=== PATIENT | female | born 1985 | race Two or more races ===

== ENCOUNTER 2021-08-03 10:33 | Outpatient (REF) | payer MEDICAID, SELFPAY ==
--- NOTE | ~2021-08-03 | XR_ITS ---
EXAMINATION: XR HIP, RIGHT CLINICAL INFORMATION: Right hip pain. COMPARISON: None TECHNIQUE: Two views of the right hip. FINDINGS: Bones and soft tissues are normal. No fracture. Alignment is anatomic. Hip joint space is maintained. XR/XR hip RT min 2V IMPRESSION: Unremarkable right hip.
== END 2021-08-03 10:34 | disposition home or self-care (01) ==
LOC: HO.XRAY 10:33
PROVIDERS: Absent Provider Nurse Practitioner Primary Care; PCP Nurse Practitioner Primary Care; Visit Provider Student in an Organized Health Care Education/Training Program
DX: M25.551 Pain in right hip (principal)
CPT/HCPCS: 73502

== ENCOUNTER 2021-12-04 09:23 | Outpatient (REF) | payer MEDICAID, SELFPAY ==
--- NOTE | ~2021-12-04 | XR_ITS ---
EXAMINATION: XR KNEE, RIGHT CLINICAL INFORMATION: Right knee pain. COMPARISON: None TECHNIQUE: Four views of the right knee. FINDINGS: There is no evidence of acute fracture or dislocation of the right knee. Right knee joint spaces are maintained. Bony density about the medial aspect of distal femur is seen consistent with previous medial collateral ligament injury. XR/XR knee RT 4V IMPRESSION: Evidence for old right medial collateral ligament injury without acute abnormality of the right knee identified.
== END 2021-12-04 09:24 | disposition home or self-care (01) ==
LOC: HO.XRAY 09:23
PROVIDERS: PCP Nurse Practitioner Primary Care; Visit Provider Nurse Practitioner Primary Care
DX: M25.561 Pain in right knee (principal)
CPT/HCPCS: 73564

== ENCOUNTER 2022-09-15 14:39 | Outpatient (REF) | payer MEDICAID, SELFPAY ==
--- NOTE | ~2022-09-15 | MM_ITS ---
EXAMINATION: MM DIAGNOSTIC DIGITAL BREAST TOMOSYNTHESIS, BILATERAL US DIAGNOSTIC ULTRASOUND BREAST, RIGHT CLINICAL INFORMATION: 36-year-old with chronic intermittent sometimes cyclical lateral right breast pain. No palpable mass or discharge. The lifetime risk of breast cancer based on the Tyrer-Cuzick Model is 8%. COMPARISON: None. TECHNIQUE: Digital breast tomosynthesis is performed in both the craniocaudal and mediolateral oblique views along with computer-aided detection (CAD). Synthesized 2D images are generated from the tomosynthesis. Ultrasound right breast is targeted to the area of clinical concern outer breast. Grayscale imaging and color Doppler are performed without and with harmonics. FINDINGS: There are scattered areas of fibroglandular density (ACR BI-RADS breast composition Category b). There is no significant mass or architectural abnormality. No abnormal calcifications. The axilla are unremarkable. The skin contours are smooth. No skin thickening or coarsening of the Chintan's ligaments. Ultrasound right breast demonstrates no cystic or solid mass or architectural abnormality. No skin thickening or edema tracking in soft tissue planes. Results are discussed with the patient at time of visit. MM/MM tomosynthesis diagnostic BI IMPRESSION: -No mammographic evidence of malignancy or inflammatory changes. -Unremarkable targeted right breast ultrasound. ASSESSMENT: BI-RADS 1: Negative RECOMMENDATION: 1. Patient should be managed based on the clinical impression. 2. Otherwise, routine annual screening mammography, beginning age 40, or earlier as clinical risk factors warrant. This patient's information was entered into a reminder system with a target due date for their next mammogram.
== END 2022-09-15 14:40 | disposition home or self-care (01) ==
LOC: HO.MAMMO 14:39
PROVIDERS: PCP Advanced Practice Midwife; Visit Provider Advanced Practice Midwife
DX: N63.13 Unspecified lump in the right breast, lower outer quadrant (principal)
CPT/HCPCS: 76642; 77062; 77066

== ENCOUNTER 2022-09-16 12:10 | Outpatient (REF) | payer MEDICAID, SELFPAY | END 2022-09-16 12:11 | disposition home or self-care (01) | LOC: HO.HOSX 12:10 | PROVIDERS: Visit Provider Physician Assistant | DX: Z13.89 Encounter for screening for other disorder (principal) ==

== ENCOUNTER 2022-09-23 06:49 | Outpatient (REF) | payer MEDICAID, SELFPAY ==
--- NOTE | ~2022-09-23 | XR_ITS ---
EXAMINATION: XR KNEE BILATERAL CLINICAL INFORMATION: Bilateral knee pain. COMPARISON: Right knee 12/04/2021. TECHNIQUE: AP bilateral knee and right knee 2 views and left knee 2 views. FINDINGS: AP BILATERAL KNEE: The medial and lateral compartment joint spaces are preserved. There is a small bone fragment adjacent to the medial femoral condyle similar to previous study likely from previous collateral ligament avulsion/injury. The joint space is maintained normal bilaterally. No loose bodies or bony erosive changes seen. The soft tissues are normal. LEFT KNEE: The patellofemoral compartment joint is preserved. No bony erosive changes, loose bodies or joint effusion seen. No fracture or dislocation. RIGHT KNEE: The patellofemoral compartment joint space is maintained normal. No bony erosive changes or loose body seen. The soft tissues are normal. XR/XR knee standing BI IMPRESSION: Small avulsion fragment along the medial femoral condyle right knee similar to previous study. It most likely represents medial collateral ligament avulsion injury or fracture. The rest of the right and left knee appears unremarkable.
--- NOTE | ~2022-09-23 | XR_ITS ---
EXAMINATION: XR KNEE BILATERAL CLINICAL INFORMATION: Bilateral knee pain. COMPARISON: Right knee 12/04/2021. TECHNIQUE: AP bilateral knee and right knee 2 views and left knee 2 views. FINDINGS: AP BILATERAL KNEE: The medial and lateral compartment joint spaces are preserved. There is a small bone fragment adjacent to the medial femoral condyle similar to previous study likely from previous collateral ligament avulsion/injury. The joint space is maintained normal bilaterally. No loose bodies or bony erosive changes seen. The soft tissues are normal. LEFT KNEE: The patellofemoral compartment joint is preserved. No bony erosive changes, loose bodies or joint effusion seen. No fracture or dislocation. RIGHT KNEE: The patellofemoral compartment joint space is maintained normal. No bony erosive changes or loose body seen. The soft tissues are normal. XR/XR knee LT 2V IMPRESSION: Small avulsion fragment along the medial femoral condyle right knee similar to previous study. It most likely represents medial collateral ligament avulsion injury or fracture. The rest of the right and left knee appears unremarkable.
--- NOTE | ~2022-09-23 | XR_ITS ---
EXAMINATION: XR KNEE BILATERAL CLINICAL INFORMATION: Bilateral knee pain. COMPARISON: Right knee 12/04/2021. TECHNIQUE: AP bilateral knee and right knee 2 views and left knee 2 views. FINDINGS: AP BILATERAL KNEE: The medial and lateral compartment joint spaces are preserved. There is a small bone fragment adjacent to the medial femoral condyle similar to previous study likely from previous collateral ligament avulsion/injury. The joint space is maintained normal bilaterally. No loose bodies or bony erosive changes seen. The soft tissues are normal. LEFT KNEE: The patellofemoral compartment joint is preserved. No bony erosive changes, loose bodies or joint effusion seen. No fracture or dislocation. RIGHT KNEE: The patellofemoral compartment joint space is maintained normal. No bony erosive changes or loose body seen. The soft tissues are normal. XR/XR knee RT 1V IMPRESSION: Small avulsion fragment along the medial femoral condyle right knee similar to previous study. It most likely represents medial collateral ligament avulsion injury or fracture. The rest of the right and left knee appears unremarkable.
== END 2022-09-23 06:50 | disposition home or self-care (01) ==
LOC: HO.HOSX 06:49
PROVIDERS: Visit Provider Physician Assistant
DX: S83.8X1A Sprain of other specified parts of right knee, initial encounter (principal); M25.562 Pain in left knee
CPT/HCPCS: 73560; 73565; 99202

== ENCOUNTER 2022-09-30 14:53 | Outpatient (REF) | payer MEDICAID, SELFPAY ==
--- NOTE | ~2022-09-30 | MR_ITS ---
EXAMINATION: MR KNEE WITHOUT CONTRAST, RIGHT CLINICAL INFORMATION: Right knee pain following a fall 4 weeks ago. COMPARISON: Right knee radiographs dated 09/23/2022. TECHNIQUE: MRI of the knee without contrast was performed using routine sequences on a high-field scanner. FINDINGS: MENISCI: Medial Meniscus: Intact Lateral Meniscus: Intact LIGAMENTS: Cruciate: Intact Collateral: Thickening of the medial collateral ligament consistent with a remote injury. The previous CT seen calcification on the radiographs is not appreciated on MR examination. No edema to suggest acute ligament injury. Intact fibular collateral ligament. EXTENSOR MECHANISM: Intact quadriceps and patellar tendons. Normal patellofemoral alignment. ARTICULAR CARTILAGE/BONE: Patellofemoral Compartment: Intact articular cartilage. Medial Compartment: Intact articular cartilage. Lateral Compartment: Intact articular cartilage. JOINT FLUID AND BURSAE: Trace joint effusion. MR/MR knee RT wo con IMPRESSION: 1. No acute meniscal or ligamentous injury. 2. Trace joint effusion.
== END 2022-09-30 14:54 | disposition home or self-care (01) ==
LOC: HO.MRI 14:53
PROVIDERS: Visit Provider Physician Assistant
DX: M17.11 Unilateral primary osteoarthritis, right knee (principal); S83.8X1A Sprain of other specified parts of right knee, initial encounter; M22.41 Chondromalacia patellae, right knee
CPT/HCPCS: 73721

== ENCOUNTER → 2022-10-06 10:52 | Outpatient (BNVA) | payer MEDICAID, SELFPAY | PROVIDERS: PCP Advanced Practice Midwife; Visit Provider Physician Assistant | DX: M17.11 Unilateral primary osteoarthritis, right knee (principal) | CPT/HCPCS: 99202 ==

== ENCOUNTER → 2022-11-12 14:07 | Outpatient (BNVA) | payer MEDICAID, SELFPAY | PROVIDERS: PCP Nurse Practitioner Primary Care; Referring Provider Nurse Practitioner Primary Care; Visit Provider Physician Assistant | DX: Z13.89 Encounter for screening for other disorder (principal) ==

== ENCOUNTER 2022-11-24 11:00 | Outpatient (RCR) | payer MEDICAID, SELFPAY ==
--- NOTE | 2022-10-29 16:33 | MHC.PT.EP ---
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 Pt REPORTS SHE HAS HAD 3 FALLS, THE LAST ONE 2 MONTHS AGO. Pt NOT SURE WHY SHE FELL REPORTS SHE FEELS LIKE HER R KNEE IS NOT STRONG IT WAS BEFORE THE LAST FALL. TO MD/ORTHO AND REFERRED TO PT. WHEN SAW ORTHO ON 10/06/22 A CORTISONE INJECTION WAS OFFERED, BUT Pt DEFERRED. Pt PRESENTS TO PT WITH GOOD R KNEE ROM AND STRENGTH PER MMT. Pt WITH POOR LE POSTURE (GENU VALGUS, RECURVATUM AND PES PLANUS). SHOULD BENEFIT FROM PT TO ADDRESS THESE ISSUES. MAY BENEFIT FROM [facility] SUPPORTS Frequency and Duration: The patient will be seen 2X/WK X 4 WKS Short Term Goals: 1. INCREASED AWARENESS R KNEE CARE 2. 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 I HEP WITH DC EX PLAN 2. DECREASED R KNEE PAIN AT LEAST 50% WITH ADLS Treatment Plan: Modalities to reduce pain, spasms and effusion. Manual therapy to restore motion and function. Therapeutic exercise to improve strength and flexibility. Neuromuscular re-education for posture and balance. Therapeutic activities to return to functional activities of daily living. Electronically signed by: LAUREL MAHAJAN PT Please sign and return to therapist. Thank you for your referral.
--- NOTE | 2023-02-04 12:41 | MHC.PT.DC ---
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 She did well with the addition of unlevel surfaces. With lateral step overs on BOSU she reports midl pain in lateral knee around patella. Due to this pain modalities were utilized end of session.'. NO FURTHER APPTS SCHEDULED Electronically signed by: LAUREL MAHAJAN PT Please sign and return to therapist. Thank you for your referral.
== END 2023-02-04 12:42 | disposition home or self-care (01) ==
LOC: HO.PT 11:00
PROVIDERS: PCP Nurse Practitioner Primary Care; Visit Provider Physician Assistant
DX: S83.8X1A Sprain of other specified parts of right knee, initial encounter (principal); M22.40 Chondromalacia patellae, unspecified knee
CPT/HCPCS: 97110; 97112; 97140; 97161; 97530

== ENCOUNTER → 2022-11-26 09:45 | Outpatient (BNVA) | payer MEDICAID, SELFPAY | PROVIDERS: PCP Nurse Practitioner Primary Care; Visit Provider Physician Assistant Surgical | DX: E66.9 Obesity, unspecified (principal); Z68.39 Body mass index [BMI] 39.0-39.9, adult | CPT/HCPCS: 99202 ==

== ENCOUNTER 2022-12-03 10:54 | Outpatient (REF) | payer MEDICAID, SELFPAY ==
--- NOTE | ~2022-12-03 | XR_ITS ---
EXAMINATION: XR CHEST 2 VIEWS CLINICAL INFORMATION: Obesity. COMPARISON: None. TECHNIQUE: Frontal and lateral views of the chest were obtained. FINDINGS: The heart, great vessels, pulmonary vasculature and mediastinum are normal. The lungs show no focal infiltrate, effusion or pneumothorax. There is no acute osseous abnormality. XR/XR chest 2V IMPRESSION: No active cardiopulmonary disease.
[2022-12-03 11:17] LABS: MANUAL DIFF FLAG NO
--- NOTE | 2022-12-03 12:04 | ECG_ITS ---
Test Reason : obesity Blood Pressure : / mmHG Vent. Rate : 078 BPM Atrial Rate : 078 BPM P-R Int : 164 ms QRS Dur : 082 ms QT Int : 378 ms P-R-T Axes : 016 061 032 degrees QTc Int : 430 ms Normal sinus rhythm Normal ECG No previous ECGs available Referred By: Sp Bradley Electronically Signed By:Braden Antunez
[2022-12-03 12:30] LABS: Basophils Percent Auto 0.1 % (0-2); Eosinophils Absolute Auto 0.1 X10*3/uL (0.0-0.4); Eosinophils Percent Auto 0.7 % (0-4); Hematocrit 42.8 % (37.0-47.0); Hemoglobin 13.6 g/dl (12.0-16.0); Imm Gran Abs Auto 0.02 X10*3/uL (0.00-0.03); Imm Gran Pct Auto 0.3 % (0.0-0.4); Lymphocytes Absolute Auto 2.4 X10*3/uL (1.2-4.9); Lymphocytes Percent Auto 32.6 % (20-40); Mean Corpuscular HGB Conc 31.8 g/dl (31.0-35.0); Mean Corpuscular Hemoglobin 27.5 pg (27.0-33.0); Mean Corpuscular Volume 86.6 fL (80.0-98.0); Mean Platelet Volume 11.4 fL (9.4-12.3); Monocytes Absolute Auto 0.5 X10*3/uL (0.1-1.2); Neutrophils Absolute Auto 4.5 x10*3/uL (2.0-8.3); Neutrophils Percent Auto 60.3 % (45-73); Platelet Count 303 X10*3/uL (160-400); Red Blood Count 4.94 X10*6/uL (4.20-5.50); Red Cell Distribution Width 14.5 % (11.0-16.0); White Blood Count 7.5 X10*3/uL (4.8-10.8)
[2022-12-03 12:40] LABS: Estimated Average Glucose 108 mg/dL; Hemoglobin A1c % 5.4 %
[2022-12-03 13:04] LABS: Alanine Aminotransferase 17 U/L (0-31); Albumin Level 4.3 g/dL (3.5-5.0); Alkaline Phosphatase 73 U/L (39-117); Anion Gap 16 (12-20); Aspartate Amino Transferase 14 U/L (5-31); Bilirubin Total 0.4 mg/dL (0.0-1.0); Blood Urea Nitrogen 9 mg/dL (9-16); C Reactive Protein 0.34 mg/dL (< or = 0.50); Calcium 9.3 mg/dL (8.4-10.2); Carbon Dioxide 24 mmol/L (22-29); Chloride 107 mmol/L (96-108); Cholesterol 218 mg/dL; Estimated Glomerular Filt Rate > 60; Glucose Random 81 mg/dL (60-115); HDL Cholesterol 46 mg/dL; Iron 80 mcg/dL (30-160); LDL Cholesterol Calculated 153 mg/dl; Percent Iron Saturation 25 % (15-50); Potassium 4.5 mmol/L (3.3-5.1); Sodium 142 mmol/L (135-145); Total Iron Binding Capacity 319 mcg/dL (228-428); Total Protein 7.1 g/dL (6.5-8.0); Triglycerides 99 mg/dL; Unsaturated Iron Binding 239 ug/dL
[2022-12-03 13:37] LABS: Ferritin 44 ng/mL (10-122); Folate 12.5 ng/mL (> or = 4.0); Insulin 14 uU/mL (2-29); TSH reflex Free T4 1.08 uIU/mL (0.32-4.0); Vitamin B12 844 pg/mL (200-900); Vitamin D 25-OH Total 23.6 ng/mL (>30)
[2022-12-06 14:14] LABS: Calcium (PTHI) 9.4 mg/dL (8.6-10.2); PTHI 19 pg/mL (16-77)
[2022-12-07 23:59] LABS: Zinc 81 mcg/dL (60-130)
[2022-12-08 15:48] LABS: Vitamin A 55 mcg/dL (38-98)
[2022-12-11 17:49] LABS: Vitamin B1 <6 nmol/L (8-30)
== END 2022-12-03 10:55 | disposition home or self-care (01) ==
LOC: HO.LAB 10:54
PROVIDERS: PCP Nurse Practitioner Primary Care; Visit Provider Physician Assistant Surgical
DX: E66.9 Obesity, unspecified (principal)
CPT/HCPCS: 36415; 71046; 80053; 80061; 82306; 82607; 82728; 82746; 83036; 83525; 83540; 83970; 84425; 84443; 84590; 84630; 85025; 86140; 93005

== ENCOUNTER → 2022-12-10 09:54 | Outpatient (BNVA) | payer MEDICAID, SELFPAY | PROVIDERS: PCP Nurse Practitioner Primary Care; Visit Provider Dietitian, Registered | DX: E66.9 Obesity, unspecified (principal); Z71.3 Dietary counseling and surveillance | CPT/HCPCS: 97802 ==

== ENCOUNTER → 2022-12-23 13:47 | Outpatient (BNVA) | payer MEDICAID, SELFPAY | PROVIDERS: PCP Nurse Practitioner Primary Care; Visit Provider Physician Assistant Surgical | DX: Z11.0 Encounter for screening for intestinal infectious diseases (principal); E66.9 Obesity, unspecified; Z68.37 Body mass index [BMI] 37.0-37.9, adult | CPT/HCPCS: 99211; 99212 ==

== ENCOUNTER 2022-12-23 16:57 | Outpatient (REF) | payer MEDICAID, SELFPAY ==
[2022-12-24 13:46] LABS: H Pylori Breath Test Negative (Negative)
== END 2022-12-23 16:58 | disposition home or self-care (01) ==
LOC: HO.LNP 16:57
PROVIDERS: Visit Provider Physician Assistant Surgical
DX: E66.9 Obesity, unspecified (principal); Z11.0 Encounter for screening for intestinal infectious diseases
CPT/HCPCS: 83013

== ENCOUNTER → 2023-01-05 09:37 | Outpatient (BNVA) | payer MEDICAID, SELFPAY | PROVIDERS: PCP Nurse Practitioner Primary Care; Visit Provider Dietitian, Registered | DX: E66.9 Obesity, unspecified (principal); Z71.3 Dietary counseling and surveillance | CPT/HCPCS: 97803 ==

== ENCOUNTER → 2023-01-12 15:57 | Outpatient (BNVA) | payer MEDICAID, SELFPAY | PROVIDERS: PCP Nurse Practitioner Primary Care; Visit Provider Physician Assistant Surgical | DX: E66.9 Obesity, unspecified (principal); Z68.36 Body mass index [BMI] 36.0-36.9, adult | CPT/HCPCS: 99212 ==

== ENCOUNTER 2023-01-24 07:41 | Outpatient (REF) | payer MEDICAID, SELFPAY ==
--- NOTE | ~2023-01-24 | US_ITS ---
EXAMINATION: US COMPLETE ABDOMEN WITH LIVER ELASTOGRAPHY CLINICAL INFORMATION: Obesity. COMPARISON: None available. TECHNIQUE: Real-time imaging of the abdominal viscera. Noninvasive ultrasound liver fibrosis assessment is performed using Adriana ElastPQ point quantification shear wave elastography (2D-SWE) with a C5-2 MHz transducer. Multiple elastography samples are obtained. FINDINGS: PANCREAS: Normal. The visualized pancreatic head and body are normal in appearance. The remainder of the pancreas is obscured from visualization by the overlying bowel gas. ABDOMINAL AORTA: The proximal, middle, and distal aortic segments are normal in caliber. INFERIOR VENA CAVA: Visualized portions are normal. LIVER: The liver demonstrates normal size, contour and slight increase in echogenicity. No focal lesion or intrahepatic biliary duct dilatation. The right lobe measures 16.7 cm in length. The left lobe measures 12.1 cm in length. Portal flow is towards the liver (hepatopetal). Shear wave liver elastography median stiffness is 1.3 m/s (reference: normal median stiffness is 1.3 m/s or less). IQR/median stiffness to assess sampling precision is 0.03 (reference: good quality data set is IQR/median stiffness of 0.15 or less). GALLBLADDER: There are small cholesterol polyps, the largest measuring 5 mm. The gallbladder is physiologically distended without evidence of stones, sludge, wall thickening or pericholecystic fluid. COMMON BILE DUCT: Normal in caliber measuring 0.3 cm in diameter. RIGHT KIDNEY: Normal. No hydronephrosis. No renal calculi or focal parenchymal lesions. The kidney measures 11.4 cm in maximum dimension. LEFT KIDNEY: Normal. No hydronephrosis. No renal calculi or focal parenchymal lesions. The kidney measures 10.5 cm in maximum dimension. SPLEEN: Normal. The spleen measures 10.5 cm in maximum dimension. FREE FLUID: None. US/US abdomen comp w elastography IMPRESSION: 1. There is slight generalized increase in hepatic echotexture, consistent with fatty infiltration or hepatocellular disease. Please correlate clinically. No focal hepatic mass or intrahepatic biliary dilatation is seen. 2. Liver elastography: Measurements are consistent with a high probability of normal liver stiffness. 3. Small cholesterol polyps are seen, the largest measuring 5 mm. Recommend repeat abdominal ultrasound in 6 months to ensure stability of this finding. REFERENCE: Society of Radiologists in Ultrasound Liver Stiffness Thresholds (2020): LIVER STIFFNESS THRESHOLDS: *Liver Stiffness equal or less than 1.3 m/s: High probability of being normal. *Liver Stiffness less than 1.7 m/s: In the absence of other known clinical signs, rules out compensated advanced chronic liver disease. *Liver Stiffness 1.7-2.1 m/s: Suggestive of compensated advanced chronic liver disease but need further test for confirmation. *Liver Stiffness over 2.1 m/s: Rules in compensated advanced chronic liver disease. *Liver Stiffness over 2.4 m/s: Suggestive of clinically significant portal hypertension. QUALITY OF DATA SET: *IQR/Median value equal or less than 0.15 implies a quality data set. *IQR/Median value over 0.15 implies a poor quality data set. SIGNIFICANT CHANGE FROM PRIOR EXAM: Significant change if liver stiffness measurement is 10% or greater from prior exam. OTHER CONSIDERATIONS: The stage of liver fibrosis may be overestimated in the setting of acute hepatitis, liver inflammation, elevated liver function tests, hepatic vascular congestion, obstructive cholestasis, non-fasting state, and infiltrative diseases such as amyloidosis and lymphoma. In some patients with NAFLD, the liver stiffness thresholds for compensated advanced chronic liver disease may be lower. In causes other than viral hepatitis and NAFLD, liver stiffness thresholds are not well established.
--- NOTE | ~2023-01-24 | FL_ITS ---
EXAMINATION: XR FLUOROSCOPY UPPER GI WITH AIR CLINICAL INFORMATION: Obesity. COMPARISON: None available. TECHNIQUE: Routine upper GI air-contrast study was performed in upright and lying position. FINDINGS: Following oral administration of thick barium and effervescent granules there is normal propagation of bolus from the oral cavity through the pharynx, esophagus into stomach without any evidence of obstruction, narrowing or stricture. On placing patient supine and prone lying there is moderate gastroesophageal reflux without hiatal hernia. Otherwise rest of the course, caliber and peristalsis of the stomach and the duodenal bulb and the sweep is normal. The mucosal pattern of the stomach and duodenum is normal. FLUOROSCOPY TIME: 1.2 minutes. DOSE AREA PRODUCT: 29.942 uGy-m2 (microgray-meter squared). FL/FL upper GI w air IMPRESSION: Moderate gastroesophageal reflux with small hiatal hernia.
== END 2023-01-24 07:42 | disposition home or self-care (01) ==
LOC: HO.US 07:41
PROVIDERS: PCP Nurse Practitioner Primary Care; Visit Provider Physician Assistant Surgical
DX: Z01.818 Encounter for other preprocedural examination (principal); E66.9 Obesity, unspecified; K21.9 Gastro-esophageal reflux disease without esophagitis
CPT/HCPCS: 74246; 76705; 76981

== ENCOUNTER → 2023-01-25 10:08 | Outpatient (BNVA) | payer MEDICAID, SELFPAY | PROVIDERS: PCP Nurse Practitioner Primary Care; Visit Provider Dietitian, Registered | DX: E66.9 Obesity, unspecified (principal); Z68.36 Body mass index [BMI] 36.0-36.9, adult | CPT/HCPCS: 97803 ==

== ENCOUNTER → 2023-02-03 10:49 | Outpatient (BNVA) | payer MEDICAID, SELFPAY | PROVIDERS: PCP Nurse Practitioner Primary Care; Visit Provider Surgery | DX: E66.9 Obesity, unspecified (principal); E78.00 Pure hypercholesterolemia, unspecified; K76.0 Fatty (change of) liver, not elsewhere classified; K44.9 Diaphragmatic hernia without obstruction or gangrene; Z68.35 Body mass index [BMI] 35.0-35.9, adult | CPT/HCPCS: 99212 ==

== ENCOUNTER → 2023-02-04 10:29 | Outpatient (BNVA) | payer OTHER, MEDICAID, SELFPAY | PROVIDERS: PCP Nurse Practitioner Primary Care; Visit Provider Counselor Mental Health ==

== ENCOUNTER → 2023-02-15 15:43 | Outpatient (BNVA) | payer MEDICAID, SELFPAY | PROVIDERS: PCP Nurse Practitioner Primary Care; Visit Provider Physician Assistant Surgical | DX: E66.9 Obesity, unspecified (principal); Z68.35 Body mass index [BMI] 35.0-35.9, adult | CPT/HCPCS: 99212 ==

== ENCOUNTER → 2023-03-07 11:19 | Outpatient (BNVA) | payer OTHER, MEDICAID, SELFPAY | PROVIDERS: PCP Nurse Practitioner Primary Care; Visit Provider Counselor Mental Health ==

== ENCOUNTER → 2023-03-21 10:55 | Outpatient (BNVA) | payer MEDICAID, SELFPAY | PROVIDERS: PCP Nurse Practitioner Primary Care; Visit Provider Physician Assistant | DX: M17.11 Unilateral primary osteoarthritis, right knee (principal) | CPT/HCPCS: 20610; 99212; J1040 ==

== ENCOUNTER → 2023-03-22 08:53 | Outpatient (BNVA) | payer MEDICAID, SELFPAY | PROVIDERS: PCP Nurse Practitioner Primary Care; Visit Provider Surgery | DX: E66.9 Obesity, unspecified (principal); Z68.34 Body mass index [BMI] 34.0-34.9, adult; K76.0 Fatty (change of) liver, not elsewhere classified; E78.00 Pure hypercholesterolemia, unspecified; K44.9 Diaphragmatic hernia without obstruction or gangrene; M17.11 Unilateral primary osteoarthritis, right knee; M22.40 Chondromalacia patellae, unspecified knee; S83.8X1A Sprain of other specified parts of right knee, initial encounter | CPT/HCPCS: 99212 ==

== ENCOUNTER → 2023-04-11 14:45 | Outpatient (BNVA) | payer MEDICAID, SELFPAY | PROVIDERS: PCP Nurse Practitioner Primary Care; Visit Provider Physician Assistant Surgical ==

== ENCOUNTER → 2023-04-14 13:43 | Outpatient (BNVA) | payer MEDICAID, SELFPAY | PROVIDERS: PCP Nurse Practitioner Primary Care; Visit Provider Surgery | DX: E66.9 Obesity, unspecified (principal); E78.00 Pure hypercholesterolemia, unspecified; K76.0 Fatty (change of) liver, not elsewhere classified; K44.9 Diaphragmatic hernia without obstruction or gangrene; M22.40 Chondromalacia patellae, unspecified knee; M17.11 Unilateral primary osteoarthritis, right knee; Z68.34 Body mass index [BMI] 34.0-34.9, adult | CPT/HCPCS: 99212 ==

== ENCOUNTER 2023-04-26 09:16 | Outpatient (REF) | payer MEDICAID, SELFPAY ==
--- NOTE | ~2023-04-26 | XR_ITS ---
Examination: XR shoulder LT min 2V, XR shoulder RT min 2V Indication: Pain Comparison: No pertinent prior studies are currently available for comparison. Technique: 3 views of the left shoulder and 3 views of the right shoulder obtained. Findings: Left shoulder: Humeral head is well-seated in the glenoid fossa. Bones are normal anatomic alignment with no acute fracture or dislocation. No significant bony degenerative or destructive changes. Visualized left ribs and chest unremarkable. Right shoulder: Humeral head again well-seated in the glenoid fossa. No acute fracture or dislocation. No significant bony degenerative or destructive changes. Visualized right ribs and chest unremarkable XR/XR shoulder RT min 2V Impression: No acute fracture or dislocation.
--- NOTE | ~2023-04-26 | XR_ITS ---
Examination: XR shoulder LT min 2V, XR shoulder RT min 2V Indication: Pain Comparison: No pertinent prior studies are currently available for comparison. Technique: 3 views of the left shoulder and 3 views of the right shoulder obtained. Findings: Left shoulder: Humeral head is well-seated in the glenoid fossa. Bones are normal anatomic alignment with no acute fracture or dislocation. No significant bony degenerative or destructive changes. Visualized left ribs and chest unremarkable. Right shoulder: Humeral head again well-seated in the glenoid fossa. No acute fracture or dislocation. No significant bony degenerative or destructive changes. Visualized right ribs and chest unremarkable XR/XR shoulder LT min 2V Impression: No acute fracture or dislocation.
== END 2023-04-26 09:17 | disposition home or self-care (01) ==
LOC: HO.HOSX 09:16
PROVIDERS: Visit Provider Physician Assistant
DX: M75.81 Other shoulder lesions, right shoulder (principal); M75.82 Other shoulder lesions, left shoulder
CPT/HCPCS: 73030; 99213

== ENCOUNTER 2023-04-26 11:13 | Outpatient (AMB) | payer MEDICAID, SELFPAY ==
--- NOTE | 2023-04-26 11:18 | MHC.OFFVIS ---
Intake Vital Signs 04/26/23 11:33 Height 5 ft 2 in Weight 187 lb BMI 34.2 Intake Visit Reasons: Newprob-B/L shoulder pain Intake Note: Lupe, 37 year old right hand dominant female, presents today for a new problem visit with complaints of bilateral shoulder pain. States both are as bad at the moment. States pain started about 1 yr ago and was seen with her PCP who RX'd patient to P.T. States she completed her sessions and was offered more sessions but she refuse due to the therapist causing her increase of pain with exercise. Currently states she has pain with over use of shoulder and when she does heavy lifting. At times her neck is affected, has shooting pain radiating down her arm. States she is taking Naproxen with very little relief. 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 She was seen by her PCP who referred her to physical therapy. She has discontinued working with physical therapy as her pain was aggravated with exercises. She states she has pain in her bilateral shoulder with overuse and heavy lifting. She also c/o intermittent neck pain which radiates down to her arm. She is taking naproxen with minimal relief. [facility] Medical History Anemia Arthritis Asthma Delivery with history of Depression Elevated cholesterol Gastritis GERD (gastroesophageal reflux disease) Hiatal hernia Migraine Surgical History Hx of section Hx of tubal ligation Family History Mother Hypertension Arthritis Son Hyperactive Daughter No problems noted. Son No problems noted. 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 Tenderness over the bicipital groove and along the deltoid region of the shoulder. Forward flexion to 175, external rotation to 90, internal rotation to S1. 5/5 RTC strength. Negative [place] and cross body abduction. NVI. Results Reviewed Results Reviewed: Xrays were obtained in the office today and personally reviewed by me of both shoulders show type 2 acromion. Assessment & Plan Assessment & Plan (1) Tendonitis of both rotator cuffs: Code(s): M75.81 - Other shoulder lesions, right shoulder; M75.82 - Other shoulder lesions, left shoulder Plan: We discussed options today which include injection and therapy. We are going to hold off on steroid injections today because she is having bariatric surgery tomorrow. I told her when Dr Bell approves her on having an injection, she can contact me to proceed. Otherwise, she will work on a HEP and see me back prn. Orders: Orders XR shoulder LT min 2V Today M25.512 - Pain in left shoulder XR shoulder RT min 2V Today M25.511 - Pain in right shoulder Patient Instructions: Scribed for Mihir Ramirez PA-C, by Jensen Dove medical officer psychiatry, on 04/26/2023 at 11:00 AM EST. IMihir PA-C, have personally reviewed and agree with the information entered by the scribe. Coding Level of Care Code New Pt Level 3 (74654) Diagnoses Tendonitis of both rotator cuffs M75.81; M75.82
[2023-04-26 11:33] VITALS: BMI 34.2
== END 2023-04-26 12:15 | disposition home or self-care (01) ==
PROVIDERS: PCP Nurse Practitioner Primary Care; Visit Provider Physician Assistant
DX: M75.81 Other shoulder lesions, right shoulder (principal); M75.82 Other shoulder lesions, left shoulder
CPT/HCPCS: 99213

== ENCOUNTER 2023-04-27 08:11 | Inpatient (IN) | payer MEDICAID, SELFPAY ==
[2023-04-20 11:26] VITALS: BMI 34.2
[2023-04-21 09:39] LABS: Alanine Aminotransferase 11 U/L (0-31); Albumin Level 4.3 g/dL (3.5-5.0); Alkaline Phosphatase 78 U/L (39-117); Anion Gap 12 (12-20); Aspartate Amino Transferase 11 U/L (5-31); Bilirubin Total 0.5 mg/dL (0.0-1.0); Blood Urea Nitrogen 12 mg/dL (9-16); C Reactive Protein 2.33 mg/dL (< or = 0.50); Calcium 9.7 mg/dL (8.4-10.2); Carbon Dioxide 25 mmol/L (22-29); Chloride 105 mmol/L (96-108); Cholesterol 207 mg/dL; Creatinine Clr Calc Pharmacy 101.3; Estimated Glomerular Filt Rate > 60; Glucose Random 89 mg/dL (60-115); HDL Cholesterol 48 mg/dL; Iron 45 mcg/dL (30-160); LDL Cholesterol Calculated 147 mg/dl; Percent Iron Saturation 14 % (15-50); Potassium 3.9 mmol/L (3.3-5.1); Sodium 138 mmol/L (135-145); Total Iron Binding Capacity 313 mcg/dL (228-428); Total Protein 7.6 g/dL (6.5-8.0); Triglycerides 63 mg/dL; Unsaturated Iron Binding 268 ug/dL
[2023-04-21 10:00] LABS: Ferritin 55 ng/mL (10-122); TSH reflex Free T4 1.16 uIU/mL (0.32-4.0); Vitamin D 25-OH Total 59.5 ng/mL (>30)
[2023-04-25 12:48] LABS: Vitamin B1 52 nmol/L (8-30)
[2023-04-26 00:33] LABS: Zinc 64 mcg/dL (60-130)
--- NOTE | 2023-04-26 11:43 | MHC.SHP ---
Pre-Procedural Eval Section A Date of Service: 04/26/23 The patient is an INPATIENT: Yes The History & Physical has been completed within 30 days and I have reviewed it.: Yes Section B Chief Complaint: Obesity, unspecified Allergies: Allergies Allergy/AdvReac Type Severity Reaction Status Date / Time No Known Allergies Allergy Verified 04/26/23 11:34 Plan I have reviewed the history and physical and performed a pertinent physical examination on my patient. No changes have occurred unless specified. Time Spent With Patient Time: Total time managing care of this patient today ____ minutes.
[2023-04-26 12:36] LABS: COVID-19 Test Negative (Negative); IDNOW Serial# 08D9AD1C
[2023-04-26 22:13] LABS: Vitamin A 41 mcg/dL (38-98)
[2023-04-27] VITALS (16 sets, daily range): BP systolic 107–169; BP diastolic 51–90; PULSE 78–98; RESP 15–21; TEMP 36.2–37.1; O2SAT 95–100; BMI 36.6
--- NOTE | 2023-04-27 06:49 | W.PM.OPN ---
Operative Note Operative Note Date of Service: 04/27/23 Narrative: Preop diagnosis: [Obesity, Class 3, hypercholesterolemia, hiatal hernia, NAFLD, right knee arthritis related to obesity] Postop diagnosis: [Same, no obvious hiatal hernia] Procedure: [] Surgeon: Deepak Bell MD Assist: [Kerri Sahu PA-C] Anesthesia: [GET, local: Marcaine, 0.5% w/ epi] Estimated blood loss: [5cc] Specimen: [Portion of stomach with fundus] Intraoperative findings: [Careful evaluation of the hiatus did not demonstrate hiatal hernia, even when withdrawing the 40 Tog[place]ese bougie, no dimple was demonstrated; NAFLD] Indications: [The patient is a 37-year-old woman with class 3 obesity refractory to medical management. She states that she became concerned about her weight several years ago and entered the surgical weight loss program with a BMI of 40/weight of 218.6 lb with a comorbidities of arthritis, right knee related to her obesity, NAFLD, hiatal hernia and hypercholesterolemia.? She reports her highest weight is 234 lb.? She is congratulated on her interval weight. After demonstrating healthy lifestyle choices that resulted in weight loss, the option of continued medical management verses operative intervention was discussed at length and the patient seemed understand her options. She wanted to proceed with surgery, specifically a laparoscopic sleeve gastrectomy, possible hiatal hernia repair, intraoperative endoscopy and possible ventral hernia repair. I reviewed the inherent risks of this procedure which include, but are not limited to: Bleeding that could require another operation or blood transfusion; the inherent risks of transfusion reaction infectious disease from blood transfusions; the risk of staple line leaks that could cause sepsis, multi-system organ failure and ; the risk of mesenteric or deep vein thrombosis of the lower extremities that could cause a fatal pulmonary embolism was reviewed; the risk of GERD that could require conversion to gastric bypass was discussed; the risk of recurrent hiatal hernia, especially in the setting of weight regain was reviewed. The risk of weight regain if maladaptive eating and sedentary behavior continue was discussed. The importance of proper diet and increased activity to augment surgical weight loss and the fact that no operation would result in weight loss of poor dietary decisions and sedentary behavior are resumed were discussed at length and apparently understood. The patient had the option of having a health plan specialist present and declined this option. ] Procedure: [The patient was identified in the preoperative in the holding area and confirmed no interval change in her health; she declined interpretive services and had no questions. She was then brought into operating room 6 and the patient was placed supine on the operating table. Safety straps were utilized and a footboard utilized. The patient was induced in general endotracheal anesthesia administered with excellent effect. An appropriate time-out was performed. The patient's abdomen was then widely prepped and draped in the usual manner for surgery using chlorprep. Antibiotics per protocol were administered by Anesthesia. After infiltrating preemptive local in the skin and subcutaneous tissues in the left upper quadrant, a stab incision was made sharply in the left subcostal abdomen and the Veress needle inserted without incident. An appropriate drop test was performed then a pneumoperitoneum of 15 mmHg was obtained using carbon dioxide. Opening pressures were 7 mmHg. Next, a 5 mm 0 degree scope over a 5 mm Optiview trocar was used to access the abdomen via the epigastric incision in the midline. Once the abdomen was entered, the the trocar obturator was removed and the laparoscope was used to confirm there was no injury from the Veress needle nor trocar insertion injury to the bowel or mesentery, then the scope was switched to a 5 mm 45 degree laparoscope. Next, using preemptive local, additional 5 mm trocars were placed under direct laparoscopic vision on the patient's left abdomen, then right and the 5 mm midline trocar upsized to a 12 mm to accommodate the stapler. The patient was then positioned in reverse Trendelenburg and the liver retractor deployed through the right lateral 5 mm trocar and secured. A 40 [place] ViSiGi bougie was inserted by Anesthesia per os and advanced to the stomach to decompress. It was then withdrawn to the GE junction all under direct laparoscopic vision. Dissection was begun along the greater curvature using the 5 mm [place] LigaSure for hemostasis and continued to the left gurpreet of the diaphragm. Dissection was then carried towards the pylorus to 3-4 cm from the pylorus and retro gastric adhesions lysed. The gastroesophageal fat pad was carefully mobilized taking care to avoid injury to the esophagus and stomach and dissection carried towards the short gastrics taking care to avoid injury to the spleen and splenic artery. The diaphragmatic hiatus was carefully examined for a hernia, and no apparent hernia was appreciated. Next, the 40 Fr ViSiGi bougie was advanced by anesthesia under direct vision and laparoscopic guidance and positioned in the antrum approximately 3 cm from the pylorus using laparoscopic graspers to serve as a guide for a stapled sleeve gastrectomy. Stapling was performed with [place] power stapler Endo-KARLEY stapler with a purple 45 and then purple 45 and 60 loads. The bougie served as a guide to maintain the same sleeve caliber to avoid stricture & sleeve distortion. The 10 mm clip x ray examiner of aircraft was used to apply additional clips to the staple line. Care was taken to be sure that the sleeve laid flat and was without stricture. Once the sleeve was complete, the portion of stomach was placed in the lower abdomen to be sent for removal and permanent section. The staple line, gastrocolic omentum, spleen and short gastric areas were all inspected for hemostasis which was found to be good. The ViSiGi bougie used for a leak test by reducing the reverse Trendelenburg and instilling sterile saline. Next, the bougie was withdrawn under laparoscopic vision used to suction the esophagus and hypopharynx and then discarded. After inspecting again for hemostasis, a gastropexy was performed using 2-0 Polysorb suture to secure the sleeve gastrectomy to the gastrocolic omentum. Next, I broke scrub perform an on-table upper endoscopy to assess the sleeve and the esophagus and stomach. The patient was returned to neutral position and the Olympus 180 gastroscope was advanced taking care to preserve the endotracheal tube. The esophagus was intubated without incident. Minimal air was insufflated and the scope advanced into the newly formed sleeve. The staple line was inspected for hemostasis and the morphology of the sleeve appeared straight with a uniform diameter. Intraoperatively, there was no evidence of staple line leak seen during laparoscopy as air was insufflated via endoscope. The scope was then used to aspirate the air from the sleeve withdrawn and removed. I then rescrubbed to return to the operative field and again inspected the field for hemostasis. After final assessment for hemostasis, the patient was returned to neutral position, a Anne Marie used to withdraw the resected gastric specimen which was sent for permanent section. The fascia of the 12 mm midline was closed using an 0 Polysorb figure of 8 on a suture passer under direct laparoscopic vision. The abdomen was then deflated and all trocars removed. The suture was then tied and the skin closed with 4-0 Monocryl subcuticular sutures. The abdomen was then washed and dried, benzoin and Steri-Strips applied followed by Tegaderms. The patient tolerated the procedure well was then extubated the recover in stable condition. All sponge needle and instrument counts were correct x2. The patient requested that I call her daughter Slime Rogel at [phone] postoperatively and apprised of the operation and typical perioperative course. Her questions seemed to be satisfactorily answered. She stated that she understood Pashto & declined medical office scheduler.]
[2023-04-27] MEDS: Lactated Ringers 1,000 ML 150 ML IVCONT (09:11)
[2023-04-27] MEDS: Aprepitant 32 MG/4.4 ML VIAL IVPUSH (09:12)
--- NOTE | 2023-04-27 09:20 | PHA.MEDREC ---
Pharmacy Consult ? Medication Reconciliation Pharmacy has reviewed the medication reconciliation completed by nursing. Contacted [facility] to confirm medication dose. Nelsy Chua, MajoD
--- NOTE | 2023-04-27 09:38 | P.CONAN_ITS ---
[facility] Active Problems Active Problems: All Active Problems (Updated 04/26/23 @ 12:16 by Mihir Ramirez PA-C) Tendonitis of both rotator cuffs (Acute) Injury of meniscus of right knee (Acute) Patella, chondromalacia (Acute) Patellofemoral arthritis of right knee (Acute) Obesity (BMI 30-39.9) (Acute) Hypercholesterolemia (Acute) NAFLD (nonalcoholic fatty liver disease) (Acute) Hiatal hernia (Acute) Past Medical History Medical History Anemia Arthritis Asthma Delivery with history of Depression Elevated cholesterol Gastritis GERD (gastroesophageal reflux disease) Hiatal hernia Migraine Family History Family History Mother Hypertension Arthritis Son Hyperactive Daughter No problems noted. Son No problems noted. Family history of problems with anesthesia: No Surgical History Surgical History Hx of section Hx of tubal ligation History of Problems with Anesthesia: No Social History Social History Are you a primary customer care assistant to a significant other at home: Yes Do you presently have visiting nurse or other home services: No Alcohol intake: current Alcohol intake frequency: does not drink Patient Tobacco Use Status: Never used Tobacco Use of substances other than those prescribed or required for medical reasons: No Have you been hit, kicked, punched, or otherwise hurt by someone within the past year? 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 Meds Allergies Allergy/AdvReac Type Severity Reaction Status Date / Time No Known Allergies Allergy Verified 04/26/23 11:34 Active Medications: Current Medications Lactated Ringer's (Lr) 1,000 mls @ 150 mls/hr IVCONT .[id number] ANSLEY Last Admin: 04/27/23 09:11 Dose: 150 mls/hr Home Medications Medication Instructions Recorded Confirmed Last Taken Type albuterol sulfate 0.63 mg/3 mL 0.63 mg inhalation Q6H PRN Wheezing 09/23/22 04/20/23 04/27/23 07:30 History solution for nebulization montelukast 10 mg tablet 10 mg PO BEDTIME 09/23/22 04/20/23 Unknown History (Singulair) fluticasone propionate 50 1 spray intranasal BID 11/12/22 04/20/23 Unknown History mcg/actuation nasal spray,suspension levonorgestrel 21 mcg/24 hours (8 intrauterine 11/12/22 04/14/23 Unknown History yrs) 52 mg intrauterine device prazosin 1 mg capsule 1 mg PO BEDTIME 11/12/22 04/20/23 Unknown History naproxen 500 mg tablet 500 mg PO BID PRN Pain 04/20/23 04/20/23 Unknown History fluticasone furoate 100 1 inh inhalation DAILY 04/27/23 04/27/23 Unknown History mcg/actuation blister powder for inhalation (Arnuity Ellipta) lamotrigine 150 mg tablet 150 mg PO DAILY 04/27/23 04/27/23 04/27/23 07:30 History Exam Exam Date and Time: April 27, 2023 0938 Height,Weight and Vital Signs: Height 5 ft 2 in Weight 84.822 kg Last Vital Signs Temp 97.6 F 04/27/23 08:59 Pulse 80 04/27/23 08:59 Resp 16 04/27/23 08:59 BP 109/75 04/27/23 08:59 Pulse Ox 97 04/27/23 08:59 O2 Del Method Room Air 04/27/23 08:59 Pertinent Lab Results Pertinent Lab Results: Laboratory Tests 04/21/23 04/21/23 04/21/23 07:57 08:10 08:15 WBC 7.9 RBC 4.70 Hgb 13.2 Hct 40.6 MCV 86.4 MCH 28.1 MCHC 32.5 RDW 14.5 Plt Count 283 MPV 11.1 Immature Gran % (Auto) 0.3 Neut % (Auto) 67.6 Lymph % (Auto) 26.6 [place] % (Auto) 5.1 Eos % (Auto) 0.3 Baso % (Auto) 0.1 Lymph # (Auto) 2.1 [place] # (Auto) 0.4 Eos # (Auto) 0.0 Baso # (Auto) 0.0 Abs Immat Gran (auto) 0.02 Absolute Neuts (auto) 5.3 Absolute Nucleated RBC 0.000 Nucleated RBC % (auto) 0.0 PT INR APTT Sodium Potassium Chloride Carbon Dioxide Anion Gap BUN Creatinine Estim Creat Clear Calc Estimated GFR Random Glucose Estimat Average Glucose Hemoglobin A1c % Calcium Iron TIBC % Saturation Unsat Iron Binding Ferritin Total Bilirubin AST ALT Alkaline Phosphatase C-Reactive Protein Total Protein Albumin Triglycerides Cholesterol LDL Cholesterol, Calc HDL Cholesterol Vitamin A Cancelled Vitamin B1 Cancelled Vitamin B12 25-OH Vitamin D Total TSH PTH Intact Calcium (PTH Intact) Cancelled Chem Test Zinc COVID-19 ([facility]) [employer] Blood Type A Positive Antibody Screen NEGATIVE 04/21/23 04/21/23 04/21/23 08:15 08:15 08:15 WBC RBC Hgb Hct MCV MCH MCHC RDW Plt Count MPV Immature Gran % (Auto) Neut % (Auto) Lymph % (Auto) [place] % (Auto) Eos % (Auto) Baso % (Auto) Lymph # (Auto) [place] # (Auto) Eos # (Auto) Baso # (Auto) Abs Immat Gran (auto) Absolute Neuts (auto) Absolute Nucleated RBC Nucleated RBC % (auto) PT 12.3 INR 1.1 APTT 30.4 Sodium 138 Potassium 3.9 Chloride 105 Carbon Dioxide 25 Anion Gap 12 BUN 12 Creatinine 0.76 Estim Creat Clear Calc 101.3 Estimated GFR > 60 Random Glucose 89 Estimat Average Glucose 97 Hemoglobin A1c % 5.0 Calcium 9.7 Iron 45 TIBC 313 % Saturation 14 L Unsat Iron Binding 268 Ferritin 55 Total Bilirubin 0.5 AST 11 ALT 11 Alkaline Phosphatase 78 C-Reactive Protein 2.33 H Total Protein 7.6 Albumin 4.3 Triglycerides 63 Cholesterol 207 LDL Cholesterol, Calc 147 HDL Cholesterol 48 Vitamin A Vitamin B1 Vitamin B12 25-OH Vitamin D Total 59.5 TSH 1.16 PTH Intact Calcium (PTH Intact) Cancelled Chem Test Cancelled Zinc COVID-19 ([facility]) [employer] Blood Type Antibody Screen 04/21/23 04/21/23 04/21/23 08:15 08:15 08:15 WBC RBC Hgb Hct MCV MCH MCHC RDW Plt Count MPV Immature Gran % (Auto) Neut % (Auto) Lymph % (Auto) [place] % (Auto) Eos % (Auto) Baso % (Auto) Lymph # (Auto) [place] # (Auto) Eos # (Auto) Baso # (Auto) Abs Immat Gran (auto) Absolute Neuts (auto) Absolute Nucleated RBC Nucleated RBC % (auto) PT INR APTT Sodium Potassium Chloride Carbon Dioxide Anion Gap BUN Creatinine Estim Creat Clear Calc Estimated GFR Random Glucose Estimat Average Glucose Hemoglobin A1c % Calcium Iron TIBC % Saturation Unsat Iron Binding Ferritin Total Bilirubin AST ALT Alkaline Phosphatase C-Reactive Protein Total Protein Albumin Triglycerides Cholesterol LDL Cholesterol, Calc HDL Cholesterol Vitamin A Vitamin B1 Vitamin B12 697 25-OH Vitamin D Total TSH PTH Intact Cancelled Calcium (PTH Intact) Cancelled Cancelled Chem Test Zinc Cancelled COVID-19 ([facility]) [facility] Blood Type Antibody Screen 04/21/23 04/21/23 04/21/23 08:15 08:15 10:30 WBC RBC Hgb Hct MCV MCH MCHC RDW Plt Count MPV Immature Gran % (Auto) Neut % (Auto) Lymph % (Auto) [place] % (Auto) Eos % (Auto) Baso % (Auto) Lymph # (Auto) [place] # (Auto) Eos # (Auto) Baso # (Auto) Abs Immat Gran (auto) Absolute Neuts (auto) Absolute Nucleated RBC Nucleated RBC % (auto) PT INR APTT Sodium Potassium Chloride Carbon Dioxide Anion Gap BUN Creatinine Estim Creat Clear Calc Estimated GFR Random Glucose Estimat Average Glucose Hemoglobin A1c % Calcium Iron TIBC % Saturation Unsat Iron Binding Ferritin Total Bilirubin AST ALT Alkaline Phosphatase C-Reactive Protein Total Protein Albumin Triglycerides Cholesterol LDL Cholesterol, Calc HDL Cholesterol Vitamin A 41 Vitamin B1 52 H Vitamin B12 25-OH Vitamin D Total TSH PTH Intact 63 Calcium (PTH Intact) 9.4 Cancelled Chem Test Zinc 64 COVID-19 ([facility]) [employer] [facility] [employer] [facility] Blood Type Antibody Screen 04/26/23 12:07 WBC RBC Hgb Hct MCV MCH MCHC RDW Plt Count MPV Immature Gran % (Auto) Neut % (Auto) Lymph % (Auto) [place] % (Auto) Eos % (Auto) Baso % (Auto) Lymph # (Auto) [place] # (Auto) Eos # (Auto) Baso # (Auto) Abs Immat Gran (auto) Absolute Neuts (auto) Absolute Nucleated RBC Nucleated RBC % (auto) PT INR APTT Sodium Potassium Chloride Carbon Dioxide Anion Gap BUN Creatinine Estim Creat Clear Calc Estimated GFR Random Glucose Estimat Average Glucose Hemoglobin A1c % Calcium Iron TIBC % Saturation Unsat Iron Binding Ferritin Total Bilirubin AST ALT Alkaline Phosphatase C-Reactive Protein Total Protein Albumin Triglycerides Cholesterol LDL Cholesterol, Calc HDL Cholesterol Vitamin A Vitamin B1 Vitamin B12 25-OH Vitamin D Total TSH PTH Intact Calcium (PTH Intact) Cancelled Chem Test Zinc COVID-19 ([facility]) Negative COVID-19 Clin Com See Note Blood Type Antibody Screen Airway Mallampati Class: III TM Dist: >3cm Neck ROM: Full Assessment and Plan Assessment Anesthesia Assessment: Anesthesia Plan Discussed and Chart Reviewed Final Anesthetic Review Family History of Problems with Anesthesia: No History of Problems with Anesthesia: No NPO: Yes ASA Class: III Final Preanesthetic Review: No Changes in Pt Med Stat, Meds/Allgs Chart Rev iewed, Consent Obtained/Reviewed and Anes Risks/Benef Reviewed Patient Risk: Intermediate Procedure Risk: Intermediate Anesthetic Plan Anesthetic Plan: GA Disposition: Standard PACU
--- NOTE | 2023-04-27 12:49 | P.DS_ITS ---
DS: Providers Provider Date of Service: 04/28/23 Date of admission: 04/27/23 08:11 Primary care physician: Carina Munoz NP DS: Summary Hospital Course Hospital Course: ADMITTING DIAGNOSIS: obesity, NAFLD, HLD ? DISCHARGE DIAGNOSIS: same, s/p laparoscopic sleeve gastrectomy and gastropexy ? PAST SURGICAL HISTORY:? ? PROCEDURE: upper endoscopy, laparoscopic sleeve gastrectomy and gastropexy ? DISCHARGE SUMMARY: ? History of Present Illness: ? The patient is a?37? year-old woman with a BMI of? ?34.2 ? kg/m2 and associated co-morbidities as described above. The patient had extensive work-up, lost? 31.6 ? lbs preoperatively and was electively scheduled for laparoscopic, possible open sleeve gastrectomy and gastropexy. Risks and complications of the surgery were discussed with the patient in advance, particularly the possibility of , pulmonary embolism, anastomotic leak, bleeding, bowel injury, GERD, cardiac, renal or pulmonary complications. The patient understood all the risks and was in agreement with the surgical plan. ? Hospital Course: ? The patient underwent an uneventful laparoscopic sleeve gastrectomy with gastropexy on the day of admission. Postoperatively, the patient was transferred to the surgical floor. The patient received IV Acetaminophen and IV dilaudid for pain control. Patient was started on bariatric phase 1 diet POD #0. On postoperative day one, the patient was feeling well without nausea, vomiting, fevers, or tachycardia. The patient had some mild incisional pain and the abdomen was soft.? ? On the morning of postoperative day one, the patient was continued on 1 ounce of water or ice every half hour. During the day, the patient did fairly well, having some incisional pain, but able to ambulate adequately and to tolerate liquids well. ? Since the patient is doing well, we decided that the patient was ready to be discharged. The patient was given instructions to follow-up with me next week and to call my office for any fever over 101, persistent abdominal pain, nausea, vomiting, GERD, symptoms of DVT such as calf tenderness, or leg swelling, or pulmonary embolism such as chest pain or shortness of breath.? The patient was also instructed to drink 40-60 ounces of liquids per day using the 1-ounce cups. The patient had been given prescriptions for Tylenol for pain, Zofran prn for nausea, and pantoprazole and carafate previously. The patient was encouraged to ambulate and use the incentive spirometer. The patient was allowed to shower, but no baths, and encouraged to stay active at home. All of these instructions were given to the patient personally. All questions were answered and the patient understood all instructions, the instructions were also given to the patient in print. Time Spent with Patient Time attestation: Total time managing care of this patient today ____ minutes. Discharge coordination time: Less than 30 minutes Quality: Safe Use of Opioids Does Pt have an Active Cancer Diagnosis on the Problem List?: No Quality: Stroke Does the patient have a stroke diagnosis?: No Physical Exam Vital Signs: Vital Signs: Last Vital Signs Temp 97.7 F 04/27/23 12:42 Pulse 78 04/27/23 12:47 Resp 17 04/27/23 12:47 BP 114/58 L 04/27/23 12:47 Pulse Ox 100 04/27/23 12:47 O2 Del Method Simple Mask 04/27/23 12:47 O2 Flow Rate 6 04/27/23 12:47 BMI result Body Mass Index 34.2 DS: Data Data Completed and Pending Pending studies at discharge: Pending at discharge 04/27/23 12:13 Surgical [PTH] Routine Labs on day of discharge: Laboratory Results - last 24 hr 04/21/23 10:30 Vitamin A 41 Discharge Plan Discharge Anticipated Discharge Date/Time: 04/27/23 10:00 Patient Disposition: Home, Self-Care Discharge Diagnosis: obesity s/p laparoscopic sleeve gastrectomy Referrals: Carina Munoz, PROGRAM DIRECTOR [employer]ABLE TELEVISION [Primary Care Provider] - 1 Week Discharge Medications: Continued acetaminophen 500 mg/15 mL liquid 500 mg PO Q6H PRN (Reason: fever or pain) Qty: 237 2RF lamotrigine 150 mg Tablet 150 mg PO DAILY Arnuity Ellipta 100 mcg/actuation Blister With Device 1 inh INHALATION DAILY montelukast [Singulair] 10 mg tablet 10 mg PO BEDTIME albuterol sulfate 0.63 mg/3 mL solution for nebulization 0.63 mg inhalation Q6H PRN (Reason: Wheezing) fluticasone propionate 50 mcg/actuation spray,suspension 1 spray intranasal BID Rx Instructions: administer into each nostril levonorgestrel 20 mcg/24 hours (8 yrs) 52 mg intrauterine device intrauterine sennosides [senna] 8.6 mg tablet 17.2 mg PO BEDTIME PRN (Reason: constipation) 90 Days Qty: 180 0RF ondansetron HCl 4 mg tablet 4 mg PO Q6H PRN (Reason: nausea and vomiting) Qty: 20 0RF pantoprazole 40 mg tablet,delayed release (DR/EC) 40 mg PO QAM 30 Days Qty: 30 2RF sucralfate 100 mg/mL suspension 10 ml PO BID 30 Days Qty: 600 2RF Discontinued thiamine HCl (vitamin B1) 100 mg tablet 100 mg PO DAILY Qty: 90 0RF cholecalciferol (vitamin D3) 125 mcg (5,000 unit) capsule 125 mcg PO DAILY Qty: 90 0RF naproxen 500 mg Tablet 500 mg PO BID PRN (Reason: Pain) prazosin 1 mg capsule 1 mg PO BEDTIME polyethylene glycol 3350 [Miralax] 17 gram powder in packet See Rx Instructions PO DAILY Qty: 14 0RF Rx Instructions: Take 7 packets 2 days before surgery and 7 packets 1 day before surgery. Mix each packet with 8 oz's of water before surgery. Discharge Orders: Discharge Order (Routine); Ordered 04/28/23 Ordered By: Anita Martines Activity on Discharge: No heavy lifting Stand Alone Forms: Patient Portal Discharge page Care Plan Goals: weight loss Health Concerns: obesity Plan of Treatment: No tub baths, sex or returning to work until discussed at first post op appointment. No alcohol, tobacco or illegal drug use. Continue to use incentive spirometer hourly while awake. Walk in home for 5- 10 minutes every 2 hours during the first week. Wear abdominal binder with activity. Follow all meal plan instructions from your bariatric surgeon. Review bariatric handbook and call with any questions. Discharge Instructions 1. Please call your doctor or come back to the emergency room should any new symptoms arise. 2. Activity: abstain from alcohol,? limited stair climbing, no bending, no driving, no exercise, no illicit substances, no lifting, no sex, no tub bath, no work. 4. Diet: follow your bariatric surgeons recommendations for advancing diet. 5. Dressing Change/Wound Care: Your incisions are covered with waterproof dressings. You can shower with these and pat dry. Do not rub over dressings or incisions. If the area is tender, you may apply an ice pack for short intervals (no more than 20 minutes on, followed by at least 20 minutes off). Do not apply heat. Do not use creams, lotions, or topical antibiotics unless instructed to do so by your surgeon. 6. Call your doctor if: - Your temperature exceeds 101.5 F - You experience excessive pain or swelling - You have an unexpected reaction to medication - You have excessive bleeding - You experience continued vomiting/nausea - Your incision begins to separate - Your incision shows signs of infection such as increased redness, swelling, excessive pain, heat, or drainage (light blood or clear fluid is normal) General instructions: No lifting greater than 10 lbs for the next 6 weeks[address] driving within 24 hours of taking narcotic pain medications. If you do not move your bowels in the next 2 days, please take milk of magnesia over the counter. Please follow the post op diet and do not advance your diet until you are seen in the office in about 2 weeks. Please walk around your home every hour or two to prevent blood clots from forming in your legs. You do not need to wake from sleeping to walk. Please sleep in a bed or couch to prevent kinking at the hips and knees. Please take your incentive spirometer (your lung commercial credit portfolio manager) home with you and use it for the next few days to prevent pneumonias. You may shower, no hot tubs, baths or swimming pools. Please call the office with any questions or concerns such as increasing abdominal pain, fever, chills, shortness of breath, chest pain, leg pain or swelling, or redness or drainage from your incisions. Please make sure you are consuming 40-60 ounces of total fluids per day. Avoid all carbonation. Do not hesitate to contact the office with any questions at . The patient's medical history has been reviewed and they are considered low risk for post op DVT and therefore DVT prophylaxis is not considered necessary. Travel after surgery was reviewed. The patient has not disclosed any travel plans during the first 30 days after surgery and they have been advised that within the first 30 days after surgery any bus, plane, train or car travel over 2 hours in duration is contraindicated due to the possibility of developing blood clots from immobility. Any travel, needs to include periods of ambulation of 10 minutes in duration every 2 hours.? The patient was instructed to discuss any plans for travel during this period with their bariatric surgeon. Assessment: s/p laparoscopic sleeve gastrectomy Discharge Date/Time: 04/28/23 11:08
[2023-04-27 13:06] LABS: Hematocrit 36.5 % (37.0-47.0); Hemoglobin 11.7 g/dl (12.0-16.0)
--- NOTE | 2023-04-27 13:15 | PM.PNGS ---
Subjective Subjective Date of Service: 04/27/23 Physical Exam Vital Signs: Vital Signs: Last Vital Signs Temp 97.7 F 04/27/23 13:12 Pulse 87 04/27/23 13:12 Resp 20 04/27/23 13:12 BP 130/74 04/27/23 13:12 Pulse Ox 100 04/27/23 13:12 O2 Del Method Room Air 04/27/23 13:12 O2 Flow Rate 6 04/27/23 12:57 BMI result Body Mass Index 34.2 Objective Data Active Medications Fentanyl (Fentanyl Citrate/Pf 100 Mcg/2 Ml Vial) 50 mcg IVPUSH Q5M PRN; Protocol PRN Reason: Pain, Severe (Pain Scale 7-10) Lactated Ringer's (Lr) 1,000 mls @ 150 mls/hr IVCONT .Q6H40M [facility] Last Admin: 04/27/23 09:11 Dose: 150 mls/hr Documented By: JANET Ondansetron HCl (Ondansetron Hcl 4 Mg/2 Ml Vial) 4 mg IVPUSH ONCE PRN PRN Reason: Nausea and Vomiting Oxycodone HCl (Oxycodone Hcl Immed Release 5 Mg Tablet) 10 mg PO ONCE PRN PRN Reason: Pain, Severe (Pain Scale 7-10) Labs 04/27/23 12:57 04/21/23 08:15 Labs: Laboratory Results - last 24 hr 04/21/23 10:30 Vitamin A 41 Procedures Date of Service Date of Service: 04/27/23 Progress Note: A&P Assessment and plan (1) S/P laparoscopic sleeve gastrectomy: Status: Acute (2) Obesity (BMI 30-39.9): Status: Acute (3) Hypercholesterolemia: Status: Acute (4) NAFLD (nonalcoholic fatty liver disease): Status: Acute Plan Stable in PACU Patient's daughter Slime ([phone]) & [id number] Lupe Briscoe ([phone]) called and updated as requested by patient. Typical postoperative plan was reviewed in their questions answered; both declined interpretive services See orders. Time Spent With Patient Time: Total time managing care of this patient today ____ minutes. Quality Stroke Does the patient have a stroke diagnosis?: No VTE Prior VTE?: No VTE Risk Level:: Surgical - moderate VTE Device Contraindication: N/A - Device Ordered VTE Drug Contraindication: Treatment Not Indicated
[2023-04-27 13:22] LABS: Anion Gap 10 (12-20); Blood Urea Nitrogen 6 mg/dL (9-16); Calcium 8.9 mg/dL (8.4-10.2); Carbon Dioxide 23 mmol/L (22-29); Chloride 108 mmol/L (96-108); Creatinine Clr Calc Pharmacy 105.5; Estimated Glomerular Filt Rate > 60; Glucose Random 169 mg/dL (60-115); Potassium 3.8 mmol/L (3.3-5.1); Sodium 137 mmol/L (135-145)
[2023-04-27] MEDS: ondansetron HCL 4 MG/2 ML VIAL IVPUSH ×2 (13:31→16:31)
[2023-04-27] MEDS: Metoclopramide HCl 10 MG/2 ML VIAL IVPUSH (15:13)
[2023-04-27] MEDS: Lactated Ringers 1,000 ML 100 ML IVCONT ×2 (16:31→23:21)
[2023-04-27] MEDS: ceFAZolin Sodium/Dextrose,Iso 2 GM/50 ML PIGGYBACK IV (16:32)
[2023-04-27] MEDS: Acetaminophen 1,000 MG/100 ML PIGGYBACK 16.7 MG IV ×2 (17:29→22:29)
[2023-04-27] MEDS: Montelukast Sodium 10 MG TABLET PO (21:33)
[2023-04-27] MEDS: Famotidine/PF 20 MG/2 ML VIAL IVPUSH (21:34)
[2023-04-27] MEDS: Fluticasone Propionate Nasal 16 GM SPRAY 1 SPRAY NOSTRIL-B (21:37)
[2023-04-28] MEDS: ondansetron HCL 4 MG/2 ML VIAL IVPUSH ×2 (00:49→07:44)
[2023-04-28 03:00] VITALS: BP 145/61; PULSE 82; RESP 18; TEMP 36.6; O2SAT 97
[2023-04-28] MEDS: Acetaminophen 1,000 MG/100 ML PIGGYBACK 16.7 MG IV (04:34)
[2023-04-28 06:48] LABS: MANUAL DIFF FLAG NO
[2023-04-28 06:55] LABS: Basophils Percent Auto 0.1 % (0-2); Hematocrit 36.3 % (37.0-47.0); Hemoglobin 11.8 g/dl (12.0-16.0); Imm Gran Abs Auto 0.05 X10*3/uL (0.00-0.03); Imm Gran Pct Auto 0.3 % (0.0-0.4); Lymphocytes Absolute Auto 2.4 X10*3/uL (1.2-4.9); Lymphocytes Percent Auto 15.2 % (20-40); Mean Corpuscular HGB Conc 32.5 g/dl (31.0-35.0); Mean Corpuscular Hemoglobin 27.9 pg (27.0-33.0); Mean Corpuscular Volume 85.8 fL (80.0-98.0); Mean Platelet Volume 10.7 fL (9.4-12.3); Monocytes Absolute Auto 0.9 X10*3/uL (0.1-1.2); Monocytes Percent Auto 5.3 % (2-11); Neutrophils Absolute Auto 12.7 x10*3/uL (2.0-8.3); Neutrophils Percent Auto 79.1 % (45-73); Platelet Count 322 X10*3/uL (160-400); Red Blood Count 4.23 X10*6/uL (4.20-5.50); Red Cell Distribution Width 14.7 % (11.0-16.0)
--- NOTE | 2023-04-28 07:16 | P.PNGS_ITS ---
Subjective Subjective Date of Service: 04/28/23 Patient reports: feels better, still having pain and tolerating liquids well Interval history: The patient is postop day 1 status post laparoscopic sleeve gastrectomy, gastropexy and intraoperative upper endoscopy. She denies any nausea or vomiting, reports some pain and is doing well with hydration. She has no chest pain, difficulty breathing or shortness of breath. She has been out of bed to the bathroom. She denies any regurgitation, GERD were odynophagia. She declined an hourly sign language interpreter for this morning's visit. Physical Exam Vital Signs: Vital Signs: Last Vital Signs Temp 98 F 04/28/23 03:00 Pulse 82 04/28/23 03:00 Resp 18 04/28/23 03:00 BP 145/61 H 04/28/23 03:00 Pulse Ox 97 04/28/23 03:00 O2 Del Method Room Air 04/28/23 03:00 O2 Flow Rate 6 04/27/23 12:57 BMI result Body Mass Index 36.6 She is nontoxic She is in no acute respiratory distress Abdominal binder is intact with appropriate incisional tenderness Objective Data Active Medications Albuterol Sulfate (Albuterol Sulfate (0.042%) 1.25 Mg/3 Ml Vial.Neb) 0.63 mg INHALE Q6H PRN PRN Reason: Wheezing Famotidine (Famotidine/Pf 20 Mg/2 Ml Vial) 20 mg IVPUSH BID [facility] Last Admin: 04/27/23 21:34 Dose: 20 mg Documented By: CANDIDA Fluticasone Propionate (Fluticasone Propionate Nasal 16 Gm [place]) 1 spray NOSTRIL-B BID [facility] Last Admin: 04/27/23 21:37 Dose: 1 spray Documented By: CANDIDA Hydromorphone HCl (Hydromorphone Hcl 0.5 Mg/0.5 Ml Syringe) 0.25 mg IVPUSH Q4H PRN; Protocol PRN Reason: Pain, Moderate(Pain Scale 4-6) Lactated Ringer's (Lr) 1,000 mls @ 100 mls/hr IVCONT .Q10H [facility] Last Admin: 04/27/23 23:21 Dose: 100 mls/hr Documented By: CANDIDA Acetaminophen (Ofirmev) 1,000 mg in 100 mls @ 16.7 mls/hr IV .Q6H [facility] Last Admin: 04/28/23 04:34 Dose: 16.7 mls/hr Documented By: CANDIDA Lamotrigine (Lamotrigine 25 Mg Tablet) 150 mg PO DAILY [facility] Metoclopramide HCl (Metoclopramide Hcl 10 Mg/2 Ml Vial) 10 mg IVPUSH Q6H PRN PRN Reason: Nausea Last Admin: 04/27/23 15:13 Dose: 10 mg Documented By: KISHA Montelukast Sodium (Montelukast Sodium 10 Mg Tablet) 10 mg PO BEDTIME [facility] Last Admin: 04/27/23 21:33 Dose: 10 mg Documented By: CANDIDA Non-Formulary Medication (Fluticasone Furoate [Arnuity Ellipta]) 1 inhalation INHALE DAILY [facility] Ondansetron HCl (Ondansetron Hcl 4 Mg/2 Ml Vial) 4 mg IVPUSH Q8H [facility] Last Admin: 04/28/23 00:49 Dose: 4 mg Documented By: CANDIDA Sodium Chloride (0.9 % Sodium Chloride Flush 3 Ml Syringe) 3 ml IVFLUSH QSHIFT [facility] Last Admin: 04/28/23 00:50 Dose: Not Given Documented By: CANDIDA Non-Admin Reason: IV Running Labs 04/28/23 05:44 04/27/23 12:57 Labs: Laboratory Results - last 24 hr 04/27/23 04/28/23 12:57 05:44 MCV 85.8 MCH 27.9 MCHC 32.5 RDW 14.7 Plt Count 322 MPV 10.7 Immature Gran % (Auto) 0.3 Neut % (Auto) 79.1 H Lymph % (Auto) 15.2 L [place] % (Auto) 5.3 Eos % (Auto) 0.0 Baso % (Auto) 0.1 Lymph # (Auto) 2.4 [place] # (Auto) 0.9 Eos # (Auto) 0.0 Baso # (Auto) 0.0 Abs Immat Gran (auto) 0.05 H Absolute Neuts (auto) 12.7 H Absolute Nucleated RBC 0.000 Nucleated RBC % (auto) 0.0 Anion Gap 10 L Estim Creat Clear Calc 105.5 Estimated GFR > 60 Random Glucose 169 H Calcium 8.9 D Procedures Date of Service Date of Service: 04/28/23 Progress Note: A&P Assessment and plan (1) S/P laparoscopic sleeve gastrectomy: Status: Acute (2) Obesity (BMI 30-39.9): Status: Acute (3) Hypercholesterolemia: Status: Acute (4) NAFLD (nonalcoholic fatty liver disease): Status: Acute Plan Patient appears to be doing well and meeting hydration goals. One of the PAs will meet with the patient later to confirm postoperative diet/shakes and, likely discharge later this morning unless something changes. Time Spent With Patient Time: Total time managing care of this patient today ____ minutes. Quality Stroke Does the patient have a stroke diagnosis?: No VTE Prior VTE?: No VTE Risk Level:: Surgical - moderate VTE Device Contraindication: N/A - Device Ordered VTE Drug Contraindication: Treatment Not Indicated
[2023-04-28 07:19] LABS: Anion Gap 12 (12-20); Blood Urea Nitrogen 4 mg/dL (9-16); Calcium 9.2 mg/dL (8.4-10.2); Carbon Dioxide 25 mmol/L (22-29); Chloride 106 mmol/L (96-108); Creatinine Clr Calc Pharmacy 124.9; Estimated Glomerular Filt Rate > 60; Glucose Random 80 mg/dL (60-115); Potassium 3.7 mmol/L (3.3-5.1); Sodium 139 mmol/L (135-145)
[2023-04-28 07:34] VITALS: BP 139/70; PULSE 92; RESP 20; TEMP 36.2; O2SAT 96
[2023-04-28] MEDS: Famotidine/PF 20 MG/2 ML VIAL IVPUSH (07:44)
[2023-04-28] MEDS: lamoTRIgine 25 MG TABLET 150 MG PO (07:44)
[2023-04-28] MEDS: Fluticasone Propionate Nasal 16 GM SPRAY 1 SPRAY NOSTRIL-B (07:48)
--- NOTE | 2023-04-28 16:52 | HO.POSTANES ---
Post Anesthesia Evaluation Post Anesthesia Evaluation Date of Service: 04/28/23 Vital Signs: Vital Signs Temp Pulse Resp BP Pulse Ox O2 Del Method 04/28/23 09:16 Room Air 04/28/23 07:34 97.2 F 92 20 139/70 96 Room Air Anesthesia: General Endotracheal-GETA Mental Status: Awake Pain Control: Satisfactory Nausea/Vomiting: None Hydration: Adequate Anesthesia-Related Issues: No Anes. Related Issues
== END 2023-04-28 11:08 | disposition home or self-care (01) | DRG 403 ==
LOC: HO.SSSA 12:48 → HO.S3 14:50
PROVIDERS: Physician Assistant Surgical; Admitting Provider Surgery; PCP Nurse Practitioner Primary Care; Visit Provider Surgery
PROC: 0DB64Z3 Excision of Stomach, Percutaneous Endoscopic Approach, Vertical (ICD-10-PCS; CPT 43845; principal; 2023-04-27 10:10)
DX: E66.8 Other obesity (principal); K76.0 Fatty (change of) liver, not elsewhere classified; E78.00 Pure hypercholesterolemia, unspecified; Z68.36 Body mass index [BMI] 36.0-36.9, adult; K21.9 Gastro-esophageal reflux disease without esophagitis; Z20.822 Contact with and (suspected) exposure to COVID-19; Z79.51 Long term (current) use of inhaled steroids; Z79.899 Other long term (current) drug therapy
CPT/HCPCS: 36415; 80048; 80053; 80061; 82306; 82607; 82728; 83036; 83540; 83970; 84425; 84443; 84590; 84630; 85014; 85018; 85025; 85610; 85730; 86140; 86850; 86900; 86901; 87635; 88307; 88342; C9145; J0131; J0690; J1100; J1170; J2250; J2405; J2550; J2765; J3010

== ENCOUNTER → 2023-04-27 08:11 | Outpatient (BNV) | payer MEDICAID, SELFPAY | PROVIDERS: Admitting Provider Surgery; PCP Nurse Practitioner Primary Care; Visit Provider Surgery | DX: E66.9 Obesity, unspecified (principal); Z68.34 Body mass index [BMI] 34.0-34.9, adult; E78.00 Pure hypercholesterolemia, unspecified; K76.0 Fatty (change of) liver, not elsewhere classified | CPT/HCPCS: 43659; 43775; 99024 ==

== ENCOUNTER 2023-05-05 12:33 | Outpatient (AMB) | payer MEDICAID, SELFPAY ==
--- NOTE | 2023-05-05 13:04 | A.OFFVIS_ITS ---
Intake VS Expanded 05/05/23 13:26 Height 5 ft 2 in Weight 177 lb 3.2 oz BMI 32.4 BP 120/59 L Blood Pressure Location Rt brachial Blood Pressure Position Sitting Pulse 79 Pulse Source Pulse Oximeter Temp 97.2 F Temperature Source Temporal Artery Scan Pulse Oximetry 99 Oxygen Delivery Method Room Air Body Fat 74.8 Body Fat Percentage 42.2 Free Fat Mass 102.2 Muscle Mass 97.0 Visceral Mass 9.0 Water Mass 73.2 BMR 1,444 Intake Visit Reasons: (OV) 8 Days PO LSG 04/27/23 *ARRIVE AT 1 PM* Allergies No Known Allergies Allergy (Verified 05/05/23 13:24) Medication List - Last Reconciled 05/05/23 by PAULA Dias acetaminophen 500 mg (15 mL) PO Q6H PRN albuterol sulfate 0.63 mg inhalation Q6H PRN fluticasone furoate 100 mcg/actuation (Arnuity Ellipta) 1 inh inhalation DAILY fluticasone propionate 50 mcg/actuation 1 spray intranasal BID lamotrigine 150 mg PO DAILY levonorgestrel intrauterine montelukast (Singulair) 10 mg PO BEDTIME ondansetron HCl 4 mg PO Q6H PRN pantoprazole 40 mg PO QAM 30 days sennosides (senna) 17.2 mg (2 x 8.6 mg) PO BEDTIME PRN 90 days sucralfate 10 mL PO BID 30 days HPI HPI Comments History of Present Illness Details Pt is 8 days s/p LSG by Dr. Bell, 04/27/2023. No N/V. Pain is controlled. Tolerating 3 Celebrate shakes with 1 scoop each and drinking 3 bottles of water per day. [facility] Medical History (Updated 05/04/23 @ 00:02 by Val Vo) Anemia Arthritis Asthma Delivery with history of Depression Elevated cholesterol Gastritis GERD (gastroesophageal reflux disease) Hiatal hernia Hiatal hernia Migraine Surgical History (Updated 05/05/23 @ 13:25 by Kristy Harrison CMA) Hx of section Hx of tubal ligation S/P laparoscopic sleeve gastrectomy Family History Mother Hypertension Arthritis Son Hyperactive Daughter No problems noted. Son No problems noted. 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 May start exercise in 2 days.? No abdominal exercises x 6 weeks. Abdominal binder for the next 2 weeks with activity or exercise. Week 2/3 meal plan sheet provided. Pt will use Pure Protein for 3rd shake. Reviewed pantoprazole and carafate dosing. Reminded of the pace of drinking 2 mL/min or 1oz per 15 min. Will be emailed link for post op video for review. RTC 2 weeks. Patient is obese and is not considered stable at this time. I spent a total of 30 minutes reviewing/updating records, examining the patient and counseling the patient on weight management as detailed above. Coding Level of Care Code Est Pt Level 4 (70304) Diagnoses S/P laparoscopic sleeve gastrectomy Z98.84 Obesity (BMI 30-39.9) E66.9
[2023-05-05 13:26] VITALS: BP 120/59; PULSE 79; TEMP 36.2; O2SAT 99; BMI 32.4
== END 2023-05-05 13:48 | disposition home or self-care (01) ==
PROVIDERS: PCP Nurse Practitioner Primary Care; Visit Provider Physician Assistant Surgical
DX: E66.9 Obesity, unspecified (principal); Z68.32 Body mass index [BMI] 32.0-32.9, adult; Z90.3 Acquired absence of stomach [part of]; Z98.84 Bariatric surgery status
CPT/HCPCS: 99024

== ENCOUNTER → 2023-05-05 12:33 | Outpatient (BNVA) | payer MEDICAID, SELFPAY | PROVIDERS: PCP Nurse Practitioner Primary Care; Visit Provider Physician Assistant Surgical | DX: E66.9 Obesity, unspecified (principal); Z98.84 Bariatric surgery status; Z68.32 Body mass index [BMI] 32.0-32.9, adult | CPT/HCPCS: 99212 ==

== ENCOUNTER 2023-05-09 10:51 | Outpatient (AMB) | payer MEDICAID, SELFPAY ==
--- NOTE | 2023-05-09 10:52 | MHC.OFFVISWM ---
Intake VS Expanded 05/09/23 10:55 Height 5 ft 2 in BP 108/56 L Blood Pressure Location Lt brachial Blood Pressure Position Sitting Intake Visit Reasons: (OV) PO LSG 04/27/23 End Maker Required: Yes End Maker Name: ALEM Estes Information Interpreted: non-clinical & clinical Funeral Service Licensee: Funeral Service Licensee Present Allergies No Known Allergies Allergy (Verified 05/09/23 10:57) Medication List - Last Reconciled 05/09/23 by Deepak Bell MD acetaminophen 500 mg (15 mL) PO Q6H PRN albuterol sulfate 0.63 mg inhalation Q6H PRN fluticasone furoate 100 mcg/actuation (Arnuity Ellipta) 1 inh inhalation DAILY fluticasone propionate 50 mcg/actuation 1 spray intranasal BID lamotrigine 150 mg PO DAILY levonorgestrel intrauterine montelukast (Singulair) 10 mg PO BEDTIME ondansetron HCl 4 mg PO Q6H PRN pantoprazole 40 mg PO QAM 30 days prednisone 5 mg PO DIRECTED sennosides (senna) 17.2 mg (2 x 8.6 mg) PO BEDTIME PRN 90 days sucralfate 10 mL PO BID 30 days HPI HPI Comments History of Present Illness Details Pt is 8 days s/p LSG by Dr. Bell, 04/27/2023. No N/V. Pain is controlled. The patient walked into the office urgently due to a rash that started this past Tuesday when she increased her protein shakes. She reports and itching, burning rash in the only thing that has changed in the past time since surgery is increasing the celebrate 4 in 1 shakes. She denies any changes to soaps, detergents or sun exposure. She denies any sun exposure and does note that she has taken Benadryl but no itching relief. This led to her taking a dose of epinephrine on Tuesday but she denies any respiratory difficulty. She denies any dysphagia, odynophagia, hematemesis, regurgitation or other problems related to surgery. [facility] Medical History (Updated 05/09/23 @ 12:15 by Deepak Bell MD) Anemia Arthritis Asthma Delivery with history of Depression Elevated cholesterol Gastritis GERD (gastroesophageal reflux disease) Hiatal hernia Hiatal hernia Migraine Surgical History Hx of section Hx of tubal ligation S/P laparoscopic sleeve gastrectomy Family History Mother Hypertension Arthritis Son Hyperactive Daughter No problems noted. Son No problems noted. 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 There are no vesicles nor hives Assessment & Plan Assessment & Plan (1) S/P laparoscopic sleeve gastrectomy: Code(s): Z98.84 - Bariatric surgery status (2) Rash: Code(s): R21 - Rash and other nonspecific skin eruption (3) Obesity (BMI 30-39.9): Code(s): E66.9 - Obesity, unspecified (4) Hypercholesterolemia: Code(s): E78.00 - Pure hypercholesterolemia, unspecified (5) NAFLD (nonalcoholic fatty liver disease): Code(s): K76.0 - Fatty (change of) liver, not elsewhere classified Plan Given the temporal relationship of the increased protein drink and skin rash, I have recommended the patient go back on to her Premier protein intake 2 Flintstones chewable multivitamins. Patient is having no respiratory distress and understands that if she were to develop respiratory distress, with her history of asthma, she needs to go to the emergency department immediately. I have sent a prescription for prednisone, 5 mg and did a 20 mg taper over 5 days. I will see the patient back later this week or she will contact me before if she has problems. Medications: New prednisone see taper instructions 5 mg PO DIRECTED 21 ea 0RF Coding Level of Care Code Global (26313) Diagnoses S/P laparoscopic sleeve gastrectomy Z98.84 Rash R21 Obesity (BMI 30-39.9) E66.9 Hypercholesterolemia E78.00 NAFLD (nonalcoholic fatty liver disease) K76.0
[2023-05-09 10:55] VITALS: BP 108/56
== END 2023-05-09 11:59 | disposition home or self-care (01) ==
LOC: HO.HBS 10:51
PROVIDERS: PCP Nurse Practitioner Primary Care; Visit Provider Surgery
DX: Z98.84 Bariatric surgery status (principal); R21 Rash and other nonspecific skin eruption; E66.9 Obesity, unspecified; E78.00 Pure hypercholesterolemia, unspecified; K76.0 Fatty (change of) liver, not elsewhere classified
CPT/HCPCS: 99024

== ENCOUNTER → 2023-05-09 10:51 | Outpatient (BNVA) | payer MEDICAID, SELFPAY | PROVIDERS: PCP Nurse Practitioner Primary Care; Visit Provider Surgery ==

== ENCOUNTER 2023-05-11 08:50 | Outpatient (AMB) | payer MEDICAID, SELFPAY ==
[2023-05-11 08:58] VITALS: BP 117/67; PULSE 96; TEMP 36.7; O2SAT 99
--- NOTE | 2023-05-11 08:58 | MHC.OFFVISWM ---
Intake VS Expanded 05/11/23 08:58 Height 5 ft 2 in BP 117/67 Blood Pressure Location Rt brachial Blood Pressure Position Sitting Pulse 96 Pulse Source Pulse Oximeter Temp 98.1 F Temperature Source Temporal Artery Scan Pulse Oximetry 99 Oxygen Delivery Method Room Air Intake Visit Reasons: (OV) PO LSG 04/27/23 Energy Risk Management Analyst Required: Yes Energy Risk Management Analyst Name: Hilary Information Interpreted: non-clinical & clinical Swine Nutritionist: Swine Nutritionist Present Allergies No Known Allergies Allergy (Verified 05/11/23 08:59) Medication List - Last Reconciled 05/11/23 by Deepak Bell MD acetaminophen 500 mg (15 mL) PO Q6H PRN albuterol sulfate 0.63 mg inhalation Q6H PRN fluticasone furoate 100 mcg/actuation (Arnuity Ellipta) 1 inh inhalation DAILY fluticasone propionate 50 mcg/actuation 1 spray intranasal BID lamotrigine 150 mg PO DAILY levonorgestrel intrauterine montelukast (Singulair) 10 mg PO BEDTIME ondansetron HCl 4 mg PO Q6H PRN pantoprazole 40 mg PO QAM 30 days prednisone 5 mg PO DIRECTED sennosides (senna) 17.2 mg (2 x 8.6 mg) PO BEDTIME PRN 90 days sucralfate 10 mL PO BID 30 days HPI HPI Comments History of Present Illness Details Pt is 8 days s/p LSG 04/27/2023. No N/V. Pain is controlled. The patient walked into the office urgently due to a rash that started this past Tuesday when she increased her protein shakes. She reports and itching, burning rash in the only thing that has changed in the past time since surgery is increasing the celebrate 4 in 1 shakes. She denies any changes to soaps, detergents or sun exposure. She denies any sun exposure and does note that she has taken Benadryl but no itching relief. This led to her taking a dose of epinephrine on Tuesday but she denies any respiratory difficulty. She denies any dysphagia, odynophagia, hematemesis, regurgitation or other problems related to surgery. Since being seen earlier this week, the patient started the 5 day Medrol dose taper and reports improvement. The itching has resolved and the rash seems to be fading. She is tolerating her current diet but does note some issues with constipation, although she is not uncomfortable. Last bowel movement was 2 days ago. She otherwise denies upper GI complaints or respiratory difficulty. [facility] Medical History (Updated 05/09/23 @ 12:15 by Deepak Bell MD) Anemia Arthritis Asthma Delivery with history of Depression Elevated cholesterol Gastritis GERD (gastroesophageal reflux disease) Hiatal hernia Hiatal hernia Migraine Surgical History Hx of section Hx of tubal ligation S/P laparoscopic sleeve gastrectomy (04/27/23) Family History Mother Hypertension Arthritis Son Hyperactive Daughter No problems noted. Son No problems noted. 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 There are no urticaria, open areas of ulceration or progression. No peripheral edema or facial edema is noted. Assessment & Plan Assessment & Plan (1) S/P laparoscopic sleeve gastrectomy: Onset Date: 04/27/23 Comment: Deepak Bell MD Code(s): Z98.84 - Bariatric surgery status (2) Rash: Code(s): R21 - Rash and other nonspecific skin eruption (3) Asthma: Code(s): J45.909 - Unspecified asthma, uncomplicated Plan The patient is clinically improved. The importance of following the Medrol Dosepak medication to completion was discussed and apparently understood. Patient will notify us if she develops any indigestion or gastritis like symptoms since this is a known side effect that was disclosed to the patient. She is continue on Carafate and Protonix as prescribed. Patient is encouraged to take her bowel regime today's in to affect a bowel movement in the next 1-2 days. She will follow up with the bariatric team and reach out to me if there are issues or questions. Coding Level of Care Code Global (57072) Diagnoses S/P laparoscopic sleeve gastrectomy Z98.84 Rash R21 Asthma J45.909
== END 2023-05-11 10:12 | disposition home or self-care (01) ==
PROVIDERS: PCP Nurse Practitioner Primary Care; Visit Provider Surgery
DX: Z98.84 Bariatric surgery status (principal); R21 Rash and other nonspecific skin eruption; J45.909 Unspecified asthma, uncomplicated
CPT/HCPCS: 99024

== ENCOUNTER → 2023-05-11 08:50 | Outpatient (BNVA) | payer MEDICAID, SELFPAY | PROVIDERS: PCP Nurse Practitioner Primary Care; Visit Provider Surgery ==

== ENCOUNTER 2023-05-18 12:04 | Outpatient (AMB) | payer MEDICAID, SELFPAY ==
--- NOTE | 2023-05-18 12:06 | MHC.OFFVISWM ---
Intake VS Expanded 05/18/23 12:10 Height 5 ft 2 in Weight 164 lb 3.2 oz BMI 30.0 BP 123/65 Blood Pressure Location Rt brachial Blood Pressure Position Sitting Pulse 94 Pulse Source Pulse Oximeter Temp 97.2 F Temperature Source Temporal Artery Scan Pulse Oximetry 98 Oxygen Delivery Method Room Air Body Fat 67.6 Body Fat Percentage 41.3 Free Fat Mass 96.4 Muscle Mass 91.4 Visceral Mass 8.0 Water Mass 69.0 BMR 1,362 Intake Visit Reasons: (OV) PO LSG 04/27/23 Allergies No Known Allergies Allergy (Verified 05/18/23 12:09) Medication List - Last Reconciled 05/18/23 by PAULA Dias acetaminophen 500 mg (15 mL) PO Q6H PRN albuterol sulfate 0.63 mg inhalation Q6H PRN fluticasone furoate 100 mcg/actuation (Arnuity Ellipta) 1 inh inhalation DAILY fluticasone propionate 50 mcg/actuation 1 spray intranasal BID lamotrigine 150 mg PO DAILY levonorgestrel intrauterine montelukast (Singulair) 10 mg PO BEDTIME ondansetron HCl 4 mg PO Q6H PRN pantoprazole 40 mg PO QAM 30 days prednisone 5 mg PO DIRECTED sennosides (senna) 17.2 mg (2 x 8.6 mg) PO BEDTIME PRN 90 days sucralfate 10 mL PO BID 30 days HPI HPI Comments History of Present Illness Details This?is a?37?yo female who is s/p LSG 04/27/[address] Bell. Presents for 3 week post op visit. Weight loss of 13 lbs since last visit 2 weeks ago. No complaints of nausea, emesis, abdominal pain or reflux, or constipation. Pt reports her rash continues to improve. She has completed her prednisone course. Wonders if she had a reaction to almond milk. Had one episode of nausea yesterday with vomiting; took a gas pill and it made her feel sick. Mild abdominal pain in epigastric area and upper back, 3-4 days ago. Continues on pantoprazole and carafate. Present meal plan includes: Premier shakes, only taking 1.5; also drinking water, Propel All meals last 20 - 30 minutes and does not drink and eat at the same time. Exercise routine includes: hasn't started PFSH Medical History (Updated 05/09/23 @ 12:15 by Deepak Bell MD) Anemia Arthritis Asthma Delivery with history of Depression Elevated cholesterol Gastritis GERD (gastroesophageal reflux disease) Hiatal hernia Hiatal hernia Migraine Surgical History Hx of section Hx of tubal ligation S/P laparoscopic sleeve gastrectomy (04/27/23) Family History Mother Hypertension Arthritis Son Hyperactive Daughter No problems noted. Son No problems noted. 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 Physical Exam Vital Signs: Last Vital Signs Temp 97.2 F 05/18/23 12:10 Pulse 94 05/18/23 12:10 BP 123/65 05/18/23 12:10 Pulse Ox 98 05/18/23 12:10 Oxygen Delivery Method Room Air 05/18/23 12:10 BMI result Body Mass Index 30.0 Const General: cooperative, comfortable and no acute distress Orientation/consciousness: patient oriented x3 GI Other: soft, nontender, nondistended, steri-strips c/d/i, no ecchymosis, no erythema, no hernia, no masses Skin Other: no ecchymosis, no erythema, no palpable tenderness Neuro General: patient oriented x3 Assessment & Plan Assessment & Plan (1) S/P laparoscopic sleeve gastrectomy: Onset Date: 04/27/23 Comment: Deepak Bell MD Code(s): Z98.84 - Bariatric surgery status (2) Obesity (BMI 30-39.9): Code(s): E66.9 - Obesity, unspecified (3) Rash: Code(s): R21 - Rash and other nonspecific skin eruption (4) Hypercholesterolemia: Code(s): E78.00 - Pure hypercholesterolemia, unspecified (5) NAFLD (nonalcoholic fatty liver disease): Code(s): K76.0 - Fatty (change of) liver, not elsewhere classified Plan New meal plan as pt has trouble finishing shakes due to thickness/consistency: 8-10am Premier shake, 2 scoops in 8oz water 11am-3pm Premier Protein water 4-8pm Premier protein water Encouraged pt to resume exercise- walking or cardio machines, avoid lifting > 10lbs. Rash is improving, pt now off prednisone. At this time no evidence of surgical complication of sleeve based on physical exam; discussed that pt's complaint of upper abdominal and back pain may be due to ongoing healing, or feeling the presence of suture/scar tissue more acutely now as she continues to lose weight. RTC 2 weeks to follow with Sp. Medications: New calcium citrate-vitamin D3 315 mg-5 mcg (200 unit) 1 tab PO BID 60 tabs 3RF Coding Level of Care Code Est Pt Level 4 (54879) Diagnoses S/P laparoscopic sleeve gastrectomy Z98.84 Obesity (BMI 30-39.9) E66.9 Rash R21 Hypercholesterolemia E78.00 NAFLD (nonalcoholic fatty liver disease) K76.0
[2023-05-18 12:10] VITALS: BP 123/65; PULSE 94; TEMP 36.2; O2SAT 98
== END 2023-05-18 12:56 | disposition home or self-care (01) ==
PROVIDERS: PCP Nurse Practitioner Primary Care; Visit Provider Physician Assistant Surgical
DX: E66.9 Obesity, unspecified (principal); Z68.30 Body mass index [BMI] 30.0-30.9, adult; Z90.3 Acquired absence of stomach [part of]; Z98.84 Bariatric surgery status
CPT/HCPCS: 99214

== ENCOUNTER → 2023-05-18 12:04 | Outpatient (BNVA) | payer MEDICAID, SELFPAY | PROVIDERS: PCP Nurse Practitioner Primary Care; Visit Provider Physician Assistant Surgical | DX: E66.9 Obesity, unspecified (principal); K76.0 Fatty (change of) liver, not elsewhere classified; R21 Rash and other nonspecific skin eruption; E78.00 Pure hypercholesterolemia, unspecified; Z98.84 Bariatric surgery status; Z68.30 Body mass index [BMI] 30.0-30.9, adult | CPT/HCPCS: 99214 ==

== ENCOUNTER 2023-05-23 12:10 | Outpatient (AMB) | payer MEDICAID, SELFPAY ==
[2023-05-23 12:14] VITALS: BP 107/61; PULSE 80; TEMP 36.6; O2SAT 99
--- NOTE | 2023-05-23 12:14 | MHC.OFFVISWM ---
Intake VS Expanded 05/23/23 12:14 BP 107/61 Blood Pressure Location Rt brachial Blood Pressure Position Sitting Pulse 80 Pulse Source Pulse Oximeter Temp 97.8 F Temperature Source Temporal Artery Scan Pulse Oximetry 99 Oxygen Delivery Method Room Air Intake Visit Reasons: (OV) PO LSG 04/27/23 Intake Note: Orthostatic vitals Sittin/61 p:80 o2: 99 Standin/61 p78 o2:95 Supine: 105/61 p:77 o2: 98 Allergies No Known Allergies Allergy (Verified 05/18/23 12:09) HPI HPI Comments History of Present Illness Details Pt is about 4 weeks s/p LSG, last seen on 05/18. She has not been tolerating her protien shakes, minimal fluid, nauseated all the time and no emesis over last few days. She tried Isopure protien water and Pure protein shakes (used before surgery) but can not tolerate the taste now. She takes bariatric MVI daily, pantoprazole and carafate bid. No sick contacts at home. Today she felt dizzy and fell to the ground. Patient uses ondansteron 1-2 times per day - not regularly. [facility] Medical History (Updated 05/23/23 @ 14:25 by Anita Martines PA-C) Anemia Arthritis Asthma Delivery with history of Depression Elevated cholesterol Gastritis GERD (gastroesophageal reflux disease) Hiatal hernia Hiatal hernia Migraine Surgical History Hx of section Hx of tubal ligation S/P laparoscopic sleeve gastrectomy (04/27/23) Family History Mother Hypertension Arthritis Son Hyperactive Daughter No problems noted. Son No problems noted. 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 Const General: cooperative, healthy appearing and no acute distress GI Inspection: Yes normal to inspection and Yes incision (all completely healed, 2 with steri strips falling off.) Palpation (GI): Soft to palpation, nontender, no guarding, no hernias and no masses Assessment & Plan Assessment & Plan (1) S/P laparoscopic sleeve gastrectomy: Onset Date: 04/27/23 Comment: Deepak Bell MD Code(s): Z98.84 - Bariatric surgery status Plan: She knows she needs to drink 40 - 60 ounces total fluid per day and get adequate protein, we will find prodcuts that she can tolerate. No bariatric MVI for now - may be causing her nausea.Ondansteron every 8 hours, NOT prn. Continue pantoprazole and carafate. She was able to tolerate Vanilla Ensure OSIRIS in office today - samples given to her. Today - 1 Ensure Osiris 1 1/2 scoop Isopure with 8 oz water 1 bottle of water and 1 bottle Propel 0. Will contact me at 6 pm tonight - depending on what she tolerates will increase meal plan over the next few days. Dr Bell aware of plan. (2) Nausea: Code(s): R11.0 - Nausea Coding Level of Care Code Global (18535) Diagnoses S/P laparoscopic sleeve gastrectomy Z98.84 Nausea R11.0
== END 2023-05-23 16:02 | disposition home or self-care (01) ==
LOC: HO.HBS 12:10
PROVIDERS: PCP Nurse Practitioner Primary Care; Visit Provider Physician Assistant
DX: R11.0 Nausea (principal); Z90.3 Acquired absence of stomach [part of]; Z98.84 Bariatric surgery status
CPT/HCPCS: 99024

== ENCOUNTER → 2023-05-23 12:10 | Outpatient (BNVA) | payer MEDICAID, SELFPAY | PROVIDERS: PCP Nurse Practitioner Primary Care; Visit Provider Physician Assistant ==

== ENCOUNTER 2023-05-25 14:51 | Outpatient (AMB) | payer MEDICAID, SELFPAY ==
--- NOTE | 2023-05-25 14:57 | A.OFFVIS_ITS ---
Intake VS Expanded 05/25/23 15:09 Height 5 ft 2 in Weight 162 lb 6.4 oz BMI 29.7 BP 108/63 Blood Pressure Location Lt brachial Blood Pressure Position Sitting Pulse 99 Pulse Source Pulse Oximeter Temp 97.7 F Temperature Source Temporal Artery Scan Pulse Oximetry 96 Oxygen Delivery Method Room Air Body Fat 63.0 Body Fat Percentage 38.9 Free Fat Mass 99.2 Muscle Mass 94.2 Visceral Mass 7.0 Water Mass 43.8 BMR 1,388 Neck Circumference 13 in Waist Circumference 3 ft 1.5 in Intake Visit Reasons: (OV) PO LSG 04/27/23 Intake Note: Patient is seen in office for office visit, post LSG. Accompanied by: Self / Same As Patient Allergies No Known Allergies Allergy (Verified 05/25/23 15:12) Medication List - Last Reconciled 05/25/23 by PAULA Dias acetaminophen 500 mg (15 mL) PO Q6H PRN albuterol sulfate 0.63 mg inhalation Q6H PRN calcium citrate-vitamin D3 315 mg-5 mcg (200 unit) 1 tab PO BID fluticasone furoate 100 mcg/actuation (Arnuity Ellipta) 1 inh inhalation DAILY fluticasone propionate 50 mcg/actuation 1 spray intranasal BID lamotrigine 150 mg PO DAILY levonorgestrel intrauterine montelukast (Singulair) 10 mg PO BEDTIME ondansetron HCl 4 mg PO Q6H PRN pantoprazole 40 mg PO QAM 30 days sennosides (senna) 17.2 mg (2 x 8.6 mg) PO BEDTIME PRN 90 days sucralfate 10 mL PO BID 30 days HPI HPI Comments History of Present Illness Details This?is a?37?yo female who is s/p LSG 04/27/2023. Presents for 4 week post op visit. Weight loss of 1.8lbs since last recorded weight 1 week ago.? No complaints of nausea, emesis, abdominal pain or reflux, or constipation. No additional episodes of dizziness. Continues to take Zofran q8h to prevent nausea, no nausea. Rash is much improved. Present meal plan includes: 2 Ensure Max shakes per day 1 Isopure protein drink reports she is only getting 1-2 bottles of water in addition to this Exercise routine includes: none- goes to track at [facility] Medical History (Updated 05/25/23 @ 15:29 by PAULA Dias) Anemia Arthritis Asthma Delivery with history of Depression Elevated cholesterol Gastritis GERD (gastroesophageal reflux disease) Hiatal hernia Hiatal hernia Migraine Surgical History Hx of section Hx of tubal ligation S/P laparoscopic sleeve gastrectomy (04/27/23) Family History Mother Hypertension Arthritis Son Hyperactive Daughter No problems noted. Son No problems noted. 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 Can try one bottle of Gatorade Zero or Powerade Zero per day if unable to find Propel. Encouraged resuming walking for exercise now that dizziness has improved; pt will continue to work on increasing hydration. RTC 2 weeks. Patient is overweight and is not considered stable at this time. I spent a total of 30 minutes reviewing/updating records, examining the patient and counseling the patient on weight management as detailed above. Coding Level of Care Code Est Pt Level 4 (16493) Diagnoses S/P laparoscopic sleeve gastrectomy Z98.84 Overweight E66.3
[2023-05-25 15:09] VITALS: BP 108/63; PULSE 99; TEMP 36.5; O2SAT 96; BMI 29.7
== END 2023-05-25 15:31 | disposition home or self-care (01) ==
PROVIDERS: PCP Nurse Practitioner Primary Care; Visit Provider Physician Assistant Surgical
DX: E66.3 Overweight (principal); Z68.29 Body mass index [BMI] 29.0-29.9, adult; Z90.3 Acquired absence of stomach [part of]; Z98.84 Bariatric surgery status
CPT/HCPCS: 99024

== ENCOUNTER → 2023-05-25 14:51 | Outpatient (BNVA) | payer MEDICAID, SELFPAY | PROVIDERS: PCP Nurse Practitioner Primary Care; Visit Provider Physician Assistant Surgical ==

== ENCOUNTER 2023-06-16 09:02 | Outpatient (AMB) | payer MEDICAID, SELFPAY ==
--- NOTE | 2023-06-16 09:12 | A.OFFVIS_ITS ---
Intake VS Expanded 06/16/23 09:16 Height 5 ft 2 in Weight 163 lb BMI 29.8 BP 130/69 Blood Pressure Location Rt brachial Blood Pressure Position Sitting Pulse 85 Pulse Source Pulse Oximeter Temp 97.5 F Temperature Source Temporal Artery Scan Pulse Oximetry 98 Oxygen Delivery Method Room Air Body Fat 60.2 Body Fat Percentage 36.9 Free Fat Mass 102.8 Muscle Mass 97.4 Visceral Mass 7.0 Water Mass 73.6 BMR 1,424 Intake Visit Reasons: (OV) PO LSG 04/27/23 Green Energy Marketing Analyst Required: Yes Green Energy Marketing Analyst Name: office cmi Allergies No Known Allergies Allergy (Verified 06/16/23 09:15) Medication List - Last Reconciled 06/16/23 by PAULA Casas albuterol sulfate 0.63 mg inhalation Q6H PRN calcium citrate-vitamin D3 315 mg-5 mcg (200 unit) 1 tab PO BID docusate sodium (Colace) 100 mg PO BID fluticasone furoate 100 mcg/actuation (Arnuity Ellipta) 1 inh inhalation DAILY fluticasone propionate 50 mcg/actuation 1 spray intranasal BID lamotrigine 150 mg PO DAILY levonorgestrel intrauterine montelukast (Singulair) 10 mg PO BEDTIME pantoprazole 40 mg PO QAM 30 days sennosides (senna) 17.2 mg (2 x 8.6 mg) PO BEDTIME PRN 90 days sucralfate (Carafate) 10 mL PO BID HPI HPI Comments History of Present Illness Details This?a?37?yo female who is s/p LSG without hiatal hernia repair on?04/27/[address] Bell. Presents for 6 week post op visit. Weight today is 163 pounds, with a BMI of 29.8. There has been a 55.6 pound weight loss,(initial weight 218.6 pounds) since starting the program on 11/12/22 reflecting a 25.4% total body weight loss and a weight loss of 23.5 pounds since surgery (operative weight 186.5 pounds) reflecting a 12.6% TBWL since surgery. States she has decrease energy and has had several episodes of lightheadedness Not taking MVI or nicholas + D Present meal plan includes: Ensure max 30 gm rtd x 2 ZP bar 48 oz water ? Exercise routine includes: walking 3 miles daily PFSH Medical History Anemia Arthritis Asthma Delivery with history of Depression Elevated cholesterol Gastritis GERD (gastroesophageal reflux disease) Hiatal hernia Hiatal hernia Migraine Surgical History Hx of section Hx of tubal ligation S/P laparoscopic sleeve gastrectomy (04/27/23) Family History Mother Hypertension Arthritis Son Hyperactive Daughter No problems noted. Son No problems noted. 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 Physical Exam Vital Signs: Last Vital Signs Temp 97.5 F 06/16/23 09:16 Pulse 85 06/16/23 09:16 BP 130/69 06/16/23 09:16 Pulse Ox 98 06/16/23 09:16 Oxygen Delivery Method Room Air 06/16/23 09:16 BMI result Body Mass Index 29.8 Const General: healthy appearing and no acute distress Resp Effort & Inspection: normal respiratory effort Auscultation: clear to auscultation bilaterally Cardio Rate: regular rate Rhythm: regular rhythm GI Auscultation: normal bowel sounds Extrem General: Yes normal to inspection Assessment & Plan Assessment & Plan (1) Overweight: Code(s): E66.3 - Overweight Plan: Change meal plan to : Ensure max ZP bar meal 4 forks protein, 4 forks cooked veg, if rolando may incr to 6 forks protein Add MVI and Nicholas+ D Given sample for bariatric fusion rtc 1 month Coding Level of Care Code Global (63047) Diagnoses Overweight E66.3
[2023-06-16 09:16] VITALS: BP 130/69; PULSE 85; TEMP 36.4; O2SAT 98; BMI 29.8
== END 2023-06-16 09:50 | disposition home or self-care (01) ==
PROVIDERS: PCP Nurse Practitioner Primary Care; Visit Provider Physician Assistant Surgical
DX: E66.3 Overweight (principal); Z68.29 Body mass index [BMI] 29.0-29.9, adult; Z90.3 Acquired absence of stomach [part of]; Z98.84 Bariatric surgery status
CPT/HCPCS: 99024

== ENCOUNTER → 2023-06-16 09:02 | Outpatient (BNVA) | payer MEDICAID, SELFPAY | PROVIDERS: PCP Nurse Practitioner Primary Care; Visit Provider Physician Assistant Surgical | DX: Z98.84 Bariatric surgery status (principal); E66.9 Obesity, unspecified ==

== ENCOUNTER 2023-07-14 13:41 | Outpatient (AMB) | payer MEDICAID, SELFPAY ==
--- NOTE | 2023-07-14 14:06 | MHC.OFFVISWM ---
Intake VS Expanded 07/14/23 14:10 Height 5 ft 2 in Weight 157 lb BMI 28.7 BP 110/55 L Blood Pressure Location Rt brachial Blood Pressure Position Sitting Pulse 92 Pulse Source Pulse Oximeter Temp 97.9 F Temperature Source Temporal Artery Scan Pulse Oximetry 95 Oxygen Delivery Method Room Air Body Fat 54.4 Body Fat Percentage 34.7 Free Fat Mass 102.6 Muscle Mass 97.2 Visceral Mass 6.0 Water Mass 73.4 BMR 1,412 Intake Visit Reasons: (OV) PO LSG 04/27/23 Allergies No Known Allergies Allergy (Verified 07/14/23 14:08) HPI HPI Comments History of Present Illness Details This?a?37?yo female who is s/p LSG without hiatal hernia repair on?04/27/[address] Bell. Presents for 2 month post op visit. Weight today is 157 pounds, with a BMI of 28.7. There has been a 61.6 pound weight loss,(initial weight 218.6 pounds) since starting the program on 11/12/22 reflecting a 28.1% total body weight loss and a weight loss of 29.5 pounds since surgery (operative weight 186.5 pounds) reflecting a 15.8% TBWL since surgery. bariatric fusion mvi Present meal plan includes: ensure max zp bar meal 4 forks/4 forks or another shake of ensure max ? Exercise routine includes: none in 2 weeks due to knee pain PFSH Medical History Arthritis Anemia Gastritis GERD (gastroesophageal reflux disease) Hiatal hernia Depression Elevated cholesterol Hiatal hernia Delivery with history of Migraine Asthma Surgical History S/P laparoscopic sleeve gastrectomy (04/27/23) Hx of tubal ligation Hx of section Family History Mother Hypertension Arthritis Son Hyperactive Daughter No problems noted. Son No problems noted. 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 Physical Exam Vital Signs: Last Vital Signs Temp 97.9 F 07/14/23 14:10 Pulse 92 07/14/23 14:10 BP 110/55 L 07/14/23 14:10 Pulse Ox 95 07/14/23 14:10 Oxygen Delivery Method Room Air 07/14/23 14:10 BMI result Body Mass Index 28.7 Const General: healthy appearing and no acute distress Resp Effort & Inspection: normal respiratory effort Auscultation: clear to auscultation bilaterally Cardio Rate: regular rate Rhythm: regular rhythm GI Auscultation: normal bowel sounds Extrem General: Yes normal to inspection Assessment & Plan Assessment & Plan (1) Overweight: Code(s): E66.3 - Overweight Plan: overall satisfied w condition decrease evening shake to 1/2 if she has it return to exercise as able rtc 1 month Coding Level of Care Code Global (08243) Diagnoses Overweight E66.3
[2023-07-14 14:10] VITALS: BP 110/55; PULSE 92; TEMP 36.6; O2SAT 95; BMI 28.7
== END 2023-07-14 14:41 | disposition home or self-care (01) ==
PROVIDERS: PCP Nurse Practitioner Primary Care; Visit Provider Physician Assistant Surgical
DX: E66.3 Overweight (principal)
CPT/HCPCS: 99024

== ENCOUNTER → 2023-07-14 13:41 | Outpatient (BNVA) | payer MEDICAID, SELFPAY | PROVIDERS: PCP Nurse Practitioner Primary Care; Visit Provider Physician Assistant Surgical | DX: Z98.84 Bariatric surgery status (principal); E66.9 Obesity, unspecified ==

== ENCOUNTER 2023-08-18 11:30 | Outpatient (AMB) | payer MEDICAID, SELFPAY ==
--- NOTE | 2023-08-18 11:33 | MHC.OFFVISWM ---
Intake VS Expanded 08/18/23 11:41 BP 118/57 L Blood Pressure Location Rt brachial Blood Pressure Position Sitting Pulse 86 Pulse Source Pulse Oximeter Temp 97.5 F Temperature Source Temporal Artery Scan Pulse Oximetry 98 Oxygen Delivery Method Room Air Height 5 ft 2 in Weight 154 lb BMI 28.2 Body Fat % 34.9 Body Fat Mass 53.8 Fat Free Mass 100.6 Visceral Fat Rating 6.0 Body Water % 46.6 Body Water Mass 71.8 Muscle Mass/Score 95.4 Basal Metabolic Rate/Score 1,388 Intake Visit Reasons: (OV) PO LSG 04/27/23 Shipping Associate Required: Yes Shipping Associate Name: office cmi Allergies No Known Allergies Allergy (Verified 08/18/23 11:37) Medication List - Last Reconciled 08/18/23 by PAULA Casas albuterol sulfate 0.63 mg inhalation Q6H PRN calcium citrate-vitamin D3 315 mg-5 mcg (200 unit) 1 tab PO BID docusate sodium (Colace) 100 mg PO BID fluticasone furoate 100 mcg/actuation (Arnuity Ellipta) 1 inh inhalation DAILY fluticasone propionate 50 mcg/actuation 1 spray intranasal BID lamotrigine 150 mg PO DAILY levonorgestrel intrauterine montelukast (Singulair) 10 mg PO BEDTIME pantoprazole 40 mg PO QAM sennosides (senna) 17.2 mg (2 x 8.6 mg) PO BEDTIME PRN 90 days HPI HPI Comments History of Present Illness Details This?a?37?yo female who is s/p LSG without hiatal hernia repair on?04/27/[address] Bell. Presents for 3.5 month post op visit. Weight today is 154.4 pounds, with a BMI of 28.3. There has been a 64.2 pound weight loss,(initial weight 218.6 pounds) since starting the program on 11/12/22 reflecting a 29.3% total body weight loss and a weight loss of 32.1 pounds since surgery (operative weight 186.5 pounds) reflecting a 17.2% TBWL since surgery. bariatric fusion mvi Present meal plan includes: ensure max, 30 gm zp bar meal 4 forks/4 forks Drinkin oz daily of water Exercise routine includes: none in 2 weeks as she has to care for her family and is going to school [facility] Medical History Arthritis Anemia Gastritis GERD (gastroesophageal reflux disease) Hiatal hernia Depression Elevated cholesterol Hiatal hernia Delivery with history of Migraine Asthma Surgical History S/P laparoscopic sleeve gastrectomy (04/27/23) Hx of tubal ligation Hx of section Family History Mother Hypertension Arthritis Son Hyperactive Daughter No problems noted. Son No problems noted. Social History Household Members: Family Housing: House Are you a primary critical care specialist to a significant other at home: Yes Do you presently have visiting nurse or other home services: No Alcohol intake: current Alcohol intake frequency: does not drink Patient Tobacco Use Status: Never used Tobacco Current occupational status: employed Current occupation: F[employer]/ rt hand Physical Exam Const General: healthy appearing and no acute distress Resp Effort & Inspection: normal respiratory effort Auscultation: clear to auscultation bilaterally Cardio Rate: regular rate Rhythm: regular rhythm GI Auscultation: normal bowel sounds Extrem General: Yes normal to inspection Assessment & Plan Assessment & Plan (1) Overweight: Code(s): E66.3 - Overweight Plan: Encouraged to resume exercise plan. Continue with current meal plan. Return to the office in 3 weeks. She was additionally encouraged to continue to text her weight weekly and to text if any questions. Increase water to 48-64 oz daily Coding Level of Care Code Est Pt Level 3 (85585) Diagnoses Overweight E66.3
[2023-08-18 11:41] VITALS: BP 118/57; PULSE 86; TEMP 36.4; O2SAT 98; BMI 28.2
== END 2023-08-18 11:57 | disposition home or self-care (01) ==
PROVIDERS: PCP Nurse Practitioner Primary Care; Visit Provider Physician Assistant Surgical
DX: E66.3 Overweight (principal)
CPT/HCPCS: 99213

== ENCOUNTER → 2023-08-18 11:30 | Outpatient (BNVA) | payer MEDICAID, SELFPAY | PROVIDERS: PCP Nurse Practitioner Primary Care; Visit Provider Physician Assistant Surgical | DX: E66.3 Overweight (principal); Z68.28 Body mass index [BMI] 28.0-28.9, adult; Z90.3 Acquired absence of stomach [part of] | CPT/HCPCS: 99212 ==

== ENCOUNTER 2023-09-01 12:18 | Outpatient (REF) | payer OTHER, MEDICAID, SELFPAY ==
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
== END 2023-09-01 12:19 | disposition home or self-care (01) ==
LOC: HO.HHCX 12:18
PROVIDERS: Visit Provider Family Medicine
DX: M54.2 Cervicalgia (principal); M54.50 Low back pain, unspecified; G89.29 Other chronic pain; M25.511 Pain in right shoulder; M25.512 Pain in left shoulder
CPT/HCPCS: 72040; 72070; 72100; 73030

== ENCOUNTER 2023-09-21 10:52 | Outpatient (AMB) | payer MEDICAID, SELFPAY ==
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
[2023-09-21 11:20] VITALS: BP 119/57; PULSE 98; TEMP 36.4; O2SAT 97; BMI 26.3
== END 2023-09-21 11:51 | disposition home or self-care (01) ==
PROVIDERS: PCP Nurse Practitioner Primary Care; Visit Provider Physician Assistant Surgical
DX: E66.3 Overweight (principal)
CPT/HCPCS: 99213

== ENCOUNTER → 2023-09-21 10:52 | Outpatient (BNVA) | payer OTHER, SELFPAY | PROVIDERS: PCP Nurse Practitioner Primary Care; Visit Provider Physician Assistant Surgical | DX: E66.3 Overweight (principal); Z68.26 Body mass index [BMI] 26.0-26.9, adult | CPT/HCPCS: 99212 ==

== ENCOUNTER 2023-11-07 12:30 | Outpatient (REF) | payer MEDICAID, SELFPAY ==
[2023-11-08 12:57] LABS: HIV AB/AG Nonreactive (Nonreactive); HIV Num 1 0.05 S/CO (0.00-0.99); ~HepC Num1 0.08 S/CO (0.00-0.79); ~Hepatitis C Antibody Nonreactive (Nonreactive)
[2023-11-08 22:44] LABS: C. trachomatis RNA TMA NOT DETECTED (NOT DETECTED); Candida glabrata RNA NOT DETECTED (NOT DETECTED); Candida species RNA NOT DETECTED (NOT DETECTED); N. gonorrhoeae RNA TMA NOT DETECTED (NOT DETECTED); Trichomonas vaginalis RNA NOT DETECTED (NOT DETECTED)
[2023-11-09 12:53] LABS: RPR Rapid Plasma Reagin NON-REACTIVE (NON-REACTIVE)
== END 2023-11-07 12:31 | disposition home or self-care (01) ==
LOC: HO.HHCL 12:30
PROVIDERS: Visit Provider Nurse Practitioner Primary Care
DX: Z11.3 Encounter for screening for infections with a predominantly sexual mode of transmission (principal)
CPT/HCPCS: 36415; 81513; 86592; 86803; 87389; 87481; 87491; 87591; 87661

== ENCOUNTER 2023-11-21 13:47 | Outpatient (AMB) | payer MEDICAID, SELFPAY ==
--- NOTE | 2023-11-21 13:48 | A.OFFVIS_ITS ---
Intake VS Expanded 11/21/23 13:55 BP 122/57 L Blood Pressure Location Rt brachial Blood Pressure Position Sitting Pulse 88 Pulse Source Pulse Oximeter Temp 96.7 F L Temperature Source Tympanic Pulse Oximetry 100 Oxygen Delivery Method Room Air Height 5 ft 2 in Weight 151 lb 9.6 oz BMI 27.7 Body Fat % 31.4 Body Fat Mass 47.6 Fat Free Mass 103.8 Visceral Fat Rating 5.0 Body Water % 49.1 Body Water Mass 74.2 Muscle Mass/Score 98.6 Basal Metabolic Rate/Score 1,416 Intake Visit Reasons: (OV) PO LSG 04/27/23 Corporate Investigator Required: Yes Corporate Investigator Name: office cmi Allergies No Known Allergies Allergy (Verified 09/21/23 11:16) Medication List - Last Reconciled 11/21/23 by PAULA Casas albuterol sulfate 0.63 mg inhalation Q6H PRN calcium citrate-vitamin D3 315 mg-5 mcg (200 unit) 1 tab PO BID docusate sodium 100 mg PO BID fluticasone furoate 100 mcg/actuation (Arnuity Ellipta) 1 inh inhalation DAILY fluticasone propionate 50 mcg/actuation 1 spray intranasal BID lamotrigine 150 mg PO DAILY levonorgestrel intrauterine montelukast (Singulair) 10 mg PO BEDTIME sennosides (senna) 17.2 mg (2 x 8.6 mg) PO BEDTIME PRN 90 days HPI HPI Comments History of Present Illness Details This?a?37?yo female who is s/p LSG without hiatal hernia repair on?04/27/[address] Bell. Presents for 7 month post op visit. Weight today is 151.6 pounds, with a BMI of 27.7. There has been a 67 pound weight loss,(initial weight 218.6 pounds) since starting the program on 11/12/22 reflecting a 30.6% total body weight loss and a weight loss of 34.9 pounds since surgery (operative weight 186.5 pounds) reflecting a 18.7% TBWL since surgery. she has had a 7.4 pound weight gain since last being seen in the office about 2 months ago bariatric fusion mvi She states that she has had increased anxiety over the last 2 months. She saw Psychiatry who prescribed a medication that she does not recall the name of, this caused increased appetite and increased anxiety. She has not yet been able to follow-up with her psychiatrist. She is having chocolate mostly late at night due to the anxiety and she sometimes skips dinner. Present meal plan includes: ensure max, 30 gm zp bar meal 6 forks/6 forks Drinkin-64 oz daily of water Exercise routine includes: nothing, due to laziness Any post op complications: none BRADLY: never DM: never HTN: never Hyperlipidemia: resolved GERD:?0-5 scale ??0 = no symptoms ??1 = symptoms noticeable but not bothersome 2 =symptoms bothersome but not daily ? 3 = symptoms bothersome and daily 4 = symptoms affect daily activities 5 = symptoms are incapacitating, unable to do daily activities ? How bad is the heartburn: 0 ? Heartburn while lying down: 0 ? Heartburn when standing up: 0 ? Heartburn after meals: 0 ? Does heartburn change your diet: 0 ? Does heartburn wake you up from sleep: 0 ? Do you have difficulty swallowin ? Do you have pain with swallowin ? If you take medicine for your reflux, does this affect your daily life: 0 Satisfaction with present condition - satisfied or not satisfied: dissatisfied [facility] Medical History Arthritis Anemia Gastritis GERD (gastroesophageal reflux disease) Hiatal hernia Depression Elevated cholesterol Hiatal hernia Delivery with history of Migraine Asthma Surgical History S/P laparoscopic sleeve gastrectomy (04/27/23) Hx of tubal ligation Hx of section Family History Mother Hypertension Arthritis Son Hyperactive Daughter No problems noted. Son No problems noted. 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 Encouraged to follow the meal plan. Encouraged to start exercising. She does not have access to a gym for exercise equipment at home so we discussed home videos including Stephanie Dvae and Leticia Alexandra as well as Jal[employer]. She can certainly walk outside, tracking her calories with [employer]. Return to clinic 4-6 weeks With regards to her anxiety, she states that she does not have an appointment with her behavioral health specialist. At her last behavioral health visit, she saw another provider who was reluctant to discontinue the previously prescribed medication. I encouraged her to call the Behavioral Health office to get an appointment to be seen as soon as possible given the adverse reaction to the medication that was started. Orders: Orders Insulin Today E66.3 - Overweight, E78.00 - Pure hypercholesterolemia, unspecified, K76.0 - Fatty (change of) liver, not elsewhere classified, Z98.84 - Bariatric surgery status Complete Blood Count Auto Diff Today E66.3 - Overweight, E78.00 - Pure hypercholesterolemia, unspecified, K76.0 - Fatty (change of) liver, not elsewhere classified, Z98.84 - Bariatric surgery status Zinc Today E66.3 - Overweight, E78.00 - Pure hypercholesterolemia, unspecified, K76.0 - Fatty (change of) liver, not elsewhere classified, Z98.84 - Bariatric surgery status C Reactive Protein Today E66.3 - Overweight, E78.00 - Pure hypercholesterolemia, unspecified, K76.0 - Fatty (change of) liver, not elsewhere classified, Z98.84 - Bariatric surgery status Vitamin B1 Today E66.3 - Overweight, E78.00 - Pure hypercholesterolemia, unspecified, K76.0 - Fatty (change of) liver, not elsewhere classified, Z98.84 - Bariatric surgery status Ferritin Today E66.3 - Overweight, E78.00 - Pure hypercholesterolemia, unspecified, K76.0 - Fatty (change of) liver, not elsewhere classified, Z98.84 - Bariatric surgery status Vitamin D 25-OH Total Today E66.3 - Overweight, E78.00 - Pure hypercholesterolemia, unspecified, K76.0 - Fatty (change of) liver, not elsewhere classified, Z98.84 - Bariatric surgery status Basic Metabolic Panel Today E66.3 - Overweight, E78.00 - Pure hypercho lesterolemia, unspecified, K76.0 - Fatty (change of) liver, not elsewhere classified, Z98.84 - Bariatric surgery status Hemoglobin A1c Today E66.3 - Overweight, E78.00 - Pure hypercholesterolemia, unspecified, K76.0 - Fatty (change of) liver, not elsewhere classified, Z98.84 - Bariatric surgery status Lipid Panel Today E66.3 - Overweight, E78.00 - Pure hypercholesterolemia, unspecified, K76.0 - Fatty (change of) liver, not elsewhere classified, Z98.84 - Bariatric surgery status IRON PROFILE Today E66.3 - Overweight, E78.00 - Pure hypercholesterolemia, unspecified, K76.0 - Fatty (change of) liver, not elsewhere classified, Z98.84 - Bariatric surgery status Vitamin B12 and Folate Today E66.3 - Overweight, E78.00 - Pure hypercholesterolemia, unspecified, K76.0 - Fatty (change of) liver, not elsewhere classified, Z98.84 - Bariatric surgery status Vitamin A Today E66.3 - Overweight, E78.00 - Pure hypercholesterolemia, unspecified, K76.0 - Fatty (change of) liver, not elsewhere classified, Z98.84 - Bariatric surgery status TSH reflex Free T4 Today E66.3 - Overweight, E78.00 - Pure hypercholesterolemia, unspecified, K76.0 - Fatty (change of) liver, not elsewhere classified, Z98.84 - Bariatric surgery status Coding Level of Care Code Est Pt Level 4 (43409) Diagnoses Overweight E66.3
[2023-11-21 13:55] VITALS: BP 122/57; PULSE 88; TEMP 35.9; O2SAT 100; BMI 27.7
== END 2023-11-21 14:31 | disposition home or self-care (01) ==
PROVIDERS: PCP Nurse Practitioner Primary Care; Visit Provider Physician Assistant Surgical
DX: E66.3 Overweight (principal); Z68.27 Body mass index [BMI] 27.0-27.9, adult; Z90.3 Acquired absence of stomach [part of]; Z98.84 Bariatric surgery status
CPT/HCPCS: 99214

== ENCOUNTER → 2023-11-21 13:47 | Outpatient (BNVA) | payer MEDICAID, SELFPAY | PROVIDERS: PCP Nurse Practitioner Primary Care; Visit Provider Physician Assistant Surgical | DX: E66.3 Overweight (principal); Z68.27 Body mass index [BMI] 27.0-27.9, adult; Z98.84 Bariatric surgery status | CPT/HCPCS: 99212 ==

== ENCOUNTER 2023-12-26 11:35 | Outpatient (REF) | payer MEDICAID, SELFPAY ==
[2023-12-26 11:55] LABS: MANUAL DIFF FLAG NO
[2023-12-26 12:37] LABS: Estimated Average Glucose 94 mg/dL; Hemoglobin A1c % 4.9 % (<6.0)
[2023-12-26 12:40] LABS: Basophils Percent Auto 0.2 % (0-2); Eosinophils Percent Auto 0.5 % (0-4); Hematocrit 39.7 % (37.0-47.0); Hemoglobin 12.9 g/dl (12.0-16.0); Imm Gran Abs Auto 0.02 X10*3/uL (0.00-0.03); Imm Gran Pct Auto 0.3 % (0.0-0.4); Lymphocytes Absolute Auto 2.1 X10*3/uL (1.2-4.9); Lymphocytes Percent Auto 34.4 % (20-40); Mean Corpuscular HGB Conc 32.5 g/dl (31.0-35.0); Mean Corpuscular Hemoglobin 29.4 pg (27.0-33.0); Mean Corpuscular Volume 90.4 fL (80.0-98.0); Mean Platelet Volume 10.5 fL (9.4-12.3); Monocytes Absolute Auto 0.4 X10*3/uL (0.1-1.2); Monocytes Percent Auto 5.6 % (2-11); Neutrophils Absolute Auto 3.7 x10*3/uL (2.0-8.3); Platelet Count 269 X10*3/uL (160-400); Red Blood Count 4.39 X10*6/uL (4.20-5.50); Red Cell Distribution Width 13.7 % (11.0-16.0); White Blood Count 6.2 X10*3/uL (4.8-10.8)
[2023-12-26 13:22] LABS: Anion Gap 10 (12-20); Blood Urea Nitrogen 12 mg/dL (9-16); C Reactive Protein < 0.10 mg/dL (< or = 0.50); Calcium 8.9 mg/dL (8.4-10.2); Carbon Dioxide 28 mmol/L (22-29); Chloride 107 mmol/L (96-108); Cholesterol 203 mg/dL (<200); Estimated Glomerular Filt Rate > 60; Ferritin 14 ng/mL (10-122); Glucose Random 79 mg/dL (60-115); HDL Cholesterol 59 mg/dL (>40); Insulin 5 uU/mL (2-29); Iron 138 mcg/dL (30-160); LDL Cholesterol Calculated 125 mg/dL (<100); Percent Iron Saturation 45 % (15-50); Potassium 3.9 mmol/L (3.3-5.1); Sodium 141 mmol/L (135-145); TSH reflex Free T4 0.68 uIU/mL (0.32-4.0); Total Iron Binding Capacity 307 mcg/dL (228-428); Triglycerides 95 mg/dL (<150); Unsaturated Iron Binding 169 ug/dL; Vitamin D 25-OH Total 39.5 ng/mL (>30)
[2023-12-26 13:28] LABS: Folate 13.1 ng/mL (> or = 4.0); Vitamin B12 998 pg/mL (200-900)
[2023-12-29 01:14] LABS: Zinc 79 mcg/dL (60-130)
[2023-12-30 01:34] LABS: Vitamin A 48 mcg/dL (38-98)
[2023-12-31 13:14] LABS: Vitamin B1 18 nmol/L (8-30)
== END 2023-12-26 11:36 | disposition home or self-care (01) ==
LOC: HO.LAB 11:35
PROVIDERS: PCP Nurse Practitioner Primary Care; Visit Provider Physician Assistant Surgical
DX: E66.3 Overweight (principal); E78.00 Pure hypercholesterolemia, unspecified; K76.0 Fatty (change of) liver, not elsewhere classified; Z71.3 Dietary counseling and surveillance; Z79.899 Other long term (current) drug therapy; Z98.84 Bariatric surgery status
CPT/HCPCS: 36415; 80048; 80061; 82306; 82607; 82728; 82746; 83036; 83525; 83540; 84425; 84443; 84590; 84630; 85025; 86140; 99212

== ENCOUNTER 2023-12-26 13:17 | Outpatient (AMB) | payer MEDICAID, SELFPAY ==
--- NOTE | 2023-12-26 13:21 | A.OFFVIS_ITS ---
Intake VS Expanded 12/26/23 13:27 BP 120/56 L Blood Pressure Location Rt brachial Blood Pressure Position Sitting Pulse 82 Pulse Source Pulse Oximeter Temp 96.0 F L Temperature Source Tympanic Pulse Oximetry 98 Oxygen Delivery Method Room Air Height 5 ft 2 in Weight 149 lb 9.6 oz BMI 27.4 Body Fat % 32.4 Body Fat Mass 48.6 Fat Free Mass 101.0 Visceral Fat Rating 5.0 Body Water % 48.4 Body Water Mass 72.4 Muscle Mass/Score 96.0 Basal Metabolic Rate/Score 1,382 Intake Visit Reasons: (OV) PO LSG 04/27/23 Clinical Rehabilitation Aide Required: Yes Clinical Rehabilitation Aide Name: office cmi Allergies No Known Allergies Allergy (Verified 09/21/23 11:16) Medication List - Last Reconciled 12/26/23 by PAULA Casas albuterol sulfate 0.63 mg inhalation Q6H PRN calcium citrate-vitamin D3 315 mg-5 mcg (200 unit) 1 tab PO BID docusate sodium 100 mg PO BID fluticasone furoate 100 mcg/actuation (Arnuity Ellipta) 1 inh inhalation DAILY fluticasone propionate 50 mcg/actuation 1 spray intranasal BID lamotrigine 150 mg PO DAILY levonorgestrel intrauterine montelukast (Singulair) 10 mg PO BEDTIME sennosides (senna) 17.2 mg (2 x 8.6 mg) PO BEDTIME PRN 90 days HPI HPI Comments History of Present Illness Details This?a?37?yo female who is s/p LSG without hiatal hernia repair on?04/27/[address] Bell. Presents for 8 month post op visit. Weight today is 149.6 pounds, with a BMI of 27.4. There has been a 69 pound weight loss,(initial weight 218.6 pounds) since starting the program on 11/12/22 reflecting a 31.5% total body weight loss and a weight loss of 36.9 pounds since surgery (operative weight 186.5 pounds) reflecting a 19.7% TBWL since surgery. she has had a 7.4 pound weight gain since last being seen in the office about 2 months ago bariatric fusion mvi She states that she has had a little decrease in anxiety. She still is having chocolate during her menses. Present meal plan includes: ensure max, 30 gm zp bar meal 6 forks/6 forks Drinkin oz daily of water Exercise routine includes: video at home 2 days per week. [facility] Medical History Arthritis Anemia Gastritis GERD (gastroesophageal reflux disease) Hiatal hernia Depression Elevated cholesterol Hiatal hernia Delivery with history of Migraine Asthma Surgical History S/P laparoscopic sleeve gastrectomy (04/27/23) Hx of tubal ligation Hx of section Family History Mother Hypertension Arthritis Son Hyperactive Daughter No problems noted. Son No problems noted. 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 Physical Exam Vital Signs: Last Vital Signs Temp 96.0 F L 12/26/23 13:27 Pulse 82 12/26/23 13:27 BP 120/56 L 12/26/23 13:27 Pulse Ox 98 12/26/23 13:27 Oxygen Delivery Method Room Air 12/26/23 13:27 BMI result Body Mass Index 27.4 Const General: healthy appearing and no acute distress Resp Effort & Inspection: normal respiratory effort Auscultation: clear to auscultation bilaterally Cardio Rate: regular rate Rhythm: regular rhythm GI Auscultation: normal bowel sounds Extrem General: Yes normal to inspection Assessment & Plan Assessment & Plan (1) Overweight: Code(s): E66.3 - Overweight Plan: Reviewed 6 months labs with the patient. Encouraged to increase activity to daily. She is satisfied with her meal plan and will continue. Return to clinic 1 month. Encouraged to text weight weekly Coding Level of Care Code Est Pt Level 3 (62929) Diagnoses Overweight E66.3
[2023-12-26 13:27] VITALS: BP 120/56; PULSE 82; TEMP 35.6; O2SAT 98; BMI 27.4
== END 2023-12-26 13:45 | disposition home or self-care (01) ==
PROVIDERS: PCP Nurse Practitioner Primary Care; Visit Provider Physician Assistant Surgical
DX: E66.3 Overweight (principal)
CPT/HCPCS: 99213

== ENCOUNTER 2024-03-08 13:25 | Outpatient (AMB) | payer MEDICAID, SELFPAY ==
--- NOTE | 2024-03-08 13:30 | MHC.OFFVIS ---
Vital Signs 03/08/24 13:37 Height 5 ft 2 in Weight 149 lb BMI 27.2 Intake Visit Reasons: B/L shoulder pain Intake Note: Lupe a 37 year old right hand dominant female, presents today for a follow up visit of bilateral shoulder pain. Patient reports that she had to hold off on cortisone injection due to a surgery. She continues to have shoulder pain and is requesting to proceed with cortisone injections. Her pain is intermittent, states when pain is present it hurts a lot. Allergies No Known Allergies Allergy (Verified 03/08/24 13:44) HPI HPI B/L shoulder pain: Details: 38-year-old female who returns to the office today with an director general for a follow-up of bilateral shoulder pain. She continues to have intermittent chronic pain in her shoulders that is occasional aggravated at night. She denies any weakness or dropping items. She reports she had to hold off on injection due to bariatric surgery which went well. She would like to proceed with an injection. [facility] Medical History Arthritis Anemia Gastritis GERD (gastroesophageal reflux disease) Hiatal hernia Depression Elevated cholesterol Hiatal hernia Delivery with history of Migraine Asthma Surgical History S/P laparoscopic sleeve gastrectomy (04/27/23) Hx of tubal ligation Hx of section Family History Mother Hypertension Arthritis Son Hyperactive Daughter No problems noted. Son No problems noted. 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 Tenderness over the bicipital groove and along the deltoid region of the shoulder. Forward flexion to 175, external rotation to 90, internal rotation to S1. 5/5 RTC strength. Negative [place] and cross body abduction. NVI. Office Procedures Joint Injection/Drain Joint Injection/Drain Primary Site: right shoulder Secondary Site: left shoulder Prep: site was prepped using aseptic technique, ethochloride spray was applied and injection warnings given Injected: 40 mg of, 80 mg of, with 8 mL of, 1% plain lidocaine and in the subcromial space Approach Used: posterolateral Procedure: The patient tolerated the procedure well and there was some relief with the local anesthesia Coding 03744 - Glenohumeral/Tronchanteric Bursa/Intraarticular Procedure code (CPT) selection complete Assessment & Plan Assessment & Plan (1) Tendonitis of both rotator cuffs: Code(s): M75.81 - Other shoulder lesions, right shoulder; M75.82 - Other shoulder lesions, left shoulder Category: Medical Plan We discussed options today which include steroid injection. They did consent to move forward with the bilateral shoulder injection, which was tolerated well. I recommended rest, ice and elevation and OTC anti-inflammatories PRN for discomfort. If symptoms persist or worsens over the next 6-8 weeks, patient will contact the office, otherwise follow-up as needed. ? Orders: Orders PT Evaluation and Treatment Today M75.81 - Other shoulder lesions, right shoulder, M75.82 - Other shoulder lesions, left shoulder Patient Instructions: Scribed for Mihir Ramirez PA-C, by Jensen Dove medical office representative, on 03/08/2024 at 1:30 PM EST.? I, Mihir Ramirez PA-C, have personally reviewed and agree with the information entered by the scribe. Coding Level of Care Code Est Pt Level 3 (79610) Diagnoses Tendonitis of both rotator cuffs M75.81; M75.82 CPT Codes Coding - Joint 7: 68114 - Glenohumeral/Tronchanteric Bursa/Intraarticular ([id number])
[2024-03-08 13:37] VITALS: BMI 27.2
== END 2024-03-08 14:48 | disposition home or self-care (01) ==
PROVIDERS: PCP Nurse Practitioner Primary Care; Visit Provider Physician Assistant
DX: M75.81 Other shoulder lesions, right shoulder (principal); M75.82 Other shoulder lesions, left shoulder
CPT/HCPCS: 20610; 99213

== ENCOUNTER → 2024-03-08 13:25 | Outpatient (BNVA) | payer MEDICAID, SELFPAY | PROVIDERS: PCP Nurse Practitioner Primary Care; Visit Provider Physician Assistant | DX: M75.81 Other shoulder lesions, right shoulder (principal); M75.82 Other shoulder lesions, left shoulder | CPT/HCPCS: 20610; 99212; J1010 ==

== ENCOUNTER 2024-04-03 10:17 | Outpatient (REF) | payer MEDICAID, SELFPAY ==
--- NOTE | ~2024-04-03 | XR_ITS ---
EXAMINATION: XR BILATERAL HIPS WITH AP PELVIS CLINICAL INFORMATION: Left lower quadrant pain, evaluate hip DJD. COMPARISON: Lumbar spine of 09/01/2023. TECHNIQUE: AP view of the pelvis and 2 views of each hip. FINDINGS: IUD in the pelvis. Mild degenerative changes in the imaged lower lumbar spine. Pubic symphysis is maintained. Bilateral hip alignment preserved. Mild degenerative changes in bilateral hips with mild joint space narrowing and lateral acetabular hypertrophic change. Mild degenerative changes in the bilateral sacroiliac joints. XR/XR hips DONNA min 3V IMPRESSION: 1. Mild degenerative changes in bilateral hips. 2. Mild degenerative changes in the bilateral sacroiliac joints.
== END 2024-04-03 10:18 | disposition home or self-care (01) ==
LOC: HO.HOSX 10:17
PROVIDERS: PCP Nurse Practitioner Primary Care; Visit Provider Physical Medicine & Rehabilitation
DX: R10.32 Left lower quadrant pain (principal); M53.3 Sacrococcygeal disorders, not elsewhere classified; M54.50 Low back pain, unspecified
CPT/HCPCS: 73522; 99202

== ENCOUNTER 2024-04-03 10:17 | Outpatient (AMB) | payer MEDICAID, SELFPAY ==
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
[2024-04-03 10:33] VITALS: BMI 27.2
== END 2024-04-03 12:52 | disposition home or self-care (01) ==
PROVIDERS: PCP Nurse Practitioner Primary Care; Visit Provider Physical Medicine & Rehabilitation
DX: M53.3 Sacrococcygeal disorders, not elsewhere classified (principal); R10.32 Left lower quadrant pain
CPT/HCPCS: 99203

== ENCOUNTER 2024-04-09 12:45 | Outpatient (AMB) | payer MEDICAID, SELFPAY ==
--- NOTE | 2024-04-09 12:56 | A.OFFVIS_ITS ---
VS Expanded 04/09/24 13:08 BP 119/65 Blood Pressure Location Rt brachial Blood Pressure Position Sitting Pulse 66 Pulse Source Pulse Oximeter Temp 97 F Temperature Source Temporal Artery Scan Pulse Oximetry 100 Oxygen Delivery Method Room Air Height 5 ft 2 in Weight 155 lb 6.4 oz BMI 28.4 Body Fat % 32.5 Body Fat Mass 50.4 Fat Free Mass 104.8 Visceral Fat Rating 6.0 Body Water % 48.3 Body Water Mass 42.4 Muscle Mass/Score 99.4 Basal Metabolic Rate/Score 1,430 Intake Visit Reasons: (OV) PO LSG 04/27/23 Utility Worker Forge Required: Yes Utility Worker Forge Name: office cmi Allergies No Known Allergies Allergy (Verified 04/09/24 13:06) Medication List - Last Reconciled 04/09/24 by PAULA Casas albuterol sulfate 0.63 mg inhalation Q6H PRN calcium citrate-vitamin D3 315 mg-5 mcg (200 unit) 1 tab PO BID docusate sodium 100 mg PO BID 90 days fluticasone furoate 100 mcg/actuation (Arnuity Ellipta) 1 inh inhalation DAILY fluticasone propionate 50 mcg/actuation 1 spray intranasal BID lamotrigine 150 mg PO DAILY levonorgestrel intrauterine mirtazapine 15 mg PO BEDTIME montelukast (Singulair) 10 mg PO BEDTIME sennosides (senna) 17.2 mg (2 x 8.6 mg) PO BEDTIME PRN 90 days HPI Comments Details: This?a?38?yo female who is s/p LSG without hiatal hernia repair on?04/27/[address] Bell. Presents for 11 month post op visit. Weight today is 155.4 pounds, with a BMI of 28.4. There has been a 63.2 pound weight loss,(initial weight 218.6 pounds) since starting the program on 11/12/22 reflecting a 28.9% total body weight loss and a weight loss of 31.1 pounds since surgery (operative weight 186.5 pounds) reflecting a 16.6% TBWL since surgery. she has had a 7.4 pound weight gain since last being seen in the office about 2 months ago bariatric fusion mvi She states that she has been having increased anxiety, she has a new BH therapist. She has been having an extra meal in the morning. Present meal plan includes: ensure max, 30 gm zp bar meal 6 forks/6 forks Drinkin oz daily of water Exercise routine includes: walking outside at track at [employer], 4 x per week recently started a fter a month break from exercise. Any post op complications: none BRADLY: never DM: never HTN: never Hyperlipidemia: resolved GERD:?0-5 scale ??0 = no symptoms ??1 = symptoms noticeable but not bothersome 2 =symptoms bothersome but not daily ? 3 = symptoms bothersome and daily 4 = symptoms affect daily activities 5 = symptoms are incapacitating, unable to do daily activities ? How bad is the heartburn: 0 ? Heartburn while lying down: 0 ? Heartburn when standing up: 0 ? Heartburn after meals: 0 ? Does heartburn change your diet: 0 ? Does heartburn wake you up from sleep: 0 ? Do you have difficulty swallowin ? Do you have pain with swallowin ? If you take medicine for your reflux, does this affect your daily life: 0 Satisfaction with present condition - satisfied or not satisfied: dissatisfied [facility] Medical History Arthritis Anemia Gastritis GERD (gastroesophageal reflux disease) Hiatal hernia Depression Elevated cholesterol Hiatal hernia Delivery with history of Migraine Asthma Surgical History S/P laparoscopic sleeve gastrectomy (04/27/23) Hx of tubal ligation Hx of section Family History Mother Hypertension Arthritis Son Hyperactive Daughter No problems noted. Son No problems noted. 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 Physical Exam Const General: cooperative and no acute distress Orientation/consciousness: patient oriented x3 Resp Effort & Inspection: normal respiratory effort Auscultation: clear to auscultation bilaterally Cardio Rate: regular rate Rhythm: regular rhythm GI Inspection: Yes normal to inspection and Yes incision (well healed) Palpation (GI): Soft to palpation and no masses Neuro General: patient oriented x3 Assessment & Plan Assessment & Plan (1) S/P laparoscopic sleeve gastrectomy: Onset Date: 04/27/23 Comment: Deepak Bell MD Code(s): Z98.84 - Bariatric surgery status Category: Surgical Plan: Encouraged to walk outside daily. Encouraged to follow the meal plan exactly. Encouraged to text weekly with her weight and if any questions. We will check 1 year postop labs. Return to clinic 6-8 weeks. Orders: Orders Complete Blood Count Auto Diff Today E78.00 - Pure hypercholesterolemia, unspecified, Z98.84 - Bariatric surgery status IRON PROFILE Today E78.00 - Pure hypercholesterolemia, unspecified, Z98.84 - Bariatric surgery status Vitamin B12 and Folate Today E78.00 - Pure hypercholesterolemia, unspecified, Z98.84 - Bariatric surgery status Zinc Today E78.00 - Pure hypercholesterolemia, unspecified, Z98.84 - Bariatric surgery status C Reactive Protein Today E78.00 - Pure hypercholesterolemia, unspecified, Z98.84 - Bariatric surgery status Ferritin Today E78.00 - Pure hypercholesterolemia, unspecified, Z98.84 - Bariatric surgery status Basic Metabolic Panel Today E78.00 - Pure hypercholesterolemia, unspecified, Z98.84 - Bariatric surgery status Insulin Today E78.00 - Pure hypercholesterolemia, unspecified, Z98.84 - Bariatric surgery status Hemoglobin A1c Today E78.00 - Pure hypercholesterolemia, unspecified, Z98.84 - Bariatric surgery status Lipid Panel Today E78.00 - Pure hypercholesterolemia, unspecified, Z98.84 - Bariatric surgery status Vitamin B1 Today E78.00 - Pure hypercholesterolemia, unspecified, Z98.84 - Ba riatric surgery status Vitamin A Today E78.00 - Pure hypercholesterolemia, unspecified, Z98.84 - Bariatric surgery status TSH reflex Free T4 Today E78.00 - Pure hypercholesterolemia, unspecified, Z98.84 - Bariatric surgery status Vitamin D 25-OH Total Today E78.00 - Pure hypercholesterolemia, unspecified, Z98.84 - Bariatric surgery status
[2024-04-09 13:08] VITALS: BP 119/65; PULSE 66; TEMP 36.1; O2SAT 100; BMI 28.4
== END 2024-04-09 13:23 | disposition home or self-care (01) ==
PROVIDERS: PCP Nurse Practitioner Primary Care; Visit Provider Physician Assistant Surgical
DX: E66.3 Overweight (principal); Z68.28 Body mass index [BMI] 28.0-28.9, adult; Z90.3 Acquired absence of stomach [part of]; Z98.84 Bariatric surgery status
CPT/HCPCS: 99214

== ENCOUNTER → 2024-04-09 12:45 | Outpatient (BNVA) | payer MEDICAID, SELFPAY | PROVIDERS: PCP Nurse Practitioner Primary Care; Visit Provider Physician Assistant Surgical | DX: Z98.84 Bariatric surgery status (principal) | CPT/HCPCS: 99212 ==

== ENCOUNTER 2024-07-19 12:34 | Outpatient (AMB) | payer MEDICAID, SELFPAY ==
[2024-07-19 12:40] VITALS: BP 112/58; PULSE 77; O2SAT 98; BMI 29.8
--- NOTE | 2024-07-19 12:40 | A.OFFVIS_ITS ---
VS Expanded 07/19/24 12:40 BP 112/58 L Blood Pressure Location Lt brachial Blood Pressure Position Sitting Pulse 77 Pulse Source Pulse Oximeter Pulse Oximetry 98 Height 5 ft 2 in Weight 163 lb 3.2 oz BMI 29.8 Body Fat % 38.1 Body Fat Mass 62.2 Fat Free Mass 101.0 Visceral Fat Rating 7.0 Body Water % 44.3 Body Water Mass 72.4 Muscle Mass/Score 96.0 Basal Metabolic Rate/Score 1,405 Intake Visit Reasons: (OV) PO LSG 04/27/23 Intake Note: Lupe presents in the office as a post op LSG on 04/27/23. Software Asset Management Analyst Required: Yes Software Asset Management Analyst Services: Software Asset Management Analyst Present Software Asset Management Analyst Name: office cmi Allergies No Known Allergies Allergy (Verified 07/19/24 12:49) Medication List - Last Reconciled 07/19/24 by PAULA Casas albuterol sulfate 0.63 mg inhalation Q6H PRN calcium citrate-vitamin D3 315 mg-5 mcg (200 unit) 1 tab PO BID docusate sodium 100 mg PO BID 90 days fluticasone furoate 100 mcg/actuation (Arnuity Ellipta) 1 inh inhalation DAILY fluticasone propionate 50 mcg/actuation 1 spray intranasal BID hydroxyzine HCl 25 mg PO BID PRN lamotrigine 150 mg PO DAILY levonorgestrel intrauterine mirtazapine 15 mg PO BEDTIME montelukast (Singulair) 10 mg PO BEDTIME sennosides (senna) 17.2 mg (2 x 8.6 mg) PO BEDTIME PRN 90 days HPI Comments Details: This?a?38?yo female who is s/p LSG without hiatal hernia repair on?04/27/[address] Bell. Presents for 1 year 2.5 month post op visit. Weight today is 163.2 pounds, with a BMI of 29.8. There has been a 55.4 pound weight loss,(initial weight 218.6 pounds) since starting the program on 11/12/22 reflecting a 25.3% total body weight loss and a weight loss of 23.3 pounds since surgery (operative weight 186.5 pounds) reflecting a 12.4% TBWL since surgery. She states that she has been having increased anxiety, she has a new therapist. She is not following a meal plan or exercise plan. Present meal plan includes: ensure max, 30 gm zp bar meal 6 forks/6 forks Drinkin oz daily of water Exercise routine includes: PF, treadmill, 4 days per week 45 min, PFSH Medical History Arthritis Anemia Gastritis GERD (gastroesophageal reflux disease) Hiatal hernia Depression Elevated cholesterol Hiatal hernia Delivery with history of Migraine Asthma Surgical History S/P laparoscopic sleeve gastrectomy (04/27/23) Hx of tubal ligation Hx of section Family History Mother Hypertension Arthritis Son Hyperactive Daughter No problems noted. Son No problems noted. 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 She will begin to use the plan. She was instructed to return to the gym and track her calories. We will have her return to the office in 4 weeks.
== END 2024-07-19 13:42 | disposition home or self-care (01) ==
PROVIDERS: PCP Nurse Practitioner Primary Care; Visit Provider Physician Assistant Surgical
DX: E66.3 Overweight (principal)
CPT/HCPCS: 99213

== ENCOUNTER → 2024-07-19 12:34 | Outpatient (BNVA) | payer MEDICAID, SELFPAY | PROVIDERS: PCP Nurse Practitioner Primary Care; Visit Provider Physician Assistant Surgical | DX: E66.3 Overweight (principal); Z98.84 Bariatric surgery status | CPT/HCPCS: 99212 ==

== ENCOUNTER 2024-07-24 06:10 | Outpatient (REF) | payer MEDICAID, SELFPAY | END 2024-07-24 06:11 | disposition home or self-care (01) | LOC: CF 06:10 | PROVIDERS: Visit Provider Anesthesiology | DX: M53.3 Sacrococcygeal disorders, not elsewhere classified (principal) | CPT/HCPCS: 27096; J2003; J2795; Q9967 ==

== ENCOUNTER 2024-07-24 14:08 | Outpatient (AMB) | payer MEDICAID, SELFPAY ==
--- NOTE | 2024-07-24 14:11 | MHC.OFFVIS ---
Vital Signs 07/24/24 14:36 07/24/24 14:36 Height 5 ft 2 in 5 ft 2 in Weight 163 lb 3.2 oz 163 lb 3.2 oz BMI 29.8 29.8 BP 99/52 L 96/55 L Blood Pressure Location Lt brachial Lt brachial Position Sitting Sitting Respiration 16 16 Pulse 72 67 Pulse Source Pulse Oximeter Pulse Oximeter Pulse Oximetry (%) 100 100 Oxygen Delivery Method Room Air Room Air Comment pre-op post-op Intake Visit Reasons: LEFT DIAGNOSTIC SIJ INJECTION Supervisor Color Making Required: Yes Supervisor Color Making Services: Supervisor Color Making Present Supervisor Color Making Name: Bonny Loo Allergies No Known Allergies Allergy (Verified 07/24/24 14:38) PFSH Medical History Arthritis Anemia Gastritis GERD (gastroesophageal reflux disease) Hiatal hernia Depression Elevated cholesterol Hiatal hernia Delivery with history of Migraine Asthma Surgical History S/P laparoscopic sleeve gastrectomy (04/27/23) Hx of tubal ligation Hx of section Family History Mother Hypertension Arthritis Son Hyperactive Daughter No problems noted. Son No problems noted. 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 All questions about benefits and risks for the procedure were answered. training and development project leader [place] rock drill operator certified helped us to maintain the conversation in Haitian. Patient came to the operating room and was positioned prone on the operating table with the pillow under the abdomen. The lower back and buttocks of the patient were prepped with ChloraPrep prepped and draped with sterile utility towels.? Sterilely draped C-arm was brought over the operating field and sq picture of patient's pelvis was demonstrated on the screen.? For the left joint tilting C-arm contralateral to the site of the joint the most posterior portion of the joints was superimposed with anterior silhouette of the joint.? Skin was injected in the projection of the joint slightly medial to the location of the joint with 25 gauge 1/2 inch needle using local lidocaine 2% . After that 22 gauge 3 and 1/2 inch needle was driven to the left in tunnel vision fashion.? When needle entered the joint capsule injection of the contrast was performed demonstrating intra-articular and minimally periarticular spread of the contrast.? After that 4 cc. of ropivacaine 0.5% was injected in the joint. . Upon completion of the injections the needle was removed and Band-Aid was applied.? Upon completion of the injection patient was taken outside of the operating room to the recovery room where recovered uneventfully Orders: Orders FL guidance in treatment room 07/24/24 M53.3 - Sacrococcygeal disorders, not elsewhere classified Coding Level of Care Code Procedure Only Diagnoses Sacroiliac joint dysfunction of left side M53.3
[2024-07-24 14:36] VITALS: BP 96/55; BP 99/52; PULSE 67; PULSE 72; RESP 16; O2SAT 100; BMI 29.8
== END 2024-07-24 14:36 | disposition home or self-care (01) ==
LOC: HO.PMCPRC 14:08
PROVIDERS: PCP Nurse Practitioner Primary Care; Visit Provider Anesthesiology
DX: M53.3 Sacrococcygeal disorders, not elsewhere classified (principal)
CPT/HCPCS: 27096

== ENCOUNTER 2024-08-01 12:48 | Outpatient (AMB) | payer MEDICAID, SELFPAY ==
--- NOTE | 2024-08-01 13:02 | MHC.OFFVIS ---
Vital Signs 08/01/24 13:08 Height 5 ft 2 in Weight 169 lb BMI 30.9 BP 113/54 L Blood Pressure Location Lt brachial Position Sitting Respiration 16 Pulse 90 Pulse Source Pulse Oximeter Pulse Oximetry (%) 100 Oxygen Delivery Method Room Air Intake Visit Reasons: LEFT DIAGNOSTIC SIJ INJECTION/06/26/24 Intake Note: Patient comes in for post-op. Reports pain 12/24. Registered Nurse Behavioral Health Required: Yes Registered Nurse Behavioral Health Services: Registered Nurse Behavioral Health Present Registered Nurse Behavioral Health Name: Abdi (Voyce ) [phone] Allergies No Known Allergies Allergy (Verified 08/01/24 13:09) HPI Comments Details: Nicky is very pleasant 38 years old Turkmen-speaking female who presents in my office as a new patient after diagnostic sacroiliac joint injection on the left which was performed on 06/26/2024. She reported that she started to experience this pain 15 years ago. 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 She also reports falling twice she received those trauma and relates to this pain. She reports that cold application and cold weather aggravate her pain and heat makes her pain better. She reports her pain worse in the noon time. She reports her pain in terms of tissue damage as burning tingling aching and spreading sensation. She reports that she can sleep normally however from time to time she is being wake from her pain. She can not do all the activities of daily living. She can not take care of herself but she can not function normally. 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 [place] [facility] [place] sacroiliac joint pathology. She had physical therapy 3 times last time about 10 months ago with little help however she continues exercise program. She never had chiropractic manipulations Nevro had acupuncture occupational therapy. She never had any injections. Her past medical history significant for prediabetic condition right knee arthritis and asthma. For past surgical history significant for gastric sleeve and bilateral tubal ligation. She reports that she never smoked cigarettes rarely drinks alcohol takes to 2-3 cups of coffee a day and she denies recreational drugs. [facility] Medical History Arthritis Anemia Gastritis GERD (gastroesophageal reflux disease) Hiatal hernia Depression Elevated cholesterol Hiatal hernia Delivery with history of Migraine Asthma Surgical History S/P laparoscopic sleeve gastrectomy (04/27/23) Hx of tubal ligation Hx of section Family History Mother Hypertension Arthritis Son Hyperactive Daughter No problems noted. Son No problems noted. 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 Review of Systems Const All systems reviewed & are unremarkable except as noted in HPI and below ENT Reports Normal hearing present Neuro Reports Normal hearing present, Denies Abnormal speech present, Denies confusion and Denies Sensory deficit (Neuro) Psych Denies confusion Physical Exam Vital Signs: Last Vital Signs Pulse 90 08/01/24 13:08 Resp 16 08/01/24 13:08 BP 113/54 L 08/01/24 13:08 Pulse Ox 100 08/01/24 13:08 Oxygen Delivery Method Room Air 08/01/24 13:08 BMI result Body Mass Index 30.9 Const General: no acute distress; No confusion Orientation/consciousness: patient oriented x3 and No confusion Eyes General: appearance normal, both eyes and all related structures Pupils: Equal, round and reactive pupils present EOM: EOMs intact bilaterally Neck Neck: Yes full ROM Chest Chest palpation & inspection: normal inspection of the chest Resp Effort & Inspection: normal respiratory effort, able to speak in complete sentences, normal respiratory pattern, no audible wheezes and no cough Cardio Jugular venous distension: no JVD GI Inspection: Yes normal to inspection Back/Spine/Pelvis Other: Marcos test pelvic compression test, pelvic distraction test are positive on the left. SLR is negative bilaterally. Tenderness on palpation in projection of the sacral bone and sacroiliac joint on the left. Neuro General: patient oriented x3, gait normal and No confusion Cranial nerves: Yes CN's II-XII intact bilaterally, Yes Equal, round and reactive pupils present, Yes Normal hearing present and Yes Ability to bilaterally elevate shoulders present Speech: No Abnormal speech present Gait exam (Neuro): Normal gait present Motor exam (neuro): 5/5 motor strength present throughout Sensory Exam: No Sensory deficit (Neuro) Extrem General: No pedal edema Psych Speech and movement: Normal speech and movement present Affect: normal affect Attitude: cooperative Thought process: Normal thought process present Thought content: Normal thought content present Insight: Good insight present (Psych) Judgement: Good judgement present (Psych) Results Reviewed Results Reviewed: XR BILATERAL HIPS WITH AP PELVIS CLINICAL INFORMATION: Left lower quadrant pain, evaluate hip DJD. COMPARISON: Lumbar spine of 09/01/2023. TECHNIQUE: AP view of the pelvis and 2 views of each hip. FINDINGS: IUD in the pelvis. Mild degenerative changes in the imaged lower lumbar spine. Pubic symphysis is maintained. Bilateral hip alignment preserved. Mild degenerative changes in bilateral hips with mild joint space narrowing and lateral acetabular hypertrophic change. Mild degenerative changes in the bilateral sacroiliac joints. Assessment & Plan Assessment & Plan (1) Sacroiliac joint dysfunction of left side: Code(s): M53.3 - Sacrococcygeal disorders, not elsewhere classified Category: Medical (2) Left groin pain: Code(s): R10.32 - Left lower quadrant pain Category: Medical (3) Overweight: Code(s): E66.3 - Overweight Category: Medical (4) Sacroiliitis: Code(s): M46.1 - Sacroiliitis, not elsewhere classified Category: Medical (5) Chronic pain syndrome: Code(s): G89.4 - Chronic pain syndrome Category: Medical Plan This patient reported excellent results of the sacroiliac joint injection. She reported absence of pain for 1st 6 hours after the procedure. Still lifting heavy objects aggravated her pain however she reported that when she stopped lifting her pain came back to 0. She reported that 2 days after the injection her pain started to slowly come back. She reports today that her pain is 5/10. She is prediabetic. I will schedule her for therapeutic sacroiliac joint injection on the left was which I gave her reduced dose of the steroids only 20 mg of Kenalog. After that we will evaluate longevity of the pain improvement. I also will fit her into sacroiliac joint belt today. She will be wearing this belt day in and day out. If those conservative and interventional measures will not help this patient's condition I would be interested in offering her sacroiliac joint fusion on the left versus sacroiliac joint cure on X stimulation on the left. Patient Instructions: I here by testify that I spent 45 minutes in conversation with this patient as well as evaluating this patient diagnostic studies planning her care and organizing this note. medical administrative technician [id number] was helpful today to maintain this conversation in Turkmen. Coding Level of Care Code New Pt Level 4 (30412) Diagnoses Sacroiliac joint dysfunction of left side M53.3 Left groin pain R10.32 Overweight E66.3 Sacroiliitis M46.1 Chronic pain syndrome G89.4
[2024-08-01 13:08] VITALS: BP 113/54; PULSE 90; RESP 16; O2SAT 100; BMI 30.9
== END 2024-08-01 13:38 | disposition home or self-care (01) ==
PROVIDERS: PCP Nurse Practitioner Primary Care; Visit Provider Anesthesiology
DX: M53.3 Sacrococcygeal disorders, not elsewhere classified (principal); R10.32 Left lower quadrant pain; E66.3 Overweight; M46.1 Sacroiliitis, not elsewhere classified; G89.4 Chronic pain syndrome
CPT/HCPCS: 99214

== ENCOUNTER → 2024-08-01 12:48 | Outpatient (BNVA) | payer MEDICAID, SELFPAY | PROVIDERS: PCP Nurse Practitioner Primary Care; Visit Provider Anesthesiology | DX: M53.3 Sacrococcygeal disorders, not elsewhere classified (principal); M46.1 Sacroiliitis, not elsewhere classified; G89.4 Chronic pain syndrome; R10.32 Left lower quadrant pain; E66.3 Overweight; Z68.30 Body mass index [BMI] 30.0-30.9, adult | CPT/HCPCS: 99212 ==

== ENCOUNTER 2024-09-11 06:46 | Outpatient (REF) | payer MEDICAID, SELFPAY | END 2024-09-11 06:47 | disposition home or self-care (01) | LOC: CF 06:46 | PROVIDERS: Visit Provider Anesthesiology | DX: M46.1 Sacroiliitis, not elsewhere classified (principal); M53.3 Sacrococcygeal disorders, not elsewhere classified | CPT/HCPCS: 27096; J2003; J2795; J3301; Q9967 ==

== ENCOUNTER 2024-09-11 14:51 | Outpatient (AMB) | payer MEDICAID, SELFPAY ==
[2024-09-11 15:20] VITALS: BP 112/68; PULSE 73; RESP 16; O2SAT 100
--- NOTE | 2024-09-11 15:35 | MHC.OFFVIS ---
Vital Signs 09/11/24 15:20 09/11/24 15:36 BP 112/68 110/66 Blood Pressure Location Lt brachial Lt brachial Position Sitting Sitting Respiration 16 15 Pulse 73 94 Pulse Source Pulse Oximeter Pulse Oximeter Pulse Oximetry (%) 100 99 Oxygen Delivery Method Room Air Room Air Comment Pre-op Post-op Intake Visit Reasons: LEFT SIJ INJECTION Allergies No Known Allergies Allergy (Verified 08/01/24 13:09) PFSH Medical History Arthritis Anemia Gastritis GERD (gastroesophageal reflux disease) Hiatal hernia Depression Elevated cholesterol Hiatal hernia Delivery with history of Migraine Asthma Surgical History S/P laparoscopic sleeve gastrectomy (04/27/23) Hx of tubal ligation Hx of section Family History Mother Hypertension Arthritis Son Hyperactive Daughter No problems noted. Son No problems noted. 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 All questions about benefits and risks for the procedure were answered. Patient came to the operating room and was positioned prone on the operating table with the pillow under the pelvis.? [place] [employer]hes[employer] monitors were applied and patient was deeply sedated.? The lower back and buttocks of the patient were prepped with ChloraPrep prepped and draped with sterile utility towels.? Sterilely draped C-arm was brought over the operating field and sq picture of patient's pelvis was demonstrated on the screen.? For the right joint tilting C-arm contralateral to the site of the joint the most posterior portion of the joints was superimposed with anterior silhouette of the joint.? Skin was injected in the projection of the joint slightly medial to the location of the joint with 25 gauge 1/2 inch needle using local lidocaine 2% . After that 22 gauge 3 and 1/2 inch needle was driven to the right joint in tunnel vision fashion.? When needle entered the joint capsule injection of the contrast was performed demonstrating intra-articular and minimally periarticular spread of the contrast.? After that 4 cc. of ropivacaine 0.5%mixed with kenalog 20 mg was injected into the joint.? Upon completion of the injections the needles were removed and pressure were applied.? Sterile dressing was applied.? Upon completion of the injection patient was taken outside of the operating room to the recovery room where recovered uneventfully. Orders: Orders FL guidance in treatment room 09/11/24 M46.1 - Sacroiliitis, not elsewhere classified Coding Level of Care Code Procedure Only Diagnoses Sacroiliitis M46.1 Sacroiliac joint dysfunction of both sides M53.3
[2024-09-11 15:36] VITALS: BP 110/66; PULSE 94; RESP 15; O2SAT 99
== END 2024-09-11 15:36 | disposition home or self-care (01) ==
LOC: HO.PMCPRC 14:51
PROVIDERS: PCP Nurse Practitioner Primary Care; Visit Provider Anesthesiology
DX: M46.1 Sacroiliitis, not elsewhere classified (principal); M53.3 Sacrococcygeal disorders, not elsewhere classified
CPT/HCPCS: 27096

== ENCOUNTER 2024-09-18 16:12 | Outpatient (REF) | payer MEDICAID, SELFPAY ==
[2024-09-18 17:35] LABS: MANUAL DIFF FLAG NO
[2024-09-18 17:46] LABS: Basophils Percent Auto 0.1 % (0-2); Eosinophils Percent Auto 0.2 % (0-4); Hematocrit 39.8 % (37.0-47.0); Hemoglobin 13.3 g/dl (12.0-16.0); Imm Gran Abs Auto 0.02 X10*3/uL (0.00-0.03); Imm Gran Pct Auto 0.2 % (0.0-0.4); Lymphocytes Absolute Auto 2.4 X10*3/uL (1.2-4.9); Lymphocytes Percent Auto 27.2 % (20-40); Mean Corpuscular HGB Conc 33.4 g/dl (31.0-35.0); Mean Corpuscular Hemoglobin 28.9 pg (27.0-33.0); Mean Corpuscular Volume 86.3 fL (80.0-98.0); Mean Platelet Volume 10.2 fL (9.4-12.3); Monocytes Absolute Auto 0.4 X10*3/uL (0.1-1.2); Monocytes Percent Auto 4.8 % (2-11); Neutrophils Percent Auto 67.5 % (45-73); Platelet Count 355 X10*3/uL (160-400); Red Blood Count 4.61 X10*6/uL (4.20-5.50); Red Cell Distribution Width 13.7 % (11.0-16.0); White Blood Count 8.9 X10*3/uL (4.8-10.8)
[2024-09-18 19:21] LABS: Alanine Aminotransferase 11 U/L (0-31); Albumin Level 4.3 g/dL (3.5-5.0); Alkaline Phosphatase 54 U/L (39-117); Anion Gap 11 (12-20); Aspartate Amino Transferase 16 U/L (5-31); Bilirubin Total 0.4 mg/dL (0.0-1.0); Blood Urea Nitrogen 15 mg/dL (9-16); Calcium 9.6 mg/dL (8.4-10.2); Carbon Dioxide 27 mmol/L (22-29); Chloride 106 mmol/L (96-108); Estimated Glomerular Filt Rate > 60; Glucose Random 82 mg/dL (60-115); Potassium 3.8 mmol/L (3.3-5.1); Sodium 140 mmol/L (135-145); Total Protein 7.2 g/dL (6.5-8.0)
[2024-09-18 19:43] LABS: TSH reflex Free T4 0.54 uIU/mL (0.32-4.0)
== END 2024-09-18 16:13 | disposition home or self-care (01) ==
LOC: HO.HHCL 16:12
PROVIDERS: Visit Provider Internal Medicine Geriatric Medicine
DX: M79.10 Myalgia, unspecified site (principal); R51.9 Headache, unspecified; R23.2 Flushing; N92.6 Irregular menstruation, unspecified; Z98.51 Tubal ligation status; R53.82 Chronic fatigue, unspecified
CPT/HCPCS: 36415; 80053; 84443; 85025

== ENCOUNTER 2024-10-03 10:54 | Outpatient (AMB) | payer MEDICAID, SELFPAY ==
[2024-10-03 11:08] VITALS: BP 115/55; PULSE 85; O2SAT 98; BMI 30.4
--- NOTE | 2024-10-03 11:08 | MHC.OFFVIS ---
Vital Signs 10/03/24 11:08 Height 5 ft 2 in Weight 166 lb BMI 30.4 BP 115/55 L Blood Pressure Location Lt brachial Position Sitting Pulse 85 Pulse Source Pulse Oximeter Pulse Oximetry (%) 98 Oxygen Delivery Method Room Air Intake Visit Reasons: LEFT SIJ INJECTION Allergies No Known Allergies Allergy (Verified 10/03/24 11:09) Medication List - Last Reconciled 10/03/24 by Arabella Sharma, BOTTOM SCRUBBER albuterol sulfate 0.63 mg inhalation Q6H PRN bisacodyl (Dulcolax (bisacodyl)) 10 mg PA DAILY PRN calcium citrate-vitamin D3 315 mg-5 mcg (200 unit) 1 tab PO BID docusate sodium 100 mg PO BID 90 days fluticasone furoate 100 mcg/actuation (Arnuity Ellipta) 1 inh inhalation DAILY fluticasone propionate 50 mcg/actuation 1 spray intranasal BID hydroxyzine HCl 25 mg PO BID PRN lamotrigine 150 mg PO DAILY levonorgestrel intrauterine mirtazapine 15 mg PO BEDTIME montelukast (Singulair) 10 mg PO BEDTIME sennosides (senna) 17.2 mg (2 x 8.6 mg) PO BEDTIME PRN 90 days HPI Comments Details: Nicky is back in my office after therapeutic sacroiliac joint injection. She reports 75% pain improvement after the injection. She reports better mobility and better activities of daily living. However she reports pain in the bilateral feet and bilateral hands most likely related to generalized arthritis. However her lower back pain today is 3/10. From time to time she perform some motions and her pain becomes up to 6/10 but Nevro 10/10 it was before the injections. We agreed that when her pain will come back I will schedule her for the repeat therapeutic sacroiliac joint injection. very pleasant 38 years old Georgian-speaking female who presents in my office as a new patient after diagnostic sacroiliac joint injection on the left which was performed on 06/26/2024. She reported that she started to experience this pain 15 years ago. 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 She also reports falling twice she received those trauma and relates to this pain. 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 She had [place] x[place] [facility] [place] demonstrated sacroiliac joint pathology. She had physical therapy 3 times last time about 10 months ago with little help however she continues exercise program. She never had chiropractic manipulations Never had acupuncture occupational therapy. [facility] Medical History Arthritis Anemia Gastritis GERD (gastroesophageal reflux disease) Hiatal hernia Depression Elevated cholesterol Hiatal hernia Delivery with history of Migraine Asthma Surgical History S/P laparoscopic sleeve gastrectomy (04/27/23) Hx of tubal ligation Hx of section Family History Mother Hypertension Arthritis Son Hyperactive Daughter No problems noted. Son No problems noted. 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 Review of Systems Const All systems reviewed & are unremarkable except as noted in HPI and below ENT Reports Normal hearing present Neuro Reports Normal hearing present, Denies Abnormal speech present, Denies confusion and Denies Sensory deficit (Neuro) Psych Denies confusion Physical Exam Vital Signs: Last Vital Signs Pulse 85 10/03/24 11:08 BP 115/55 L 10/03/24 11:08 Pulse Ox 98 10/03/24 11:08 Oxygen Delivery Method Room Air 10/03/24 11:08 BMI result Body Mass Index 30.4 Const General: no acute distress; No confusion Orientation/consciousness: patient oriented x3 and No confusion Eyes General: appearance normal, both eyes and all related structures Pupils: Equal, round and reactive pupils present EOM: EOMs intact bilaterally Neck Neck: Yes full ROM Chest Chest palpation & inspection: normal inspection of the chest Resp Effort & Inspection: normal respiratory effort, able to speak in complete sentences, normal respiratory pattern, no audible wheezes and no cough Cardio Jugular venous distension: no JVD GI Inspection: Yes normal to inspection Back/Spine/Pelvis Other: Marcos test pelvic compression test, pelvic distraction test are positive on the left. SLR is negative bilaterally. Tenderness on palpation in projection of the sacral bone and sacroiliac joint on the left. Neuro General: patient oriented x3, gait normal and No confusion Cranial nerves: Yes CN's II-XII intact bilaterally, Yes Equal, round and reactive pupils present, Yes Normal hearing present and Yes Ability to bilaterally elevate shoulders present Speech: No Abnormal speech present Gait exam (Neuro): Normal gait present Motor exam (neuro): 5/5 motor strength present throughout Sensory Exam: No Sensory deficit (Neuro) Extrem General: No pedal edema Psych Speech and movement: Normal speech and movement present Affect: normal affect Attitude: cooperative Thought process: Normal thought process present Thought content: Normal thought content present Insight: Good insight present (Psych) Judgement: Good judgement present (Psych) Assessment & Plan Assessment & Plan (1) Sacroiliac joint dysfunction of left side: Code(s): M53.3 - Sacrococcygeal disorders, not elsewhere classified Category: Medical (2) Left groin pain: Code(s): R10.32 - Left lower quadrant pain Category: Medical (3) Overweight: Code(s): E66.3 - Overweight Category: Medical (4) Sacroiliitis: Code(s): M46.1 - Sacroiliitis, not elsewhere classified Category: Medical (5) Chronic pain syndrome: Code(s): G89.4 - Chronic pain syndrome Category: Medical Plan This patient reported good results of the therapeutic sacroiliac joint injection. She reports 75% pain improvement. She reports pain 3/10 in the lower back while it was 10/10 before the procedure. She was explained insurance limitations and regulations about the injection. She was told that in in 3 months her pain will come back she can not give us a call and schedule the injection with us. Considering that she is prediabetic and may perform instead sacroiliac joint innervation stimulation versus sacroiliac joint fusion. She also complains on pain in bilateral feet and bilateral hands. She is suffering from arthritic condition. If those conservative and interventional measures will not help this patient's condition I would be interested in offering her sacroiliac joint fusion on the left versus sacroiliac joint cure on X stimulation on the left. Patient Instructions: I here by testify that I spent 32 minutes in conversation with this patient as well as planning her care and organizing this note. cable installation manager [phone] was helping us to maintain this conversation in Georgian. Coding Level of Care Code Est Pt Level 4 (15813) Diagnoses Sacroiliac joint dysfunction of left side M53.3 Left groin pain R10.32 Overweight E66.3 Sacroiliitis M46.1 Chronic pain syndrome G89.4
== END 2024-10-03 11:16 | disposition home or self-care (01) ==
PROVIDERS: PCP Nurse Practitioner Primary Care; Visit Provider Anesthesiology
DX: M53.3 Sacrococcygeal disorders, not elsewhere classified (principal); R10.32 Left lower quadrant pain; E66.3 Overweight; M46.1 Sacroiliitis, not elsewhere classified; G89.4 Chronic pain syndrome
CPT/HCPCS: 99214

== ENCOUNTER → 2024-10-03 10:54 | Outpatient (BNVA) | payer MEDICAID, SELFPAY | PROVIDERS: PCP Nurse Practitioner Primary Care; Visit Provider Anesthesiology | DX: M53.3 Sacrococcygeal disorders, not elsewhere classified (principal); M46.1 Sacroiliitis, not elsewhere classified; R10.32 Left lower quadrant pain; E66.3 Overweight; G89.4 Chronic pain syndrome; Z68.30 Body mass index [BMI] 30.0-30.9, adult | CPT/HCPCS: 99212 ==

== ENCOUNTER 2024-10-08 10:42 | Outpatient (AMB) | payer MEDICAID, SELFPAY ==
--- NOTE | 2024-10-08 10:44 | MHC.OFFVISWM ---
VS Expanded 10/08/24 10:51 BP 130/64 Blood Pressure Location Rt brachial Blood Pressure Position Sitting Pulse 88 Pulse Source Pulse Oximeter Temp 98.3 F Temperature Source Temporal Artery Scan Pulse Oximetry 95 Oxygen Delivery Method Room Air Height 5 ft 2 in Weight 164 lb 12.8 oz BMI 30.1 Body Fat % 37.6 Body Fat Mass 62.0 Fat Free Mass 102.8 Visceral Fat Rating 7.0 Body Water % 44.6 Body Water Mass 73.4 Muscle Mass/Score 97.4 Basal Metabolic Rate/Score 1,426 Intake Visit Reasons: (OV) PO LSG 04/27/23 Picking Machine Operator Required: Yes Picking Machine Operator Services: Picking Machine Operator Present Picking Machine Operator Name: hospital cmi Allergies No Known Allergies Allergy (Verified 10/03/24 11:09) Medication List - Last Reconciled 10/08/24 by PAULA Casas albuterol sulfate 0.63 mg inhalation Q6H PRN bisacodyl (Dulcolax (bisacodyl)) 10 mg GA DAILY PRN calcium citrate-vitamin D3 315 mg-5 mcg (200 unit) 1 tab PO BID docusate sodium 100 mg PO BID 90 days fluticasone furoate 100 mcg/actuation (Arnuity Ellipta) 1 inh inhalation DAILY fluticasone propionate 50 mcg/actuation 1 spray intranasal BID hydroxyzine HCl 25 mg PO BID PRN lamotrigine 150 mg PO DAILY levonorgestrel intrauterine mirtazapine 15 mg PO BEDTIME montelukast (Singulair) 10 mg PO BEDTIME sennosides (senna) 17.2 mg (2 x 8.6 mg) PO BEDTIME PRN 90 days HPI Comments Details: This?a?38?yo female who is s/p LSG without hiatal hernia repair on?04/27/[address] Bell. Presents for 1 year 5 month post op visit. Weight today is 164.8 pounds, with a BMI of 30.2. There has been a 53.8 pound weight loss,(initial weight 218.6 pounds) since starting the program on 11/12/22 reflecting a 24.6% total body weight loss and a weight loss of 21.7 pounds since surgery (operative weight 186.5 pounds) reflecting a 12.4% TBWL since surgery. She states that she has not been using the right bmi kylee, states she has been busy. Also states she wants to lose weight. Not currently following a meal plan or exercise plan. Previous meal plan includes: ensure max, 30 gm zp bar meal 6 forks/6 forks Drinkin oz daily of water previous exercise routine includes: PF, treadmill, 4 days per week 45 min, PFSH Medical History Arthritis Anemia Gastritis GERD (gastroesophageal reflux disease) Hiatal hernia Depression Elevated cholesterol Hiatal hernia Delivery with history of Migraine Asthma Surgical History S/P laparoscopic sleeve gastrectomy (04/27/23) Hx of tubal ligation Hx of section Family History Mother Hypertension Arthritis Son Hyperactive Daughter No problems noted. Son No problems noted. 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 She was given the paper again for the right BMI kylee. discussed the importance of consistency and discipline. Discussed the importance of sending weight measurements weekly. We will have her return to the office in 2 months per her request.
[2024-10-08 10:51] VITALS: BP 130/64; PULSE 88; TEMP 36.8; O2SAT 95; BMI 30.1
== END 2024-10-08 11:07 | disposition home or self-care (01) ==
PROVIDERS: PCP Nurse Practitioner Primary Care; Visit Provider Physician Assistant Surgical
DX: E66.811 Obesity, class 1 (principal); Z68.30 Body mass index [BMI] 30.0-30.9, adult; Z98.84 Bariatric surgery status
CPT/HCPCS: 99213

== ENCOUNTER → 2024-10-08 10:42 | Outpatient (BNVA) | payer MEDICAID, SELFPAY | PROVIDERS: PCP Nurse Practitioner Primary Care; Visit Provider Physician Assistant Surgical | DX: Z98.84 Bariatric surgery status (principal) | CPT/HCPCS: 99212 ==

== ENCOUNTER 2024-11-16 09:02 | Outpatient (REF) | payer MEDICAID, SELFPAY ==
--- OUTSIDE RECORDS SUMMARY | 2024-11-16 09:25 | XMS_ITS | Encounter Summary ---
Author Organization [employer] [facility] Address [address] [place] [address] Care Team Providers Care German Professor Name Role Phone Carina Munoz ANTIQUE REPAIRER Primary Care Provider Unavailabl e Encounter Details Date Type Department Care Team Description 02/15/2023 Refill Adult Medicine [address] [address] Kerri Holder PA Social History Tobacco Use Types Packs/Day Years Used Date Smoking Tobacco: Never Smokeless Tobacco: Never Alcohol Use Standard Drinks/Week Comments Yes 0 (1 standard drink = 0.6 oz pur e alcohol) occ Sex Assigned at Date Recorded Not on file Job Start Date Occupation Industry Not on file Not on file Not on file COVID-19 Exposure Response Date Recorded In the last 10 days, have yo u been in contact with someone who was confirmed or suspected to have Coronavirus/COVID-19? No / Unsure 01/27/2023 4:23 PM EDT documented as of this encounter Plan of Treatment Not on file documented as of this encounter Visit Diagnoses Not on filedocumented in this encounter Care Teams German Professor Relationship Specialty Start Date End Date Carina Munoz NP PCP - General Nurse Practioner Adult Health 09/27/22 documented as of this encounter
--- OUTSIDE RECORDS SUMMARY | 2024-11-16 09:25 | XMS_ITS | Encounter Summary ---
Author Organization [facility] Address [address] [place] [address] Care Team Providers Care Public Relations Specialist Name Role Phone Carina Munoz NP Primary Care Provider Christal e Encounter Details Date Type Department Care Team Description 02/15/2023 Refill Gastroenterology - [address] [place] [address] Jeanna Collins MD [address] [place] [address] Social History Tobacco Use Types Packs/Day Years [...] PM EDT documented as of this encounter Miscellaneous Notes * Telephone Encounter - Pallavi Riley M.A. - 02/15/2023 10:16 AM EDT Yehuda - 01/21/2022 Nov - unknown documented in this encounter Plan of Treatment Not on file documented as of this encounter Visit Diagnoses Diagnosis Bright red blood per rectum Hemorrhage of rectum and anus Diverticulitis Diverticulitis of colon (without mention of hemorrhage) documented in this encounter Care Teams Public Relations Specialist Relationship Specialty Start Date End Date Carina Mnuoz NP PCP - General Nurse Practioner Adult Health 09/27/22 documented as of this encounter
--- OUTSIDE RECORDS SUMMARY | 2024-11-16 09:25 | XMS_ITS | Encounter Summary ---
Author Organization [facility] Address [address] [place] [address] Care Team Providers Care Analyzer Sales Name Role Phone Carina Munoz RESEARCH ASSOCIATE PROFESSOR Primary Care Provider Unavaildorian e Encounter Details Date Type Department Care Team Description 10/01/2022 Transfer Records Medical Records [address] [place] [id number] [place] [address] Social History Tobacco Use Types Packs/Day Years [...] suspected to have Coronavirus/COVID-19? No / Unsure 09/28/2022 9:04 AM EST documented as of this encounter Plan of Treatment Not on file documented as of this encounter Visit Diagnoses Not on filedocumented in this encounter Care Teams Analyzer Sales Relationship Specialty Start Date End Date Carina Munoz NP PCP - General Nurse Practioner Adult Health 09/27/22 documented as of this encounter
--- OUTSIDE RECORDS SUMMARY | 2024-11-16 09:25 | XMS_ITS | Encounter Summary ---
Author Organization [facility] Address [address] [place] [address] Care Team Providers Care Verification Engineer Name Role Phone Belington-Meera Astorga MD Primary Care Provider Carina Limon NP Primary Care Provider Christal lyons Encounter Details Date Type Department Care Team Description 05/14/2021 Telephone Adult Medicine [address] [address] Kerri Holder PA Social History Tobacco Use Types Packs/Day Years Used Date Smoking Tobacco: Never Smokeless Tobacco: Never Alcohol Use Standard Drinks/Week Comments No 0 (1 standard drink = 0.6 oz pur e alcohol) Sex Assigned at Date Recorded Not on file Job Start Date Occupation Industry Not on file Not on file Not on file COVID-19 Exposure Response Date Recorded In the last month, have you been in contact with someone who was confirmed or suspected to have Coronavirus / COVID-19? Unable to assess 05/14/2021 7:49 AM EDT documented as of this encounter Miscellaneous Notes * Telephone Encounter - Meenakshi Ewing M.A. - 05/18/2021 9:44 AM EDT Called patient twice left her a message to return our call for appt for Diabetes. * Telephone Encounter - Kerri Figueroa PA-C - 05/14/2021 11:17 AM EDT Patient is serbian speaking. Patient scheduled today to discuss an episode of elevated sugar few weeks ago over 300. Used family member testing supplies. No Hemolobin a1c on file. Not appropriate fortelemedicine. She needs labs first and then appt in office. DM Panel ordered. She is to be scheduleafter labs to discuss probable new dx of DM. Meenakshi. Please schedule aptp for patient next week. documented in this encounter Plan of Treatment Scheduled Orders Name Type Priority Associated Diagnoses Orde r Schedule HEMOGLOBIN A1C Lab Routine Impaired fasting blood sugar Expected: 05/14/2021, Expires: 05/14/2022 MICROALBUMIN/CREATININE, URINE Lab Routine Impaired fasting blood sugar Expected: 05/14/2021, Expires: 05/14/2022 LIPID PROFILE Lab Routine Impaired fasting blood sugar Expected: 05/14/2021, Expires: 05/14/2022 COMPREHENSIVE METABOLIC PANEL Lab Routine Impaired fasting blood sugar Expected: 05/14/2021, Expires: 05/14/2022 documented as of this encounter Visit Diagnoses Diagnosis Impaired fasting blood sugar- Primary Impaired fasting glucose documented in this encounter Care Teams Verification Engineer Relationship Specialty Start Date End Date Belington-Meera Astorga MD PCP - General Internal Medicine 12/14/19 09/26/22 Carina Munoz NP PCP - General Nurse Practioner Adult Health 09/27/22 documented as of this encounter
--- OUTSIDE RECORDS SUMMARY | 2024-11-16 09:25 | XMS_ITS | Encounter Summary ---
Author Organization [facility] Address [address] [place] [address] Care Team Providers Care Hand Folder Name Role Phone Meera Welch MD Primary Care Provider Unavailable Carina Mnuoz NP Primary Care Provider Unavaildorian e Encounter Details Date Type Department Care Team Description 11/25/2021 Web Developer Programmer Report Medical Records [address] [place] [address] Carina Munoz NP Social History Tobacco Use Types Packs/Day Years Used Date Smoking Tobacco: Never Smokeless Tobacco: Never Alcohol Use Standard Drinks/Week Comments No 0 (1 standard drink = 0.6 oz pur e alcohol) Sex Assigned at Date Recorded Not on file Job Start Date Occupation Industry Not on file Not on file Not on file documented as of this encounter Plan of Treatment Not on file documented as of this encounter Visit Diagnoses Not on filedocumented in this encounter Care Teams Hand Folder Relationship Specialty Start Date End Date Meera Welch MD PCP - General Internal Medicine 12/14/19 09/26/22 Carina Munoz NP PCP - General Nurse Practioner Adult Health 09/27/22 documented as of this encounter
--- OUTSIDE RECORDS SUMMARY | 2024-11-16 09:25 | XMS_ITS | Encounter Summary ---
Author Organization [facility] Address [address] [place] [address] Care Team Providers Care General Activities Therapist Name Role Phone Verna Arteaga MD Primary Care Provider Un available Rajat Zaidi MD Primary Care Provider Unava ilable Meera Welch MD Primary Care Provider Unavailable Carina Munoz NP Primary Care Provider Unavailabl e Encounter Details Date Type Department Care Team Description 07/13/2019 Pt. Non Urgent Medical Question Gastroenterology - [address] [phone] Jeanna Collins MD [address] [place] [address] Social History Tobacco Use Types Packs/Day Years Used Date Smoking Tobacco: Never Smokeless Tobacco: Never Alcohol Use Standard Drinks/Week Comments No 0 (1 standard drink = 0.6 oz pur e alcohol) Sex Assigned at Date Recorded Not on file Job Start Date Occupation Industry Not on file Not on file Not on file documented as of this encounter Miscellaneous Notes * Telephone Encounter - Adriano De La Garza R.N. - 07/16/2019 8:10 AM EDTFrom: Lupe Rogel To: Deloris Collins MD Sent: 07/13/2019 6:24 PM EDT Subject: Agendar zulma jeremiah Buenas tardes!! Es para donny si usted me puede reagendar zulma jeremiah nueva ya que no pude asistir a la jeremiah porque mi madre estaba hospitalizada disculpe por los inconvenientes. [phone] documented in this encounter Plan of Treatment Not on file documented as of this encounter Visit Diagnoses Not on filedocumented in this encounter Care Teams General Activities Therapist Relationship Specialty Start Date End Date Verna Arteaga MD PCP - General Internal Medicine 11/29/17 2 0 aRjat Zaidi MD PCP - General Internal Medicine 11/21/19 12/13/19 Sriram-Meera Astorga MD PCP - General Internal Medicine 12/14/19 09/26/22 Carina Munoz NP PCP - General Nurse Practioner Adult Health 09/27/22 documented as of this encounter
--- OUTSIDE RECORDS SUMMARY | 2024-11-16 09:26 | XMS_ITS | Encounter Summary ---
Author Organization [employer] [facility] Address [address] [place] [address] [address] Care Team Providers Care Combustion Engineer Name Role Phone Carina Mnuoz Primary Care Provider [phone] Encounter Details Date Type Department Care Team (Late st Contact Info) Description 09/22/2022 [facility] Only [place] [facility] [address] [place] [address] Kristen Brown CNM [address] [place] [address] Social History Tobacco Use Types Packs/Day Years Used Date Smoking Tobacco: Never Assessed Comments Unknown Sex and Gender Information Value Date Recorded Sex Assigned at Female 08/16/2022 10:33 AM EDT Legal Sex Female 10:33 AM EDT Gender Identity Female 08/16/2022 10:33 AM EDT Sexual Orientation Straight 08/16/2022 10 :33 AM EDT documented as of this encounter Plan of Treatment Upcoming Encounters Date Type Department Care Team (Late st Contact Info) Description 02/22/2025 1:30 PM EDT Office Visit [facility] OPTOM[facility] [address] [place] [address] GiovannyYari gardner, OD [address] [place] [address] documented as of this encounter Visit Diagnoses Not on filedocumented in this encounter Care Teams Combustion Engineer Relationship Specialty Start Date End Date Carina Munoz ANP [address] [place] [address] PCP - General Family Medicine 07/15/21 documented as of this encounter
--- OUTSIDE RECORDS SUMMARY | 2024-11-16 09:26 | XMS_ITS | Encounter Summary ---
Author Organization [facility] Address [address] [place] [address] Care Team Providers Care Mechanical Engineering Lecturer Name Role Phone Verna Arteaga MD Primary Care Provider Un available Rajat Zaidi MD Primary Care Provider Unava ilable Meera Welch MD Primary Care Provider Unavailable Carina Munoz NP Primary Care Provider Unavailabl e Encounter Details Date Type Department Care Team Description 05/31/2018 Release of Information Medical Records [address] [place] [address] Abstract, Provider Social History Tobacco Use Types Packs/Day Years Used Date Smoking Tobacco: Never Smokeless Tobacco: Never Alcohol Use Standard Drinks/Week Comments Yes 0 (1 standard drink = 0.6 oz pur e alcohol) Occasionally Sex Assigned at Date Recorded Not on file Job Start Date Occupation Industry Not on file Not on file Not on file documented as of this encounter Plan of Treatment Not on file documented as of this encounter Visit Diagnoses Not on filedocumented in this encounter Care Teams Mechanical Engineering Lecturer Relationship Specialty Start Date End Date Verna Arteaga MD PCP - General Internal Medicine 11/29/17 0 Rajat Zaidi MD PCP - General Internal Medicine 11/21/19 12/13/19 Meera Welch MD PCP - General Internal Medicine 12/14/19 09/26/22 Carina Munoz NP PCP - General Nurse Practioner Adult Health 09/27/22 documented as of this encounter
--- OUTSIDE RECORDS SUMMARY | 2024-11-16 09:26 | XMS_ITS | Encounter Summary ---
Author Organization [facility] Address [address] [place] [address] Care Team Providers Care Caramel Cutter Helper Name Role Phone Verna Arteaga MD Primary Care Provider Un available Rajat Zaidi MD Primary Care Provider Unava ilable Meera Welch MD Primary Care Provider Unavailable Carina Munoz NP Primary Care Provider Unavailabl e Encounter Details Date Type Department Care Team Description 12/01/2017 Release of Information Medical Records [address] [place] [address] Abstract, Provider Social History Tobacco Use Types [...] on filedocumented in this encounter Care Teams Caramel Cutter Helper Relationship Specialty Start Date End Date Verna Arteaga MD PCP - General Internal Medicine 11/29/17 0 Rajat Zaidi MD PCP - General Internal Medicine 11/21/19 12/13/19 Meera Welch MD PCP - General Internal Medicine 12/14/19 09/26/22 Carina Munoz NP PCP - General Nurse Practioner Adult Health 09/27/22 documented as of this encounter
--- OUTSIDE RECORDS SUMMARY | 2024-11-16 09:26 | XMS_ITS | Encounter Summary ---
Author Organization [employer] [facility] Address [address] [place] [address] 7 [place] [address] Care Team Providers Care Web Mobile Designer Name Role Phone Carina Munoz Primary Care Provider [phone] Encounter Details Date Type Department Care Team (Latest Contact Info) Description 01/18/2019 Abstract [facility] Dental, Provider, DDS Social History Tobacco Use Types Packs/Day Years [...] Description 02/22/2025 1:30 PM EDT Office Visit [facility] [address] [place] [address] Yari Baltazar, OD [address] [place] [address] documented as of this encounter Visit Diagnoses Not on filedocumented in this encounter Care Teams Web Mobile Designer Relationship Specialty Start Date End Date Carina Munoz ANP [address] [place] [address] PCP - General Family Medicine 07/15/21 documented as of this encounter
--- OUTSIDE RECORDS SUMMARY | 2024-11-16 09:26 | XMS_ITS | Encounter Summary ---
Author Organization [employer] Address [address] [place] [address] 7 [place] [address] Care Team Providers Care Clin Application Specialist Name Role Phone Carina Munoz Primary Care Provider [phone] Reason for Visit * Reason Comments Annual Exam Encounter Details Date Type Department Care Team (Latest Contact Info) Description 11/08/2024 10:30 AM EST Office Visit [facility] MEDIC[facility] [address] [place], [place] [id number] Carina Munoz ANP [address] [place] [address] Hyperlipidemia, unspecified hyperlipidemia type (Primary Dx); Burning pain; Numbness and tingling in both hands; Encounter for immunization; Iron deficiency; Routine screening for STI (sexually transmitted infection) Social History Tobacco Use Types Packs/Day Years Used Date Smoking Tobacco: Never Passive Smoke Exposure: Never Smokeless Tobacco: Never Tobacco Cessation:Counseling Given: Not Answered Alcohol Use Standard Drinks/Week Comments Never 0 (1 standard drink = 0.6 oz pur e alcohol) Depression Answer Date Recorded Patient Health Questionnaire-9 Score 14 11/08/2024 Patient Health Questionnaire-9 Score 14 11/08/2024 Last PHQ-9: Questionnaire Data Not on file 0 11/08/2024 Housing Stability Answer Date Recorded What is your housing situation today? I have bryant hannah 08/05/[address] you li ve. Do you have problems with any of the following? None of the above 08/05/2023 Food Insecurity Answer Date Recorded Within the past 12 months, y ou worried that your food would run out before you got money to buy more: Never True 08/05/2023 Within the past 12 months,th e food you bought just didn't last and you didn't have enough money to get more: Never True Transportation Answer Date Recorded In the past 12 months, has l ack of transportation kept you from medical appts, meetings, work or from getting things needed for daily living? No 08/05/2023 Utilities Answer Date Recorded In the past 12 months, has t he electric, gas, oil or water company threatened to shut off services in your home? No 08/05/2023 Depression Answer Date Recorded Patient Health Questionnaire-2 Score 2 11/08/2024 Internet Access Answer Date Recorded Internet Access Q1 Yes 10/30/2024 Internet Access Q2 Not on file 10/30/2024 Comments Unknown Sex and Gender Information Value Date Recorded Sex Assigned at Female 08/16/2022 10:33 AM EDT Legal Sex Female 10:33 AM EDT Gender Identity Female 08/16/2022 10:33 AM EDT Sexual Orientation Straight 08/16/2022 10 :33 AM EDT documented as of this encounter Last Filed Vital Signs Vital Sign Reading Time Taken Comments Blood Pressure 119/75 11/08/2024 10:55 AM EST Pulse 74 11/08/2024 10:55 AM EST Temperature 36.2 ??C (97.2 ??F) 11/08/2024 10:[address] Respiratory Rate 14 11/08/2024 10:55 AM EST Oxygen Saturation 99% 11/08/2024 10:55 AM EST Inhaled Oxygen Concentration - - Weight 78.9 kg (174 lb) 11/08/2024 10:55 AM EST Height - - Body Mass Index 31.83 03/30/2024 1:19 PM EDT documented in this encounter Plan of Treatment Upcoming Encounters Date Type Department Care Team (Late st Contact Info) Description 02/22/2025 1:30 PM EDT Office Visit [facility] OPTOMETRY [address] [place], [place] [id number] Yari Baltazar, OD [address] [place] [address] Scheduled Orders Name Type Priority Associated Diagnoses Orde r Schedule Vitamin B12/Folate, Serum Panel Lab Routine Burning pain Numbness and tingling in both hands Expected: 11/08/2024, Expires: 11/08/2025 HIV-1/2 Antigen and Antibodies, Fourth Generation, with Reflexes Lab Routine Routine screening for STI (sexually transmitted infection) Expected: 11/08/2024 (Approximate), Expires: 11/08/2025 RPR (Monitor) with Reflex to??Titer Lab Routine Routine screening for STI (sexually transmitted infection) Expected: 11/08/2024 (Approximate), Expires: 11/08/2025 Hepatitis C Antibody with Reflex to HCV, RNA, Quantitative, Real-Time PCR Lab Routine Routine screening for STI (sexually transmitted infection) Expected: 11/08/2024 (Approximate), Expires: 11/08/2025 Iron And Total Iron Binding Capacity Lab Routine Iron deficiency Expected: 11/08/2024, Expires: 11/08/2025 Hemoglobin and Hematocrit Lab Routine Iron deficiency Expected: 11/08/2024, Expires: 11/08/2025 documented as of this encounter Visit Diagnoses Diagnosis Hyperlipidemia, unspecified hyperlipidemia type- Primary Burning pain Generalized pain Numbness and tingling in both hands Encounter for immunization Iron deficiency Disorders of iron metabolism Routine screening for STI (sexually transmitted infection) Screening examination for venereal disease documented in this encounter Additional Health Concerns Assessment Noted Time PHQ-9 Depression Total Score: 14 025 11:13 AM EST documented as of this encounter Care Teams Clin Application Specialist Relationship Specialty Start Date End Date Carina Munoz ANP [address] [place] [address] PCP - General Family Medicine 07/15/21 documented as of this encounter
--- OUTSIDE RECORDS SUMMARY | 2024-11-16 09:26 | XMS_ITS | Encounter Summary ---
Author Organization [facility] Address [address] [place] [address] Care Team Providers Care Humanities Division Chair Name Role Phone Rajat Zaidi MD Primary Care Provider Meera Hong MD Primary Care Provider Carina Limon NP Primary Care Provider Christal lyons Encounter Details Date Type Department Care Team Description 11/29/2019 Pt. Non Urgent Medic al Question Medicine/Pediatrics - [address] [phone] Rajat Zaidi MD Social History Tobacco Use Types Packs/Day Years Used Date Smoking Tobacco: Never Smokeless Tobacco: Never Alcohol Use Standard Drinks/Week Comments No 0 (1 standard drink = 0.6 oz pur e alcohol) Sex Assigned at Date Recorded Not on file Job Start Date Occupation Industry Not on file Not on file Not on file documented as of this encounter Progress Notes * Wendy SullivanPCamronN. - 11/29/2019 10:31 AM ESTFrom: Lupe Rogel To: Rajat Zaidi MD Sent: 11/29/2019 10:23 AM EST Subject: laboratory Buen jake!!! Estoy positiva a la epatitis B? documented in this encounter Plan of Treatment Not on file documented as of this encounter Visit Diagnoses Not on filedocumented in this encounter Care Teams Humanities Division Chair Relationship Specialty Start Date End Date Rajat Zaidi MD PCP - General Internal Medicine 11/21/19 12/13/19 Meera Welch MD PCP - General Internal Medicine 12/14/19 09/26/22 Carina Munoz NP PCP - General Nurse Practioner Adult Health 09/27/22 documented as of this encounter
--- OUTSIDE RECORDS SUMMARY | 2024-11-16 09:26 | XMS_ITS | Encounter Summary ---
Author Organization [facility] Address [address] [place] [address] Care Team Providers Care Asparagus Buncher Name Role Phone Meera Welch MD Primary Care Provider Carina Limon NP Primary Care Provider Unavaildorian e Reason for Visit * Reason Onset Date Comments medication problems 02/12/2020 montelukast (SINGULAIR) 10 MG tablet Encounter Details Date Type Department Care Team Description 02/12/2020 Telephone Adult Medicine - [address] [address] Meera Welch MD medication problems (montelukast (SINGULAIR) 10 MG tablet) Social History Tobacco Use Types Packs/Day Years [...] encounter Miscellaneous Notes * Telephone Encounter - Thu Gilbert M.A. - 02/14/2020 10:23 AM EDT Pt advised. * Telephone Encounter - Meera Welch MD - 02/14/2020 10:21 AM EDT done * Telephone Encounter - Thu Gilbert M.A. - 02/14/2020 9:00 AM EDT Pt is using [facility] now. Wants rx sent there. Thanks. * Telephone Encounter - Meera Welch MD - 02/14/2020 8:18 AM EDT I'd suggest that the patient call some other pharmacies to see if they have it in stock * Telephone Encounter - Tayler Calderon M.A. - 02/13/2020 11:09 AM EDT Please advise * Telephone Encounter - Shae Mckoy - 02/12/2020 4:03 PM EDT Who is calling? A pharmacist: Pharmacy: [facility] Pharmacist Name: Fax Pharmacy Name of the medication montelukast (SINGULAIR) 10 MG tablet What is the specific problem or interaction? On backorder If the patient is having a problem with taking the med - how long has the problem been going on? N/A documented in this encounter Plan of Treatment Not on file documented as of this encounter Visit Diagnoses Not on filedocumented in this encounter Care Teams Asparagus Buncher Relationship Specialty Start Date End Date Meera Welch MD PCP - General Internal Medicine 12/14/19 09/26/22 Carina Munoz NP PCP - General Nurse Practioner Adult Health 09/27/22 documented as of this encounter
--- OUTSIDE RECORDS SUMMARY | 2024-11-16 09:26 | XMS_ITS | Encounter Summary ---
Author Organization [facility] Address [address] [place] [address] Care Team Providers Care Ball Point Splitter Name Role Phone Meera Welch MD Primary Care Provider Unavailable Carina Munoz NP Primary Care Provider Unavailabl e Encounter Details Date Type Department Care Team Description 01/14/2020 Pt. Non Urgent Medical Question Gastroenterology - [place] [address] [place] [address] Jeanna Collins MD [address] [place] [address] Social History Tobacco Use Types Packs/Day Years [...] on filedocumented in this encounter Care Teams Ball Point Splitter Relationship Specialty Start Date End Date Meera Welch MD PCP - General Internal Medicine 12/14/19 09/26/22 Carina Munoz NP PCP - General Nurse Practioner Adult Health 09/27/22 documented as of this encounter
--- OUTSIDE RECORDS SUMMARY | 2024-11-16 09:27 | XMS_ITS | Encounter Summary ---
Author Organization [facility] Address [address] [place] [address] Care Team Providers Care Frame Stripper Name Role Phone Meera Welch MD Primary Care Provider Unavailable Carina Munoz NP Primary Care Provider Unavaildorian e Encounter Details Date Type Department Care Team Description 02/10/2020 Refill Adult [address] [address] Meera Welch MD Social History Tobacco Use Types Packs/Day [...] on filedocumented in this encounter Care Teams Frame Stripper Relationship Specialty Start Date End Date Meera Welch MD PCP - General Internal Medicine 12/14/19 09/26/22 Carina Munoz NP PCP - General Nurse Practioner Adult Health 09/27/22 documented as of this encounter
--- OUTSIDE RECORDS SUMMARY | 2024-11-16 09:27 | XMS_ITS | Encounter Summary ---
Author Organization [facility] Address [address] [place] [address] Care Team Providers Care Cut Off Machine Operator Name Role Phone [place]-Meera Astorga MD Primary Care Provider Carina Limon NP Primary Care Provider Unavailabl e Reason for Visit * Reason Onset Date Comments Faxed Refill 06/10/2020 Encounter Details Date Type Department Care Team Description 06/10/2020 Refill OBGYN - [place] [address] [place] [address] Yinka France MD [address] [place] [address] Faxed Refill Social History Tobacco Use Types Packs/Day Years [...] encounter Miscellaneous Notes * Telephone Encounter - Sushma Stanley MD - 06/13/2020 2:14 PM EDT Needs a follow up appt PETRA. Was considering Mirena. Thanks. * Telephone Encounter - Cora Lara R.N. - 06/13/2020 1:43 PM EDT Rx pended. Pt also needs f/u as per Dr Stanley's notes from 01/29/2020. Letter sent. * Telephone Encounter - Narcisa Khalil - 06/13/2020 1:30 PM EDT Call received from Victoriano at [facility]. They are asking if we can call this in as it is neededurgently. Please call Victoriano at [phone]. * Telephone Encounter - Maribel Valdivia - 06/10/2020 12:14 PM EDT WHEN WAS THE PATIENTS LAST ANNUAL OBIEE REPORT DEVELOPER EXAM? 09/25/19 Does patient have an upcoming appointment? No lmom (THE MEDICATION REQUESTED IS ON THE MED LIST ABOVE) Did you check the Pharmacy information above?: YES Indicate how soon the patient needs the script: BY THE END OF THE DAY Patient would like script to be: E-PRESCRIBED/FAXED TO PHARMACY Is the doctor here today?: YES Can the message wait until the doctor returns?: NO Has the patient been told that the prescription will not be filled until the end of the day? NO Payor: [employer] FFS / Plan: [employer] / Product Type: MEDICAID RISK documented in this encounter Plan of Treatment Not on file documented as of this encounter Visit Diagnoses Not on filedocumented in this encounter Care Teams Cut Off Machine Operator Relationship Specialty Start Date End Date [place]-Meera Astorga MD PCP - General Internal Medicine 12/14/19 09/26/22 Carina Munoz NP PCP - General Nurse Practioner Adult Health 09/27/22 documented as of this encounter
--- OUTSIDE RECORDS SUMMARY | 2024-11-16 09:27 | XMS_ITS | Encounter Summary ---
Author Organization [employer] Address [address] [place] [address] [address] [place] [address] Care Team Providers Care Internal Corrosion Specialist Name Role Phone Carina Munoz Primary Care Provider [phone] Reason for Visit * Reason Comments Pre-visit Planning SDOH Screening negat scotty and Tobacco screening negative Encounter Details Date Type Department Care Team ([facility] st Contact Info) Description 10/30/2024 Patient Outreach [facility] [address] [place], [place] [phone] Carina Munoz ANP [address] [place] [address] Pre-visit Planning (SDOH Screening negative and Tobacco screening negative) Social History Tobacco Use Types Packs/Day Years Used Date Smoking Tobacco: Never Passive Smoke Exposure: Never Smokeless Tobacco: Never Alcohol Use Standard Drinks/Week Comments Never 0 (1 standard drink = 0.6 oz pur e alcohol) Depression Answer Date Recorded Patient Health Questionnaire-9 Score 0 09/29/2023 Patient Health Questionnaire-9 Score 0 09/29/2023 Last PHQ-9: Questionnaire Data Not on file 1 11/30/2022 Housing Stability Answer Date Recorded What is [...] Answer Date Recorded Patient Health Questionnaire-2 Score 0 09/29/2023 Internet Access Answer Date Recorded Internet Access Q1 Yes 10/30/2024 Internet Access Q2 Not on file 10/30/2024 Comments Unknown Sex and Gender Information Value Date Recorded Sex Assigned at Female 08/16/2022 10:33 AM EDT Legal Sex Female 10:33 AM EDT Gender Identity Female 08/16/2022 10:33 AM EDT Sexual Orientation Straight 08/16/2022 10 :33 AM EDT documented as of this encounter Progress Notes * Kerri Mazariegos - 10/30/2024 10:52 AM EST BRADY Sullivan placed successful outbound call to patient for pre-visit planning. Patient name and confirmed. Patient confirms appt date and time, and has transportation arrangements. Biggest concern for appointment at this time is no concerns. Patient advised to bring to appointment a photo id and insurance card. Appropriate screenings completed in anticipation of appointment. documented in this encounter Plan of Treatment Upcoming Encounters Date Type Department Care Team ([facility] st Contact Info) Description 02/22/2025 1:30 PM EDT Office Visit [facility] [address] [place] [address] Giovanny, Yari, OD [address] [place] [address] documented as of this encounter Visit Diagnoses Not on filedocumented in this encounter Additional Health Concerns Assessment Noted Time PHQ-9 Depression Total Score: 0 09/29/20 9:47 AM EST documented as of this encounter Care Teams Internal Corrosion Specialist Relationship Specialty Start Date End Date Carina Munoz ANP [address] [place] [id number] PCP - General Family Medicine 07/15/21 documented as of this encounter
--- OUTSIDE RECORDS SUMMARY | 2024-11-16 09:27 | XMS_ITS | Encounter Summary ---
Author Organization [facility] Address [address] [place] [address] Care Team Providers Care Animal Science Instructor Name Role Phone Meera Welch MD Primary Care Provider Unavailable Carina Munoz NP Primary Care Provider Unavaildorian lyons Encounter Details Date Type Department Care Team Description 03/12/2020 Refill Adult Medicine [address] [address] Meera Welch MD Social History Tobacco Use [...] encounter Miscellaneous Notes * Telephone Encounter - Jazz Munroe M.A. - 03/12/2020 10:26 AM EDT Yehuda 11/26/19 No follow up apt made FYI Medications being requested to soon documented in this encounter Plan of Treatment Not on file documented as of this encounter Visit Diagnoses Not on filedocumented in this encounter Care Teams Animal Science Instructor Relationship Specialty Start Date End Date Meera Welch MD PCP - General Internal Medicine 12/14/19 09/26/22 Carina Munoz NP PCP - General Nurse Practioner Adult Health 09/27/22 documented as of this encounter
--- OUTSIDE RECORDS SUMMARY | 2024-11-16 09:28 | XMS_ITS | Clinical Summary ---
Author Organization [employer] Address [address] [place] [address] [address] [place] [address] Care Team Providers Care Urban Design Consultant Name Role Phone Carina Munoz MARC Primary Care Provider [phone] Allergies No known active allergies Medications lamoTRIgine (LaMICtal) 100 MG tablet Take 1 tablet by mouth 1 (one) time each day. psychiatry Active Levonorgestrel 20 MCG/DAY intrauterine device 1 each by Intrauterine route. 0 025 Active prazosin (Minipress) 1 MG capsule Take 1 capsule by mouth if needed at bedtime. 9 Active pantoprazole (Protonix) 40 MG EC tabletIndication s:Gastroesophage al reflux disease without esophagitis TAKE 1 TABLET BY MOUTH BEFORE BREAKFAST 90 tablet 1 4 Active albuterol 108 (90 Base) MCG/ACT inhalerIndicatio ns:Moderate persistent asthma without complication INHALE 2 PUFFS EVERY 4 HOURS 18 g 1 4 Active fluticasone (Flonase Allergy Relief) 50 MCG/ACT nasal sprayIndications :Moderate persistent asthma without complication ADMINISTER 2 SPRAYS INTO EACH NOSTRIL EVERY DAY 48 g 4 Active lidocaine (Lidoderm) 5 % patchIndications :Muscle spasm of back APPLY 1 PATCH TOPICALLY EVERY MORNING. REMOVE AND DISCARD PATCH WITHIN 12 HOURS OR as DIRECTED BY MD. 30 patch 1 4 Active baclofen (Lioresal) 10 MG tablet TAKE 1 TABLET BY MOUTH IN THE MORNING, AT NOON, AND BEDTIME IF NEEDED FOR MUSCLES SPASMS 60 tablet 1 4 Active fluticasone furoate (Arnuity Ellipta) 200 MCG/ACT inhalerIndicatio ns:Moderate persistent asthma without complication INHALE 1 PUFF EVERY MORNING 30 each 1 4 Active montelukast (Singulair) 10 MG tablet TAKE 1 TABLET BY MOUTH EVERY EVENING 90 tablet 1 4 Active Diclofenac Sodium 1 % gelIndications:M uscle spasm of back APPLY 2 GRAMS TOPICALLY IN THE MORNING, AT NOON, IN THE EVENING AND AT BEDTIME IF NEEDED 150 g 3 4 Active Active Problems Problem Noted Date Diagnosed Date S/P laparoscopic sleeve gastrectomy 05/02/2023 Overview (05/02/2023): 04/27/23 at [facility] Diverticular disease 07/08/2022 Hepatic steatosis 09/14/2021 Overview (10/19/2022): Mild - seen on CT abdomen and pelvis at [facility] ED 09/08/21 Uterine fibroid 09/14/2021 Overview (10/19/2022): Seen on US at [facility] ED 09/08/21 Diverticulitis 09/14/2021 09/01/2023 Overview (09/01/2023): CT abdomen and pelvis 09/08/21 at [facility] ED: findings suspicious for early/mild descending diverticulitis. No abscess formation or free air. Colon polyp 08/16/2020 Overview (10/19/2022): Monroe done 06/2020 for GIB, anemia Asthma, moderate persistent 03/03/2020 Iron deficiency 11/21/2019 Overview (10/19/2022): Last Assessment & Plan: Not anemic at last check, but iron studies continue to be low. Will correct bleeding and with continued BID iron, hopefully this will correct itself. Will consider repeat CBC and iron studies at follow up visit in 3 months. Menorrhagia with regular cycle 11/21/2019 Overview (10/19/2022): Last Assessment & Plan: I discussed other options for bleeding control with Lupe, including Depo Provera, other oral progestins, and Mirena IUD. She was open to the idea of Mirena IUD, but was willing to try Aygestin for now until a later date. She will follow up for consideration of Mirena IUD in 3 months. DIscussed possible breast tenderness and MOLINA when starting Aygestin. Has TL for contraception. She voiced understanding and agreed. BMI 27.0-27.9,adult 06/06/2019 09/01/2023 Bipolar disorder 10/27/2018 Overview (10/19/2022): F/u Lela Atypical squamous cell beal es of undetermined significance (ASCUS) on cervical cytology with positive high risk human papilloma virus (HPV) 02/03/2018 Overview (10/19/2022): 01/24/2018 ASCUS HR HPV 03/01/2018 RAJANI 1 02/19/2021 ASCUS HR HPV 04/15/2021 Colpo benign Gastroesophageal reflux disease without esophagi tis 11/29/2017 Encounters Date Type Department Care Team Description 11/08/2024 10:30 AM EST Office Visit [facility] [address] [place] [phone] Carina Munoz ANP Hyperlipidemia, unspecified hyperlipidemia type (Primary Dx); Burning pain; Numbness and tingling in both hands; Encounter for immunization; Iron deficiency; Routine screening for STI (sexually transmitted infection) 11/08/2024 Travel 10/30/2024 Patient Outreach [facility] [address] [place] [address] Carina Munoz ANP Pre-visit Planning (SDOH Screening negative and Tobacco screening negative) 09/18/2024 3:40 PM EST Office Visit [facility] [address] [place] [address], [place] [address] Name, MD Koko Fatigue, unspecified type (Primary Dx); Myalgia; Nonintractable headache, unspecified chronicity pattern, unspecified headache type; Hot flashes; Irregular menses 09/18/2024 Travel 09/18/2024 Telephone [facility] [address] [place] [address] Carina Munoz ANP 09/10/2024 Telephone [facility] [address] [place] [address] Maninder Akers [place] October recall 08/27/2024 Refill [facility] [address] [place] [address] Carina Munoz ANP Muscle spasm of back 08/27/2024 Refill [facility] [address] [place] [address] Carina Munoz ANP Muscle spasm of back from Last 3 Months Immunizations Name Administration Dates Next Due HPV 9-Valent 01/27/2023,09/28/2022,04/15/2021 Influenza Injectable Quadriv alant Preservative Free IIV4 MDCK 11/21/2019,10/27/2018 Influenza injectable quadriv alent preservative free 08/17/2023,07/28/2022,07/15/2021 Influenza, seasonal, injecta ble, preservative free 11/08/2024 Pfizer Covid-19 Vaccine 12+ 11/08/2024, Tdap 10/27/2018 Family History Medical History Relation Name Comments Diabetes Other Colon cancer Paternal Grandfather Prostate cancer Paternal Grandfather Ovarian cancer Sister Relation Name Status Comments Other Paternal Grandfather Sister Social History Tobacco Use Types Packs/Day Years [...] Orientation Straight 08/16/2022 10 :33 AM EDT Last Filed Vital Signs Vital Sign Reading Time Taken Comments Blood Pressure 119/75 11/08/2024 10:55 AM EST Pulse 74 11/08/2024 10:55 AM EST Temperature 36.2 ??C (97.2 ??F) 11/08/2024 10:[address] Respiratory Rate 14 11/08/2024 10:55 AM EST Oxygen Saturation 99% 11/08/2024 10:55 AM EST Inhaled Oxygen Concentration - - Weight 78.9 kg (174 lb) 11/08/2024 10:55 AM EST Height 157.5 cm (5' 2 ) 03/30/2024 1:19 PM EDT Body Mass Index 31.83 03/30/2024 1:19 PM EDT Plan of Treatment Upcoming Encounters Date Type Department Care Team (Late st Contact Info) Description 02/22/2025 1:30 PM EDT Office Visit [facility] [address] [place] [address] Yari Baltazar, OD [address] [place] [address] Health Maintenance Due Date Last Done Comments Family Planning (PISQ) 1999 Hepatitis A Vaccines (1 of 2 - Risk 2-dose series) 2003 Hepatitis B Vaccines (1 of 3 - 19+ 3-dose series) 2003 Pneumococcal Vaccine: Pediatrics (0 to 5 Years) and At-Risk Patients (6 to 49) Years) (1 of 2 - PCV) 2003 Cervical Cancer Screening 09/13/2024 HPV/Cotest 09/13/2024 09/13/2023, 08/18/2022 Pap Smear 09/13/2024 09/13/2023, 08/18/2022 Alcohol/Substance Use Screening 03/30/2025 03/30/2024 Depression Monitoring (PHQ-9) 05/08/2025 11/08/2024, 11/08/2024 SDOH Screening 10/30/2025 10/30/2024 Depression Screening 11/08/2025 11/08/2024, 11/08/19 25 Tobacco Screening 11/08/2025 11/08/2024 DTaP/Tdap/Td Vaccines (2 - Td or Tdap) 10/27/2028 10/27/2018 Lipid Panel 12/25/2028 12/26/2023, 11/17, 08/03/2021 Zoster Vaccines (1 of 2) 2034 RSV Patients and Patients Aged 60 years or older (1 - 1-dose 75+ series) 2059 HPV Vaccines Completed 01/27/2023, 09/16, 04/15/2021 HIV Screening Completed 11/07/2023, 08/03/2021 Hepatitis C Screening Completed 11/07/2023, 021 COVID-19 Vaccine Completed 11/08/2024, 10/2022, 07/28/2022, Additional history exists Influenza Vaccine Completed 11/08/2024, , 07/28/2022, Additional history exists HIB Vaccines Aged Out No longer eligi ble based on patient's age to complete this topic IPV Vaccines Aged Out No longer eligi ble based on patient's age to complete this topic Meningococcal Vaccine Aged Out No magy leeann eligible based on patient's age to complete this topic RSV under 20 months Aged Out No longe r eligible based on patient's age to complete this topic Rotavirus Vaccines Aged Out No longer eligible based on patient's age to complete this topic Procedures Procedure Name Priority Date/Time Associated Diagnosis Comments TSH W/REFLEX TO FT4 Routine 09/18/2024 4 :19 PM EST Fatigue, unspecified type Myalgia Nonintractable headache, unspecified chronicity pattern, unspecified headache type Hot flashes Irregular menses COMPREHENSIVE METABOLIC PANEL Routine 09/18/2024 4:19 PM EST Fatigue, unspecified type Myalgia Nonintractable headache, unspecified chronicity pattern, unspecified headache type Hot flashes Irregular menses CBC WITH AUTO DIFFERENTIAL Routine 09/18/2024 4:19 PM EST Fatigue, unspecified type Myalgia Nonintractable headache, unspecified chronicity pattern, unspecified headache type Hot flashes Irregular menses LIPID PANEL, STANDARD Routine 12/26/2023 11:53 AM EDT HEPATITIS C AB W/REFL TO HCV RNA, QN, PCR Routine 11/07/2023 12:36 PM EST Routine screening for STI (sexually transmitted infection) HIV 1/2 ANTIGEN/ANTIBODY, FOURTH GENERATION W/RFL Routine 11/07/2023 12:36 PM EST Routine screening for STI (sexually transmitted infection) HM PAP/HPV Routine 09/13/2023 from Last 3 Months or Most Recently Relevant to Health Maintenance Results * TSH W/Reflex to FT4 (09/18/2024 4:19 PM EST) TSH reflex Free T4 0.54 0.32 - 4.0 uIU/mL [facility] Blood Venous blood specimen / Unknown 09/18/2024 4:19 PM EST 09/18/2024 5:32 PM EST us Koko Name LAB BLOOD ORDERABLES Final Resul t [facility] [address] [place] [address] [phone] * CBC auto differential (09/18/2024 4:19 PM EST) White Blood Count 8.9 4.8 - 10.8 X10*3/uL [facility] Red Blood Count 4.61 4.20 - 5.50 X10*6/uL [facility] Hemoglobin 13.3 12.0 - 16.0 g/dl [facility] Hematocrit 39.8 37.0 - 47.0 % [facility] Mean Corpuscular Volume 86.3 80.0 - 98.0 fL [facility] Mean Corpuscular Hemoglobin 28.9 27.0 - 33.0 pg [facility] Mean Corpuscular HGB Conc 33.4 31.0 - 35.0 g/dl [facility] Red Cell Distribution Width 13.7 11.0 - 16.0 % [facility] Platelet Count 355 160 - 400 X10*3/uL [facility] Mean Platelet Volume 10.2 9.4 - 12.3 fL [facility] Neutrophils Percent Auto 67.5 45 - 73 % [facility] Imm Gran Pct Auto 0.2 0.0 - 0.4 % [facility] Lymphocytes Percent Auto 27.2 20 - 40 % [facility] Monocytes Percent Auto 4.8 2 - 11 % [facility] Eosinophils Percent Auto 0.2 0 - 4 % [facility] Basophils Percent Auto 0.1 0 - 2 % [facility] NRBC Pct Auto 0.0 0.0 - 0.2 /100WBC [facility] Neutrophils Absolute Auto 6.0 2.0 - 8.3 x10*3/uL [facility] Imm Gran Abs Auto 0.02 0.00 - 0.03 X10*3/uL [facility] Lymphocytes Absolute Auto 2.4 1.2 - 4.9 X10*3/uL [facility] Monocytes Absolute Auto 0.4 0.1 - 1.2 X10*3/uL [facility] Eosinophils Absolute Auto 0.0 0.0 - 0.4 X10*3/uL [facility] Basophils Absolute Auto 0.0 0.0 - 0.2 X10*3/uL [facility] NRBC Abs Auto 0.000 0.0 - 0.012 X10*3/uL [facility] Blood Venous blood specimen / Unknown 09/18/2024 4:19 PM EST 09/18/2024 5:32 PM EST us Koko Name LAB BLOOD ORDERABLES Final Resul t [facility] [address] [place] [phone] * (ABNORMAL) Comprehensive Metabolic Panel (09/18/2024 4:19 PM EST) Sodium 140 135 - 145 mmol/L [facility] Potassium 3.8 3.3 - 5.1 mmol/L [facility] Chloride 106 96 - 108 mmol/L [facility] Carbon Dioxide 27 22 - 29 mmol/L [facility] Anion Gap 11(L) 12 - 20 [facility] Urea Nitrogen (BUN) 15 9 - 16 mg/dL [facility] Creatinine, Serum 0.73 0.5 - 1.4 mg/dL [facility] Estimated Glomerular Filt Rate >60 [facility] Comment:Chronic Kidney Disea se: Estimated GFR < 60 mL/min/1.17n0Cpedah Kidney Disease: Estimated GFR < 15 mL/min/1.73m2 Glucose 82 60 - 115 mg/dL [facility] Calcium 9.6 8.4 - 10.2 mg/dL [facility] Bilirubin, Total 0.4 0.0 - 1.0 mg/dL [facility] Aspartate Amino Transferase 16 5 - 31 U/L [facility] Alanine Aminotransferase 11 0 - 31 U/L [facility] Total Protein 7.2 6.5 - 8.0 g/dL [facility] Albumin Level 4.3 3.5 - 5.0 g/dL [facility] Alkaline Phosphatase 54 39 - 117 U/L [facility] Blood Venous blood specimen / Unknown 09/18/2024 4:19 PM EST 09/18/2024 5:32 PM EST us Koko Name MD LAB BLOOD ORDERABLES Final Resul t [facility] [address] [place] [phone] * (ABNORMAL) Lipid Panel, Standard (12/26/2023 11:53 AM EDT) Triglycerides 95 <150 mg/dL [facility] Comment:Desirable Triglyceri de: less than 150 mg/dLBorderline High Triglyceride 150-199 mg/dLHigh Triglyceride: 200-499 mg/dLVery High Triglyceride: greater than or equal to 5OO mg/dL Cholesterol 203(H) <200 mg/dL [facility] Comment:Desirable Cholestero l: less than 200 mg/dLBorderline High Cholesterol: 200-239 mg/dLHigh Cholesterol: greater than 239 mg/dL LDL Cholesterol Calculated 125(H) <100 mg/dL [facility] Comment:Desirable LDL: less than 100 mg/dLNear Optimal/Above Optimal LDL: 110- 129 mg/dLBorderline High LDL: 130-159 mg/dLHigh LDL: 160-189 mg/dLVery High LDL: greater than or equal to 190 mg/dL HDL Cholesterol 59 >40 mg/dL [facility] Comment:Desirable HDL: great er than 40 mg/dL Note: This HDL assay may give artificially low results in patients with liver disease. 12/26/2023 11:5 3 AM EDT 12/26/2023 11:53 AM EDT Generic External Data Provider LAB BLOOD ORDERAB LES Final Result Performing Organization Address [facility]/ZIP Co de Phone Number [facility] [address] [place] [phone] * Hepatitis C Antibody with Reflex to HCV, RNA, Quantitative, Real-Time PCR (11/07/2023 12:36 PM EST) Hepatitis C Antibody Nonreactive Nonreactive [facility] Comment:Antibodies to HCV no t detected; does not exclude early acuteHCV infection. Blood Venous blood specimen / Unknown 11/07/2023 12:36 PM EST 11/07/2023 1:15 PM EST Carina Munoz ANP LAB BLOOD ORDERABLES Final Resul t Performing Organization Address [facility] Co de Phone Number [facility] [address] [place] [phone] * HIV-1/2 Antigen and Antibodies, Fourth Generation, with Reflexes (11/07/2023 12:36 PM EST) HIV AB/AG Nonreactive Nonreactive [facility] Comment:HIV-1 p24 Ag and/or HIV-1/HIV-2 Ab not detected.A test result that is nonreactive does not exclude thepossibility of exposure to or infection with HIV-1 and/orHIV-2. Nonreactive results in this assay for individualswith prior exposure to HIV-1 and/or HIV-2 may be due toantigen and antibody levels that are below the limit ofdetection of this assay.The [employer] HIV Ag/Ab Combo assay result andsupplemental assay results should be interpreted inconjunction with the patient's clinical presentation,history and other laboratory results. If the results areinconsistent with clinical evidence, additional testing issuggested to confirm the result. Blood Venous blood specimen / Unknown 11/07/2023 12:36 PM EST 11/07/2023 1:15 PM EST us Carina TRAN LAB BLOOD ORDERABLES Final Resul t [facility] [address] [place] [phone] [phone] * (ABNORMAL) PAP/HPV (09/13/2023) Pap Negative for intraephithelial lesion or malignancy Negative for intraephithelial lesion or malignancy, Epithelial cell abnormality HPV Detected(A) Undetected, Indeterminate, Quantitative, Not Detected Historical Provider HEALTH MAINTENANCE Final Result from Last 3 Months or Most Recently Relevant to Health Maintenance Insurance [id number] Care Teams Urban Design Consultant Relationship Specialty Start Date End Date Carina Munoz ANP [address] [place] [phone] PCP - General Family Medicine 07/15/21
--- OUTSIDE RECORDS SUMMARY | 2024-11-16 09:28 | XMS_ITS | Encounter Summary ---
Author Organization [facility] Address [address] [place] [address] [address], [place] [address] Care Team Providers Care Tail Board Worker Name Role Phone Carina Munoz Primary Care Provider [phone] Reason for Visit * Reason Onset Date Comments Med Refill 07/07/2023 Encounter Details Date Type Department Care Team (Late st Contact Info) Description 07/07/2023 Refill [facility] MEDICINE [address] [place] [address] Sarah Nicholas MD [address] [place] [address] Social History Tobacco Use Types Packs/Day Years Used Date Smoking Tobacco: Never Passive Smoke Exposure: Never Smokeless Tobacco: Never Alcohol Use Standard Drinks/Week Comments Never 0 (1 standard drink = 0.6 oz pur e alcohol) Comments Unknown Sex and Gender Information Value [...] Description 02/22/2025 1:30 PM EDT Office Visit [facility] OPTOMETRY [address] [place] [address] Yari Baltazar, OD [address] [place] [address] documented as of this encounter Visit Diagnoses Not on filedocumented in this encounter Care Teams Tail Board Worker Relationship Specialty Start Date End Date Carina Munoz ANP [address] [place] [address] PCP - General Family Medicine 07/15/21 documented as of this encounter
--- OUTSIDE RECORDS SUMMARY | 2024-11-16 09:28 | XMS_ITS | Encounter Summary ---
Author Organization [facility] Address [address] [place] [address] Care Team Providers Care Tailings Dam Laborer Name Role Phone Sriram-Meera Astorga MD Primary Care Provider Carina Limon NP Primary Care Provider Christal lyons Encounter Details Date Type Department Care Team Description 06/26/2020 Orders Only Medical Records [address] [place] [address] Jeanna Collins MD [address] [place] [address] Social History Tobacco Use Types Packs/Day Years Used Date Smoking Tobacco: Never Smokeless Tobacco: Never Alcohol Use Standard Drinks/Week Comments No 0 (1 standard drink = 0.6 oz pur e alcohol) Sex Assigned at Date Recorded Not on file Job Start Date Occupation Industry Not on file Not on file Not on file documented as of this encounter Progress Notes * Deloris Collins MD - 07/06/2020 8:20 PM EDT Dear Ms. Rogel, The polyp(s) that were removed during your colonoscopy were precancerous, but benign. Fortunately, we removed them and therefore, they will not cause any more problems in the future. Based on the number, the size, and the features of the polyp(s) removed, I recommend a follow-up colonoscopy in 5 years. Before, the 5 years are due, we will send you a reminder in the mail asking you to contact our office to have the colonoscopy scheduled. I would like to personally thank you for allowing us to take care of you. Please don't hesitate to call us for any questions or concerns. Regards, H. Skip Collins MD Board Certified Gastroenterology and Internal Medicine Transplant Hepatology [facility] documented in this encounter Plan of Treatment Not on file documented as of this encounter Procedures Procedure Name Priority Date/Time Associated Diagnosis Comments OUTSIDE PATHOLOGY Routine 06/24/2020 documented in this encounter Results * OUTSIDE PATHOLOGY (06/24/2020) H Skip Collins MD OUTSIDE LAB documented in this encounter Visit Diagnoses Not on filedocumented in this encounter Care Teams Tailings Dam Laborer Relationship Specialty Start Date End Date [place]-Meera Astorga MD PCP - General Internal Medicine 12/14/19 09/26/22 Carina Munoz NP PCP - General Nurse Practioner Adult Health 09/27/22 documented as of this encounter
--- OUTSIDE RECORDS SUMMARY | 2024-11-16 09:28 | XMS_ITS | Encounter Summary ---
Author Organization [employer] Address [address] [place] [address] 7 [place] [address] Care Team Providers Care Basket Assembler Name Role Phone Carina Munoz Primary Care Provider [phone] Reason for Visit * Reason Onset Date Comments Med Refill 07/18/2024 Encounter Details Date Type Department Care Team ([facility] st Contact Info) Description 07/18/[address] [facility] CH[facility] MED & PEDS [address] [place], [place] [phone] Carina Munoz ANP [address] [place] [address] Social History Tobacco Use Types Packs/Day Years [...] Recorded Patient Health Questionnaire-2 Score 0 09/29/2023 Comments Unknown Sex and Gender Information Value [...] Description 02/22/2025 1:30 PM EDT Office Visit [facility] OPTOMETRY [address] [place] [address] Yari Baltazar, OD [address] [place] [address] documented as of this encounter Visit Diagnoses Not on filedocumented in this encounter Additional Health Concerns Assessment Noted Time PHQ-9 Depression Total Score: 0 09/29/20 23 9:47 AM EST documented as of this encounter Care Teams Basket Assembler Relationship Specialty Start Date End Date Carina Munoz ANP [address] [place] [address] PCP - General Family Medicine 07/15/21 documented as of this encounter
--- OUTSIDE RECORDS SUMMARY | 2024-11-16 09:28 | XMS_ITS | Encounter Summary ---
Author Organization [facility] Address [address] [place] [address] Care Team Providers Care Petroleum Geologist Name Role Phone Meera Welch MD Primary Care Provider Unavailable Carina Munoz NP Primary Care Provider Unavaildorian lyons Encounter Details Date Type Department Care Team Description 06/29/2020 Refill Adult Medicine [address] [address] Meera Welch MD Social History Tobacco Use [...] encounter Miscellaneous Notes * Telephone Encounter - Kriss Stevenson M.A. - 06/30/2020 11:29 AM EDT Last appt- 03/03/20 Next appt- no, needs appt, mychart message sent documented in this encounter Plan of Treatment Not on file documented as of this encounter Visit Diagnoses Not on filedocumented in this encounter Care Teams Petroleum Geologist Relationship Specialty Start Date End Date Meera Welch MD PCP - General Internal Medicine 12/14/19 09/26/22 Carina Munoz NP PCP - General Nurse Practioner Adult Health 09/27/22 documented as of this encounter
--- OUTSIDE RECORDS SUMMARY | 2024-11-16 09:28 | XMS_ITS | Encounter Summary ---
Author Organization [facility] Address [address] [place] [address] Care Team Providers Care Factory Manager Name Role Phone Meera Welch MD Primary Care Provider Unavailable Carina Munoz NP Primary Care Provider Unavailabl e Encounter Details Date Type Department Care Team Description 08/21/2020 Pt. Non Urgent Medical Question OBGYN - [place] [address] [place] [address] Yinka France MD [address] [place] [address] Social History Tobacco Use Types Packs/Day Years [...] on filedocumented in this encounter Care Teams Factory Manager Relationship Specialty Start Date End Date Meera Welch MD PCP - General Internal Medicine 12/14/19 09/26/22 Carina Munoz NP PCP - General Nurse Practioner Adult Health 09/27/22 documented as of this encounter
--- OUTSIDE RECORDS SUMMARY | 2024-11-16 09:28 | XMS_ITS | Encounter Summary ---
Author Organization [facility] Address [address] [place] [address] Care Team Providers Care Edging Catcher Name Role Phone Meera Welch MD Primary Care Provider Unavailable Carina Munoz NP Primary Care Provider Unavaildorian e Encounter Details Date Type Department Care Team Description 08/21/2020 Refill Adult [address] [address] Meera Welch MD Social History Tobacco Use [...] Telephone Encounter - Kriss Stevenson M.A. - 08/21/2020 9:39 AM EST Last appt- 03/03/20 Next appt- No, mychart message sent documented in this encounter Plan of Treatment Not on file documented as of this encounter Visit Diagnoses Not on filedocumented in this encounter Care Teams Edging Catcher Relationship Specialty Start Date End Date Meera Welch MD PCP - General Internal Medicine 12/14/19 09/26/22 Carina Munoz NP PCP - General Nurse Practioner Adult Health 09/27/22 documented as of this encounter
--- OUTSIDE RECORDS SUMMARY | 2024-11-16 09:28 | XMS_ITS | Encounter Summary ---
Author Organization [employer] Address [address] [place] [address] 7 [place] [address] Care Team Providers Care Team Leader/Research Psychologist Name Role Phone Carina Munoz Primary Care Provider [phone] Reason for Visit * Reason Onset Date Comments Med Refill 08/27/2024 Encounter Details Date Type Department Care Team ([facility] st Contact Info) Description 08/27/2024 Refill [facility] MEDICINE [address] [place], [place] [phone] Carina Munoz ANP [address] [place] [address] Muscle spasm of back Social History Tobacco Use Types Packs/Day Years [...] Description 02/22/2025 1:30 PM EDT Office Visit [facility] OPTOMETRY [address] [place] [address] Yari Baltazar, OD [address] [place] [address] documented as of this encounter Visit Diagnoses Diagnosis Muscle spasm of back documented in this encounter Additional Health Concerns Assessment Noted Time PHQ-9 Depression Total Score: 0 09/29/20 23 9:47 AM EST documented as of this encounter Care Teams Team Leader/Research Psychologist Relationship Specialty Start Date End Date Carina Munoz ANP [address] [place] [address] PCP - General Family Medicine 07/15/21 documented as of this encounter
--- OUTSIDE RECORDS SUMMARY | 2024-11-16 09:28 | XMS_ITS | Encounter Summary ---
Author Organization [facility] Address [address] [place] [address] Care Team Providers Care Tower Hoist Operator Name Role Phone Meera Welch MD Primary Care Provider Unavailable Carina Munoz NP Primary Care Provider Unavaildorian e Encounter Details Date Type Department Care Team Description 08/21/2020 Refill Adult Medicine [address] [address] Meera Welch MD Social History Tobacco Use [...] on filedocumented in this encounter Care Teams Tower Hoist Operator Relationship Specialty Start Date End Date Meera Welch MD PCP - General Internal Medicine 12/14/19 09/26/22 Carina Munoz NP PCP - General Nurse Practioner Adult Health 09/27/22 documented as of this encounter
--- OUTSIDE RECORDS SUMMARY | 2024-11-16 09:28 | XMS_ITS | Encounter Summary ---
Author Organization [facility] Address [address] [place] [address] 7 [place] [address] Care Team Providers Care E Commerce Marketing Analyst Name Role Phone Carina Munoz Primary Care Provider [phone] Reason for Visit * Reason Onset Date Comments Med Refill 02/14/2023 Encounter Details Date Type Department Care Team ([facility] st Contact Info) Description 02/14/2023 Telephone [facility] MEDICINE [address] [place], [place] [phone] Carina Munoz ANP [address] [place] [address] Med Refill Social History Tobacco Use Types Packs/Day [...] Orientation Straight 08/16/2022 10 :33 AM EDT COVID-19 Exposure Response Date Recorded In the last 10 days, have yo u been in contact with someone who was confirmed or suspected to have Coronavirus/COVID-19? No / Unsure 02/16/2023 2:41 PM EDT documented as of this encounter Miscellaneous Notes * Telephone Encounter - Katerina Hickman LPN - 02/14/2023 2:40 PM EDT Med sent to [facility] pharmacy today. * Telephone Encounter - Gee Barbour - 02/14/2023 2:30 PM EDT Tc from [facility] with [facility] requesting a 90 day supply on fluticasone (Flonase Allergy Relief) 50 MCG/ACT nasal spray [id number] [place] [place] [facility] [address] [facility], [address] documented in this encounter Plan of Treatment Upcoming Encounters Date Type Department Care Team (Late st Contact Info) Description 02/22/2025 1:30 PM EDT Office Visit [facility] OPTOMETRY [address] [place] [address] Yari Baltazar, OD [address] [place] [address] documented as of this encounter Visit Diagnoses Not on filedocumented in this encounter Care Teams E Commerce Marketing Analyst Relationship Specialty Start Date End Date Carina Munoz ANP [address] [place] [address] PCP - General Family Medicine 07/15/21 documented as of this encounter
--- OUTSIDE RECORDS SUMMARY | 2024-11-16 09:29 | XMS_ITS | Encounter Summary ---
Author Organization [facility] Address [address] [place] [address] Care Team Providers Care Environmental Lawyer Name Role Phone Meera Welch MD Primary Care Provider Carina Limon NP Primary Care Provider Christal lyons Encounter Details Date Type Department Care Team Description 10/06/2020 Refill Adult Medicine [address] [address] Meera Welch MD Social History Tobacco Use [...] or suspected to have Coronavirus / COVID-19? No / Unsure 09/23/2020 12:47 PM EST documented as of this encounter Miscellaneous Notes * Telephone Encounter - Angelica Maher - 10/08/2020 10:48 AM EST Pt scheduled appt for 10/20/2020 * Telephone Encounter - Farida Hughes M.A. - 10/06/2020 10:52 AM EST L.O.V: 03/03/2020 N.O.V: no future appt. Duplicate waiting for appt. To be booked documented in this encounter Plan of Treatment Not on file documented as of this encounter Visit Diagnoses Not on filedocumented in this encounter Care Teams Environmental Lawyer Relationship Specialty Start Date End Date [place]-Meera Astorga MD PCP - General Internal Medicine 12/14/19 09/26/22 Carina Munoz NP PCP - General Nurse Practioner Adult Health 09/27/22 documented as of this encounter
--- OUTSIDE RECORDS SUMMARY | 2024-11-16 09:29 | XMS_ITS | Encounter Summary ---
Author Organization [employer] Address [address] [place] [address] 7 [place] [address] Care Team Providers Care Customer Engineer Name Role Phone Carina Munoz Primary Care Provider [phone] Reason for Visit * Reason Onset Date Comments Med Refill 05/28/2024 Encounter Details Date Type Department Care Team ([facility] st Contact Info) Description 05/28/2024 Refill [facility] MEDICINE [address] [place], [place] [phone] Carina Munoz ANP [address] [place] [address] Gastroesophageal reflux disease without esophagitis Social History Tobacco Use Types Packs/Day Years [...] 02/22/2025 1:30 PM EDT Office Visit [facility] OPTOMETRY [address] [place], [place] [phone] Yari Baltazar, SAMANTHA [address] [place] [address] documented as of this encounter Visit Diagnoses Diagnosis Gastroesophageal reflux disease without esophagitis Esophageal reflux documented in this encounter Additional Health Concerns Assessment Noted Time PHQ-9 Depression Total Score: 0 09/29/20 23 9:47 AM EST documented as of this encounter Care Teams Customer Engineer Relationship Specialty Start Date End Date Carina Munoz ANP [address] [place] [address] PCP - General Family Medicine 07/15/21 documented as of this encounter
--- OUTSIDE RECORDS SUMMARY | 2024-11-16 09:29 | XMS_ITS | Encounter Summary ---
Author Organization [employer] Address [address] [place] [address] 7 [place] [address] Care Team Providers Care Slubber Runner Name Role Phone Carina Munoz Primary Care Provider [phone] Reason for Visit * Reason Onset Date Comments Med Refill 07/18/2024 Encounter Details Date Type Department Care Team ([facility] st Contact Info) Description 07/18/2024 Refill [facility] MEDICINE [address] [place], [place] [phone] Carina Munoz ANP [address] [place] [address] Muscle spasm of back Social History Tobacco [...] Description 02/22/2025 1:30 PM EDT Office Visit [facility] OPTOMETRY [address] [place] [address] Yari Baltazar, OD [address] [place] [address] documented as of this encounter Visit Diagnoses Diagnosis Muscle spasm of back documented in this encounter Additional Health Concerns Assessment Noted Time PHQ-9 Depression Total Score: 0 09/29/20 23 9:47 AM EST documented as of this encounter Care Teams Slubber Runner Relationship Specialty Start Date End Date Carina Munoz ANP [address] [place] [address] PCP - General Family Medicine 07/15/21 documented as of this encounter
--- OUTSIDE RECORDS SUMMARY | 2024-11-16 09:29 | XMS_ITS | Encounter Summary ---
Author Organization [employer] Address [address] [place] [address] 7t [place] [address] Care Team Providers Care Home Restoration Service Supervisor Name Role Phone Carina Munoz Primary Care Provider [phone] Reason for Visit * Reason Onset Date Comments Med Refill 05/28/2024 Encounter Details Date Type Department Care Team ([facility] st Contact Info) Description 05/28/2024 Refill [facility] CHC MED & PEDS [address] [place], [place] [phone] Carina Munoz ANP [address] [place] [address] Moderate persistent asthma without complication Social History Tobacco Use Types Packs/Day Years [...] Description 02/22/2025 1:30 PM EDT Office Visit [facility] OPTOMETRY [address] [place] [address] Yari Baltazar, SAMANTHA [address] [place] [address] documented as of this encounter Visit Diagnoses Diagnosis Moderate persistent asthma without complication documented in this encounter Additional Health Concerns Assessment Noted Time PHQ-9 Depression Total Score: 0 09/29/20 23 9:47 AM EST documented as of this encounter Care Teams Home Restoration Service Supervisor Relationship Specialty Start Date End Date Carina Munoz ANP [address] [place] [address] PCP - General Family Medicine 07/15/21 documented as of this encounter
--- OUTSIDE RECORDS SUMMARY | 2024-11-16 09:29 | XMS_ITS | Encounter Summary ---
Author Organization [employer] Address [address] [facility] 7[address] [place] [address] Care Team Providers Care Power Transmission Engineer Name Role Phone Carina Munoz MARC Primary Care Provider [phone] Encounter Details Date Type Department Care Team (Latest Contact Info) Description 11/08/2024 Travel Social History Tobacco Use Types Packs/Day Years [...] 1:30 PM EDT Office Visit [facility] OPTOMETRY [address] [place], [place] [phone] Yari Baltazar, SAMANTHA [address] [place] [address] documented as of this encounter Visit Diagnoses Not on filedocumented in this encounter Additional Health Concerns Assessment Noted Time PHQ-9 Depression Total Score: 14 025 11:13 AM EST documented as of this encounter Care Teams Power Transmission Engineer Relationship Specialty Start Date End Date Carina Munoz ANP [address] [place] [address] PCP - General Family Medicine 07/15/21 documented as of this encounter
--- OUTSIDE RECORDS SUMMARY | 2024-11-16 09:29 | XMS_ITS | Encounter Summary ---
Author Organization [employer] Address [address] [place] [address] 7 [place] [address] Care Team Providers Care Core Cutter Name Role Phone Alexander Carina TRAN Primary Care Provider [phone] Reason for Visit * Reason Onset Date Comments Med Refill 10/24/2023 Encounter Details Date Type Department Care Team ([facility] st Contact Info) Description 10/24/2023 Refill [facility] MEDICINE [address] [place], [place] [phone] [facility] [address] [place] [address] Muscle spasm of back Social History Tobacco [...] enough money to get more: Never True 10/ Transportation Answer Date Recorded In the past [...] Description 02/22/2025 1:30 PM EDT Office Visit [facility] OPTOMETRY [address] [place] [address] Yari Baltazar, SAMANTHA [address] [place] [address] documented as of this encounter Visit Diagnoses Diagnosis Muscle spasm of back documented in this encounter Additional Health Concerns Assessment Noted Time PHQ-9 Depression Total Score: 0 09/29/20 23 9:47 AM EST documented as of this encounter Care Teams Core Cutter Relationship Specialty Start Date End Date Carina Munoz ANP [address] [place] [address] PCP - General Family Medicine 07/15/21 documented as of this encounter
--- OUTSIDE RECORDS SUMMARY | 2024-11-16 09:29 | XMS_ITS | Encounter Summary ---
Author Organization [employer] Address [address] [place] [address] 7 [place] [address] Care Team Providers Care Echo Technologist Name Role Phone Carina Munoz Primary Care Provider [phone] Reason for Visit * Reason Onset Date Comments Med Refill 07/18/2024 Encounter Details Date Type Department Care Team ([facility] st Contact Info) Description 07/18/2024 Refill [facility] MEDICINE [address] [place], [place] [phone] Carina Munoz ANP [address] [place] [address] Moderate persistent asthma without complication Social History [...] Description 02/22/2025 1:30 PM EDT Office Visit [facility] OPTOMETRY [address] [place] [address] Yari Baltazar, OD [address] [place] [address] documented as of this encounter Visit Diagnoses Diagnosis Moderate persistent asthma without complication documented in this encounter Additional Health Concerns Assessment Noted Time PHQ-9 Depression Total Score: 0 09/29/20 23 9:47 AM EST documented as of this encounter Care Teams Echo Technologist Relationship Specialty Start Date End Date Carina Munoz ANP [address] [place] [address] PCP - General Family Medicine 07/15/21 documented as of this encounter
--- OUTSIDE RECORDS SUMMARY | 2024-11-16 09:29 | XMS_ITS | Encounter Summary ---
Author Organization [facility] Address [address] [place] [address] Care Team Providers Care Research/Program Director Name Role Phone Meera Welch MD Primary Care Provider Unavailable Carina Munoz NP Primary Care Provider Unavaildorian e Encounter Details Date Type Department Care Team Description 10/06/2020 Refill OBGYN - [place] [address] [place] [address] Sushma Stanley MD [address] [place] [address] Social History Tobacco Use Types Packs/Day Years [...] PM EST documented as of this encounter Plan of Treatment Not on file documented as of this encounter Visit Diagnoses Not on filedocumented in this encounter Care Teams Research/Program Director Relationship Specialty Start Date End Date Meera Welch MD PCP - General Internal Medicine 12/14/19 09/26/22 Carina Munoz NP PCP - General Nurse Practioner Adult Health 09/27/22 documented as of this encounter
--- OUTSIDE RECORDS SUMMARY | 2024-11-16 09:29 | XMS_ITS | Clinical Summary ---
Author Organization [address] [facility] Address [address] [place] [address] Phone Care Team Providers Care Regulatory Attorney Name Role Phone Carina Munoz NP Primary Care Provider [phone] Allergies No known active allergies Medications Medication Sig Dispensed Refills Start Date End Date Status hydrocortisone 2.5 % ointment Apply small amount intrarectal twice daily for 2 weeks. 02/15/2023 Active fluticasone furoate (Arnuity Ellipta) 200 mcg/actuation blister with device inhaler INHALE 1 PUFF BY MOUTH INTO THE LUNGS DAILY 04/10/2021 Active fluticasone propionate (FLONASE) 50 mcg/actuation nasal spray 1 spray by nasal route two times a day 03/05/2021 Active albuterol HFA (PROAIR HFA ; PROVENTIL HFA ; VENTOLIN HFA) 90 mcg/actuation inhaler Inhale 2 puffs by mouth. 03/05/2021 Active montelukast (SINGULAIR) 10 mg tablet Take 1 tablet (10 mg total) by mouth. 03/05/2021 Active pantoprazole (PROTONIX) 40 mg EC tablet Take 1 tablet (40 mg total) by mouth. 03/05/2021 Active docusate sodium (COLACE) 100 mg capsule Take 1 capsule (100 mg total) by mouth. 02/19/2021 Active levonorgestreL (MIRENA) 21 mcg/24 hr (8 yrs) 52 mg IUD 1 Device (1 each total) by intrauterine route. 09/23/2020 08/28/2025 Active aspirin-acetaminop hen-caffeine (EXCEDRIN MIGRAINE) 250-250-65 mg per tablet Take 1 tablet by mouth every 8 (eight) hours if needed. 08/27/2020 Active triamcinolone (KENALOG) 0.1 % cream Apply topically. 06/30/2020 Active lamoTRIgine (LaMICtal) 100 mg tablet Take 1 tablet (100 mg total) by mouth. Active prazosin (MINIPRESS) 1 mg capsule Take 1 capsule (1 mg total) by mouth. 10/27/2018 Active albuterol 2.5 mg /3 mL (0.083 %) nebulizer solution Inhale 3 mL (2.5 mg total) by mouth. Active mirtazapine (REMERON) 15 mg tablet Take 1 tablet (15 mg total) by mouth. at bedtime Active hydrOXYzine HCL (ATARAX) 25 mg tablet Take 1 tablet (25 mg total) by mouth 2 (two) times a day if needed for anxiety. 03/16/2024 Active methocarbamoL (ROBAXIN) 750 mg tablet TAKE 1 TABLET BY MOUTH EVERY 6 HOURS NEEDED FOR MUSCLE SPASM 08/19/2023 Active metroNIDAZOLE (FLAGYL) 500 mg tablet TAKE 1 TABLET BY MOUTH 2 TIMES DAILY FOR 7 DAYS 11/17/2023 Active polyethylene glycol (Miralax) 17 gram packet Take 17 g by mouth 2 (two) times a day. 1020 g 2 09/07/2024 12/06/2024 Active Active Problems Problem Noted Date Diagnosed Date History of suicidal tendencies 07/09/2024 Hepatic steatosis 09/14/2021 Overview (07/09/2024): Mild - seen on CT abdomen and pelvis at [facility] 09/08/21 Diverticulitis 09/14/2021 Overview (07/09/2024): CT abdomen and pelvis 09/08/21 at [facility]: findings suspicious for early/mild descending diverticulitis. No abscess formation or free air. Uterine fibroid 09/14/2021 Overview (07/09/2024): Seen on US at [facility] 09/08/21 Colon polyp 08/16/2020 Overview (07/09/2024): [place] done 06/2020 for GIB, anemia Asthma, moderate persistent 03/03/2020 Menorrhagia with regular cycle 11/21/2019 Overview (07/09/2024): Last Assessment & Plan: I discussed other [...] for contraception. She voiced understanding and agreed. Iron deficiency 11/21/2019 Overview (07/09/2024): Last Assessment & Plan: Not anemic at last check, but iron studies continue to be low. Will correct bleeding and with continued BID iron, hopefully this will correct itself. Will consider repeat CBC and iron studies at follow up visit in 3 months. 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 virus (HPV) 02/03/2018 Overview (07/09/2024): 01/24/2018 ASCUS HR HPV 03/01/2018 RAJANI 1 02/19/2021 ASCUS HR HPV 04/15/2021 Colpo benign Gastroesophageal reflux disease without esophagi tis 11/29/2017 Encounters Date Type Department Care Team Description 09/07/2024 12:50 PM EST Office Visit Gastroenterology - [place] [address] [place] [address] Deloris Collins MD Chronic idiopathic constipation (Primary Dx); History of colon polyps from Last 3 Months Immunizations Name Administration Dates Next Due HPV 9-valent (Gardisil) 9yo to less than 46yo 01/27/2023,09/28/2022,04/15/2021 Influenza Quadravalent, MDCK , 0.5ml, preservative free (Flucelvax) 6mo and older 11/21/2019,10/27/2018 Tdap Tetanus diptheria acell ular pertussis (Boostrix; Adacel) 7yo and older 10/27/2018 Surgical History Surgery Date Site/Laterality Comments SECTION 2007 PROCEDURE: HISTORICAL TUBAL LIGATION 08/2018 PROCEDURE: HISTORICAL TUBAL LIGATION OTHER SURGICAL HISTORY 2004 PROCEDURE: INCISION OF ABSCESS, SUPERFICIAL Medical History Medical History Date Comments Asthma DX:Asthma Environmental allergies DX:Envir onmental allergies GERD (gastroesophageal reflux disease) DX:GERD (gastroesophageal reflux disease) Bipolar disorder (CMS/HCC) 10/27/2018 DX:Bi polar disorder (HCC); COMMENT: F/u Lela History of suicidal tendencies 10/27/2018 D X:History of suicidal tendencies; COMMENT: Three attempts Asthma, moderate persistent 03/03/2020 DX:A sthma, moderate persistent Uterine fibroid 09/14/2021 DX:Uterine fibro id; COMMENT: Seen on US at [facility] 09/08/21 Hepatic steatosis 09/14/2021 DX:Hepatic ezio atosis; COMMENT: Mild - seen on CT abdomen and pelvis at [facility] 09/08/21 Family History Medical History Relation Name Comments Breast cancer Aunt 1 maternal Colon cancer Father older age Prostate cancer Father Prostate cancer Maternal Grandfather Other: Other Mother Cancer, Unsure of type. Diabetes Paternal Grandmother Cervical cancer Sister Relation Name Status Comments Aunt 1 maternal Alive Aunt 2 maternal Alive Daughter Alive Father Other Maternal Grandfather Mother Paternal Grandfather Paternal Grandmother Sister Alive Son Alive Social History Tobacco Use Types Packs/Day Years Used Date Smoking Tobacco: Never Smokeless Tobacco: Never Alcohol Use Standard Drinks/Week Comments Yes 0 (1 standard drink = 0.6 oz pur e alcohol) Sex and Gender Information Value Date Recorded Sex Assigned at Not on file Gender Identity Not on file Sexual Orientation Not on file Job Start Date Occupation Industry Not on file Not on file Not on file Obstetrics History Last Filed Vital Signs Vital Sign Reading Time Taken Comments Blood Pressure 114/68 09/07/2024 12:59 PM EST Pulse 98 09/07/2024 12:59 PM EST Temperature - - Respiratory Rate - - Oxygen Saturation 99% 09/07/2024 12:59 PM EST Inhaled Oxygen Concentration - - Weight 76.7 kg (169 lb) 09/07/2024 12:59 PM EST Height 157.5 cm (5' 2 ) 09/07/2024 12:59 PM EST Body Mass Index 30.91 09/07/2024 12:59 PM EST Plan of Treatment Health Maintenance Due Date Last Done Comments Pneumococcal Vaccine: Pediatrics (0 to 5 Years) and At-Risk Patients (6 to 64 Years) (1 of 2 - PCV) 1990 Hepatitis A Vaccines (1 of 2 - Risk 2-dose series) 2003 Hepatitis B Vaccines (1 of 3 - 19+ 3-dose series) 2003 Social Influencers of Health Screening 09/25/2022 COVID-19 Vaccine ( season) 2024 08/17/2023, 07/28/2022, 07/31/2021, Additional history exists Influenza Vaccine (#1) 2024 , 07/28/2022, 07/15/2021, Additional history exists Depression Screening 09/29/2024 09/29/2023 Colorectal Cancer Screening: Colonoscopy 06/24/2025 Cervical Cancer Screening: HPV 09/29/2028 09/29/2023 DTaP,Tdap,and Td Vaccines (2 - Td or Tdap) 10/27/2028 10/27/2018 Cholesterol Screening (Lipid Panel) 12/25/2028 12/26/2023, 12/03/2022 HPV Vaccines Completed 01/27/2023, 09/16, 04/15/2021 HIV Screening Completed 11/07/2023, 08/03/2021 Hepatitis C Screening Completed 11/07/2023, 018 HIB Vaccines Aged Out No longer eligi ble based on patient's age to complete this topic IPV Vaccines Aged Out No longer eligi ble based on patient's age to complete this topic MMR Vaccines Aged Out No longer eligi ble based on patient's age to complete this topic Meningococcal ACWY Vaccine Aged Out N o longer eligible based on patient's age to complete this topic RSV Immunization Patients Under 20 months Aged Out No longer eligible based on patient's age to complete this topic Varicella Vaccines Aged Out No longer eligible based on patient's age to complete this topic Procedures Procedure Name Priority Date/Time Associated Diagnosis Comments HM HPV Routine 09/29/2023 LIPID PANEL Routine 12/03/2022 HIV SCREENING Routine 08/03/2021 HEPATITIS C SCREENING Routine 01/24/2018 from Last 3 Months or Most Recently Relevant to Health Maintenance Results * Cervical Cancer Screening: HPV (09/29/2023) [facility]ologist [facility] Cervical Cancer Screening: HPV negative abstracted Historical Provider MD SRINATH STREETER E * Lipid panel (12/03/2022) [facility] LDL/HDL Ratio 0 0 Comment:No interpretation Triglycerides 0 0 mg/dL Comment:No interpretation Cholesterol 0 0 mg/dL Comment:No interpretation HDL 0 0 mg/dL Comment:No interpretation LDL Cholesterol 0 0 mg/dL Comment:No interpretation Blood Venous blood specimen / Unknown Historical Provider LAB BLOOD ORDERAB LES * HIV Screening (08/03/2021) Pathologist [facility] HIV Screening abstracted Historical Provider MD SRINATH STREETER E * Hepatitis C Screening (01/24/2018) [facility]ologist [facility] Hepatitis C Screening abstracted Historical Provider MD SRINATH Fan from Last 3 Months or Most Recently Relevant to Health Maintenance Care Teams Regulatory Attorney Relationship Specialty Start Date End Date Carina Munoz NP [address] [place], [place] [address] [address] PCP - General 09/27/22
[2024-11-16 09:36] LABS: MANUAL DIFF FLAG NO
[2024-11-16 10:40] LABS: Basophils Percent Auto 0.2 % (0-2); Eosinophils Percent Auto 0.7 % (0-4); Hematocrit 39.6 % (37.0-47.0); Hemoglobin 12.9 g/dl (12.0-16.0); Imm Gran Abs Auto 0.02 X10*3/uL (0.00-0.03); Imm Gran Pct Auto 0.3 % (0.0-0.4); Lymphocytes Absolute Auto 2.3 X10*3/uL (1.2-4.9); Lymphocytes Percent Auto 40.6 % (20-40); Mean Corpuscular HGB Conc 32.6 g/dl (31.0-35.0); Mean Corpuscular Hemoglobin 28.5 pg (27.0-33.0); Mean Corpuscular Volume 87.6 fL (80.0-98.0); Mean Platelet Volume 9.8 fL (9.4-12.3); Monocytes Absolute Auto 0.3 X10*3/uL (0.1-1.2); Neutrophils Absolute Auto 3.1 x10*3/uL (2.0-8.3); Neutrophils Percent Auto 53.2 % (45-73); Platelet Count 332 X10*3/uL (160-400); Red Blood Count 4.52 X10*6/uL (4.20-5.50); Red Cell Distribution Width 14.5 % (11.0-16.0); White Blood Count 5.8 X10*3/uL (4.8-10.8)
[2024-11-16 10:48] LABS: Estimated Average Glucose 105 mg/dL; Hemoglobin A1C 113.4988 umol/L; Hemoglobin A1c % 5.3 % (<6.0); Total Hemoglobin (HGBA1C) 3279.6454 umol/L
[2024-11-16 11:17] LABS: Anion Gap 11 (12-20); Blood Urea Nitrogen 13 mg/dL (9-16); C Reactive Protein < 0.10 mg/dL (< or = 0.50); Calcium 10.3 mg/dL (8.4-10.2); Carbon Dioxide 27 mmol/L (22-29); Chloride 107 mmol/L (96-108); Cholesterol 280 mg/dL (<200); Estimated Glomerular Filt Rate > 60; Glucose Random 82 mg/dL (60-115); HDL Cholesterol 83 mg/dL (>40); Iron 78 mcg/dL (30-160); LDL Cholesterol Calculated 182 mg/dL (<100); Percent Iron Saturation 21 % (15-50); Potassium 4.2 mmol/L (3.3-5.1); Sodium 141 mmol/L (135-145); Total Iron Binding Capacity 376 mcg/dL (228-428); Triglycerides 79 mg/dL (<150); Unsaturated Iron Binding 298 ug/dL
[2024-11-16 11:27] LABS: Ferritin 12 ng/mL (10-122); HIV AB/AG Nonreactive (Nonreactive); HIV Num 1 0.06 S/CO (0.00-0.99); TSH reflex Free T4 2.94 uIU/mL (0.32-4.0); Vitamin D 25-OH Total 40.9 ng/mL (>30); ~HepC Num1 0.07 S/CO (0.00-0.79); ~Hepatitis C Antibody Nonreactive (Nonreactive)
[2024-11-16 11:38] LABS: Folate 11.8 ng/mL (> or = 4.0); Vitamin B12 711 pg/mL (200-900)
[2024-11-16 13:25] LABS: Insulin 10 uU/mL (2-29)
[2024-11-19 10:28] LABS: RPR Rapid Plasma Reagin NON-REACTIVE (NON-REACTIVE)
[2024-11-20 18:39] LABS: Zinc 76 mcg/dL (60-130)
[2024-11-21 01:23] LABS: Vitamin A 67 mcg/dL (38-98)
[2024-11-25 15:33] LABS: Vitamin B1 10 nmol/L (8-30)
== END 2024-11-16 09:03 | disposition home or self-care (01) ==
LOC: HO.LAB 09:02
PROVIDERS: Absent Provider Nurse Practitioner Primary Care; PCP Nurse Practitioner Primary Care; Visit Provider Physician Assistant Surgical
DX: E78.00 Pure hypercholesterolemia, unspecified (principal); Z98.84 Bariatric surgery status; Z11.3 Encounter for screening for infections with a predominantly sexual mode of transmission; E61.1 Iron deficiency
CPT/HCPCS: 36415; 80048; 80061; 82306; 82607; 82728; 82746; 83036; 83525; 83540; 84425; 84443; 84590; 84630; 85014; 85018; 85025; 86140; 86592; 86803; 87389

== ENCOUNTER 2024-12-10 13:25 | Outpatient (AMB) | payer MEDICAID, SELFPAY ==
--- NOTE | 2024-12-10 13:27 | MHC.OFFVISWM ---
VS Expanded 12/10/24 13:36 BP 133/59 L Blood Pressure Location Lt brachial Blood Pressure Position Sitting Pulse 88 Pulse Source Pulse Oximeter Temp 98.2 F Temperature Source Temporal Artery Scan Pulse Oximetry 98 Oxygen Delivery Method Room Air Height 5 ft 2 in Weight 167 lb BMI 30.5 Body Fat % 39.5 Body Fat Mass 66 Fat Free Mass 101 Visceral Fat Rating 8 Body Water % 43.2 Body Water Mass 96 Muscle Mass/Score 96 Basal Metabolic Rate/Score 1,410 Intake Visit Reasons: (OV) PO LSG 04/27/23 Natural Resources Specialist Required: Yes Natural Resources Specialist Language: Franchise Business Consultant Services: Natural Resources Specialist Present Natural Resources Specialist Name: hospital cmi Allergies No Known Allergies Allergy (Verified 10/03/24 11:09) Medication List - Last Reconciled 12/10/24 by PAULA Casas albuterol sulfate 0.63 mg inhalation Q6H PRN bisacodyl (Dulcolax (bisacodyl)) 10 mg AL DAILY PRN calcium citrate-vitamin D3 315 mg-5 mcg (200 unit) 1 tab PO BID docusate sodium 100 mg PO BID 90 days fluticasone furoate 100 mcg/actuation (Arnuity Ellipta) 1 inh inhalation DAILY fluticasone propionate 50 mcg/actuation 1 spray intranasal BID hydroxyzine HCl 25 mg PO BID PRN lamotrigine 150 mg PO DAILY levonorgestrel intrauterine mirtazapine 15 mg PO BEDTIME montelukast (Singulair) 10 mg PO BEDTIME sennosides (senna) 17.2 mg (2 x 8.6 mg) PO BEDTIME PRN 90 days HPI Comments Details: This?a?39?yo female who is s/p LSG without hiatal hernia repair on?04/27/[address] Bell. Presents for 1 year 7 month post op visit. Weight today is 167 pounds, with a BMI of 30.6. There has been a 51.6 pound weight loss,(initial weight 218.6 pounds) since starting the program on 11/12/22 reflecting a 23.6% total body weight loss and a weight loss of 19.5 pounds since surgery (operative weight 186.5 pounds) reflecting a 10.4% TBWL since surgery. She states that she has not been using the right bmi kylee, states she has been busy. Also states she wants to lose weight. Not currently following a meal plan or exercise plan. She has not been communicating either. She states she wants to lose weight however she has not been following any plans. She wants to try a new protein powder Previous meal plan includes: ensure max, 30 gm zp bar meal 6 forks/6 forks Drinkin oz daily of water previous exercise routine includes: PF, treadmill, 4 days per week 45 min, Any post op complications: none BRADLY: never DM: never HTN: never Hyperlipidemia: resolved GERD:?0-5 scale ??0 = no symptoms ??1 = symptoms noticeable but not bothersome 2 =symptoms bothersome but not daily ? 3 = symptoms bothersome and daily 4 = symptoms affect daily activities 5 = symptoms are incapacitating, unable to do daily activities ? How bad is the heartburn: 0 ? Heartburn while lying down: 0 ? Heartburn when standing up: 0 ? Heartburn after meals: 0 ? Does heartburn change your diet: 0 ? Does heartburn wake you up from sleep: 0 ? Do you have difficulty swallowin ? Do you have pain with swallowin ? If you take medicine for your reflux, does this affect your daily life: 0 Satisfaction with present condition - satisfied or not satisfied: dissatisfied [facility] Medical History Arthritis Anemia Gastritis GERD (gastroesophageal reflux disease) Hiatal hernia Depression Elevated cholesterol Hiatal hernia Delivery with history of Migraine Asthma Surgical History S/P laparoscopic sleeve gastrectomy (04/27/23) Hx of tubal ligation Hx of section Family History Mother Hypertension Arthritis Son Hyperactive Daughter No problems noted. Son No problems noted. 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 Physical Exam Const General: healthy appearing and no acute distress Resp Effort & Inspection: normal respiratory effort Auscultation: clear to auscultation bilaterally Cardio Rate: regular rate Rhythm: regular rhythm GI Auscultation: normal bowel sounds Extrem General: Yes normal to inspection Assessment & Plan Assessment & Plan (1) S/P laparoscopic sleeve gastrectomy: Onset Date: 04/27/23 Comment: Deepak Bell MD Code(s): Z98.84 - Bariatric surgery status Category: Surgical Plan: Patient given a new meal plan utilizing orgain protein powder Two scoops with 8 oz of unsweetened almond milk at 8-10 am, 12-2 pm And a meal at 5 pm with 6 forks of protein and 6 forks of vegetables. Encouraged to go to the gym and incorporate exercise 5 days a week with a goal of 450 calories per session.
[2024-12-10 13:36] VITALS: BP 133/59; PULSE 88; TEMP 36.8; O2SAT 98; BMI 30.5
--- OUTSIDE RECORDS SUMMARY | 2024-12-10 15:21 | XMS_ITS | Encounter Summary ---
Author Organization [facility] Address [address] [place] [address] 7 [place] [address] Care Team Providers Care Outside Sales Executive Name Role Phone Alexander Carina TRAN Primary Care Provider [phone] Reason for Visit * Reason Onset Date Comments Med Refill 10/24/2023 Encounter Details Date Type Department Care Team ([facility] st Contact Info) Description 10/24/2023 Refill [facility] MED[facility] [address] [place], [place] [phone] [facility] [address] [place] [address] Muscle spasm of back Social History Tobacco [...] Office Visit [facility] OPTOMETRY [address] [place] [address] Yari Baltazar, SAMANTHA [address] [place] [address] documented as of this encounter Visit Diagnoses Diagnosis Muscle spasm of back documented in this encounter Additional Health Concerns Assessment Noted Time PHQ-9 Depression Total Score: 0 09/29/20 23 9:47 AM EST documented as of this encounter Care Teams Outside Sales Executive Relationship Specialty Start Date End Date Carina Munoz ANP [address] [place] [address] PCP - General Family Medicine 07/15/21 documented as of this encounter
--- OUTSIDE RECORDS SUMMARY | 2024-12-10 15:21 | XMS_ITS | Encounter Summary ---
Author Organization [facility] Address [address] [place] [address] 7 [place] [address] Care Team Providers Care Patient Transition Specialist Name Role Phone Carina Munoz Primary Care Provider [phone] Reason for Visit * Reason Onset Date Comments Med Refill 07/18/2024 Encounter Details Date Type Department Care Team ([facility] st Contact Info) Description 07/18/2024 Refill [facility] [address] [place], [place] [phone] Carina Munoz ANP [address] [place] [address] Moderate persistent asthma without complication Social History [...] Description 02/22/2025 1:30 PM EDT Office Visit [facility] [address] [place] [address] Yari Baltazar, OD [address] [place] [address] documented as of this encounter Visit Diagnoses Diagnosis Moderate persistent asthma without complication documented in this encounter Additional Health Concerns Assessment Noted Time PHQ-9 Depression Total Score: 0 09/29/20 23 9:47 AM EST documented as of this encounter Care Teams Patient Transition Specialist Relationship Specialty Start Date End Date Carina Munoz ANP [address] [place] [address] PCP - General Family Medicine 07/15/21 documented as of this encounter
--- OUTSIDE RECORDS SUMMARY | 2024-12-10 15:21 | XMS_ITS | Encounter Summary ---
Author Organization [facility] Address [address] [place] [address] [address], [place] [address] Care Team Providers Care Medart Operator Name Role Phone Carina Munoz Primary Care Provider [phone] Reason for Visit * Reason Onset Date Comments Med Refill 07/07/2023 Encounter Details Date Type Department Care Team (Late st Contact Info) Description 07/07/2023 Refill [facility] MED[facility]INE [address] [place] [address] Sarah Nicholas MD [address] [place] [address] Social History Tobacco Use Types Packs/Day Years [...] Description 02/22/2025 1:30 PM EDT Office Visit [facility] OPTOM[facility]RY [address] [place] [address] Yari Baltazar, OD [address] [place] [address] documented as of this encounter Visit Diagnoses Not on filedocumented in this encounter Care Teams Medart Operator Relationship Specialty Start Date End Date Carina Munoz ANP [address] [place] [address] PCP - General Family Medicine 07/15/21 documented as of this encounter
--- OUTSIDE RECORDS SUMMARY | 2024-12-10 15:21 | XMS_ITS | Encounter Summary ---
Author Organization [facility] Address [address] [place] [address] 7 [place] [address] Care Team Providers Care Experimental Worker Name Role Phone Carina Munoz Primary Care Provider [phone] Reason for Visit * Reason Onset Date Comments Med Refill 05/28/2024 Encounter Details Date Type Department Care Team ([facility] st Contact Info) Description 05/28/2024 Refill [facility] MEDICINE [address] [place], [place] [phone] Carina Munoz ANP [address] [place] [address] Gastroesophageal reflux disease without esophagitis Social History [...] Visit [facility] OPTOMETRY [address] [place], [place] [phone] Yari Baltazar, SAMANTHA [address] [place] [address] documented as of this encounter Visit Diagnoses Diagnosis Gastroesophageal reflux disease without esophagitis Esophageal reflux documented in this encounter Additional Health Concerns Assessment Noted Time PHQ-9 Depression Total Score: 0 09/29/20 23 9:47 AM EST documented as of this encounter Care Teams Experimental Worker Relationship Specialty Start Date End Date Carina Munzo ANP [address] [place] [address] PCP - General Family Medicine 07/15/21 documented as of this encounter
--- OUTSIDE RECORDS SUMMARY | 2024-12-10 15:21 | XMS_ITS | Encounter Summary ---
Author Organization [employer] [facility] Address [address] [place] [address] 7 [place] [address] Care Team Providers Care Cashier And Waiter/Waitress Name Role Phone Carina Munoz Primary Care Provider [phone] Encounter Details Date Type Department Care Team (Latest Contact Info) Description 01/18/2019 Abstract [facility] CONVERSIONS Dental, Provider, DDS Social History [...] Description 02/22/2025 1:30 PM EDT Office Visit [facility] OPTOMETRY [address] [place] [address] Yari Baltazar, OD [address] [place] [address] documented as of this encounter Visit Diagnoses Not on filedocumented in this encounter Care Teams Cashier And Waiter/Waitress Relationship Specialty Start Date End Date Carina Munoz ANP [address] [place] [address] PCP - General Family Medicine 07/15/21 documented as of this encounter
--- OUTSIDE RECORDS SUMMARY | 2024-12-10 15:21 | XMS_ITS | Encounter Summary ---
Author Organization [employer] [facility] Address [address] [place] [address] 7 [place] [address] Care Team Providers Care Ocean Biologist Name Role Phone Carina Munoz Primary Care Provider [phone] Reason for Visit * Reason Onset Date Comments Med Refill 02/14/2023 Encounter Details Date Type Department Care Team ([facility] st Contact Info) Description 02/14/2023 Telephone [facility] MEDICINE [address] [place], [place] [phone] Carina Munoz ANP [address] [place] [address] Med Refill Social History Tobacco Use Types [...] 02/14/2023 2:40 PM EDT Med sent to [facility] today. * Telephone Encounter - Gee Barbour - 02/14/2023 2:30 PM EDT Tc from [facility] with [facility] requesting a 90 day supply on fluticasone (Flonase Allergy Relief) 50 MCG/ACT nasal spray [id number] [place] [place] [facility] [address] [facility], [address] documented in this encounter Plan of Treatment Upcoming Encounters Date Type Department Care Team (Late st Contact Info) Description 02/22/2025 1:30 PM EDT Office Visit [facility] OPTOMETRY [address] [place] [address] Yari Baltazar, OD [address] [place] [address] documented as of this encounter Visit Diagnoses Not on filedocumented in this encounter Care Teams Ocean Biologist Relationship Specialty Start Date End Date Carina Munoz ANP [address] [place] [address] PCP - General Family Medicine 07/15/21 documented as of this encounter
--- OUTSIDE RECORDS SUMMARY | 2024-12-10 15:21 | XMS_ITS | Clinical Summary ---
Author Organization [facility] Address [address] [place] [address] Phone Care Team Providers Care Workers Compensation Paralegal Name Role Phone Carina Munoz NP Primary Care Provider [phone] Allergies No known active allergies Medications hydrocortisone 2.5 % ointment Apply small amount intrarectal twice daily for 2 weeks. 3 Active fluticasone furoate (Arnuity Ellipta) 200 mcg/actuation blister with device inhaler INHALE 1 PUFF BY MOUTH INTO THE LUNGS DAILY 1 Active fluticasone propionate (FLONASE) 50 mcg/actuation nasal spray 1 spray by nasal route two times a day 1 Active albuterol HFA (PROAIR HFA ; PROVENTIL HFA ; VENTOLIN HFA) 90 mcg/actuation inhaler Inhale 2 puffs by mouth. 1 Active montelukast (SINGULAIR) 10 mg tablet Take 1 tablet (10 mg total) by mouth. 1 Active pantoprazole (PROTONIX) 40 mg EC tablet Take 1 tablet (40 mg total) by mouth. 1 Active docusate sodium (COLACE) 100 mg capsule Take 1 capsule (100 mg total) by mouth. 1 Active levonorgestreL (MIRENA) 21 mcg/24 hr (8 yrs) 52 mg IUD 1 Device (1 each total) by intrauterine route. 0 08/28/20 25 Active aspirin-acetam inophen-caffei ne (EXCEDRIN MIGRAINE) 250-250-65 mg per tablet Take 1 tablet by mouth every 8 (eight) hours if needed. 0 Active triamcinolone (KENALOG) 0.1 % cream Apply topically. 0 Active lamoTRIgine (LaMICtal) 100 mg tablet Take 1 tablet (100 mg total) by mouth. Active prazosin (MINIPRESS) 1 mg capsule Take 1 capsule (1 mg total) by mouth. 9 Active albuterol 2.5 mg /3 mL (0.083 %) nebulizer solution Inhale 3 mL (2.5 mg total) by mouth. Active mirtazapine (REMERON) 15 mg tablet Take 1 tablet (15 mg total) by mouth. at bedtime Active hydrOXYzine HCL (ATARAX) 25 mg tablet Take 1 tablet (25 mg total) by mouth 2 (two) times a day if needed for anxiety. 4 Active methocarbamoL (ROBAXIN) 750 mg tablet TAKE 1 TABLET BY MOUTH EVERY 6 HOURS NEEDED FOR MUSCLE SPASM 3 Active metroNIDAZOLE (FLAGYL) 500 mg tablet TAKE 1 TABLET BY MOUTH 2 TIMES DAILY FOR 7 DAYS 4 Active polyethylene glycol (Miralax) 17 gram packet Take 17 g by mouth 2 (two) times a day. 1020 g 2 4 12/06/19 25 Active Problems Problem Noted Date Diagnosed Date History of suicidal tendencies 07/09/2024 Hepatic steatosis 09/14/2021 Overview (07/09/2024): Mild - seen on CT abdomen and pelvis at [facility] ED 09/08/21 Diverticulitis 09/14/2021 Overview (07/09/2024): CT abdomen and pelvis 09/08/21 at [facility] ED: findings suspicious for early/mild descending diverticulitis. No abscess formation or free air. Uterine fibroid 09/14/2021 Overview (07/09/2024): Seen on US at [facility] ED 09/08/21 Colon polyp 08/16/2020 Overview (07/09/2024): [place] done 06/2020 for GIB, anemia Asthma, moderate [...] Gastroesophageal reflux disease without esophagi tis 11/29/2017 Immunizations Name Administration Dates Next Due HPV [...] fibro id; COMMENT: Seen on US at [facility] ED 09/08/21 Hepatic steatosis 09/14/2021 DX:Hepatic ezio atosis; COMMENT: Mild - seen on CT abdomen and pelvis at [facility] ED 09/08/21 Family History Medical History Relation [...] Recorded Sex Assigned at Not on file Legal Sex Female 12:50 AM EST Gender Identity Not on file Sexual Orientation Not on file Obstetrics History Last Filed [...] 09/07/2024 12:59 PM EST Plan of Treatment Upcoming Encounters Date Type Department Care Team (Late st Contact Info) Description 04/12/2025 3:15 PM EDT Office Visit Obstetrics and Gynecology - [address] [id number] Sushma Stanley MD [address] [place], [place] Health Maintenance Due Date Last Done Comments Hepatitis A Vaccines (1 of 2 - Risk 2-dose series) 2003 Hepatitis B Vaccines (1 of 3 - 19+ 3-dose series) 2003 Pneumococcal Vaccine: Pediatrics (0 to 5 Years) and At-Risk Patients (6 to 64 Years) (1 of 2 - PCV) 2003 Breast Cancer Screening 12/09/2019 12/09/2017 Social Influencers of Health Screening 09/25/2022 COVID-19 [...] patient's age to complete this topic Meningococcal B Vacine Aged Out No lo nger eligible based on patient's age to complete this topic RSV Immunization Patients Under 20 months Aged Out No longer eligible based on patient's age to complete this topic Varicella Vaccines Aged Out No longer eligible based on patient's age to complete this topic Procedures Procedure Name Priority Date/Time Associated Diagnosis Comments HPV Routine 09/29/2023 LIPID PANEL Routine 12/03/2022 HIV SCREENING Routine 08/03/2021 HEPATITIS C SCREENING Routine 01/24/2018 DX MAMMO INCL CAD BI Routine 12/09/2017 2:54 PM EST Mastodynia from Last 3 Months or Most Recently Relevant to Health Maintenance Results * Cervical Cancer Screening: HPV (09/29/2023) Pathologist [facility] Cervical Cancer Screening: HPV negative abstracted [facility] Provider HEALTH MAINTENANCE Final Result * Lipid panel (12/03/2022) [facility] LDL/HDL Ratio 0 <=0 Comment:No interpretation Triglycerides 0 <=0 mg/dL Comment:No interpretation Cholesterol 0 <=0 mg/dL Comment:No interpretation HDL 0 <=0 mg/dL Comment:No interpretation LDL Cholesterol 0 <=0 mg/dL Comment:No interpretation Blood Venous blood specimen / Unknown Historical Provider LAB BLOOD ORDERABLES Liz l Result * HIV Screening (08/03/2021) [facility] HIV Screening abstracted Historical Provider HEALTH MAINTENANCE Final Result * Hepatitis C Screening (01/24/2018) [facility] Hepatitis C Screening abstracted Historical Provider HEALTH MAINTENANCE Final Result * DX MAMMO INCL CAD BI (12/09/2017 2:54 PM EST) Anatomical Region Laterality Modality Mammography 12/02/2017 10:4 0 AM EST Narrative 12/09/2017 3:04 PM EST This is a summary report. The complete report is available in the patient's medical record. If you cannot access the medical record, please contact the sending organization for a detailed fax or copy. History: Pain and palpable abnormality, lateral right breast. Bilateral diagnostic mammography and limited right breast ultrasound: Bilateral digital mammography was reviewed with computer-aided detection. ??The breasts consist of a mixture of fatty and fibroglandular tissue. ??There are no significant asymmetries. ??There are no suspicious masses or microcalcifications. Ultrasound evaluation was performed in the area indicated by the patient as symptomatic. ??The area indicated is centered at 9:00 in the right breast extending into the far lateral and inferior aspect of the upper outer quadrant and superior aspect of the lower outer quadrant. ??The breast architecture is sonographically normal. ??There is no evidence of cyst, nodule or mass. Impression: Negative bilateral mammography and limited right breast ultrasound. BI-RADS Category 1, negative. Procedure Note Marcos Brennan MD - 11/21/2023 This is a summary report. The complete report is available in thepatient's medical record. If you cannot access the medical record, pleasecontact the sending organization for a detailed fax or copy. History: Pain and palpable abnormality, lateral right breast. Bilateral diagnostic mammography and limited right breast ultrasound:Bilateral digital mammography was reviewed with computer-aided detection.The breasts consist of a mixture of fatty and fibroglandular tissue.There are no significant asymmetries. There are no suspicious masses ormicrocalcifications. Ultrasound evaluation was performed in the area indicated by the patientas symptomatic. The area indicated is centered at 9:00 in the rightbreast extending into the far lateral and inferior aspect of the upperouter quadrant and superior aspect of the lower outer quadrant. Thebreast architecture is sonographically normal. There is no evidence ofcyst, nodule or mass. Impression: Negative bilateral mammography and limited right breastultrasound. BI-RADS Category 1, negative. Kerri MITCHELL IM BI PROCEDURES Final Resul t from Last 3 Months or Most Recently Relevant to Health Maintenance Insurance MEDICAID - [place] Care Teams Workers Compensation Paralegal Relationship Specialty Start Date End Date Carina Munoz NP [address] [place] [phone] PCP - General 09/27/22
--- OUTSIDE RECORDS SUMMARY | 2024-12-10 15:21 | XMS_ITS | Encounter Summary ---
Author Organization [facility] Address [address] [place] [address] [address] [place] [address] Care Team Providers Care School Child Care Attendant Name Role Phone Carina Munoz Primary Care Provider [phone] Reason for Referral * Neurology (Routine) - Authorized Specialty Diagnoses / Procedures Referred By Contjared t Referred To Contact Diagnoses Numbness and tingling in both hands Burning pain Procedures Nerve conduction test Carina Munoz ANP [address] [place] [address] Phone: tel: fax: [address] Phone: tel: fax: Referral ID Status Reason Start Date Expiration Date V isits Requested Visits Authorized [id number] Authorized 11/22/2024 11/22/2025 1 1 Encounter Details Date Type Department Care Team (Late st Contact Info) Description 11/22/[address] [facility] [address] [place] [address] Carina Munoz ANP [address] [place], [place] [phone] Numbness and tingling in both hands (Primary Dx); Burning pain Social History Tobacco Use Types Packs/Day Years [...] as of this encounter Progress Notes * MARC Armijo - 11/22/2024 9:41 AM EST Please let patient know labs did not reveal an explanation for her numbness and tingling. Would recommend nerve conduction studies. Will order -please dianetic counselor patient that test is uncomfortable but will hopefully provide us information about why pain and numbness are happening. I have placed a new referral to genetics due to her family history of colon cancer and ovarian cancer so she should receive a letter in the mail or phone call about that within the next month or so. Her cholesterol is still elevated -looks like she is following with bariatrics/wt mgmt, but otherwise recommend high-fiber diet, regular exercise, low cholesterol diet. Please wish her happy birthday (it's tomorrow!). documented in this encounter Plan of Treatment Upcoming Encounters Date Type Department Care Team (Late st Contact Info) Description 02/22/2025 1:30 PM EDT Office Visit [facility] [address] [place] [address] Yari Baltazar, OD [address] [place] [address] Scheduled Orders Name Type Priority Associated Diagnoses Orde r Schedule Nerve conduction test Neurology Routine Numbness and tingling in both hands Burning pain Expected: 11/22/2024 (Approximate), Expires: 11/22/2025 documented as of this encounter Visit Diagnoses Diagnosis Numbness and tingling in both hands- Primary Burning pain Generalized pain documented in this encounter Additional Health Concerns Assessment Noted Time PHQ-9 Depression Total Score: 14 025 11:13 AM EST documented as of this encounter Care Teams School Child Care Attendant Relationship Specialty Start Date End Date Carina Munoz ANP [address] [place] [address] PCP - General Family Medicine 07/15/21 documented as of this encounter
--- OUTSIDE RECORDS SUMMARY | 2024-12-10 15:21 | XMS_ITS | Encounter Summary ---
Author Organization [employer] [facility] Address [address] [place] [address] [address], [place] [address] Care Team Providers Care Obiee Obia Solution Architect Name Role Phone Carina Munoz Primary Care Provider [phone] Encounter Details Date Type Department Care Team (Late st Contact Info) Description 09/22/2022 Psychiatric Only [facility] [address] [place] [address] Kristen Brown CNM [address] [place] [address] Social History Tobacco Use Types Packs/Day Years [...] Office Visit [facility] [address] [place] [address] GiovannyYari gardner, OD [address] [place] [address] documented as of this encounter Visit Diagnoses Not on filedocumented in this encounter Care Teams Obiee Obia Solution Architect Relationship Specialty Start Date End Date Carina Munoz ANP [address] [place] [address] PCP - General Family Medicine 07/15/21 documented as of this encounter
--- OUTSIDE RECORDS SUMMARY | 2024-12-10 15:21 | XMS_ITS | Encounter Summary ---
Author Organization [employer] Address [address] [place] [address] [address] [place] [address] Care Team Providers Care Upholstery Department Supervisor Name Role Phone Carina Munoz Primary Care Provider [phone] Reason for Visit * Reason Onset Date Comments Med Refill 07/18/2024 Encounter Details Date Type Department Care Team ([facility] st Contact Info) Description 07/18/2024 Refill [facility] [address] [place], [place] [phone] Carina Munoz ANP [address] [place] [address] Muscle spasm of back Social History Tobacco [...] Description 02/22/2025 1:30 PM EDT Office Visit [facility] [address] [place] [address] Yari Baltazar, OD [address] [place] [address] documented as of this encounter Visit Diagnoses Diagnosis Muscle spasm of back documented in this encounter Additional Health Concerns Assessment Noted Time PHQ-9 Depression Total Score: 0 09/29/20 23 9:47 AM EST documented as of this encounter Care Teams Upholstery Department Supervisor Relationship Specialty Start Date End Date Carina Munoz ANP [address] [place] [address] PCP - General Family Medicine 07/15/21 documented as of this encounter
--- OUTSIDE RECORDS SUMMARY | 2024-12-10 15:21 | XMS_ITS | Encounter Summary ---
Author Organization [employer] Address [address] [place] [address] [address] [place] [address] Care Team Providers Care Buckle Stringer Name Role Phone Carina Munoz Primary Care Provider [phone] Reason for Visit * Reason Onset Date Comments Med Refill 05/28/2024 Encounter Details Date Type Department Care Team ([facility] st Contact Info) Description 05/28/2024 Refill [facility] [address] [place], [place] [phone] Carina Munoz ANP [address] [place] [address] Moderate persistent asthma without complication Social History [...] Description 02/22/2025 1:30 PM EDT Office Visit [facility] [address] [place] [address] Yari Baltazar, SAMANTHA [address] [place] [address] documented as of this encounter Visit Diagnoses Diagnosis Moderate persistent asthma without complication documented in this encounter Additional Health Concerns Assessment Noted Time PHQ-9 Depression Total Score: 0 09/29/20 23 9:47 AM EST documented as of this encounter Care Teams Buckle Stringer Relationship Specialty Start Date End Date Carina Munoz ANP [address] [place] [address] PCP - General Family Medicine 07/15/21 documented as of this encounter
--- OUTSIDE RECORDS SUMMARY | 2024-12-10 15:22 | XMS_ITS | Encounter Summary ---
Author Organization [employer] Address [address] [place] [address] [address] [place] [address] Care Team Providers Care Commutator Inspector Name Role Phone Carina Munoz Primary Care Provider [phone] Reason for Visit * Reason Onset Date Comments Med Refill 07/18/2024 Encounter Details Date Type Department Care Team ([facility] st Contact Info) Description 07/18/2024 Refill [facility] [address] [place], [place] [phone] Carina Munoz ANP [address] [place] [address] Social History Tobacco Use Types Packs/Day Years [...] Description 02/22/2025 1:30 PM EDT Office Visit [facility] [address] [place] [address] Yari Baltazar, OD [address] [place] [address] documented as of this encounter Visit Diagnoses Not on filedocumented in this encounter Additional Health Concerns Assessment Noted Time PHQ-9 Depression Total Score: 0 09/29/20 23 9:47 AM EST documented as of this encounter Care Teams Commutator Inspector Relationship Specialty Start Date End Date Carina Munoz ANP [address] [place] [address] PCP - General Family Medicine 07/15/21 documented as of this encounter
--- OUTSIDE RECORDS SUMMARY | 2024-12-10 15:22 | XMS_ITS | Encounter Summary ---
Author Organization [employer] Address [address] [place] [address] [address] [place] [address] Care Team Providers Care Hydrometeorologist Name Role Phone Carina Munoz Primary Care Provider [phone] Reason for Visit * Reason Onset Date Comments Med Refill 08/27/2024 Encounter Details Date Type Department Care Team ([facility] st Contact Info) Description 08/27/2024 Refill [facility] [address] [place], [place] [phone] Carina Munoz ANP [address] [place] [address] Muscle spasm of back Social History Tobacco [...] Visit [facility] [address] [place] [address] Yari Baltazar, OD [address] [place] [address] documented as of this encounter Visit Diagnoses Diagnosis Muscle spasm of back documented in this encounter Additional Health Concerns Assessment Noted Time PHQ-9 Depression Total Score: 0 09/29/20 23 9:47 AM EST documented as of this encounter Care Teams Hydrometeorologist Relationship Specialty Start Date End Date Carina Munoz ANP [address] [place] [address] PCP - General Family Medicine 07/15/21 documented as of this encounter
--- OUTSIDE RECORDS SUMMARY | 2024-12-10 15:22 | XMS_ITS | Clinical Summary ---
Author Organization [employer] Address [address] [place] [address] [address] [place] [address] Care Team Providers Care Road Maker Name Role Phone Carina Munoz MARC Primary Care Provider [phone] Allergies No known active allergies Medications * This document contains information received from the source organization and may not represent a complete record from that organization. lamoTRIgine (LaMICtal) 100 MG tablet Take 1 [...] sleeve gastrectomy 05/02/2023 Overview (05/02/2023): 04/27/23 at [facility] [place] Diverticular disease 07/08/2022 Hepatic steatosis 09/14/2021 Overview (10/19/2022): Mild - seen on CT abdomen and pelvis at [facility] 09/08/21 Uterine fibroid 09/14/2021 Overview (10/19/2022): Seen on US at [facility] 09/08/21 Diverticulitis 09/14/2021 09/01/2023 Overview (09/01/2023): CT abdomen and pelvis 09/08/21 at [facility]: findings suspicious for early/mild descending diverticulitis. [...] reflux disease without esophagi tis 11/29/2017 Encounters * This document contains information received from the source organization and may not represent a complete record from that organization. Date Type Department Care Team Description 11/22/2024 Orders Only [facility] [address] [place] [address] Carina Munoz ANP Numbness and tingling in both hands (Primary Dx); Burning pain 11/08/2024 10:30 AM EST Office Visit [facility] [address] [place] [address] Carina Munoz ANP Hyperlipidemia, unspecified hyperlipidemia type (Primary Dx); Burning pain; Numbness and tingling in both hands; Encounter for immunization; Iron deficiency; Routine screening for STI (sexually transmitted infection); Family history of ovarian cancer; Family history of colon cancer; Anxiety 11/08/2024 Travel 10/30/2024 Patient Outreach [facility] [address] [place] [phone] Carina Munoz ANP Pre-visit Planning (SDOH Screening negative and Tobacco screening negative) 09/18/2024 3:40 PM EST Office Visit [facility] [address] [place] [phone] Koko Zambrano MD Fatigue, unspecified type (Primary Dx); Myalgia; Nonintractable headache, unspecified chronicity pattern, unspecified headache type; Hot flashes; Irregular menses 09/18/2024 Travel 09/18/[address] [address] Carina Munoz ANP 09/10/[address] [address] Maninder Akers [place] October recall from Last 3 Months Immunizations Name Administration [...] Upcoming Encounters Date Type Department Care Team ([facility] st Contact Info) Description 02/22/2025 1:30 PM EDT Office Visit [facility] [address] [place] [address] Yari Baltazar, OD [address] [place] [address] Health Maintenance Due Date Last Done Comments [...] 09/13/2023, 08/18/2022 Alcohol/Substance Use Screening 03/30/2025 03/30/2024 Mammogram 05/03/2025 05/03/2023 Depression Monitoring (PHQ-9) 05/08/2025 11/08/2024, 11/08/2024 SDOH Screening 10/30/2025 10/30/2024 Depression Screening 11/08/2025 11/08/2024, 11/08/19 25 Tobacco Screening 11/08/2025 11/08/2024 DTaP/Tdap/Td Vaccines (2 - Td or Tdap) 10/27/2028 10/27/2018 Lipid Panel 11/16/2029 11/16/2024, 12/15, 12/03/2022, Additional history exists Zoster Vaccines (1 of 2) 2034 RSV Patients and Patients Aged 60 years or older (1 - 1-dose 75+ series) 2059 HPV Vaccines Completed 01/27/2023, 09/16, 04/15/2021 COVID-19 Vaccine Completed 11/08/2024, 10/2022, 07/28/2022, Additional history exists Influenza Vaccine Completed 11/08/2024, , 07/28/2022, Additional history exists HIV Screening Completed 11/16/2024, 10/18, 08/03/2021 Hepatitis C Screening Completed 11/16/2024 , 11/07/2023, 08/03/2021 HIB Vaccines Aged Out No longer eligi [...] Procedure Name Priority Date/Time Associated Diagnosis Comments VITAMIN B1 Routine 11/16/2024 9:34 AM EST VITAMIN A Routine 11/16/2024 9:34 AM EST ZINC Routine 11/16/2024 9:34 AM EST INSULIN Routine 11/16/2024 9:34 AM EST VITAMIN B12/FOLATE, SERUM PANEL Routine 11/16/2024 9:34 AM EST TSH W/REFLEX TO FT4 Routine 11/16/2024 9 :34 AM EST VITAMIN D,25-OH,TOTAL,IA Routine 11/16/2024 9:34 AM EST FERRITIN Routine 11/16/2024 9:34 AM EST LIPID PANEL, STANDARD Routine 11/16/2024 9:34 AM EST C-REACTIVE PROTEIN Routine 11/16/2024 9: 34 AM EST IRON AND TOTAL IRON BINDING CAPACITY Routine 11/16/2024 9:34 AM EST BASIC METABOLIC PANEL Routine 11/16/2024 9:34 AM EST HEMOGLOBIN A1C Routine 11/16/2024 9:34 AM EST CBC WITH AUTO DIFFERENTIAL Routine 11/16/2024 9:34 AM EST HEPATITIS C AB W/REFL TO HCV RNA, QN, PCR Routine 11/16/2024 9:34 AM EST Routine screening for STI (sexually transmitted infection) RPR (MONITOR) W/REFL TITER Routine 11/16/2024 9:34 AM EST Routine screening for STI (sexually transmitted infection) HIV 1/2 ANTIGEN/ANTIBODY, FOURTH GENERATION W/RFL Routine 11/16/2024 9:34 AM EST Routine screening for STI (sexually transmitted infection) TSH W/REFLEX TO FT4 Routine 09/18/2024 4 [...] unspecified headache type Hot flashes Irregular menses HM PAP/HPV Routine 09/13/2023 HM MAMMOGRAPHY Routine 05/03/2023 from Last 3 Months or Most Recently Relevant to Health Maintenance Results * Vitamin D, 25-Hydroxy, Total, Immunoassay (11/16/2024 9:34 AM EST) Vitamin D 25-OH Total 40.9 >30 ng/mL [facility] Comment:Health Based Referen ce Values*< 20 ng/mL Ulkdzujiz68-88 ng/mL Insufficient> 30 ng/mL Sufficient*Julio LIPSCOMB. N Engl J Med. 2007;357:266-280Care must be taken in interpreting Vitamin D results fromdifferent laboratories and methodologies. Published datademonstrated that results from patients undergoinghemodialysis may show a negative bias when tested withvarious automated 25-OH vitamin D assays when compared toLC-MS/MS.When testing samples from patients whose predominant form ofVitamin D is Vitamin D2, such as patients receiving VitaminD2 supplementation, results that are subtherapeutic shouldbe confirmed with another method such as LC-MS/MS. 11/16/2024 9:34 AM EST 11/16/2024 9:34 AM EST us Generic External Data Provider LAB BLOOD ORDERAB LES Final Result Performing Organization Address [facility]/ZIP Co de Phone Number [facility] [address] [place] [address] [phone] * Vitamin B12 (Cobalamin) and Folate Panel, Serum (11/16/2024 9:34 AM EST) Vitamin B12 711 200 - 900 pg/mL [facility] Comment:NORMAL 200-900 PG/ML INDETERMINATE 160-199 PG/ML DEFICIENT < 160 PG/ML Folate 11.8 > or = 4.0 ng/mL [facility] Comment:Reference Values:> o r = 4.0 ng/mL< 4.0 ng/mL suggests folate deficiency Methotrexate, aminopterin and folinic acid(leucovorin) are chemotherapeutic agents whose molecularstructures are similar to folate; therefore, the Architectfolate assay cannot be used for patients using these drugs. 11/16/2024 9:34 AM EST 11/16/2024 9:34 AM EST us Generic External Data Provider LAB BLOOD ORDERAB LES Final Result Performing Organization Address [facility]/ZIP Co de Phone Number [facility] [address] [place] [address] [phone] * TSH with Reflex to Free T4 (11/16/2024 9:34 AM EST) Only the most recent of2 resultswithin the time period is included. TSH reflex Free T4 2.94 0.32 - 4.0 uIU/mL [facility] 11/16/2024 9:34 AM EST 11/16/2024 9:34 AM EST us Generic External Data Provider LAB BLOOD ORDERAB LES Final Result [facility] [address] [place] [address] [phone] * (ABNORMAL) CBC auto differential (11/16/2024 9:34 AM EST) Only the most recent of2 resultswithin the time period is included. White Blood Count 5.8 4.8 - 10.8 X10*3/uL [facility] Red Blood Count 4.52 4.20 - 5.50 X10*6/uL [facility] Hemoglobin 12.9 12.0 - 16.0 g/dl [facility] Hematocrit 39.6 37.0 - 47.0 % [facility] Mean Corpuscular Volume 87.6 80.0 - 98.0 fL [facility] Mean Corpuscular Hemoglobin 28.5 27.0 - 33.0 pg [facility] Mean Corpuscular HGB Conc 32.6 31.0 - 35.0 g/dl [facility] Red Cell Distribution Width 14.5 11.0 - 16.0 % [facility] Platelet Count 332 160 - 400 X10*3/uL [facility] Mean Platelet Volume 9.8 9.4 - 12.3 fL [facility] Neutrophils Percent Auto 53.2 45 - 73 % [facility] Imm Gran Pct Auto 0.3 0.0 - 0.4 % [facility] Lymphocytes Percent Auto 40.6(H) 20 - 40 % [facility] Monocytes Percent Auto 5.0 2 - 11 % [facility] Eosinophils Percent Auto 0.7 0 - 4 % [facility] Basophils Percent Auto 0.2 0 - 2 % [facility] NRBC Pct Auto 0.0 0.0 - 0.2 /100WBC [facility] Neutrophils Absolute Auto 3.1 2.0 - 8.3 x10*3/uL [facility] Imm Gran Abs Auto 0.02 0.00 - 0.03 X10*3/uL [facility] Lymphocytes Absolute Auto 2.3 1.2 - 4.9 X10*3/uL [facility] Monocytes Absolute Auto 0.3 0.1 - 1.2 X10*3/uL [facility] Eosinophils Absolute Auto 0.0 0.0 - 0.4 X10*3/uL [facility] Basophils Absolute Auto 0.0 0.0 - 0.2 X10*3/uL [facility] NRBC Abs Auto 0.000 0.0 - 0.012 X10*3/uL [facility] 11/16/2024 9:34 AM EST 11/16/2024 9:34 AM EST [facility] External Data Provider LAB BLOOD ORDERAB LES Final Result Performing Organization Address [facility]/ZIP Co de Phone Number [facility] [address] [place] [phone] * Hepatitis C Antibody with Reflex to HCV, RNA, Quantitative, Real-Time PCR (11/16/2024 9:34 AM EST) Hepatitis C Antibody Nonreactive Nonreactive [facility] Comment:Antibodies to HCV no t detected; does not exclude early acuteHCV infection. Blood Venous blood specimen / Unknown 11/16/2024 9:34 AM EST 11/16/2024 9:34 AM EST [facility] LAB BLOOD ORDERABLES Final Resul t Performing Organization Address City/[facility]/ZIP Co de Phone Number [facility] [address] [place] [phone] * Iron And Total Iron Binding Capacity (11/16/2024 9:34 AM EST) Iron 78 30 - 160 mcg/dL [facility] Total Iron Binding Capacity 376 228 - 428 mcg/dL [facility] Percent Iron Saturation 21 15 - 50 % [facility] Unsaturated Iron Binding 298 ug/dL [facility] 11/16/2024 9:34 AM EST 11/16/2024 9:34 AM EST Generic External Data Provider LAB BLOOD ORDERAB LES Final Result Performing Organization Address [facility] de Phone Number [facility] [address] [place] [phone] * Insulin (11/16/2024 9:34 AM EST) Insulin 10 2 - 29 uU/mL [facility] Comment:This test was perfor med using the HSTYLE chemiluminescentmethod. Values obtained from different assay methods cannot beused interchangeably. This insulin assay shows a possiblecross-reactivity with antibodies generated against insulin(immunoreactive insulin and some patients treated withbovine or porcine insulin). Insulin levels may be measuredlower in patients with insulin autoimmune syndrome orfamilial high pro-insulinemia. 11/16/2024 9:34 AM EST 11/16/2024 9:34 AM EST Generic External Data Provider LAB BLOOD ORDERAB LES Final Result Performing Organization Address [facility] Co de Phone Number [facility] [address] [place] [phone] * Zinc (11/16/2024 9:34 AM EST) Zinc 76 60 - 130 mcg/dL [facility] Comment:This test was develo ped and its analytical performancecharacteristics have been determined by [employer] [place], [place]. It hasnot been cleared or approved by the U.S. Food and DrugAdministration. This assay has been validated pursuantto the CLIA regulations and is used for clinicalpurposes.THIS TEST WAS PERFORMED AT:[employer] [facility] [id number] [place] [address]OOUJWRPLANDON GONZALEZ MD,PHD 11/16/2024 9:34 AM EST 11/16/2024 9:34 AM EST Generic External Data Provider LAB BLOOD ORDERAB LES Final Result Performing Organization Address City/[facility]/ZIP Co de Phone Number [facility] [address] [place] [phone] * Vitamin A (11/16/2024 9:34 AM EST) Vitamin A (Retinol) 67 38 - 98 mcg/dL [facility] Comment:Vitamin supplementat ion within 24 hours prior toblood draw may affect the accuracy of the results.This test was developed and its analytical performancecharacteristics have been determined by [employer] [place], [place]. It hasnot been cleared or approved by the U.S. Food and DrugAdministration. This assay has been validated pursuantto the CLIA regulations and is used for clinicalpurposes.THIS TEST WAS PERFORMED AT:[id number] [place] [address]ZBIVWJBLANDON GONZALEZ MD,PHD 11/16/2024 9:34 AM EST 11/16/2024 9:34 AM EST Generic External Data Provider LAB BLOOD ORDERAB LES Final Result Performing Organization Address [facility]/ZIP Co de Phone Number [facility] [address] [place] [phone] * RPR (Monitor) with Reflex to??Titer (11/16/2024 9:34 AM EST) RPR (Monitor) w/Refl Titer NON-REACTI VE NON-REACT EVERT [facility] Comment:THIS TEST WAS PERFOR MED AT:[facility] [place] [id number] CORBIN MD Rapid Plasma Reagin Ab Titer TNP [facility] Blood Venous blood specimen / Unknown 11/16/2024 9:34 AM EST 11/16/2024 9:34 AM EST Carina Munoz [facility] LAB BLOOD ORDERABLES Final Resul t Performing Organization Address City/[facility]/ZIP Co de Phone Number [facility] [address] [place] [phone] * HIV-1/2 Antigen and Antibodies, Fourth Generation, with Reflexes (11/16/2024 9:34 AM EST) HIV AB/AG Nonreactive Nonreactive [facility] Comment:HIV-1 p24 Ag and/or HIV-1/HIV-2 Ab not detected.A test result that is nonreactive does not exclude thepossibility of exposure to or infection with HIV-1 and/orHIV-2. Nonreactive results in this assay for individualswith prior exposure to HIV-1 and/or HIV-2 may be due toantigen and antibody levels that are below the limit ofdetection of this assay.The Anda HIV Ag/Ab Combo assay result andsupplemental assay results should be interpreted inconjunction with the patient's clinical presentation,history and other laboratory results. If the results areinconsistent with clinical evidence, additional testing issuggested to confirm the result. Blood Venous blood specimen / Unknown 11/16/2024 9:34 AM EST 11/16/2024 9:34 AM EST Carina TRAN LAB BLOOD ORDERABLES Final Resul t Performing Organization Address City/[facility]/ZIP Co de Phone Number [facility] [address] [place] [phone] * C-reactive Protein (11/16/2024 9:34 AM EST) Pathologist [facility] C Reactive Protein <0.10 < or = 0.50 mg/dL [facility] 11/16/2024 9:34 AM EST 11/16/2024 9:34 AM EST Generic External Data Provider LAB BLOOD ORDERAB LES Final Result Performing Organization Address [facility] de Phone Number [facility] [address] [place] [phone] * Vitamin B1 (11/16/2024 9:34 AM EST) Vitamin B1 10 8 - 30 nmol/L [facility] Comment:Vitamin supplementat ion within 24 hours prior toblood draw may affect the accuracy of the results.This test was developed and its analytical performancecharacteristics have been determined by [employer] [facility] [place], [place]. It hasnot been cleared or approved by the U.S. Food and DrugAdministration. This assay has been validated pursuantto the CLIA regulations and is used for clinicalpurposes.THIS TEST WAS PERFORMED AT:[facility] [place] [address]ACHJDBWLANDON GONZALEZ MD,PHD 11/16/2024 9:34 AM EST 11/16/2024 9:34 AM EST Generic External Data Provider LAB BLOOD ORDERAB LES Final Result Performing Organization Address [facility] Co de Phone Number [facility] [address] [place] [phone] * Hemoglobin A1c (11/16/2024 9:34 AM EST) Hemoglobin A1c 5.3 <6.0 % [facility] Comment:Hemoglobin A1C Refer ence Range Adults: 4.8 - 6.0 % Non diabetic: < 6.0 % Goal: < 7.0 %Additional Action Suggested: > 8.0 %Note: Hemoglobin A1c results are invalid for patients with abnormal amounts of HbF. Blood transfusions may impact the HbA1c concentration in the patient sample. Estimated Average Glucose 105 mg/dL [facility] Comment:eAG = Estimated ave rage glucose which is %A1C expressed asaverage glucose, using the formula of the O1J-QubpdyhJmbbyqu Glucose study (ADAG), Diabetes Care, Vol.31,#8,May. 2007 11/16/2024 9:34 AM EST 11/16/2024 9:34 AM EST Generic External Data Provider LAB BLOOD ORDERAB LES Final Result Performing Organization Address City/[facility]/ZIP Co de Phone Number [facility] [address] [place] [phone] * Ferritin (11/16/2024 9:34 AM EST) Ferritin 12 10 - 122 ng/mL [facility] 11/16/2024 9:34 AM EST 11/16/2024 9:34 AM EST Generic External Data Provider LAB BLOOD ORDERAB LES Final Result Performing Organization Address [facility] Co de Phone Number [facility] [address] [place] [phone] * (ABNORMAL) Lipid Panel, Standard (11/16/2024 9:34 AM EST) Triglycerides 79 <150 mg/dL [facility] Comment:Desirable Triglyceri de: less than 150 mg/dLBorderline High Triglyceride 150-199 mg/dLHigh Triglyceride: 200-499 mg/dLVery High Triglyceride: greater than or equal to 5OO mg/dL Cholesterol 280(H) <200 mg/dL [facility] Comment:Desirable Cholestero l: less than 200 mg/dLBorderline High Cholesterol: 200-239 mg/dLHigh Cholesterol: greater than 239 mg/dL LDL Cholesterol Calculated 182(H) <100 mg/dL [facility] Comment:Desirable LDL: less than 100 mg/dLNear Optimal/Above Optimal LDL: 110- 129 mg/dLBorderline High LDL: 130-159 mg/dLHigh LDL: 160-189 mg/dLVery High LDL: greater than or equal to 190 mg/dL HDL Cholesterol 83 >40 mg/dL [facility] Comment:Desirable HDL: great er than 40 mg/dL Note: This HDL assay may give artificially low results in patients with liver disease. 11/16/2024 9:34 AM EST 11/16/2024 9:34 AM EST us Generic External Data Provider LAB BLOOD ORDERAB LES Final Result Performing Organization Address [facility] Co de Phone Number [facility] [address] [place] [phone] * (ABNORMAL) Basic Metabolic Panel (11/16/2024 9:34 AM EST) Sodium 141 135 - 145 mmol/L [facility] Potassium 4.2 3.3 - 5.1 mmol/L [facility] Chloride 107 96 - 108 mmol/L [facility] Carbon Dioxide 27 22 - 29 mmol/L [facility] Anion Gap 11(L) 12 - 20 [facility] Urea Nitrogen (BUN) 13 9 - 16 mg/dL [facility] Creatinine, Serum 0.69 0.5 - 1.4 mg/dL [facility] Estimated Glomerular Filt Rate >60 [facility] Comment:Chronic Kidney Disea se: Estimated GFR < 60 mL/min/1.15u4Rknvfi Kidney Disease: Estimated GFR < 15 mL/min/1.73m2 Glucose 82 60 - 115 mg/dL [facility] Calcium 10.3(H) 8.4 - 10.2 mg/dL [facility] 11/16/2024 9:34 AM EST 11/16/2024 9:34 AM EST us Generic External Data Provider LAB BLOOD ORDERAB LES Final Result Performing Organization Address [facility] Co de Phone Number [facility] [address] [place] [phone] * (ABNORMAL) Comprehensive Metabolic Panel (09/18/2024 4:19 PM EST) Sodium 140 135 - 145 mmol/L [facility] Potassium 3.8 3.3 - 5.1 mmol/L [facility] Chloride 106 96 - 108 mmol/L [facility] Carbon Dioxide 27 22 - 29 mmol/L [facility] Anion Gap 11(L) 12 - 20 [facility] Urea Nitrogen (BUN) 15 9 - 16 mg/dL [facility] Creatinine, Serum 0.73 0.5 - 1.4 mg/dL [facility] Estimated Glomerular Filt Rate >60 [facility] Comment:Chronic Kidney Disea se: Estimated GFR < 60 mL/min/[id number] Kidney Disease: Estimated GFR < 15 mL/min/1.73m2 Glucose 82 60 - 115 mg/dL [facility] Calcium 9.6 8.4 - 10.2 mg/dL [facility] Bilirubin, Total 0.4 0.0 - 1.0 mg/dL [facility] Aspartate Amino Transferase 16 5 - 31 U/L [facility] Alanine Aminotransferase 11 0 - 31 U/L [facility] Total Protein 7.2 6.5 - 8.0 g/dL [facility] Albumin Level 4.3 3.5 - 5.0 g/dL [facility] Alkaline Phosphatase 54 39 - 117 U/L [facility] Blood Venous blood specimen / Unknown 09/18/2024 4:19 PM EST 09/18/2024 5:32 PM EST us Koko Zambrano MD LAB BLOOD ORDERABLES Final Resul t [facility] [address] [place], [place] [phone] * (ABNORMAL) HM PAP/HPV (09/13/2023) Pap Negative for intraephithelial lesion or malignancy Negative for intraephithelial lesion or malignancy, Epithelial cell abnormality HPV Detected(A) Undetected, Indeterminate, Quantitative, Not Detected Historical Provider HEALTH MAINTENANCE Final Result * Mammography (05/03/2023) Mammogram NORMAL Anatomical Region Laterality Modality Other Historical Provider HEALTH MAINTENANCE Final Result from Last 3 Months or Most Recently Relevant to Health Maintenance Insurance [employer] Care Teams Road Maker Relationship Specialty Start Date End Date Carina Munoz ANP [address] [place] [id number] PCP - General Family Medicine 07/15/21
== END 2024-12-10 13:58 | disposition home or self-care (01) ==
PROVIDERS: PCP Nurse Practitioner Primary Care; Visit Provider Physician Assistant Surgical
DX: E66.811 Obesity, class 1 (principal); Z68.30 Body mass index [BMI] 30.0-30.9, adult; Z90.3 Acquired absence of stomach [part of]; Z98.84 Bariatric surgery status
CPT/HCPCS: 99213

== ENCOUNTER → 2024-12-10 13:25 | Outpatient (BNVA) | payer MEDICAID, SELFPAY | PROVIDERS: PCP Nurse Practitioner Primary Care; Visit Provider Physician Assistant Surgical | DX: E66.811 Obesity, class 1 (principal); Z68.30 Body mass index [BMI] 30.0-30.9, adult; Z90.3 Acquired absence of stomach [part of] | CPT/HCPCS: 99212 ==

== ENCOUNTER 2025-01-03 14:56 | Outpatient (REF) | payer MEDICAID, SELFPAY ==
--- NOTE | 2025-01-03 14:59 | EMG_ITS ---
Chief complaint: Burning and numbness in both hands and feet Reason for referral: Evaluate for neuropathy Referred by: Dr. Munoz Procedure done: Upper and lower extremity NCS/EMG Precautions and/or limitations: None The limb temperature was monitored continuously and remained between 32-36 degrees C during the performance of the NCS. Nerve Conduction Studies Anti Sensory Summary Table ?Stim Site NR Onset (ms) Norm Onset (ms) Peak (ms) Norm Peak (ms) O-P Amp (?V) Norm O-P Amp Site1 Site2 Delta-0 (ms) Dist (cm) Rubio (m/s) Norm Rubio (m/s) Left Median Anti Sensory (2nd Digit) Wrist ? 2.8 3.4 <3.6 34.3 >10 Wrist 2nd Digit 2.8 14.0 50 Right Median Anti Sensory (2nd Digit) Wrist ? 2.6 3.2 <3.6 43.1 >10 Wrist 2nd Digit 2.6 14.0 54 Left Sural Anti Sensory (Lat Mall) Calf ? 2.9 3.9 <4.0 27.2 >5.0 Calf Lat Mall 2.9 14.0 48 Right Sural Anti Sensory (Lat Mall) Calf ? 2.9 3.7 <4.0 10.5 >5.0 Calf Lat Mall 2.9 14.0 48 Left Ulnar Anti Sensory (5th Digit) Wrist ? 2.3 3.0 <3.7 32.4 >15.0 Wrist 5th Digit 2.3 14.0 61 Right Ulnar Anti Sensory (5th Digit) Wrist ? 2.3 2.9 <3.7 33.7 >15.0 Wrist 5th Digit 2.3 14.0 61 Motor Summary Table ?Stim Site NR Onset (ms) Norm Onset (ms) O-P Amp (mV) Norm O-P Amp iAmp (mV) Amp (1st) (%) Site1 Site2 Delta-0 (ms) Dist (cm) Rubio (m/s) Norm Rubio (m/s) Left Median Motor (Abd Poll Brev) Wrist ? 3.7 <3.9 8.5 >4.5 9.1 100.0 Elbow Wrist 3.5 18.5 53 >45 Elbow ? 7.2 7.4 8.0 87.1 Right Median Motor (Abd Poll Brev) Wrist ? 3.4 <3.9 10.3 >4.5 11.5 100.0 Elbow Wrist 3.2 18.5 58 >45 Elbow ? 6.6 11.7 13.3 113.6 Right Peroneal Motor (Ext Dig Brev) Ankle ? 3.7 <4.0 2.9 >2.5 4.1 100.0 Ankle Ext Dig Brev 3.7 0.0 B Fib ? 9.0 5.2 6.7 179.3 B Fib Ankle 5.3 29.0 55 >40 Poplt ? 9.9 5.2 6.8 179.3 Poplt B Fib 0.9 5.5 61 >40 Left Tibial Motor (Abd Her Brev) Ankle ? 4.1 <5 10.2 >2.5 15.2 100.0 Ankle Abd Her Brev 4.1 0.0 Knee ? 11.3 7.4 10.4 72.5 Knee Ankle 7.2 35.0 49 >40 Right Tibial Motor (Abd Her Brev) Ankle ? 3.5 <5 11.5 >2.5 15.6 100.0 Ankle Abd Her Brev 3.5 0.0 Knee ? 10.5 9.6 12.6 83.5 Knee Ankle 7.0 35.0 50 >40 Left Ulnar Motor (Abd Dig Minimi) Wrist ? 2.5 <3.0 8.5 >5 9.9 100.0 B Elbow Wrist 2.9 17.0 59 >45 B Elbow ? 5.4 7.0 8.6 82.4 A Elbow B Elbow 1.6 10.0 63 >45 A Elbow ? 7.0 7.2 8.9 84.7 Right Ulnar Motor (Abd Dig Minimi) Wrist ? 2.7 <3.0 10.1 >5 11.5 100.0 B Elbow Wrist 2.9 17.0 59 >45 B Elbow ? 5.6 8.8 9.9 87.1 A Elbow B Elbow 1.4 10.0 71 >45 A Elbow ? 7.0 8.6 9.8 85.1 EMG ?Side Muscle Nerve Root Ins Act Fibs Psw Amp Dur Poly Recrt Int Pat Comment Right 1stDorInt Ulnar C8-T1 Nml Nml Nml Nml Nml 0 Nml Complete Right FlexCarRad Median C6-7 Nml Nml Nml Nml Nml 0 Nml Complete Right Biceps Musculocut C5-6 Nml Nml Nml Nml Nml 0 Nml Complete Right Triceps Radial C6-7-8 Nml Nml Nml Nml Nml 0 Nml Complete Right Deltoid Axillary C5-6 Nml Nml Nml Nml Nml 0 Nml Complete Right AbdHallucis MedPlantar S1-2 Nml Nml Nml Nml Nml 0 Nml Complete Right AntTibialis Dp Br Peron L4-5 Nml Nml Nml Nml Nml 0 Nml Complete Right PostTibialis Tibial L5, S1 Nml Nml Nml Nml Nml 0 Nml Complete Right MedGastroc Tibial S1-2 Nml Nml Nml Nml Nml 0 Nml Complete Right VastusMed Femoral L2-4 Nml Nml Nml Nml Nml 0 Nml Complete FINDINGS: All motor and sensory nerves tested showed normal latencies, amplitudes and conduction velocities. Concentric needle EMG was performed in selected muscles of the right upper and lower extremities. Study did not reveal signs of electric abnormalities as shown in the table above. IMPRESSION: 1. This is a normal study. 2. There is no electrodiagnostic evidence for median neuropathy, ulnar neuropathy, brachial plexopathy, cervical radiculopathy, peroneal neuropathy, tibial neuropathy. lumbosacral plexopathy, lumbar radiculopathy, or peripheral neuropathy. Thank you for your kind referral. Marlene Lopez MD, LÁZARO Board Certified, [place] [employer] and Rehabilitation (ABPMR) Board Certified, [place] Board of Electrodiagnostic Medicine (ABEM) CODIN 29253 x 2 as per dex MTDD
--- OUTSIDE RECORDS SUMMARY | 2025-01-03 17:23 | XMS_ITS | Encounter Summary ---
Author Organization [employer] Address [address] [place] [address] 7 [place] [address] Care Team Providers Care Library Helper Name Role Phone Carina Munoz Primary Care Provider [phone] Reason for Visit * Reason Onset Date Comments Med Refill 07/18/2024 Encounter Details Date Type Department Care Team ([facility] st Contact Info) Description 07/18/[address] [facility] MEDICINE [address] [place], [place] [phone] Carina Munoz ANP [address] [place] [address] Moderate persistent asthma without complication Social History [...] 02/22/2025 1:30 PM EDT Office Visit [facility] OPTOMETRY [address] [place] [address] Yari Baltazar, OD [address] [place] [address] documented as of this encounter Visit Diagnoses Diagnosis Moderate persistent asthma without complication documented in this encounter Additional Health Concerns Assessment Noted Time PHQ-9 Depression Total Score: 0 09/29/20 23 9:47 AM EST documented as of this encounter Care Teams Library Helper Relationship Specialty Start Date End Date Carina Munoz ANP [address] [place] [address] PCP - General Family Medicine 07/15/21 documented as of this encounter
--- OUTSIDE RECORDS SUMMARY | 2025-01-03 17:23 | XMS_ITS | Encounter Summary ---
Author Organization [employer] Address [address] [place] [address] 7 [place] [address] Care Team Providers Care Elementary School Director Name Role Phone Carina Munoz Primary Care Provider [phone] Reason for Visit * Reason Onset Date Comments Med Refill 05/28/2024 Encounter Details Date Type Department Care Team ([facility] st Contact Info) Description 05/28/2024 Refill [facility] MEDICINE [address] [place], [place] [phone] Carina Munoz ANP 230 [place] [address] Gastroesophageal reflux disease without esophagitis Social History [...] 1:30 PM EDT Office Visit [facility] OPTOMETRY [address] [place], [place] [phone] Yari Baltazar, SAMANTHA 230 [place] [address] documented as of this encounter Visit Diagnoses Diagnosis Gastroesophageal reflux disease without esophagitis Esophageal reflux documented in this encounter Additional Health Concerns Assessment Noted Time PHQ-9 Depression Total Score: 0 09/29/20 23 9:47 AM EST documented as of this encounter Care Teams Elementary School Director Relationship Specialty Start Date End Date Carina Munoz ANP 230 [place] [address] PCP - General Family Medicine 07/15/21 documented as of this encounter
--- OUTSIDE RECORDS SUMMARY | 2025-01-03 17:23 | XMS_ITS | Encounter Summary ---
Author Organization [employer] Address [address] [place] [address] 7 [place] [address] Care Team Providers Care Whittling Room Operator Name Role Phone Carina Munoz Primary Care Provider [phone] Reason for Visit * Reason Onset Date Comments Med Refill 07/18/2024 Encounter Details Date Type Department Care Team ([facility] st Contact Info) Description 07/18/2024 Refill [facility] MEDICINE 230 [place], [place] [phone] Carina Munoz ANP [address] [place] [address] Muscle spasm of back Social History Tobacco [...] Description 02/22/2025 1:30 PM EDT Office Visit [facility] OPTOMETRY [address] [place] [address] Yari Baltazar, OD 230 [place] [address] documented as of this encounter Visit Diagnoses Diagnosis Muscle spasm of back documented in this encounter Additional Health Concerns Assessment Noted Time PHQ-9 Depression Total Score: 0 09/29/20 23 9:47 AM EST documented as of this encounter Care Teams Whittling Room Operator Relationship Specialty Start Date End Date Carina Munoz ANP [address] [place] [address] PCP - General Family Medicine 07/15/21 documented as of this encounter
--- OUTSIDE RECORDS SUMMARY | 2025-01-03 17:23 | XMS_ITS | Encounter Summary ---
Author Organization [employer] Address [address] [place] [address] 7 [place] [address] Care Team Providers Care Bankruptcy Judge Name Role Phone Alexander Carina TRNA Primary Care Provider [phone] Reason for Visit * Reason Onset Date Comments Med Refill 10/24/2023 Encounter Details Date Type Department Care Team ([facility] st Contact Info) Description 10/24/2023 Refill [facility] MEDICINE [address] [place], [place] [phone] [facility] [address] [place] [address] Muscle spasm of back Social History Tobacco [...] 1:30 PM EDT Office Visit [facility] OPTOMETRY [address] [place] [address] Yari Baltazar, SAMANTHA 230 [place] [address] documented as of this encounter Visit Diagnoses Diagnosis Muscle spasm of back documented in this encounter Additional Health Concerns Assessment Noted Time PHQ-9 Depression Total Score: 0 09/29/20 23 9:47 AM EST documented as of this encounter Care Teams Bankruptcy Judge Relationship Specialty Start Date End Date Carina Munoz ANP 230 [place] [address] PCP - General Family Medicine 07/15/21 documented as of this encounter
--- OUTSIDE RECORDS SUMMARY | 2025-01-03 17:23 | XMS_ITS | Encounter Summary ---
Author Organization [facility] Address [address] [place] [address] [address] [address] Care Team Providers Care Sweatband Shaper Name Role Phone Carina Munoz Primary Care Provider [phone] Reason for Visit * Reason Onset Date Comments Med Refill 07/07/2023 Encounter Details Date Type Department Care Team (Late st Contact Info) Description 07/07/2023 Refill [facility] MEDICINE 230 [place] [address] Sarah Nicholas MD 230 [place] [address] Social History Tobacco Use Types Packs/Day Years [...] 1:30 PM EDT Office Visit [facility] OPTOMETRY [address] [place] [address] Yari Baltazar, OD 230 [place] [address] documented as of this encounter Visit Diagnoses Not on filedocumented in this encounter Care Teams Sweatband Shaper Relationship Specialty Start Date End Date Carina Mnuoz ANP 230 [place] [address] PCP - General Family Medicine 07/15/21 documented as of this encounter
--- OUTSIDE RECORDS SUMMARY | 2025-01-03 17:23 | XMS_ITS | Encounter Summary ---
Author Organization [employer] Address [address] [place] [address] 7 [place] [address] Care Team Providers Care Textiles And Clothing Teacher Name Role Phone Carina Munoz Primary Care Provider [phone] Reason for Visit * Reason Onset Date Comments Med Refill 12/25/2024 Encounter Details Date Type Department Care Team ([facility] st Contact Info) Description 12/25/2024 Refill [facility] MEDICINE 230 [place], [place] [phone] Carina Munoz ANP 230 [place] [address] Gastroesophageal reflux disease without esophagitis; Moderate persistent asthma without complication; Muscle spasm of back Social History Tobacco [...] Description 02/22/2025 1:30 PM EDT Office Visit [facility] OPTOMETRY [address] [place] [address] Giovanny, Yari, OD 230 [place] [address] documented as of this encounter Visit Diagnoses Diagnosis Gastroesophageal reflux disease without esophagitis Esophageal reflux Moderate persistent asthma without complication Muscle spasm of back documented in this encounter Additional Health Concerns Assessment Noted Time PHQ-9 Depression Total Score: 14 025 11:13 AM EST documented as of this encounter Care Teams Textiles And Clothing Teacher Relationship Specialty Start Date End Date Carina Munoz ANP [address] [place] [address] PCP - General Family Medicine 07/15/21 documented as of this encounter
--- OUTSIDE RECORDS SUMMARY | 2025-01-03 17:23 | XMS_ITS | Encounter Summary ---
Author Organization [employer] Address [address] [facility] 7t [place] [address] Care Team Providers Care Project Engineering Manager Name Role Phone Carina Munoz MARC Primary Care Provider [phone] Encounter Details Date Type Department Care Team ([facility] st Contact Info) Description 12/28/2024 Population Health Risk Score [facility] () Department [address] [phone] Provider, Population Health Generic Social History Tobacco Use Types Packs/Day Years [...] Description 02/22/2025 1:30 PM EDT Office Visit [facility] OPTOMETRY [address] [place] [address] Giovanny, Megan, OD 230 [place] [address] documented as of this encounter Visit Diagnoses Not on filedocumented in this encounter Additional Health Concerns Assessment Noted Time PHQ-9 Depression Total Score: 14 025 11:13 AM EST documented as of this encounter Care Teams Project Engineering Manager Relationship Specialty Start Date End Date Carina Munoz ANP 230 [place] [address] PCP - General Family Medicine 07/15/21 documented as of this encounter
--- OUTSIDE RECORDS SUMMARY | 2025-01-03 17:23 | XMS_ITS | Encounter Summary ---
Author Organization [employer] Address [address] [place] [address] 7t [place] [address] Care Team Providers Care Health Associate Name Role Phone Carina Munoz Primary Care Provider [phone] Reason for Visit * Reason Onset Date Comments Med Refill 05/28/2024 Encounter Details Date Type Department Care Team ([facility] st Contact Info) Description 05/28/2024 Refill [facility] MED & PEDS [address] [place], [place] [phone] Carina Munoz ANP 230 [place] [address] Moderate persistent asthma without complication Social History [...] Description 02/22/2025 1:30 PM EDT Office Visit [facility] OPTOMETRY [address] [place] [address] Yari Baltazar, SAMANTHA 230 [place] [address] documented as of this encounter Visit Diagnoses Diagnosis Moderate persistent asthma without complication documented in this encounter Additional Health Concerns Assessment Noted Time PHQ-9 Depression Total Score: 0 09/29/20 23 9:47 AM EST documented as of this encounter Care Teams Health Associate Relationship Specialty Start Date End Date Carina Munoz ANP [address] [place] [address] PCP - General Family Medicine 07/15/21 documented as of this encounter
--- OUTSIDE RECORDS SUMMARY | 2025-01-03 17:24 | XMS_ITS | Encounter Summary ---
Author Organization [employer] Address [address] [place] [address] 7 [place] [address] Care Team Providers Care Director Industrial Name Role Phone Carina Munoz Primary Care Provider [phone] Reason for Visit * Reason Onset Date Comments Med Refill 07/18/2024 Encounter Details Date Type Department Care Team ([facility] st Contact Info) Description 07/18/2024 Refill [facility] CH[facility] MED & PEDS [address] [place], [place] [phone] Carina Munoz ANP [address] [place] [address] Social History Tobacco Use Types Packs/Day Years [...] 1:30 PM EDT Office Visit [facility] OPTOMETRY [address] [place] [address] Yari Baltazar, OD 230 [place] [address] documented as of this encounter Visit Diagnoses Not on filedocumented in this encounter Additional Health Concerns Assessment Noted Time PHQ-9 Depression Total Score: 0 09/29/20 23 9:47 AM EST documented as of this encounter Care Teams Director Industrial Relationship Specialty Start Date End Date Carina Munoz ANP [address] [place] [address] PCP - General Family Medicine 07/15/21 documented as of this encounter
--- OUTSIDE RECORDS SUMMARY | 2025-01-03 17:24 | XMS_ITS | Clinical Summary ---
Author Organization [address] [facility] Address [address] [place] [address] Phone Care Team Providers Care Water Main Inspector Name Role Phone Carina Munoz NP Primary Care Provider [phone] Allergies No known active allergies Medications hydrocortisone [...] seen on CT abdomen and pelvis at [facility] ED 09/08/21 Diverticulitis 09/14/2021 Overview (07/09/2024): CT abdomen and pelvis 09/08/21 at [facility] ED: findings suspicious for early/mild descending diverticulitis. No abscess formation or free air. Uterine fibroid 09/14/2021 Overview (07/09/2024): Seen on US at [facility] ED 09/08/21 Colon polyp 08/16/2020 Overview (07/09/2024): [place] done 06/2020 for GIB, anemia Asthma, moderate [...] disease) DX:GERD (gastroesophageal reflux disease) Bipolar disorder 10/27/2018 DX:Bipolar diso rder (HCC); COMMENT: F/u Lela History of suicidal tendencies 10/27/2018 D X:History of suicidal tendencies; COMMENT: Three attempts Asthma, moderate persistent 03/03/2020 DX:A sthma, moderate persistent Uterine fibroid 09/14/2021 DX:Uterine fibro id; COMMENT: Seen on US at [facility] ED 09/08/21 Hepatic steatosis 09/14/2021 DX:Hepatic ezio atosis; COMMENT: Mild - seen on CT abdomen and pelvis at [facility] ED 09/08/21 Family History Medical History [...] EDT Office Visit Obstetrics and Gynecology - [address] [phone] Sushma Stanley MD [address] [place], [place] Health Maintenance Due Date Last Done [...] Results * Cervical Cancer Screening: HPV (09/29/2023) [facility] Cervical Cancer Screening: HPV negative abstracted Historical Provider HEALTH MAINTENANCE Final Result * Lipid panel (12/03/2022) [facility] LDL/HDL Ratio 0 <=0 Comment:No interpretation Triglycerides 0 <=0 mg/dL Comment:No interpretation Cholesterol 0 <=0 mg/dL Comment:No interpretation HDL 0 <=0 mg/dL Comment:No interpretation LDL Cholesterol 0 <=0 mg/dL Comment:No interpretation Blood Venous blood specimen / Unknown Historical Provider LAB BLOOD ORDERABLES Liz l Result * HIV Screening (08/03/2021) [facility] HIV Screening abstracted Historical Provider HEALTH MAINTENANCE Final Result * Hepatitis C Screening (01/24/2018) [facility] Hepatitis C Screening abstracted Historical Provider HEALTH [...] breastultrasound. BI-RADS Category 1, negative. Kerri MITCHELL [facility] BI PROCEDURES Final Resul t from Last 3 Months or Most Recently Relevant to Health Maintenance Insurance MEDICAID - [place] Care Teams Water Main Inspector Relationship Specialty Start Date End Date Carina Munoz NP [address] [phone] PCP - General 09/27/22
--- OUTSIDE RECORDS SUMMARY | 2025-01-03 17:24 | XMS_ITS | Encounter Summary ---
Author Organization [facility] Address [address] [place] [address] 7 [place] [address] Care Team Providers Care Cleaning And Washing Equipment Operator Name Role Phone Carina Munoz Primary Care Provider [phone] Encounter Details Date Type Department Care Team (Latest Contact Info) Description 01/18/2019 Abstract [facility] CONVERSIONS Dental, Provider, DDS Social History [...] Description 02/22/2025 1:30 PM EDT Office Visit [facility] OPTOMETRY [address] [place] [address] Yari Baltazar, OD 230 [place] [address] documented as of this encounter Visit Diagnoses Not on filedocumented in this encounter Care Teams Cleaning And Washing Equipment Operator Relationship Specialty Start Date End Date Carina Munoz ANP 230 [place] [address] PCP - General Family Medicine 07/15/21 documented as of this encounter
--- OUTSIDE RECORDS SUMMARY | 2025-01-03 17:24 | XMS_ITS | Clinical Summary ---
Author Organization [employer] Address [address] [place] [address] [address] [place] [address] Care Team Providers Care Torpedoman'S Mate Name Role Phone Carina Munoz MARC Primary Care Provider [phone] Allergies No known active allergies Medications * This document contains information received from the source organization and may not represent a complete record from that organization. lamoTRIgine (LaMICtal) 100 MG tablet Take 1 tablet by mouth 1 (one) time each day. psychiatry Active Levonorgestrel 20 MCG/DAY intrauterine device 1 each by Intrauterine route. 020 2024 Active prazosin (Minipress) 1 MG capsule Take 1 capsule by mouth if needed at bedtime. 019 Active pantoprazole (Protonix) 40 MG EC tabletIndicatio ns:Gastroesopha geal reflux disease without esophagitis TAKE 1 TABLET BY MOUTH BEFORE BREAKFAST 90 tablet 1 025 Active albuterol 108 (90 Base) MCG/ACT inhalerIndicati ons:Moderate persistent asthma without complication INHALE 2 PUFFS EVERY 4 HOURS 18 g 1 025 Active fluticasone (Flonase Allergy Relief) 50 MCG/ACT nasal sprayIndication s:Moderate persistent asthma without complication ADMINISTER 2 SPRAYS INTO EACH NOSTRIL EVERY DAY 48 g 025 Active lidocaine (Lidoderm) 5 % patchIndication s:Muscle spasm of back APPLY 1 PATCH TOPICALLY EVERY MORNING. REMOVE AND DISCARD PATCH WITHIN 12 HOURS OR as DIRECTED BY MD. 30 patch 1 025 Active baclofen (Lioresal) 10 MG tablet TAKE 1 TABLET BY MOUTH IN THE MORNING, AT NOON, AND BEDTIME IF NEEDED FOR MUSCLES SPASMS 60 tablet 1 Active fluticasone furoate (Arnuity Ellipta) 200 MCG/ACT inhalerIndicati ons:Moderate persistent asthma without complication INHALE 1 PUFF EVERY MORNING 30 each 1 Active montelukast (Singulair) 10 MG tablet TAKE 1 TABLET BY MOUTH EVERY EVENING 90 tablet 1 Active Diclofenac Sodium 1 % gelIndications: Muscle spasm of back APPLY 2 GRAMS TOPICALLY IN THE MORNING, AT NOON, IN THE EVENING AND AT BEDTIME IF NEEDED 100 g 3 Active pantoprazole (Protonix) 40 MG EC tabletIndicatio ns:Gastroesopha geal reflux disease without esophagitis TAKE 1 TABLET BY MOUTH BEFORE BREAKFAST 90 tablet 1 024 2024 Discontinued(R eorder (will not trigger notification to Pharmacy)) albuterol 108 (90 Base) MCG/ACT inhalerIndicati ons:Moderate persistent asthma without complication INHALE 2 PUFFS EVERY 4 HOURS 18 g 1 024 2024 Discontinued(R eorder (will not trigger notification to Pharmacy)) fluticasone (Flonase Allergy Relief) 50 MCG/ACT nasal sprayIndication s:Moderate persistent asthma without complication ADMINISTER 2 SPRAYS INTO EACH NOSTRIL EVERY DAY 48 g 024 2024 Discontinued(R eorder (will not trigger notification to Pharmacy)) lidocaine (Lidoderm) 5 % patchIndication s:Muscle spasm of back APPLY 1 PATCH TOPICALLY EVERY MORNING. REMOVE AND DISCARD PATCH WITHIN 12 HOURS OR as DIRECTED BY . 30 patch 1 024 2024 Discontinued(R eorder (will not trigger notification to Pharmacy)) baclofen (Lioresal) 10 MG tablet TAKE 1 TABLET BY MOUTH IN THE MORNING, AT NOON, AND BEDTIME IF NEEDED FOR MUSCLES SPASMS 60 tablet 1 024 2024 Discontinued(R eorder (will not trigger notification to Pharmacy)) fluticasone furoate (Arnuity Ellipta) 200 MCG/ACT inhalerIndicati ons:Moderate persistent asthma without complication INHALE 1 PUFF EVERY MORNING 30 each 1 2024 Discontinued(R eorder (will not trigger notification to Pharmacy)) montelukast (Singulair) 10 MG tablet TAKE 1 TABLET BY MOUTH EVERY EVENING 90 tablet 1 024 2024 Discontinued(R eorder (will not trigger notification to Pharmacy)) Diclofenac Sodium 1 % gelIndications: Muscle spasm of back APPLY 2 GRAMS TOPICALLY IN THE MORNING, AT NOON, IN THE EVENING AND AT BEDTIME IF NEEDED 150 g 3 024 2024 Discontinued(R eorder (will not trigger notification to Pharmacy)) Active Problems Problem Noted Date Diagnosed Date Anxiety 12/11/2024 Recurrent major depressive disorder 12/11/2024 Hx of bipolar disorder 12/11/2024 S/P laparoscopic sleeve gastrectomy 05/02/2023 Overview (05/02/2023): 04/27/23 at [facility] Diverticular disease 07/08/2022 Hepatic steatosis 09/14/2021 Overview (10/19/2022): Mild - seen on CT abdomen and pelvis at [facility] ED 09/08/21 Uterine fibroid 09/14/2021 Overview (10/19/2022): Seen on US at [facility] ED 09/08/21 Diverticulitis 09/14/2021 09/01/2023 Overview (09/01/2023): CT abdomen and pelvis 09/08/21 at [facility] ED: findings suspicious for early/mild descending diverticulitis. No abscess formation or free air. Colon polyp 08/16/2020 Overview (10/19/2022): Sumpter done 06/2020 for GIB, anemia Asthma, moderate [...] understanding and agreed. BMI 27.0-27.9,adult 06/06/2019 09/01/2023 Atypical squamous cell beal es of undetermined significance (ASCUS) on cervical cytology with positive high risk human papilloma virus (HPV) 02/03/2018 Overview (10/19/2022): 01/24/2018 ASCUS HR HPV 03/01/2018 RAJANI 1 02/19/2021 ASCUS HR HPV 04/15/2021 Colpo benign Gastroesophageal reflux disease without esophagi tis 11/29/2017 Resolved Problems Problem Noted Date Diagnosed Date Resolved Date Bipolar disorder 10/27/2018 12/11/2024 Overview (10/19/2022): F/u Lela Encounters * This document contains information received from the source organization and may not represent a complete record from that organization. Date Type Department Care Team Description 12/28/2024 Population Health Risk Score [facility] Department [address] [phone] Provider, Population Health Generic 12/25/2024 Refill [facility] [address] [place] [address] Carina Munoz ANP Gastroesophageal reflux disease without esophagitis; Moderate persistent asthma without complication; Muscle spasm of back 11/22/2024 Orders Only [facility] [address] [place] [phone] Carina Munoz ANP Numbness and tingling in both hands (Primary Dx); Burning pain 11/08/2024 10:30 AM EST Office Visit [address] [address] Carina Munoz ANP Hyperlipidemia, unspecified hyperlipidemia type (Primary Dx); Burning pain; Numbness and tingling in both hands; Encounter for immunization; Iron deficiency; Routine screening for STI (sexually transmitted infection); Family history of ovarian cancer; Family history of colon cancer; Anxiety 11/08/2024 Travel 10/30/2024 Patient Outreach [address] [address] Carina Munoz ANP Pre-visit Planning (SDOH Screening negative and Tobacco screening negative) from Last 3 Months Immunizations Name Administration [...] Description 02/22/2025 1:30 PM EDT Office Visit [facility] [address] [place] [address] Yari Baltazar, OD [address] [place] [address] Health Maintenance Due Date Last Done Comments [...] Tdap) 10/27/2028 10/27/2018 Lipid Panel 11/16/2029 11/16/2024, 0310/2023, 12/03/2022, Additional history exists Zoster Vaccines (1 [...] (sexually transmitted infection) HM PAP/HPV Routine 09/13/2023 HM MAMMOGRAPHY Routine 05/03/2023 from Last 3 Months or Most Recently Relevant to Health Maintenance Results * Vitamin D, 25-Hydroxy, Total, Immunoassay (11/16/2024 9:34 AM EST) Vitamin D 25-OH Total 40.9 >30 ng/mL [facility] Comment:Health Based Referen ce Values*< 20 ng/mL [id number] ng/mL Insufficient> 30 ng/mL Sufficient*Julio LIPSCOMB. N [...] Provider LAB BLOOD ORDERAB LES Final Result [facility] [address] [place] [address] [phone] * Vitamin B12 (Cobalamin) and Folate Panel, Serum (11/16/2024 9:34 AM EST) Pathologist [facility] Vitamin B12 711 200 - 900 pg/mL [facility] Comment:NORMAL 200-900 PG/ML INDETERMINATE 160-199 PG/ML DEFICIENT < 160 PG/ML Folate 11.8 > or = 4.0 ng/mL [facility] Comment:Reference Values:> o r = 4.0 ng/mL< 4.0 ng/mL suggests folate deficiency Methotrexate, aminopterin and folinic acid(leucovorin) are chemotherapeutic agents whose molecularstructures are similar to folate; therefore, the Architectfolate assay cannot be used for patients using these drugs. 11/16/2024 9:34 AM EST 11/16/2024 9:34 AM EST us Generic External Data Provider LAB BLOOD ORDERAB LES Final Result Performing Organization Address [facility] Co de Phone Number [facility] [address] [place] [address] [phone] * TSH with Reflex to Free T4 (11/16/2024 9:34 AM EST) [facility] TSH reflex Free T4 2.94 0.32 - 4.0 uIU/mL [facility] 11/16/2024 9:34 AM EST 11/16/2024 9:34 AM EST us Generic External Data Provider LAB BLOOD ORDERAB LES Final Result Performing Organization Address [facility] Co de Phone Number [facility] [address] [place] [address] [phone] * (ABNORMAL) CBC auto differential (11/16/2024 9:34 AM EST) [facility] White Blood Count 5.8 4.8 - 10.8 X10*3/uL [facility] Red Blood Count 4.52 4.20 - 5.50 X10*6/uL [facility] Hemoglobin 12.9 12.0 - 16.0 g/dl [facility] Hematocrit 39.6 37.0 - 47.0 % [facility] Mean Corpuscular Volume 87.6 80.0 - 98.0 fL [facility] Mean Corpuscular Hemoglobin 28.5 27.0 - 33.0 pg [facility] Mean Corpuscular HGB Conc 32.6 31.0 - 35.0 g/dl [facility] Red Cell Distribution Width 14.5 11.0 - 16.0 % [facility] Platelet Count 332 160 - 400 X10*3/uL [facility] Mean Platelet Volume 9.8 9.4 - 12.3 fL [facility] Neutrophils Percent Auto 53.2 45 - 73 % [facility] Imm Gran Pct Auto 0.3 0.0 - 0.4 % [facility] Lymphocytes Percent Auto 40.6(H) 20 - 40 % [facility] Monocytes Percent Auto 5.0 2 - 11 % [facility] Eosinophils Percent Auto 0.7 0 - 4 % [facility] Basophils Percent Auto 0.2 0 - 2 % [facility] NRBC Pct Auto 0.0 0.0 - 0.2 /100WBC [facility] Neutrophils Absolute Auto 3.1 2.0 - 8.3 x10*3/uL [facility] Imm Gran Abs Auto 0.02 0.00 - 0.03 X10*3/uL [facility] Lymphocytes Absolute Auto 2.3 1.2 - 4.9 X10*3/uL [facility] Monocytes Absolute Auto 0.3 0.1 - 1.2 X10*3/uL [facility] Eosinophils Absolute Auto 0.0 0.0 - 0.4 X10*3/uL [facility] Basophils Absolute Auto 0.0 0.0 - 0.2 X10*3/uL [facility] NRBC Abs Auto 0.000 0.0 - 0.012 X10*3/uL [facility] 11/16/2024 9:34 AM EST 11/16/2024 9:34 AM EST Generic External Data Provider LAB BLOOD ORDERAB LES Final Result Performing Organization Address [facility] Co de Phone Number [facility] [address] [place] [phone] * Hepatitis C Antibody with Reflex to HCV, RNA, Quantitative, Real-Time PCR (11/16/2024 9:34 AM EST) Pathologist [facility] Hepatitis C Antibody Nonreactive Nonreactive [facility] Comment:Antibodies to HCV no t detected; does not exclude early acuteHCV infection. Blood Venous blood specimen / Unknown 11/16/2024 9:34 AM EST 11/16/2024 9:34 AM EST Carina Munoz [facility] LAB BLOOD ORDERABLES Final Resul t Performing Organization Address [facility] de Phone Number [facility] [address] [place] [phone] * Iron And Total Iron Binding Capacity (11/16/2024 9:34 AM EST) Pathologist [facility] Iron 78 30 - 160 mcg/dL [facility] Total Iron Binding Capacity 376 228 - 428 mcg/dL [facility] Percent Iron Saturation 21 15 - 50 % [facility] Unsaturated Iron Binding 298 ug/dL [facility] 11/16/2024 9:34 AM EST 11/16/2024 9:34 AM EST Generic External Data Provider LAB BLOOD ORDERAB LES Final Result Performing Organization Address [facility] Co de Phone Number [facility] [address] [place] [address] [phone] * Insulin (11/16/2024 9:34 AM EST) Pathologist [facility] Insulin 10 2 - 29 uU/mL [facility] Comment:This test was perfor med using the Carbajal chemiluminescentmethod. Values obtained from different assay methods [...] ORDERAB LES Final Result Performing Organization Address [facility] Co de Phone Number [facility] [address] [place] [phone] * Zinc (11/16/2024 9:34 AM EST) Zinc 76 60 - 130 mcg/dL [facility] Comment:This test was develo ped and its analytical performancecharacteristics have been determined by [employer] [place], [place]. It hasnot been cleared or approved by the U.S. Food and DrugAdministration. This assay has been validated pursuantto the CLIA regulations and is used for clinicalpurposes.THIS TEST WAS PERFORMED AT:[id number] [place] [address]AFDPKYILANDON GONZALEZ MD,PHD 11/16/2024 9:34 AM EST 11/16/2024 9:34 AM EST Generic External Data Provider LAB BLOOD ORDERAB LES Final Result Performing Organization Address [facility] Co de Phone Number [facility] [address] [place] [phone] * Vitamin A (11/16/2024 9:34 AM EST) Vitamin A (Retinol) 67 38 - 98 mcg/dL [facility] Comment:Vitamin supplementat ion within 24 hours prior toblood draw may affect the accuracy of the results.This test was developed and its analytical performancecharacteristics have been determined by [employer] [place], [place]. It hasnot been cleared or approved by the U.S. Food and DrugAdministration. This assay has been validated pursuantto the CLIA regulations and is used for clinicalpurposes.THIS TEST WAS PERFORMED AT:[id number] [place] [address]JGPKHZTLANDON GONZALEZ MD,PHD 11/16/2024 9:34 AM EST 11/16/2024 9:34 AM EST [facility] External Data Provider LAB BLOOD ORDERAB LES Final Result Performing Organization Address [facility] Co de Phone Number [facility] [address] [place] [phone] * RPR (Monitor) with Reflex to??Titer (11/16/2024 9:34 AM EST) RPR (Monitor) w/Refl Titer NON-REACTI VE NON-REACT EVERT [facility] Comment:THIS TEST WAS PERFOR MED AT:[employer] [address] [id number] CORBIN MD Rapid Plasma Reagin Ab Titer TNP [facility] Blood Venous blood specimen / Unknown 11/16/2024 9:34 AM EST 11/16/2024 9:34 AM EST us [facility] LAB BLOOD ORDERABLES Final Resul t Performing Organization Address [facility]/ZIP Co de Phone Number [facility] [address] [place] [phone] * HIV-1/2 Antigen and Antibodies, Fourth Generation, with Reflexes (11/16/2024 9:34 AM EST) HIV AB/AG Nonreactive Nonreactive [facility] Comment:HIV-1 p24 Ag and/or HIV-1/HIV-2 Ab not detected.A test result that is nonreactive does not exclude thepossibility of exposure to or infection with HIV-1 and/orHIV-2. Nonreactive results in this assay for individualswith prior exposure to HIV-1 and/or HIV-2 may be due toantigen and antibody levels that are below the limit ofdetection of this assay.The [employer]-LEcta HIV Ag/Ab Combo assay result andsupplemental assay results should be interpreted inconjunction with the patient's clinical presentation,history and other laboratory results. If the results areinconsistent with clinical evidence, additional testing issuggested to confirm the result. Blood Venous blood specimen / Unknown 11/16/2024 9:34 AM EST 11/16/2024 9:34 AM EST [facility] LAB BLOOD ORDERABLES Final Resul t Performing Organization Address City/[facility]/ZIP Co de Phone Number [facility] [address] [place] [phone] * C-reactive Protein (11/16/2024 9:34 AM EST) C Reactive Protein <0.10 < or = 0.50 mg/dL [facility] 11/16/2024 9:34 AM EST 11/16/2024 9:34 AM EST [facility] Provider LAB BLOOD ORDERAB LES Final Result Performing Organization Address City/[facility]/ZIP Co de Phone Number [facility] [address] [place] [phone] * Vitamin B1 (11/16/2024 9:34 AM EST) Vitamin B1 10 8 - 30 nmol/L [facility] Comment:Vitamin supplementat ion within 24 hours prior toblood draw may affect the accuracy of the results.This test was developed and its analytical performancecharacteristics have been determined by [employer] [place]. It hasnot been cleared or approved by the U.S. Food and DrugAdministration. This assay has been validated pursuantto the CLIA regulations and is used for clinicalpurposes.THIS TEST WAS PERFORMED AT:[id number] [place] [address]CSYSQNMLANDON GONZALEZ MD,PHD 11/16/2024 9:34 AM EST 11/16/2024 9:34 AM EST Generic External Data Provider LAB BLOOD ORDERAB LES Final Result Performing Organization Address City/[facility]/ZIP Co de Phone Number [facility] [address] [place] [phone] * Hemoglobin A1c (11/16/2024 9:34 AM EST) Hemoglobin A1c 5.3 <6.0 % [facility] Comment:Hemoglobin A1C Refer ence Range Adults: 4.8 - 6.0 % Non diabetic: < 6.0 % Goal: < 7.0 %Additional Action Suggested: > 8.0 %Note: Hemoglobin A1c results are invalid for patients with abnormal amounts of HbF. Blood transfusions may impact the HbA1c concentration in the patient sample. Estimated Average Glucose 105 mg/dL [facility] Comment:eAG = Estimated ave rage glucose which is %A1C expressed asaverage glucose, using the formula of the Z1B-SvyfvsbFgriucx Glucose study (ADAG), Diabetes Care, Vol.31,#8,2007 11/16/2024 9:34 AM EST 11/16/2024 9:34 AM EST Generic External Data Provider LAB BLOOD ORDERAB LES Final Result Performing Organization Address [facility]/ZIP Co de Phone Number [facility] [address] [place] [phone] * Ferritin (11/16/2024 9:34 AM EST) Ferritin 12 10 - 122 ng/mL [facility] 11/16/2024 9:34 AM EST 11/16/2024 9:34 AM EST Generic External Data Provider LAB BLOOD ORDERAB LES Final Result Performing Organization Address [facility]/ZIP Co de Phone Number [facility] [address] [place] [phone] * (ABNORMAL) Lipid Panel, Standard (11/16/2024 9:34 AM EST) Triglycerides 79 <150 mg/dL [facility] Comment:Desirable Triglyceri de: less than 150 mg/dLBorderline High Triglyceride 150-199 mg/dLHigh Triglyceride: 200-499 mg/dLVery High Triglyceride: greater than or equal to 5OO mg/dL Cholesterol 280(H) <200 mg/dL [facility] Comment:Desirable Cholestero l: less than 200 mg/dLBorderline High Cholesterol: 200-239 mg/dLHigh Cholesterol: greater than 239 mg/dL LDL Cholesterol Calculated 182(H) <100 mg/dL [facility] Comment:Desirable LDL: less than 100 mg/dLNear Optimal/Above Optimal LDL: 110- 129 mg/dLBorderline High LDL: 130-159 mg/dLHigh LDL: 160-189 mg/dLVery High LDL: greater than or equal to 190 mg/dL HDL Cholesterol 83 >40 mg/dL [facility] Comment:Desirable HDL: great er than 40 mg/dL Note: This HDL assay may give artificially low results in patients with liver disease. 11/16/2024 9:34 AM EST 11/16/2024 9:34 AM EST us Generic External Data Provider LAB BLOOD ORDERAB LES Final Result Performing Organization Address City/[facility]/ZIP Co de Phone Number [facility] [address] [place] [phone] * (ABNORMAL) Basic Metabolic Panel (11/16/2024 9:34 AM EST) Sodium 141 135 - 145 mmol/L [facility] Potassium 4.2 3.3 - 5.1 mmol/L [facility] Chloride 107 96 - 108 mmol/L [facility] Carbon Dioxide 27 22 - 29 mmol/L [facility] Anion Gap 11(L) 12 - 20 [facility] Urea Nitrogen (BUN) 13 9 - 16 mg/dL [facility] Creatinine, Serum 0.69 0.5 - 1.4 mg/dL [facility] Estimated Glomerular Filt Rate >60 [facility] Comment:Chronic Kidney Disea se: Estimated GFR < 60 mL/min/1.78d1Rhkdad Kidney Disease: Estimated GFR < 15 mL/min/1.73m2 Glucose 82 60 - 115 mg/dL [facility] Calcium 10.3(H) 8.4 - 10.2 mg/dL [facility] 11/16/2024 9:34 AM EST 11/16/2024 9:34 AM EST Generic External Data Provider LAB BLOOD ORDERAB LES Final Result Performing Organization Address City/State/[facility] Co de Phone Number [facility] [address] [place] [phone] * (ABNORMAL) PAP/HPV (09/13/2023) Pap Negative for intraephithelial lesion or malignancy Negative for intraephithelial lesion or malignancy, Epithelial cell abnormality HPV Detected(A) Undetected, Indeterminate, Quantitative, Not Detected Historical Provider HEALTH MAINTENANCE Final Result * Mammography (05/03/2023) Mammogram NORMAL Anatomical Region Laterality Modality Other Historical Provider HEALTH MAINTENANCE Final Result from Last 3 Months or Most Recently Relevant to Health Maintenance Insurance [employer] Care Teams Torpedoman'S Mate Relationship Specialty Start Date End Date Carina Munoz ANP [address] [place] [phone] PCP - General Family Medicine 07/15/21
--- OUTSIDE RECORDS SUMMARY | 2025-01-03 17:24 | XMS_ITS | Encounter Summary ---
Author Organization [facility] Address [address] [place] [address] [address] [address] Care Team Providers Care Personnel And Payroll Technician Name Role Phone Carina Munoz Primary Care Provider [phone] Encounter Details Date Type Department Care Team (Late st Contact Info) Description 09/22/2022 [facility] Only [place] [facility] [address] [place] [address] Kristen Brown CNM [address] [place] [address] Social History Tobacco Use Types Packs/Day Years [...] Description 02/22/2025 1:30 PM EDT Office Visit [facility] [address] [place] [address] GiovannyYari gardner, OD [address] [place] [address] documented as of this encounter Visit Diagnoses Not on filedocumented in this encounter Care Teams Personnel And Payroll Technician Relationship Specialty Start Date End Date Carina Munoz ANP [address] [place] [address] PCP - General Family Medicine 07/15/21 documented as of this encounter
--- OUTSIDE RECORDS SUMMARY | 2025-01-03 17:24 | XMS_ITS | Encounter Summary ---
Author Organization [facility] Address [address] [place] [address] 7 [place] [address] Care Team Providers Care Head Of Digital Advertising & Integration Name Role Phone Carina Munoz Primary Care Provider [phone] Reason for Visit * Reason Onset Date Comments Med Refill 02/14/2023 Encounter Details Date Type Department Care Team ([facility] st Contact Info) Description 02/14/[address] [facility] MEDICINE [address] [place], [place] [phone] Carina Munoz ANP [address] [place] [address] Med Refill Social History Tobacco Use Types [...] 02/14/2023 2:40 PM EDT Med sent to [email or web address] pharmacy today. * Telephone Encounter - Gee Barbour - 02/14/2023 2:30 PM EDT Tc from [facility] with [facility] requesting a 90 day supply on fluticasone (Flonase Allergy Relief) 50 MCG/ACT nasal spray [id number] [place], [place] - [address], [address] documented in this encounter Plan of Treatment Upcoming Encounters Date Type Department Care Team (Late st Contact Info) Description 02/22/2025 1:30 PM EDT Office Visit [facility] OPTOMETRY [address] [place] [address] Yari Baltazar, OD [address] [place] [address] documented as of this encounter Visit Diagnoses Not on filedocumented in this encounter Care Teams Head Of Digital Advertising & Integration Relationship Specialty Start Date End Date Carina Munoz ANP [address] [place] [address] PCP - General Family Medicine 07/15/21 documented as of this encounter
--- OUTSIDE RECORDS SUMMARY | 2025-01-03 17:24 | XMS_ITS | Encounter Summary ---
Author Organization [facility] Address [address] [place] [address] 7 [place] [address] Care Team Providers Care Court Supervisor Name Role Phone Carina Munoz Primary Care Provider [phone] Reason for Visit * Reason Onset Date Comments Med Refill 08/27/2024 Encounter Details Date Type Department Care Team ([facility] st Contact Info) Description 08/27/2024 Refill [facility] MEDICINE [address] [place], [place] [phone] Carina Munoz ANP [address] [place] [address] Muscle spasm of back Social History Tobacco [...] 1:30 PM EDT Office Visit [facility] OPTOMETRY [address] [place] [address] Yari Baltazar, OD [address] [place] [address] documented as of this encounter Visit Diagnoses Diagnosis Muscle spasm of back documented in this encounter Additional Health Concerns Assessment Noted Time PHQ-9 Depression Total Score: 0 09/29/20 23 9:47 AM EST documented as of this encounter Care Teams Court Supervisor Relationship Specialty Start Date End Date Carina Munoz ANP [address] [place] [address] PCP - General Family Medicine 07/15/21 documented as of this encounter
== END 2025-01-03 14:57 | disposition home or self-care (01) ==
LOC: HO.NEURO 14:56
PROVIDERS: PCP Nurse Practitioner Primary Care; Visit Provider Nurse Practitioner Primary Care
DX: R20.0 Anesthesia of skin (principal); R20.2 Paresthesia of skin
CPT/HCPCS: 95886; 95913

== ENCOUNTER → 2025-01-03 14:59 | Outpatient (BNV) | payer MEDICAID, SELFPAY | PROVIDERS: PCP Nurse Practitioner Primary Care; Visit Provider Physical Medicine & Rehabilitation | DX: R20.0 Anesthesia of skin (principal); R20.2 Paresthesia of skin | CPT/HCPCS: 95886; 95913 ==

== ENCOUNTER 2025-02-22 09:15 | Outpatient (AMB) | payer MEDICAID, SELFPAY ==
--- NOTE | 2025-02-22 09:17 | A.OFFVIS_ITS ---
VS Expanded 02/22/25 09:22 BP 121/56 L Blood Pressure Location Rt brachial Blood Pressure Position Sitting Pulse 97 Pulse Oximetry 99 Body Fat % 39.8 Body Fat Mass 70.2 Fat Free Mass 106.2 Visceral Fat Rating 8.0 Body Water % 43.1 Body Water Mass 76.0 Muscle Mass/Score 101.0 Basal Metabolic Rate/Score 1,480 Intake Visit Reasons: (OV) PO LSG 04/27/23 Risk Control Specialist Required: Yes Risk Control Specialist Services: Risk Control Specialist Present Risk Control Specialist Name: hospital cmi Allergies No Known Allergies Allergy (Verified 02/22/25 09:24) Medication List - Last Reconciled 02/22/25 by PAULA Casas albuterol sulfate 0.63 mg inhalation Q6H PRN bisacodyl (Dulcolax (bisacodyl)) 10 mg WA DAILY PRN calcium citrate-vitamin D3 315 mg-5 mcg (200 unit) 1 tab PO BID docusate sodium 100 mg PO BID 90 days doxepin 10 mg PO BEDTIME fluticasone furoate 100 mcg/actuation (Arnuity Ellipta) 1 inh inhalation DAILY fluticasone propionate 50 mcg/actuation 1 spray intranasal BID hydroxyzine HCl 25 mg PO BID PRN lamotrigine 150 mg PO DAILY levonorgestrel intrauterine montelukast (Singulair) 10 mg PO BEDTIME sennosides (senna) 17.2 mg (2 x 8.6 mg) PO BEDTIME PRN HPI Comments Details: This?a?39?yo female who is s/p LSG without hiatal hernia repair on?04/27/[address] Bell. Presents for 1 year 10 month post op visit. Weight today is 176.4 pounds, with a BMI of 32.3. There has been a 42.2 pound weight loss,(initial weight 218.6 pounds) since starting the program on 11/12/22 reflecting a 19.3% total body weight loss and a weight loss of 10.1 pounds since surgery (operative weight 186.5 pounds) reflecting a 5.4% TBWL since surgery. She last seen in the office approximately 2 months ago. At that time, she wanted to change to a different protein powder. Recommendation was for Orgain. She states that since last being seen, she has had increased anxiety causing increased snacking and eating. She has transferred to a new behavioral health therapist and is working with them. She is not using the Orgain protein powder and has not communicated. She is using a powder and sometimes a RTD in the morning. Using 2 scoops and eating lunch, then candy. meal plan includes: orgain protein powder Two scoops with 8 oz of unsweetened almond milk at 8-10 am, 12-2 pm And a meal at 5 pm with 6 forks of protein and 6 forks of vegetables. Drinkin oz daily of water previous exercise routine includes: PF, treadmill, 4 days per week 45 min, PFSH Medical History Arthritis Anemia Gastritis GERD (gastroesophageal reflux disease) Hiatal hernia Depression Elevated cholesterol Hiatal hernia Delivery with history of Migraine Asthma Surgical History S/P laparoscopic sleeve gastrectomy (04/27/23) Hx of tubal ligation Hx of section Family History Mother Hypertension Arthritis Son Hyperactive Daughter No problems noted. Son No problems noted. Social History Household Members: Family Housing: House Are you a primary career development counselor to a significant other at home: Yes Do you presently have visiting nurse or other home services: No Alcohol intake: current Alcohol intake frequency: holidays/special occasions only Patient Tobacco Use Status: Never used Tobacco Current occupational status: employed Current occupation: [employer]/ rt hand Physical Exam Const General: healthy appearing and no acute distress Resp Effort & Inspection: normal respiratory effort Auscultation: clear to auscultation bilaterally Cardio Rate: regular rate Rhythm: regular rhythm GI Auscultation: normal bowel sounds Extrem General: Yes normal to inspection Assessment & Plan Assessment & Plan (1) S/P laparoscopic sleeve gastrectomy: Onset Date: 04/27/23 Comment: Deepak Bell MD Code(s): Z98.84 - Bariatric surgery status Category: Surgical Plan: Overall, patient is not doing well at this time, she has had increased anxiety and as a result has been eating candy and cake at night. She has been reaching out to her behavioral health specialist and we will follow up with them. Discussed the importance of following the meal plan exactly. Drinking her shakes over 2 hours each and following her dinner at night. She additionally has not been exercising. Encouraged to return to the gym and utilize treadmill with a goal of burning 300 calories per day. We will have her return to the office in April for her 2 year follow-up appointment. We will check labs at that time. Additionally, encouraged to communicate weekly which she has not been doing.
[2025-02-22 09:22] VITALS: BP 121/56; PULSE 97; O2SAT 99
--- OUTSIDE RECORDS SUMMARY | 2025-02-22 09:30 | XMS_ITS | Clinical Summary ---
Author Organization [facility] Address [address] [place] [address] Phone Care Team Providers Care Rand Tacker Name Role Phone Carina Munoz NP Primary Care Provider [phone] Allergies No known active allergies Medications hydrocortisone [...] by intrauterine route. 0 08/28/20 25 Active aspirin-acetami nophen-caffeine (EXCEDRIN MIGRAINE) 250-250-65 mg per tablet Take [...] TIMES DAILY FOR 7 DAYS 4 Active Active Problems Problem Noted Date Diagnosed Date History of suicidal tendencies 07/09/2024 Hepatic steatosis 09/14/2021 Overview (07/09/2024): Mild - seen on CT abdomen and pelvis at [facility] 09/08/21 Diverticulitis 09/14/2021 Overview (07/09/2024): CT abdomen and pelvis 09/08/21 at [facility]: findings suspicious for early/mild descending diverticulitis. No abscess formation or free air. Uterine fibroid 09/14/2021 Overview (07/09/2024): Seen on US at [facility] 09/08/21 Colon polyp 08/16/2020 Overview (07/09/2024): [place] done 06/2020 for GIB, anemia Asthma, moderate [...] visit in 3 months. Severe obesity (BMI 35.0-39. 9) with comorbidity ([facility] V24, [facility] V28) 06/06/2019 Bipolar disorder ([facility] V24, [facility] V28) 10/17 Overview (07/09/2024): F/u Lela Atypical squamous cell [...] disease) DX:GERD (gastroesophageal reflux disease) Bipolar disorder (CMS/HCC V2 4, CMS/HCC V28) 10/27/2018 DX:Bipolar disorder (HCC); C OMMENT: F/u Lela History of suicidal tendencies 10/27/2018 D X:History of suicidal tendencies; COMMENT: Three attempts Asthma, moderate persistent 03/03/2020 DX:A sthma, moderate persistent Uterine fibroid 09/14/2021 DX:Uterine fibro id; COMMENT: Seen on US at [facility] 09/08/21 Hepatic steatosis 09/14/2021 DX:Hepatic ezio atosis; COMMENT: Mild - seen on CT abdomen and pelvis at [facility] 09/08/21 Family History Medical History Relation [...] PM EDT Office Visit [facility]stetrics and Gynecology [address] [address] Sushma Stanley MD [address] [place], [place] Health Maintenance Due Date Last Done [...] 2024 08/17/2023, 07/28/2022, 07/31/2021, Additional history exists Depression Screening 09/29/2024 09/29/2023 Influenza Vaccine (Season Ended) 2025 08/17/2023, 07/28/2022, 07/15/2021, Additional history exists Colorectal Cancer Screening: Colonoscopy 06/24/2025 Cervical Cancer [...] age to complete this topic Meningococcal B Vaccine Aged Out No l onger eligible based on patient's age to complete [...] Results * Cervical Cancer Screening: HPV (09/29/2023) [facility] Cervical Cancer Screening: HPV negative abstracted Historical Provider HEALTH MAINTENANCE Final Result * Lipid panel (12/03/2022) [facility] LDL/HDL Ratio 0 <=0 Comment:No interpretation Triglycerides 0 <=0 mg/dL Comment:No interpretation Cholesterol 0 <=0 mg/dL Comment:No interpretation HDL 0 <=0 mg/dL Comment:No interpretation LDL Cholesterol 0 <=0 mg/dL Comment:No interpretation Blood Venous blood specimen / Unknown Historical Provider LAB BLOOD ORDERABLES Liz l Result * HIV Screening (08/03/2021) [facility] HIV Screening abstracted Historical Provider HEALTH MAINTENANCE Final Result * Hepatitis C Screening (01/24/2018) [facility] Hepatitis C Screening abstracted Historical Provider HEALTH [...] breastultrasound. BI-RADS Category 1, negative. Kerri MITCHELL IMG BI PROCEDURES Final Resul t from Last 3 Months or Most Recently Relevant to Health Maintenance Insurance MEDICAID - [place] Care Teams Rand Tacker Relationship Specialty Start Date End Date Carina Munoz NP [address] [place] [phone] PCP - General 09/27/22
== END 2025-02-22 09:49 | disposition home or self-care (01) ==
LOC: HO.HBS 09:16
PROVIDERS: PCP Nurse Practitioner Primary Care; Visit Provider Physician Assistant Surgical
DX: E66.9 Obesity, unspecified (principal); Z68.32 Body mass index [BMI] 32.0-32.9, adult; Z98.84 Bariatric surgery status
CPT/HCPCS: 99213

== ENCOUNTER → 2025-02-22 09:15 | Outpatient (BNVA) | payer MEDICAID, SELFPAY | PROVIDERS: PCP Nurse Practitioner Primary Care; Visit Provider Physician Assistant Surgical | DX: Z98.84 Bariatric surgery status (principal) | CPT/HCPCS: 99212 ==

== ENCOUNTER 2025-04-16 09:30 | Outpatient (REF) | payer MEDICAID, SELFPAY ==
--- OUTSIDE RECORDS SUMMARY | 2025-04-16 10:12 | XMS_ITS | Clinical Summary ---
Author Organization [facility] Address [address] [place] [address] Phone Care Team Providers Care Dealer Sales Rep Name Role Phone Carina Munoz NP Primary Care Provider [phone] Allergies No known active allergies Medications hydrocortisone [...] ED 09/08/21 Colon polyp 08/16/2020 Overview (07/09/2024): [place] done 06/2020 for GIB, anemia Asthma, moderate [...] Severe obesity (BMI 35.0-39. 9) with comorbidity ([facility] V24, [facility] V28) 06/06/2019 Bipolar disorder ([facility] V24, [facility] V28) 10/17 Overview (07/09/2024): F/u Lela Atypical [...] Care Team (Late st Contact Info) Description 05/16/2025 1:00 PM EDT Office Visit Obstetrics and Gynecology [address] [address] Doretha Love PA [address] [place] [address] Health Maintenance Due Date Last Done Comments Hepatitis B Vaccines (1 of 3 - 19+ 3-dose series) 2003 Pneumococcal Vaccine: Pediatrics (0 to 5 Years) and At-Risk Patients (6 to 64 Years) (1 of 2 - PCV) 2003 Breast Cancer Screening 12/09/2019 12/09/2017 Social Influencers of Health Screening 09/25/2022 COVID-19 Vaccine ( season) 2024 08/17/2023, 07/28/2022, 07/31/2021, Additional history exists Depression Screening 09/29/2024 09/29/2023 Influenza Vaccine (#1) 2025 , 07/28/2022, 07/15/2021, Additional history exists Colorectal Cancer [...] on patient's age to complete this topic Hepatitis A Vaccines Aged Out No long er eligible based on patient's age to complete [...] Results * Cervical Cancer Screening: HPV (09/29/2023) [facility] Cervical Cancer Screening: HPV negative abstracted [facility] Provider HEALTH MAINTENANCE Final Result * Lipid panel (12/03/2022) [facility] LDL/HDL Ratio 0 <=0 Comment:No interpretation Triglycerides 0 <=0 mg/dL Comment:No interpretation Cholesterol 0 <=0 mg/dL Comment:No interpretation HDL 0 <=0 mg/dL Comment:No interpretation LDL Cholesterol 0 <=0 mg/dL Comment:No interpretation Blood Venous blood specimen / Unknown Historical Provider LAB BLOOD ORDERABLES Liz l Result * HIV Screening (08/03/2021) [facility] HIV Screening abstracted Historical Provider HEALTH MAINTENANCE Final Result * Hepatitis C Screening (01/24/2018) [facility] Hepatitis C Screening abstracted Historical Provider [...] digital mammography was reviewed with computer-aided detection. The breasts consist of a mixture of fatty and fibroglandular tissue. There are no significant asymmetries. There are no suspicious masses or microcalcifications. Ultrasound evaluation was performed in the area indicated by the patient as symptomatic. The area indicated is centered at 9:00 in the right breast extending into the far lateral and inferior aspect of the upper outer quadrant and superior aspect of the lower outer quadrant. The breast architecture is sonographically normal. There is no evidence of cyst, nodule or [...] Maintenance Insurance MEDICAID - [place] Care Teams Dealer Sales Rep Relationship Specialty Start Date End Date Carina Munoz NP [address] [place] [phone] PCP - General 09/27/22
--- OUTSIDE RECORDS SUMMARY | 2025-04-16 10:12 | XMS_ITS | Clinical Summary ---
Author Organization [facility] Address [address] [place] [address] Care Team Providers Care Crystal Lapper Name Role Phone Unavailable Primary Care Provider Unavailabl e Source Comments PLEASE NOTE, if this patient is a minor, it may be UNLAWFUL to discuss sensitive information that is contained in these records (such as FAMILY PLANNING, MENTAL HEALTH or SUBSTANCE ABUSE) with the minor patient's parent or other person without the patient's specific authorization.[facility] Social History Tobacco Use Types Packs/Day Years Used Date Smoking Tobacco: Never Assessed Comments Unknown Sex and Gender Information Value Date Recorded Sex Assigned at Female 04/08/2025 9:45 AM PDT Legal Sex Female 9:45 AM PDT Gender Identity Female 04/08/2025 9:45 AM PDT Sexual Orientation Not on file Plan of Treatment Upcoming Encounters Date Type Department Care Team (Late st Contact Info) Description 05/28/2025 9:00 AM EDT Behavioral Health Visit [facility] [address] [place] [address] [place] ALBERTO [phone] Jin Roper, HNP [address] [place] [address] GL[place] Alberto [id number] Health Maintenance Due Date Last Done Comments Anxiety Screening 1984 Diabetes Screening 1984 HPV Screening 1984 Pap + HPV 1984 Tobacco Screening 1984 Relationship Safety Screening/Counseling 1999 Hypertension Screening (#1) 2002 Imm-Hepatitis B (1 of 3 - 19 + 3-dose series) 2003 Cervical Cancer Screening 2005 Pap Smear 2005 Alcohol and Drug Screen 10/17/2024 Depression Annual Screen 10/17/2024 Breast Cancer Screening (Mammogram) 2024 Imm-DTaP/Tdap/Td (2 - Td or Tdap) 10/27/2028 019 Lipid Screening 11/16/2029 11/16/2024 [id number] Completed 11/08/2024, 10/2022, 07/28/2022, Additional history exists Imm-Influenza Completed 11/08/2024, 10/2022, 07/28/2022, Additional history exists HIV Screening Completed 11/16/2024, 11/16/2024 Hepatitis C Screening Completed 11/16/2024 Cervical Ablation/Cold-Knife Conization Discontinued Cervical Cryotherapy Discontinued Colposcopy Discontinued Endometrial Biopsy Discontinued Excision/Leep Discontinued HPV Genotyping Discontinued Vaginal Pap Discontinued Vulvoscopy Discontinued Insurance [facility]
--- OUTSIDE RECORDS SUMMARY | 2025-04-16 10:12 | XMS_ITS | Encounter Summary ---
Author Organization [employer] Address [address] [place] [address] [address] [place] [address] Care Team Providers Care Die Fitter Name Role Phone Carina Munoz Primary Care Provider [phone] Encounter Details Date Type Department Care Team ([facility] st Contact Info) Description 09/22/2022 Orders Only [place] [address] [place] [address] Kristen Brown CNM [address] [place] [address] Social History Tobacco Use Types Packs/Day Years [...] on filedocumented in this encounter Care Teams Die Fitter Relationship Specialty Start Date End Date Carina Munoz ANP [address] [place] [address] PCP - General Family Medicine 07/15/21 documented as of this encounter
[2025-04-16 11:25] LABS: Cannabinoid Screen Urine Not Detected (Not Detect)
[2025-04-16 11:53] LABS: Hematocrit 39.6 % (37.0-47.0); Hemoglobin 12.8 g/dl (12.0-16.0)
[2025-04-16 12:34] LABS: Anion Gap 10 (12-20); Blood Urea Nitrogen 9 mg/dL (9-16); Calcium 9.0 mg/dL (8.4-10.2); Carbon Dioxide 25 mmol/L (22-29); Chloride 109 mmol/L (96-108); Estimated Glomerular Filt Rate > 60; Potassium 4.3 mmol/L (3.3-5.1); Sodium 140 mmol/L (135-145)
[2025-04-16 12:48] LABS: Vitamin B12 477 pg/mL (200-900)
[2025-04-17 17:54] LABS: Lyme Abs Screen <0.90 index
[2025-04-22 00:59] LABS: TS Negative Control Passed; TS Panel A 0; TS Panel B 1; TS Positive Control Passed; TSpotTB Negative (Negative)
== END 2025-04-16 09:31 | disposition home or self-care (01) ==
LOC: HO.HHCL 09:30
PROVIDERS: Registered Nurse; PCP Nurse Practitioner Primary Care; Visit Provider Nurse Practitioner Primary Care
DX: F43.10 Post-traumatic stress disorder, unspecified (principal); R20.0 Anesthesia of skin; R20.2 Paresthesia of skin; E61.1 Iron deficiency; Z02.89 Encounter for other administrative examinations
CPT/HCPCS: 36415; 80048; 80307; 82607; 84443; 85014; 85018; 86481; 86617; 86618

== ENCOUNTER 2025-05-08 09:59 | Outpatient (AMB) | payer MEDICAID, SELFPAY ==
--- NOTE | 2025-05-08 10:18 | A.OFFVIS_ITS ---
VS Expanded 05/08/25 10:45 BP 102/70 Blood Pressure Location Rt brachial Blood Pressure Position Sitting Pulse 94 Pulse Source Pulse Oximeter Temp 97.3 F Temperature Source Temporal Artery Scan Pulse Oximetry 100 Oxygen Delivery Method Room Air Height 5 ft 2 in Weight 180 lb 12.8 oz BMI 33.1 Body Fat % 41.5 Body Fat Mass 75.0 Fat Free Mass 105.8 Visceral Fat Rating 9.0 Body Water % 41.8 Body Water Mass 75.6 Muscle Mass/Score 100.6 Basal Metabolic Rate/Score 1,483 Intake Visit Reasons: (OV) PO LSG 04/27/23 Insurance Claim Approver Required: Yes Insurance Claim Approver Services: Insurance Claim Approver Present Insurance Claim Approver Name: hospital cmi Allergies No Known Allergies Allergy (Verified 02/22/25 09:24) Medication List - Last Reconciled 05/08/25 by PAULA Casas albuterol sulfate 0.63 mg inhalation Q6H PRN bisacodyl (Dulcolax (bisacodyl)) 10 mg OK DAILY PRN calcium citrate-vitamin D3 315 mg-5 mcg (200 unit) 1 tab PO BID docusate sodium 100 mg PO BID 90 days doxepin 10 mg PO BEDTIME fluticasone furoate 100 mcg/actuation (Arnuity Ellipta) 1 inh inhalation DAILY fluticasone propionate 50 mcg/actuation 1 spray intranasal BID hydroxyzine HCl 25 mg PO BID PRN lamotrigine 150 mg PO DAILY levonorgestrel intrauterine montelukast (Singulair) 10 mg PO BEDTIME sennosides (senna) 17.2 mg (2 x 8.6 mg) PO BEDTIME PRN HPI Comments Details: This?a?39?yo female who is s/p LSG without hiatal hernia repair on?04/27/[address] Bell. Presents for 2 year post op visit. Weight today is 180.8 pounds, with a BMI of 33.1. There has been a 37.8 pound weight loss,(initial weight 218.6 pounds) since starting the program on 11/12/22 reflecting a 17.2% total body idania ght loss and a weight loss of 5.7 pounds since surgery (operative weight 186.5 pounds) reflecting a 3% TBWL since surgery. No longer taking MVI She last seen in the office approximately 2 months ago. At that time, she wanted to change to a different protein powder. Recommendation was for Orgain. She states that since last being seen, she felt as though the protein shake was too sweet. As a result she has not followed a meal plan in 2 months. She states she is having increased anxiety and eating candy and chocolate. She is seeing therapist 2 x per month. She was referred to a new psychiatrist and is scheduled for next month She states that she will return to using the ensure max protein shake. She will text me if she does not like it. meal plan includes: orgain protein powder Two scoops with 8 oz of unsweetened almond milk at 8-10 am, 12-2 pm And a meal at 5 pm with 6 forks of protein and 6 forks of vegetables. Drinkin oz daily of water exercise routine includes: 3 x per week at the gym, PF, treadmill, 200 calories burned Any post op complications: none BRADLY: never DM: never HTN: never Hyperlipidemia: resolved GERD:?0-5 scale ??0 = no symptoms ??1 = symptoms noticeable but not bothersome 2 =symptoms bothersome but not daily ? 3 = symptoms bothersome and daily 4 = symptoms affect daily activities 5 = symptoms are incapacitating, unable to do daily activities ? How bad is the heartburn: 0 ? Heartburn while lying down: 0 ? Heartburn when standing up: 0 ? Heartburn after meals: 0 ? Does heartburn change your diet: 0 ? Does heartburn wake you up from sleep: 0 ? Do you have difficulty swallowin ? Do you have pain with swallowin ? If you take medicine for your reflux, does this affect your daily life: 0 Satisfaction with present condition - satisfied or not satisfied: dissatisfied [facility] Medical History Arthritis Anemia Gastritis GERD (gastroesophageal reflux disease) Hiatal hernia Depression Elevated cholesterol Hiatal hernia Delivery with history of Migraine Asthma Surgical History S/P laparoscopic sleeve gastrectomy (04/27/23) Hx of tubal ligation Hx of section Family History Mother Hypertension Arthritis Son Hyperactive Daughter No problems noted. Son No problems noted. 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 Physical Exam Const General: cooperative and no acute distress Orientation/consciousness: patient oriented x3 Resp Effort & Inspection: normal respiratory effort Auscultation: clear to auscultation bilaterally Cardio Rate: regular rate Rhythm: regular rhythm GI Inspection: Yes normal to inspection and Yes incision (well healed) Palpation (GI): Soft to palpation and no masses Neuro General: patient oriented x3 Assessment & Plan Assessment & Plan (1) S/P laparoscopic sleeve gastrectomy: Onset Date: 04/27/23 Comment: Deepak Bell MD Code(s): Z98.84 - Bariatric surgery status Category: Surgical Plan: Check 2 year follow-up labs Change meal plan: Using [employer] max ready to drink shake per her request 8 oz at 8-10, 12-2 meal at 5 with 6 forks protein and 6 forks veg Discussed the importance of exercise. She will go to the gym daily, goal of burning 400 calories per day. Return to the office 1 month Orders: Orders Insulin Today E78.00 - Pure hypercholesterolemia, unspecified, K76.0 - Fatty (change of) liver, not elsewhere classified, Z98.84 - Bariatric surgery status Hemoglobin A1c Today E78.00 - Pure hypercholesterolemia, unspecified, K76.0 - Fatty (change of) liver, not elsewhere classified, Z98.84 - Bariatric surgery status Complete Blood Count Auto Diff Today E78.00 - Pure hypercholesterolemia, unspecified, K76.0 - Fatty (change of) liver, not elsewhere classified, Z98.84 - Bariatric surgery status IRON PROFILE Today E78.00 - Pure hypercholesterolemia, unspecified, K76.0 - Fatty (change of) liver, not elsewhere classified, Z98.84 - Bariatric surgery status Vitamin B12 and Folate Today E78.00 - Pure hypercholesterolemia, unspecified, K76.0 - Fatty (change of) liver, not elsewhere classified, Z98.84 - Bariatric surgery status Vitamin B1 Today E78.00 - Pure hypercholesterolemia, unspecified, K76.0 - Fatty (change of) liver, not elsewhere classified, Z98.84 - Bariatric surgery status Vitamin D 25-OH Total Today E78.00 - Pure hypercholesterolemia, unspecified, K76.0 - Fatty (change of) liver, not elsewhere classified, Z98.84 - Bariatric surgery status Lipid Panel Today E78.00 - Pure hypercholesterolemia, unspecified, K76.0 - Fatty (change of) liver, not elsewhere classified, Z98.84 - Bariatric surgery status Comprehensive Met. Panel Today E78.00 - Pure hypercholesterolemia, unspecified, K76.0 - Fatty (change of) liver, not elsewhere classified, Z98.84 - Bariatric surgery status Zinc Today E78.00 - Pure hypercholesterolemia, unspecified, K76.0 - Fatty (change of) liver, not elsewhere classified, Z98.84 - Bariatric surgery status C Reactive Protein Today E78.00 - Pure hypercholesterolemia, unspecified, K76.0 - Fatty (change of) liver, not elsewhere classified, Z98.84 - Bariatric surgery status Vitamin A Today E78.00 - Pure hypercholesterolemia, unspecified, K76.0 - Fatty (change of) liver, not elsewhere classified, Z98.84 - Bariatric surgery status TSH reflex Free T4 Today E78.00 - Pure hypercholesterolemia, unspecified, K76.0 - Fatty (change of) liver, not elsewhere classified, Z98.84 - Bariatric surgery status Ferritin Today E78.00 - Pure hypercholesterolemia, unspecified, K76.0 - Fatty (change of) liver, not elsewhere classified, Z98.84 - Bariatric surgery status Medications: Refilled calcium citrate-vitamin D3 315 mg-5 mcg (200 unit) 1 tab PO BID 180 tabs 3RF
[2025-05-08 10:45] VITALS: BP 102/70; PULSE 94; TEMP 36.3; O2SAT 100; BMI 33.1
--- OUTSIDE RECORDS SUMMARY | 2025-05-08 10:49 | XMS_ITS | Clinical Summary ---
Author Organization [address] [facility] Address [address] [place] [address] Phone Care Team Providers Care Review Analyst Name Role Phone Carina Munoz NP Primary Care Provider [phone] Allergies No known active allergies Medications hydrocortisone [...] on CT abdomen and pelvis at [facility] 09/08/21 Diverticulitis 09/14/2021 Overview (07/09/2024): CT abdomen and pelvis 09/08/21 at [facility] ED: findings suspicious for early/mild descending diverticulitis. No abscess formation or free air. Uterine fibroid 09/14/2021 Overview (07/09/2024): Seen on US at [facility] 09/08/21 Colon polyp 08/16/2020 Overview (07/09/2024): [place] done 06/2020 for GIB, anemia Asthma, moderate persistent 03/03/2020 Menorrhagia with regular cycle 11/21/2019 Overview (07/09/2024): Last Assessment & Plan: I discussed other options for bleeding control with Luep, including Depo Provera, other oral progestins, and [...] Severe obesity (BMI 35.0-39. 9) with comorbidity ([facility] V24, [facility] V28) 06/06/2019 Bipolar disorder ([facility] V24, [facility] V28) 10/17 Overview (07/09/2024): F/u Lela Atypical [...] fibro id; COMMENT: Seen on US at [facility] 09/08/21 Hepatic steatosis 09/14/2021 DX:Hepatic ezio atosis; COMMENT: Mild - seen on CT abdomen and pelvis at [facility] 09/08/21 Family History Medical History Relation [...] PM EDT Office Visit Obstetrics and Gynecology [facility] [address] [place] [phone] Doretha Love PA [address] [place] [address] Health Maintenance Due Date Last Done Comments Hepatitis B Vaccines (1 of 3 - 19+ 3-dose series) 2003 Pneumococcal Vaccine: Pediatrics (0 to 5 Years) and At-Risk Patients (6 to 49 Years) (1 of 2 - PCV) 2003 Breast Cancer Screening 12/09/2019 12/09/2017 Social Influencers of Health Screening 09/25/2022 COVID-19 Vaccine ( season) 2024 08/17/2023, 07/28/2022, 07/31/2021, Additional history exists Depression Screening 10/17/2024 Influenza Vaccine (#1) 2025 , 07/28/2022, 07/15/2021, [...] Results * Cervical Cancer Screening: HPV (09/29/2023) [facility] Cervical Cancer Screening: HPV negative abstracted [facility] Provider HEALTH MAINTENANCE Final Result * Lipid panel (12/03/2022) [facility] LDL/HDL Ratio 0 <=0 Comment:No interpretation Triglycerides 0 <=0 mg/dL Comment:No interpretation Cholesterol 0 <=0 mg/dL Comment:No interpretation HDL 0 <=0 mg/dL Comment:No interpretation LDL Cholesterol 0 <=0 mg/dL Comment:No interpretation Blood Venous blood specimen / Unknown [facility] Provider LAB BLOOD ORDERABLES Liz l Result * HIV Screening (08/03/2021) [facility] HIV Screening abstracted [facility] Provider HEALTH MAINTENANCE Final Result * Hepatitis C Screening (01/24/2018) [facility] Hepatitis C Screening abstracted [facility] Provider HEALTH MAINTENANCE Final Result * DX [...] Maintenance Insurance MEDICAID - [place] Care Teams Review Analyst Relationship Specialty Start Date End Date Carina Munoz NP [address] [place] [phone] PCP - General 09/27/22
--- OUTSIDE RECORDS SUMMARY | 2025-05-08 10:49 | XMS_ITS | Clinical Summary ---
Author Organization [facility] Address [address] [place] [address] Care Team Providers Care Front End Web Designer Name Role Phone Unavailable Primary Care Provider [...] AM EDT Behavioral Health Visit [facility] [address] [place] [address] [place] [phone] Jin Roper, [address] [place] [phone] Health Maintenance Due Date Last Done Comments Anxiety Screening 1984 Diabetes Screening 1984 HPV Screening 1984 Pap + HPV 1984 Tobacco Screening 1984 Relationship Safety Screening/Counseling 1999 Hypertension Screening (#1) 2002 Imm-Hepatitis B (1 of 3 - 19 + 3-dose series) 2003 Cervical Cancer Screening 2005 Pap Smear 2005 Alcohol and Drug Screen 10/17/2024 Depression Annual Screen 10/17/2024 Breast Cancer Screening (Mammogram) 2024 Imm-Influenza (#1) 2025 11/08/2024, 1 10/17/2022, 07/28/2022, Additional history exists Imm-DTaP/Tdap/Td (2 - Td or Tdap) 10/27/2028 019 Lipid Screening 11/16/2029 11/16/2024 [id number] Completed 11/08/2024, 11/0 10/2022, 07/28/2022, Additional history exists HIV Screening Completed 11/16/2024, 11/16/2024 Hepatitis C Screening Completed 11/16/2024 Cervical Ablation/Cold-Knife Conization Discontinued Cervical Cryotherapy Discontinued Colposcopy Discontinued Endometrial Biopsy Discontinued Excision/Leep Discontinued HPV Genotyping Discontinued Vaginal Pap Discontinued Vulvoscopy Discontinued Insurance [facility]
--- OUTSIDE RECORDS SUMMARY | 2025-05-08 10:49 | XMS_ITS | Encounter Summary ---
Author Organization [employer] Address [address] [place] [address] [place] [address] Care Team Providers Care Copy Center Specialist Name Role Phone Carina Munoz Primary Care Provider [phone] Reason for Visit * Reason Onset Date Comments Med Refill 07/07/2023 Encounter Details Date Type Department Care Team (Late st Contact Info) Description 07/07/2023 Refill [facility] [address] [place] [phone] Sarah Nicholas MD [address] [place] [address] Social History Tobacco Use Types Packs/Day Years [...] Care Team (Late st Contact Info) Description 07/11/2025 10:00 AM EDT Office Visit [facility] [address] [place] [phone] Carina Munoz ANP [address] [place] [address] documented as of this encounter Visit Diagnoses Not on filedocumented in this encounter Care Teams Copy Center Specialist Relationship Specialty Start Date End Date Carina Munoz ANP [address] [place] [address] PCP - General Family Medicine 07/15/21 documented as of this encounter
== END 2025-05-08 11:07 | disposition home or self-care (01) ==
LOC: HO.HBS 10:00
PROVIDERS: PCP Nurse Practitioner Primary Care; Visit Provider Physician Assistant Surgical
DX: E66.9 Obesity, unspecified (principal); Z68.33 Body mass index [BMI] 33.0-33.9, adult; Z98.84 Bariatric surgery status; Z90.3 Acquired absence of stomach [part of]
CPT/HCPCS: 99214

== ENCOUNTER → 2025-05-08 09:59 | Outpatient (BNVA) | payer MEDICAID, SELFPAY | PROVIDERS: PCP Nurse Practitioner Primary Care; Visit Provider Physician Assistant Surgical | DX: Z98.84 Bariatric surgery status (principal) | CPT/HCPCS: 99212 ==

== ENCOUNTER 2025-06-06 08:55 | Outpatient (AMB) | payer MEDICAID, SELFPAY ==
--- NOTE | 2025-06-06 09:20 | A.OFFVIS_ITS ---
Vital Signs 06/06/25 09:23 Weight 180 lb BP 128/73 Blood Pressure Location Lt brachial Position Sitting Respiration 18 Pulse 80 Pulse Oximetry (%) 98 Oxygen Delivery Method Room Air Intake Visit Reasons: SACROILIAC JOINT PAIN Watch And Clock Repairer Required: Yes Watch And Clock Repairer Name: [id number] Allergies No Known Allergies Allergy (Verified 06/06/25 09:24) HPI Comments Details: Nicky is back in my office with a request to repeat therapeutic sacroiliac joint injection. She had the right sacroiliac joint injection and she reported 75% pain improvement after the procedure. She stated that she had full 5 month pain relief after the injection. She stated that mid January her pain was back. She reports that the pain now radiates down to the right lower extremity. I will schedule her for yet another therapeutic right sacroiliac joint injection. 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 very pleasant 38 years old Macanese-speaking female who presents in my office as a new patient after diagnostic sacroiliac joint injection on the left which was performed on 06/26/2024. She reported that she started to experience this pain 1 5 years ago. 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 She also reports falling twice she received those trauma and relates to this pain. 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 She had pelvis x-ray done at [facility] which demonstrated sacroiliac joint pathology. She had physical therapy 3 times last time about 10 months ago with little help however she continues exercise program. She never had chiropractic manipulations Never had acupuncture occupational therapy. [facility] Medical History Arthritis Anemia Gastritis GERD (gastroesophageal reflux disease) Hiatal hernia Depression Elevated cholesterol Hiatal hernia Delivery with history of Migraine Asthma Surgical History S/P laparoscopic sleeve gastrectomy (04/27/23) Hx of tubal ligation Hx of section Family History Mother Hypertension Arthritis Son Hyperactive Daughter No problems noted. Son No problems noted. 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 Review of Systems Const All systems reviewed & are unremarkable except as noted in HPI and below ENT Reports Normal hearing present Neuro Reports Normal hearing present, Denies Abnormal speech present, Denies confusion and Denies Sensory deficit (Neuro) Psych Denies confusion Physical Exam Vital Signs: Last Vital Signs Pulse 80 06/06/25 09:23 Resp 18 06/06/25 09:23 BP 128/73 06/06/25 09:23 Pulse Ox 98 06/06/25 09:23 Oxygen Delivery Method Room Air 06/06/25 09:23 Const General: no acute distress; No confusion Orientation/consciousness: patient oriented x3 and No confusion Eyes General: appearance normal, both eyes and all related structures Pupils: Equal, round and reactive pupils present EOM: EOMs intact bilaterally Neck Neck: Yes full ROM Chest Chest palpation & inspection: normal inspection of the chest Resp Effort & Inspection: normal respiratory effort, able to speak in complete sentences, normal respiratory pattern, no audible wheezes and no cough Cardio Jugular venous distension: no JVD GI Inspection: Yes normal to inspection Back/Spine/Pelvis Other: Marcos test pelvic compression test, pelvic distraction test are positive on t he left. SLR is negative bilaterally. Tenderness on palpation in projection of the sacral bone and sacroiliac joint on the left. Neuro General: patient oriented x3, gait normal and No confusion Cranial nerves: Yes CN's II-XII intact bilaterally, Yes Equal, round and reactive pupils present, Yes Normal hearing present and Yes Ability to bilaterally elevate shoulders present Speech: No Abnormal speech present Gait exam (Neuro): Normal gait present Motor exam (neuro): 5/5 motor strength present throughout Sensory Exam: No Sensory deficit (Neuro) Extrem General: No pedal edema Psych Speech and movement: Normal speech and movement present Affect: normal affect Attitude: cooperative Thought process: Normal thought process present Thought content: Normal thought content present Insight: Good insight present (Psych) Judgement: Good judgement present (Psych) Results Reviewed Results Reviewed: XR BILATERAL HIPS WITH AP PELVIS CLINICAL INFORMATION: Left lower quadrant pain, evaluate hip DJD. COMPARISON: Lumbar spine of 09/01/2023. TECHNIQUE: AP view of the pelvis and 2 views of each hip. FINDINGS: IUD in the pelvis. Mild degenerative changes in the imaged lower lumbar spine. Pubic symphysis is maintained. Bilateral hip alignment preserved. Mild degenerative changes in bilateral hips with mild joint space narrowing and lateral acetabular hypertrophic change. Mild degenerative changes in the bilateral sacroiliac joints. Assessment & Plan Assessment & Plan (1) Sacroiliac joint dysfunction of left side: Code(s): M53.3 - Sacrococcygeal disorders, not elsewhere classified Category: Medical (2) Left groin pain: Code(s): R10.32 - Left lower quadrant pain Category: Medical (3) Overweight: Code(s): E66.3 - Overweight Category: Medical (4) Sacroiliitis: Code(s): M46.1 - Sacroiliitis, not elsewhere classified Category: Medical (5) Chronic pain syndrome: Code(s): G89.4 - Chronic pain syndrome Category: Medical Plan This patient reported excellent results of the sacroiliac joint injection. By mid January her pain went back and now she feels her pain very severe with radiation into the right lower extremity. I will schedule her for yet another injection during which I again will decrease the dose of triamcinolone injected into her joint because she is prediabetic. Because of this situation we also discussed sacroiliac joint fusion and stabilization Melinda. Patient appeared to be interested however she has social circumstances which would prevent her from going for the procedure at this time. 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 I will schedule her for the injection and I will see her in 1 month after the procedure. Patient Instructions: interpreter Katerina [id number] from [employer] helped us to maintain this conversation today in Macanese. I here by testify that I spent 35 minutes in conversation with this patient. Coding Level of Care Code Est Pt Level 4 (87309) Diagnoses Sacroiliac joint dysfunction of left side M53.3 Left groin pain R10.32 Overweight E66.3 Sacroiliitis M46.1 Chronic pain syndrome G89.4
[2025-06-06 09:23] VITALS: BP 128/73; PULSE 80; RESP 18; O2SAT 98
--- OUTSIDE RECORDS SUMMARY | 2025-06-06 09:56 | XMS_ITS | Clinical Summary ---
Author Organization [address] [facility] Address [address] [place] [address] Phone Care Team Providers Care Software Quality Automation Engineer Name Role Phone Munoz Carina Hamilton NP Primary Care Provider [phone] Allergies No known active allergies Medications hydrocortisone [...] TIMES DAILY FOR 7 DAYS 4 Active Hospital, Clinic, or Other Facility Administered Medication Ordered Dose Route Frequency Start Date End Date Status levonorgestreL (MIRENA) 21 mcg/24hr (up to 8 yrs) 52 mg IUD 52 mgIndications:Encount er for removal and reinsertion of intrauterine contraceptive device (IUD) 52 mg utrn Once PRN Procedure 05/16/2025 05/16/2025 Ended Active Problems Problem Noted Date Diagnosed Date History of suicidal tendencies 07/09/2024 Hepatic steatosis 09/14/2021 Overview (07/09/2024): Mild - seen on CT abdomen and pelvis at [facility] ED 09/08/21 Diverticulitis 09/14/2021 Overview (07/09/2024): CT abdomen and pelvis 09/08/21 at [facility] ED: findings suspicious for early/mild descending diverticulitis. No abscess formation or free air. Uterine fibroid 09/14/2021 Overview (07/09/2024): Seen on US at [facility] ED 09/08/21 Colon polyp 08/16/2020 Overview (07/09/2024): [place] done 06/2020 for GIB, anemia Asthma, moderate [...] Severe obesity (BMI 35.0-39. 9) with comorbidity ([facility] V24, [facility] V28) 06/06/2019 Bipolar disorder ([facility] V24, [facility] V28) 10/17 Overview (07/09/2024): F/u Lela Atypical squamous cell beal es of undetermined significance (ASCUS) on cervical cytology with positive high risk human papilloma virus (HPV) 02/03/2018 Overview (07/09/2024): 01/24/2018 ASCUS HR HPV 03/01/2018 RAJANI 1 02/19/2021 ASCUS HR HPV 04/15/2021 Colpo benign Gastroesophageal reflux disease without esophagi tis 11/29/2017 Encounters Date Type Department Care Team Description 05/16/2025 1:00 PM EDT Office Visit Obstetrics and Gynecology [address] [address] Doretha Love PA Encntr for truss driver helper exam (general) (routine) w/o abn findings (Primary Dx); Encounter for screening mammogram for malignant neoplasm of breast; Encounter for breast cancer screening using non-mammogram modality; Menorrhagia with regular cycle; Encounter for removal and reinsertion of intrauterine contraceptive device (IUD); Cervical cancer screening from Last 3 Months Immunizations Name Administration [...] disease) DX:GERD (gastroesophageal reflux disease) Bipolar disorder ([facility] V2 4, [facility] V28) 10/27/2018 DX:Bipolar disorder ([facility]); C OMMENT: F/u Lela History of suicidal tendencies 10/27/2018 D X:History of suicidal tendencies; COMMENT: Three attempts Asthma, moderate persistent 03/03/2020 DX:A sthma, moderate persistent Uterine fibroid 09/14/2021 DX:Uterine fibro id; COMMENT: Seen on US at [facility] ED 09/08/21 Hepatic steatosis 09/14/2021 DX:Hepatic ezio atosis; COMMENT: Mild - seen on CT abdomen and pelvis at [facility] ED 09/08/21 Family History Medical History [...] = 0.6 oz pur e alcohol) Comments No Sex and Gender Information Value Date Recorded Sex Assigned at Female 05/21/2025 1:47 PM EDT Legal Sex Female 12:50 AM EST Gender Identity Female 05/21/2025 1:47 PM EDT Sexual Orientation Straight 05/21/2025 1: 47 PM EDT Obstetrics History Para Term AB IAB SAB Ectopic Multiple Livin g Live Births 2 2 2 2 2 Date Outcome GA Total Labor Labor/2nd/3rd Weight Sex Type Anes PTL Vanessa A1 A5 Name Clin Term CS-Un spec Living Term Vag-S pont Living Last Filed Vital Signs Vital Sign Reading Time Taken Comments Blood Pressure 103/73 05/16/2025 12:56 PM EDT Pulse 98 09/07/2024 12:59 PM EST Temperature - - Respiratory Rate - - Oxygen Saturation 99% 09/07/2024 12:59 PM EST Inhaled Oxygen Concentration - - Weight 76.7 kg (169 lb) 09/07/2024 12:59 PM EST Height 157.5 cm (5' 2 ) 05/16/2025 12:56 PM EDT Body Mass Index 30.91 09/07/2024 12:59 PM EST Plan of Treatment Upcoming Encounters Date Type Department Care Team (Late st Contact Info) Description 06/26/2025 1:00 PM EDT [facility]ointment [facility] [address] [address] Health Maintenance Due Date Last Done Comments Hepatitis B Vaccines (1 of 3 - 19+ 3-dose series) 2003 Pneumococcal Vaccine: Pediatrics (0 to 5 Years) and At-Risk Patients (6 to 49 Years) (1 of 2 - PCV) 2003 Breast Cancer Screening 12/09/2019 12/09/2017 Social Influencers of Health Screening 09/25/2022 Depression Screening 10/17/2024 Influenza Vaccine (#1) 2025 , 08/17/2023, 07/28/2022, Additional history exists Colorectal Cancer Screening: Colonoscopy 06/24/2025 DTaP,Tdap,and Td Vaccines (2 - Td or Tdap) 10/27/2028 10/27/2018 Cholesterol Screening (Lipid Panel) 11/16/2029 11/16/2024, 12/26/2023, 12/03/2022 Cervical Cancer Screening: HPV 05/16/2030 05/16/2025, 09/29/2023 HPV Vaccines Completed 01/27/2023, 09/16, 04/15/2021 COVID-19 Vaccine Completed 11/08/2024, 10/2022, 07/28/2022, Additional history exists HIV Screening Completed 11/16/2024, 10/18, 08/03/2021 Hepatitis C Screening Completed 11/16/2024 , 11/07/2023, 01/24/2018 HIB Vaccines Aged Out No longer eligi [...] Procedure Name Priority Date/Time Associated Diagnosis Comments CHLAMYDIA TRACHOMATIS AND NEISSERIA GONORRHOEAE BY TMA, THINPREP Routine 05/16/2025 2:27 PM EDT Cervical cancer screening PAP SMEAR Routine 05/16/2025 2:27 PM EDT Cervical cancer screening HPV WITH REFLEX GENOTYPE Routine 05/16/2025 2:27 PM EDT Cervical cancer screening TRICHOMONAS VAGINALIS PCR Routine 05/16/2025 2:27 PM EDT Cervical cancer screening CO INSERTION INTRAUTERINE DEVICE Routine 05/16/2025 1:33 PM EDT Encounter for removal and reinsertion of intrauterine contraceptive device (IUD) CO REMOVAL INTRAUTERINE DEVICE Routine 05/16/2025 1:33 PM EDT Encounter for removal and reinsertion of intrauterine contraceptive device (IUD) LIPID PANEL Routine 12/03/2022 HM HIV SCREENING Routine 08/03/2021 HM HEPATITIS C SCREENING Routine 01/24/2018 DX MAMMO INCL CAD BI Routine 12/09/2017 2:54 PM EST Mastodynia from Last 3 Months or Most Recently Relevant to Health Maintenance Results * Chlamydia trachomatis and neisseria gonorrhoeae by tma, thinprep (05/16/2025 2:27 PM EDT) N. gonorrhoeae, RNA Probe Negative Negative LAB MICROBIOLOGY METHOD 05/17/2025 1:17 PM EDT [facility] Chlamydia, RNA Probe Negative Negative LAB MICROBIOLOGY METHOD 05/17/2025 1:17 PM EDT [facility] Brushing/Spatula Cervix uteri structure / Unknown 05/16/2025 2:27 PM EDT 05/17/2025 6:36 AM EDT us Doretha MITCHELL LAB CYTOLOGY ORDERABLES Liz booth Result [facility] [address] [place] [address], [place] [phone] * HPV with reflex genotype (05/16/2025 2:27 PM EDT) HPV Negative Negative LAB MICROBIOLOGY METHOD 05/17/2025 4:42 PM EDT [facility] Brushing/Spatula Cervix uteri structure / Unknown 05/16/2025 2:27 PM EDT 05/17/2025 6:36 AM EDT us Doretha MITCHELL LAB MOLECULAR DIAGNOSTICS OR DERABLES Final Result Performing Organization Address City/[facility]/ZIP Co de Phone Number [facility] [address] [place] [address], [place] [phone] * Trichomonas vaginalis molecular study (05/16/2025 2:27 PM EDT) Trichomonas vaginalis Negative Negative LAB MICROBIOLOGY METHOD 05/17/2025 1:42 PM EDT [facility] Brushing/Spatula Cervix uteri structure / Unknown 05/16/2025 2:27 PM EDT 05/17/2025 6:36 AM EDT us Doretha MITCHELL LAB BLOOD ORDERABLES Final R esult [facility] [address] [place] [address], [place] [phone] * Pap smear (05/16/2025 2:27 PM EDT) Interpretation Negative for intraepithelial lesion or malignancy 05/21/2025 2:08 PM EDT [facility] General Categorization Negative 05/21/2025 2:08 PM EDT [facility] LMP 04/30/2024 05/21/2025 2:08 PM EDT [facility] Specimen Adequacy Satisfactory for evaluation, endocervical/finn sformation zone component present 05/21/2025 2:08 PM EDT [facility] Pap Methodology Liquid Based Pap Test 05/21/2025 2:08 PM EDT [facility] Disclaimer The Pap test is a screening test which carries an inherent false negative rate. These test results should be correlated with the patient's clinical findings and history. This Pap test was processed using an automated screening system. Technical cytopathology services provided by [facility], at [address] [place] [address] (CLIA # [id number]/aGbrielle Rees MD, Refrigeration Engineering Teacher.) 05/21/2025 2:08 PM EDT [facility] Console Pap Interpretation Reported 05/21/2025 2:08 PM EDT [facility] Brushing/Spatula Cervix uteri structure / Unknown 05/16/2025 2:27 PM EDT 05/16/2025 2:27 PM EDT us Doretha MITCHELL LAB CYTOLOGY ORDERABLES Liz l Result [facility] [address] [place] [address], * CO REMOVAL INTRAUTERINE DEVICE, CO INSERTION INTRAUTERINE DEVICE (05/16/2025 1:33 PM EDT) Doretha Barrios PA - 05/16/2025 1:33 PM EDT PAULA Rain 05/16/2025 1:35 PM IUD Removal with Reinsertion Date/Time: 05/16/2025 1:33 PM Performed by: PAULA Rain Authorized by: PAULA Rain Removal Procedure: Removal successful: yes Insertion Procedure: IUD type: Mirena IUD insertion successful: yes Medication Administration: 52 mg levonorgestreL 21 mcg/24hr (up to 8 yrs) 52 mg us Doretha MITCHELL IN CLINIC/BEDSIDE ORDERABLES Final Result * Lipid panel (12/03/2022) LDL/HDL Ratio 0 <=0 Comment:No interpretation Triglycerides 0 <=0 mg/dL Comment:No interpretation Cholesterol 0 <=0 mg/dL Comment:No interpretation HDL 0 <=0 mg/dL Comment:No interpretation LDL Cholesterol 0 <=0 mg/dL Comment:No interpretation Blood Venous blood specimen / Unknown Result [facility] Provider LAB BLOOD ORDERABLES Liz l Result * HIV Screening (08/03/2021) HIV Screening abstracted Result [facility] Provider HEALTH MAINTENANCE Final Result * Hepatitis C Screening (01/24/2018) Pathologist [facility] Hepatitis C Screening abstracted Result [facility] Provider HEALTH [facility] Final Result * DX MAMMO INCL CAD [...] BI-RADS Category 1, negative. Procedure Note Marcos Brenann MD - 11/21/2023 This is a summary [...] Maintenance Insurance MEDICAID - [place] Care Teams Software Quality Automation Engineer Relationship Specialty Start Date End Date Carina Munoz NP [address] [place] [phone] PCP - General 09/27/22
--- OUTSIDE RECORDS SUMMARY | 2025-06-06 09:56 | XMS_ITS | Encounter Summary ---
Author Organization [employer] Address [address] [place] [address] [place] [address] Care Team Providers Care Employment Coordinator Name Role Phone Carina Munoz Primary Care Provider [phone] Reason for Visit * Reason Onset Date Comments Med Refill 07/07/2023 Encounter Details Date Type Department Care Team (Late st Contact Info) Description 07/07/2023 Refill [facility] [address] [place] [phone] Sarah Nicholas MD [address] [place] [address] Social History Tobacco Use Types Packs/Day Years [...] Description 07/11/2025 10:00 AM EDT Office Visit [facility] [address] [place] [phone] Carina Munoz ANP [address] [place] [address] documented as of this encounter Visit Diagnoses Not on filedocumented in this encounter Care Teams Employment Coordinator Relationship Specialty Start Date End Date Carina Munoz ANP [address] [place] [address] PCP - General Family Medicine 07/15/21 documented as of this encounter
--- OUTSIDE RECORDS SUMMARY | 2025-06-06 09:56 | XMS_ITS | Clinical Summary ---
Author Organization [facility] Address [address] [place] [address] Care Team Providers Care Hide Splitter Name Role Phone Unavailable Primary Care Provider Unavailabl e Source Comments PLEASE NOTE, if this patient is a minor, it may be UNLAWFUL to discuss sensitive information that is contained in these records (such as FAMILY PLANNING, MENTAL HEALTH or SUBSTANCE ABUSE) with the minor patient's parent or other person without the patient's specific authorization.[facility] Encounters Date Type Department Care Team Description 05/28/2025 / TELEPHONE [facility] [address] [place] [address] [place] [phone] Jin Roper, TRENT from Last 3 Months Social History Tobacco Use Types Packs/Day Years Used Date Smoking Tobacco: Never Assessed Comments Unknown Sex and Gender Information Value Date Recorded Sex Assigned at Female 04/08/2025 9:45 AM PDT Legal Sex Female 9:45 AM PDT Gender Identity Female 04/08/2025 9:45 AM PDT Sexual Orientation Not on file Plan of Treatment Health Maintenance Due Date Last Done Comments Anxiety Screening 1984 HPV Screening 1984 Pap + HPV 1984 Tobacco Screening 1984 Relationship Safety Screening/Counseling 1999 Hypertension Screening (#1) 2002 Imm-Hepatitis B (1 of 3 - 19 + 3-dose series) 2003 Cervical Cancer Screening 2005 Pap Smear 2005 Alcohol and Drug Screen 10/17/2024 Depression Annual Screen 10/17/2024 Breast Cancer Screening (Mammogram) 2024 Imm-Influenza (#1) 2025 11/08/2024, 1 10/17/2022, 07/28/2022, Additional history exists Diabetes Screening 04/16/2028 04/16/2025, 0 11/16/2024, 12/26/2023, Additional history exists Imm-DTaP/Tdap/Td (2 - Td or Tdap) 10/27/2028 019 Lipid Screening 11/16/2029 11/16/2024, 12/03/2022 [id number] Completed 11/08/2024, 11/0 10/2022, 07/28/2022, Additional history exists HIV Screening Completed 11/16/2024, 10/19, 11/07/2023, Additional history exists Hepatitis C Screening Completed 11/16/2024 Cervical Ablation/Cold-Knife Conization Discontinued Cervical Cryotherapy Discontinued Colposcopy Discontinued Endometrial Biopsy Discontinued Excision/Leep Discontinued HPV Genotyping Discontinued Vaginal Pap Discontinued Vulvoscopy Discontinued Insurance [facility]
== END 2025-06-06 09:56 | disposition home or self-care (01) ==
LOC: HO.PMC 08:56
PROVIDERS: PCP Nurse Practitioner Primary Care; Visit Provider Anesthesiology
DX: M53.3 Sacrococcygeal disorders, not elsewhere classified (principal); R10.32 Left lower quadrant pain; E66.3 Overweight; M46.1 Sacroiliitis, not elsewhere classified; G89.4 Chronic pain syndrome
CPT/HCPCS: 99214

== ENCOUNTER → 2025-06-06 08:55 | Outpatient (BNVA) | payer MEDICAID, SELFPAY | PROVIDERS: PCP Nurse Practitioner Primary Care; Visit Provider Anesthesiology | DX: R10.32 Left lower quadrant pain (principal); M53.3 Sacrococcygeal disorders, not elsewhere classified; E66.3 Overweight; M46.1 Sacroiliitis, not elsewhere classified; G89.4 Chronic pain syndrome; R73.03 Prediabetes | CPT/HCPCS: 99212 ==

== ENCOUNTER 2025-06-18 06:07 | Outpatient (REF) | payer MEDICAID, SELFPAY ==
--- NOTE | ~2025-06-18 | FL_ITS ---
EXAMINATION: XR FLUOROSCOPY WITH IMAGES CLINICAL INFORMATION: Sacroiliitis; pain management injection. COMPARISON: None available. TECHNIQUE: Fluoroscopy provided to: Dr. Gomez Fluoroscopy time: 0.1 minutes DAP: 0.0230 mGycm2 Images: 1 FINDINGS: Solitary fluoroscopic spot image of the right SI joint taken during intra-articular injection for pain management. Please refer to the full operative report for details. FL/FL guidance in treatment room IMPRESSION: Fluoroscopic guidance. Electronically signed by: Jovany Rose MD 06/18/2025 12:37 PM EDT
--- OUTSIDE RECORDS SUMMARY | 2025-06-18 06:10 | XMS_ITS | Encounter Summary ---
Author Organization [employer] Address [address] [place] [address] [place] [address] Care Team Providers Care Side Laster Name Role Phone Carina Munoz Primary Care Provider [phone] Reason for Visit * Reason Onset Date Comments Med Refill 07/07/2023 Encounter Details Date Type Department Care Team (Late st Contact Info) Description 07/07/2023 Refill [facility] [address] [place] [phone] Sarah Nicholas MD [address] [place] [address] Social History Tobacco Use Types Packs/Day Years [...] Description 07/11/2025 10:00 AM EDT Office Visit [facility] [address] [place] [phone] Carina Munoz ANP [address] [place] [address] documented as of this encounter Visit Diagnoses Not on filedocumented in this encounter Care Teams Side Laster Relationship Specialty Start Date End Date Carina Munoz ANP [address] [place] [address] PCP - General Family Medicine 07/15/21 documented as of this encounter
--- OUTSIDE RECORDS SUMMARY | 2025-06-18 06:11 | XMS_ITS | Encounter Summary ---
Author Organization [employer] Address [address] [place] [address] [address] [place] [address] Care Team Providers Care Trial Lawyer Name Role Phone Carina Munoz Primary Care Provider [phone] Reason for Visit * Reason Onset Date Comments Med Refill 03/04/2025 Encounter Details Date Type Department Care Team ([facility] st Contact Info) Description 03/04/2025 Refill [facility] [address] [place], [place] [phone] Carina Munoz ANP [address] [place] [address] Social History Tobacco Use Types Packs/Day Years [...] Description 07/11/2025 10:00 AM EDT Office Visit [facility] [address] [place] [address] Carina Munoz ANP [address] [place] [address] documented as of this encounter Visit Diagnoses Not on filedocumented in this encounter Additional Health Concerns Assessment Noted Time PHQ-9 Depression Total Score: 14 025 11:13 AM EST documented as of this encounter Care Teams Trial Lawyer Relationship Specialty Start Date End Date Carina Munoz ANP [address] [place] [phone] PCP - General Family Medicine 07/15/21 documented as of this encounter
--- OUTSIDE RECORDS SUMMARY | 2025-06-18 06:11 | XMS_ITS | Clinical Summary ---
Author Organization [employer] Address [address] [place] [address] 7t [place] [address] Care Team Providers Care Inclusion Paraeducator Name Role Phone Carina Munoz Primary Care Provider [phone] Allergies No known active allergies Medications * This document contains information received from the source organization and may not represent a complete record from that organization. lamoTRIgine (LaMICtal) 100 MG tablet Take 1 tablet by mouth 1 (one) time each day. psychiatry Active Levonorgestrel 20 MCG/DAY intrauterine device 1 each by Intrauterine route. 0 025 Active fluticasone (Flonase Allergy Relief) 50 MCG/ACT nasal sprayIndications :Moderate persistent asthma without complication Admin 1-2 sprays per nostril as needed for allergies up to once daily 48 g 5 Active lidocaine (Lidoderm) 5 % patchIndications :Muscle spasm of back APPLY 1 PATCH TOPICALLY EVERY MORNING IF NEEDED FOR PAIN. REMOVE AND DISCARD PATCH WITHIN 12 HOURS OR as DIRECTED BY MD. 30 patch 1 5 Active fluticasone furoate (Arnuity Ellipta) 200 MCG/ACT inhalerIndicatio ns:Moderate persistent asthma without complication INHALE 1 PUFF EVERY MORNING, rinse mouth after use 30 each 2 5 Active montelukast (Singulair) 10 MG tablet TAKE 1 TABLET BY MOUTH EVERY EVENING 90 tablet 1 5 Active Diclofenac Sodium 1 % gelIndications:M uscle spasm of back APPLY 2 GRAMS TOPICALLY IN THE MORNING, AT NOON, IN THE EVENING AND AT BEDTIME IF NEEDED 100 g 3 5 Active pantoprazole (Protonix) 40 MG EC tabletIndication s:Gastroesophage al reflux disease without esophagitis TAKE 1 TABLET BY MOUTH BEFORE BREAKFAST 90 tablet 1 5 Active baclofen (Lioresal) 10 MG tablet TAKE 1 TABLET BY MOUTH IN THE MORNING, AT NOON, AND BEDTIME IF NEEDED FOR MUSCLES SPASMS 60 tablet 1 5 Active prazosin (Minipress) 1 MG capsuleIndicatio ns:PTSD (post-traumatic stress disorder) Take 2 capsules (2 mg) by mouth if needed at bedtime (For nightmares.). 30 capsule 1 5 Active hydrOXYzine HCl (Atarax) 25 MG tablet TAKE 1 TABLET BY MOUTH EVERY NIGHT AT BEDTIME NEEDED FOR ANXIETY Active doxepin (SINEquan) 10 MG capsule 1 capsule by mouth every night at bedtime for sleep 30 capsule 5 Active albuterol (Ventolin HFA) 108 (90 Base) MCG/ACT inhalerIndicatio ns:Moderate persistent asthma without complication INHALE 1-2 PUFFS EVERY 4-6 HOURS NEEDED IF WHEEZING/SOB 18 g 1 5 Active Active Problems Problem Noted Date Diagnosed Date Numbness and tingling of both legs 04/12/2025 Overview (04/12/2025): Normal BLE EMG/NCS 01/03/25 MRI lumbar unremarkable 03/06/25 Thus far B12, TSH, H/H normal Anxiety 12/11/2024 Recurrent major depressive disorder 12/11/2024 Hx of bipolar disorder 12/11/2024 S/P laparoscopic sleeve gastrectomy 05/02/2023 Overview (05/02/2023): 04/27/23 at [facility] Diverticular disease 07/08/2022 Hepatic steatosis 09/14/2021 Overview (10/19/2022): Mild - seen on CT abdomen and pelvis at [facility] 09/08/21 Uterine fibroid 09/14/2021 Overview (10/19/2022): Seen on US at [facility] 09/08/21 Diverticulitis 09/14/2021 09/01/2023 Overview (09/01/2023): CT abdomen and pelvis 09/08/21 at [facility] ED: findings suspicious for early/mild descending diverticulitis. No abscess formation or free air. Colon polyp 08/16/2020 Overview (10/19/2022): [place] done 06/2020 for GIB, anemia Asthma, moderate [...] organization. Date Type Department Care Team Description 05/04/2025 Refill [facility] MEDICINE [address] [place] [address] Carina Munoz ANP Moderate persistent asthma without complication 04/24/2025 Telephone [facility] [address] [place] [address] Carina Munoz ANP June04/17/2025 Results Follow-Up [facility] [address] [place] [address] Carina Munoz ANP Vitamin B12, TSH W/Reflex to FT4, Basic Metabolic Panel, Additional followed-up results: 2 04/16/2025 Orders Only GENERIC EXTERNAL DATA DEPARTMENT Provider, Generic External Data 04/12/2025 Telephone [facility] [address] [place] [address] Sherry Moreno RN Lab Orders 04/12/2025 Orders Only [facility] [address] [place] [address] Carina Munoz ANP Numbness and tingling of both legs (Primary Dx); Hyperlipidemia, unspecified hyperlipidemia type; Iron deficiency 04/05/2025 Telephone [facility] [address] [place] [address] Sherry Moreno, assistant site manager Orders 04/03/2025 9:45 AM EDT Office Visit [facility] OPTOMETRY [address] [place] [address] Giovanny, Yari, OD Hyperopia of both eyes (Primary Dx) from Last 3 Months Immunizations Immunization Administration Dates Next Due HPV 9-Valent 01/27/2023,09/28/2022,04/15/2021 [...] Not Answered Alcohol Use Standard Drinks/Week Comments Yes 0 (1 standard drink = 0.6 oz pur e alcohol) social Depression Answer Date Recorded Patient Health Questionnaire-9 [...] Sign Reading Time Taken Comments Blood Pressure 106/58 03/05/2025 9:12 AM EDT man ually Pulse 96 03/05/2025 9:12 AM EDT Temperature 37.1 C (98.7 F) 03/05/2025 9:12 AM EDT Respiratory Rate 17 03/05/2025 9:12 AM EDT Oxygen Saturation 99% 11/08/2024 10:55 AM EST Inhaled Oxygen Concentration - - Weight 80.8 kg (178 lb 2 oz) 03/05/2025 9:12 AM EDT Height 160 cm (5' 3 ) 03/05/2025 9:12 AM EDT Body Mass Index 31.55 03/05/2025 9:12 AM EDT Plan of Treatment Upcoming Encounters Date Type Department Care Team (Late st Contact Info) Description 07/11/2025 10:00 AM EDT Office Visit [facility] MEDIC[facility] [address] [place], [place] [phone] Carina Munoz, ANP [address] [place], [place] [phone] Health Maintenance Due Date Last Done Comments Family Planning (PISQ) 1999 Hepatitis A Vaccines (1 of 2 - Risk 2-dose series) 2003 Hepatitis B Vaccines (1 of 3 - 19+ 3-dose series) 2003 Pneumococcal Vaccine: Pediatrics (0 to 5 Years) and At-Risk Patients (6 to 49) Years (1 of 2 - PCV) 2003 Cervical Cancer Screening 09/13/2024 HPV/Cotest 09/13/2024 09/13/2023, 08/18/2022 Pap Smear 09/13/2024 09/13/2023, 08/18/2022 Mammogram 05/03/2025 05/03/2023 Depression Monitoring 05/08/2025 11/08/2024, 025 Influenza Vaccine (#1) 2025 , 08/17/2023, 07/28/2022, Additional history exists SDOH Screening 10/30/2025 10/30/2024 Alcohol/Substance Use Screening 03/05/2026 03/05/2025 Disability Screening 03/05/2026 03/05/2025 Tobacco Screening 04/12/2026 04/12/2025 DTaP/Tdap/Td Vaccines (2 - Td or Tdap) [...] Procedure Name Priority Date/Time Associated Diagnosis Comments T-SPOT(R).TB Routine 04/16/2025 9:39 AM EDT DRUG MONITOR, PANEL 1, SCREEN, URINE Routine 04/16/2025 9:39 AM EDT HEMOGLOBIN + HEMATOCRIT Routine 04/16/2025 9:39 AM EDT Iron deficiency BASIC METABOLIC PANEL Routine 04/16/2025 9:39 AM EDT Numbness and tingling of both legs LYME DISEASE AB W/REFL TO BLOT (IGG, IGM) Routine 04/16/2025 9:39 AM EDT Numbness and tingling of both legs TSH W/REFLEX TO FT4 Routine 04/16/2025 9 :39 AM EDT Numbness and tingling of both legs VITAMIN B12 Routine 04/16/2025 9:39 AM EDT Numbness and tingling of both legs HEPATITIS C AB W/REFL TO HCV RNA, QN, PCR Routine 11/16/2024 9:34 AM EST Routine screening for STI (sexually transmitted infection) HIV 1/2 ANTIGEN/ANTIBODY, FOURTH GENERATION W/RFL Routine 11/16/2024 9:34 AM EST Routine screening for STI (sexually transmitted infection) LIPID PANEL, STANDARD Routine 11/16/2024 9:34 AM EST HM PAP/HPV Routine 09/13/2023 HM MAMMOGRAPHY Routine 05/03/2023 from Last 3 Months or Most Recently Relevant to Health Maintenance Results * T-SPOT??.TB (04/16/2025 9:39 AM EDT) [facility] T Spot TB Negative Negative [facility] Comment:A negative test resu lt does not exclude the possibilityof exposure to or infection with Mycobacteriumtuberculosis (M. tuberculosis). Patients with recentexposure to TB infected individuals exhibiting anegative T-SPOT.TB result should be considered forretesting within 6 weeks or if other relevant clinicalsymptoms indicate. Results from T-SPOT.TB testing mustbe used in conjunction with each individual'sepidemiological history, current medical status,and results of other diagnostic evaluations.The T-SPOT.TB test is qualitative and results arereported as positive, borderline, or negative, giventhat the test controls perform as expected. In linewith the Centers for Disease Control and Prevention's2010 recommendation to report quantitative measurementsalongside the qualitative result, the laboratoryprovides spot counts for informational purposes only.The T-SPOT.TB test should not be interpreted as aquantitative test. TS PANEL A 0 [facility] TS PANEL B 1 [facility] Negative Control Passed [facility] Positive Control Passed [facility] Comment:For additional infor bee, please refer tohttp://education.[employer]/faq/YCM662(This link is being provided for informational/educational purposes only.)THIS TEST WAS PERFORMED AT:[employer] [id number] [place] [id number] GONZALEZ MD,PHD 04/16/2025 9:39 AM EDT 04/16/2025 11:38 AM EDT Carina Munoz [facility] LAB BLOOD ORDERABLES Final Resul t Performing Organization Address City/[facility]/ZIP Co de Phone Number [facility] [address] [place] [phone] * TSH W/Reflex to FT4 (04/16/2025 9:39 AM EDT) TSH reflex Free T4 0.75 0.32 - 4.0 uIU/mL [facility] Blood Venous blood specimen / Unknown 04/16/2025 9:39 AM EDT 04/16/2025 11:38 AM EDT Carina Munoz [facility] LAB BLOOD ORDERABLES Final Resul t Performing Organization Address [facility] Co de Phone Number [facility] [address] [place] [phone] * Lyme Disease Ab with Reflex to Blot (IgG, IgM) (04/16/2025 9:39 AM EDT) Lyme Antibody Screen <0.90 index [facility] Comment:Index Interpretation ----- < 0.90 Negative 0.90-1.09 Equivocal > 1.09 PositiveAs recommended by the Food and Drug Administration(FDA), all samples with positive or equivocalresults in a Borrelia burgdorferi antibody screenwill be tested using a blot method. Positive orequivocal screening test results should not beinterpreted as truly positive until verified as suchusing a supplemental assay (e.g., B. burgdorferi blot).The screening test and/or blot for B. burgdorferiantibodies may be falsely negative in early stagesof Lyme disease, including the period when erythemamigrans is apparent.THIS TEST WAS PERFORMED AT:[email or web address] [place] [id number] CORBIN MD Lyme Blot TNP [facility] 04/16/2025 9:39 AM EDT 04/16/2025 11:38 AM EDT Critical access hospital LAB BLOOD ORDERABLES Final Resul t [facility] [address] [place] [phone] * Drug Monitoring, Panel 1, Screen, Urine (04/16/2025 9:39 AM EDT) Opiate Screen Urine Not Detected Not Detect [facility] Comment:Opiate cut-off is 30 0 ng/mL.Positive results are unconfirmed and should not be used fornon-medical purposes. Barbiturates, Urine Not Detected Not Detect [facility] Comment:Barbiturate cut-off is 200 ng/mL.Positive results are unconfirmed and should not be used fornon-medical purposes. Phencyclidine Screen Urine Not Detected Not Detect [facility] Comment:Phencyclidine cut-of f is 25 ng/mL.Positive results are unconfirmed and should not be used fornon-medical purposes. Amphetamine Screen Urine Not Detected Not Detect [facility] Comment:Amphetamine cut-off is 1000 ng/mL.Positive results are unconfirmed and should not be used fornon-medical purposes. Benzodiazepines Screen Urine Not Detected Not Detect [facility] Comment:Benzodiazepine cut-o ff is 200 ng/mL.Positive results are unconfirmed and should not be used fornon-medical purposes. Cocaine Screen Urine Not Detected Not Detect [facility] Comment:Cocaine cut-off is 3 00 ng/mL.Positive results are unconfirmed and should not be used fornon-medical purposes. Cannabinoid Screen Urine Not Detected Not Detect [facility] Comment:Cannabinoid cut-off is 50 ng/mL.Positive results are unconfirmed and should not be used fornon-medical purposes. Methadone Screen, Urine Not Detected Not Detect ng/mL [facility] Comment:Methadone cut-off is 300 ng/mL.Positive results are unconfirmed and should not be used fornon-medical purposes. FENTANYL URINE Not Detected Not Detect [facility] Comment:Fentanyl cut-off is 1 ng/mL.Positive results are unconfirmed and should not be used fornon-medical purposes. Oxycodone Urine Screen Not Detected Not Detect ng/mL [facility] Comment:Oxycodone cut-off is 100 ng/mL.Positive results are unconfirmed and should not be used fornon-medical purposes. Buprenorphine Screen Not Detected Not Detect ng/mL [facility] Comment:Buprenorphine cut-of f is 5 ng/mL.Positive results are unconfirmed and should not be used fornon-medical purposes. 04/16/2025 9:39 AM EDT 04/16/2025 11:05 AM EDT Generic External Data Provider LAB URINE ORDERAB LES Final Result [facility] [address] [place] [address] [phone] * Hemoglobin and Hematocrit (04/16/2025 9:39 AM EDT) Hemoglobin 12.8 12.0 - 16.0 g/dl [facility] Hematocrit 39.6 37.0 - 47.0 % [facility] Blood Venous blood specimen / Unknown 04/16/2025 9:39 AM EDT 04/16/2025 11:38 AM EDT Carina Munoz ANP LAB BLOOD ORDERABLES Final Resul t Performing Organization Address City/[facility]/ZIP Co de Phone Number [facility] [address] [place] [phone] * Vitamin B12 (04/16/2025 9:39 AM EDT) Vitamin B12 477 200 - 900 pg/mL [facility] Comment:NORMAL 200-900 PG/ML INDETERMINATE 160-199 PG/ML DEFICIENT < 160 PG/ML Blood Venous blood specimen / Unknown 04/16/2025 9:39 AM EDT 04/16/2025 11:38 AM EDT Carina Munoz ANP LAB BLOOD ORDERABLES Final Resul t Performing Organization Address [facility] Co de Phone Number [facility] [address] [place] [phone] * (ABNORMAL) Basic Metabolic Panel (04/16/2025 9:39 AM EDT) Sodium 140 135 - 145 mmol/L [facility] Potassium 4.3 3.3 - 5.1 mmol/L [facility] Comment:Slight Hemolysis.Int erpret result with caution. Chloride 109(H) 96 - 108 mmol/L [facility] Carbon Dioxide 25 22 - 29 mmol/L [facility] Anion Gap 10(L) 12 - 20 [facility] Urea Nitrogen (BUN) 9 9 - 16 mg/dL [facility] Creatinine, Serum 0.69 0.5 - 1.4 mg/dL [facility] Estimated Glomerular Filt Rate >60 [facility] Comment:Chronic Kidney Disea se: Estimated GFR < 60 mL/min/[id number] Kidney Disease: Estimated GFR < 15 mL/min/1.73m2 Glucose 76 60 - 115 mg/dL [facility] Calcium 9.0 8.4 - 10.2 mg/dL [facility] Blood Venous blood specimen / Unknown 04/16/2025 9:39 AM EDT 04/16/2025 11:38 AM EDT Carina [facility] LAB BLOOD ORDERABLES Final Resul t Performing Organization Address [facility] de Phone Number [facility] [address] [place] [phone] * Hepatitis C Antibody with Reflex to HCV, RNA, Quantitative, Real-Time PCR (11/16/2024 9:34 AM EST) Hepatitis C Antibody Nonreactive Nonreactive [facility] Comment:Antibodies to HCV no t detected; does not exclude early acuteHCV infection. Blood Venous blood specimen / Unknown 11/16/2024 9:34 AM EST 11/16/2024 9:34 AM EST Critical access hospital LAB BLOOD ORDERABLES Final Resul t Performing Organization Address [facility] de Phone Number [facility] [address] [place] [phone] * HIV-1/2 Antigen and Antibodies, Fourth Generation, with Reflexes (11/16/2024 9:34 AM EST) HIV AB/AG Nonreactive Nonreactive [facility] Comment:HIV-1 p24 Ag and/or HIV-1/HIV-2 Ab not detected.A test result that is nonreactive does not exclude thepossibility of exposure to or infection with HIV-1 and/orHIV-2. Nonreactive results in this assay for individualswith prior exposure to HIV-1 and/or HIV-2 may be due toantigen and antibody levels that are below the limit ofdetection of this assay.The DashLuxe HIV Ag/Ab Combo assay result andsupplemental assay results should be interpreted inconjunction with the patient's clinical presentation,history and other laboratory results. If the results areinconsistent with clinical evidence, additional testing issuggested to confirm the result. Blood Venous blood specimen / Unknown 11/16/2024 9:34 AM EST 11/16/2024 9:34 AM EST Critical access hospital LAB BLOOD ORDERABLES Final Resul t Performing Organization Address [facility]/ZIP Co de Phone Number [facility] [address] [place] [phone] * (ABNORMAL) Lipid Panel, Standard (11/16/2024 9:34 AM EST) Triglycerides 79 <150 mg/dL [facility] Comment:Desirable Triglyceri de: less than 150 mg/dLBorderline High Triglyceride 150-199 mg/dLHigh Triglyceride: 200-499 mg/dLVery High Triglyceride: greater than or equal to 5OO mg/dL Cholesterol 280(H) <200 mg/dL [facility] Comment:Desirable Cholestero l: less than 200 mg/dLBorderline High Cholesterol: 200-239 mg/dLHigh Cholesterol: greater than 239 mg/dL LDL Cholesterol Calculated 182(H) <100 mg/dL [facility] Comment:Desirable LDL: less than 100 mg/dLNear Optimal/Above Optimal LDL: 110- 129 mg/dLBorderline High LDL: 130-159 mg/dLHigh LDL: 160-189 mg/dLVery High LDL: greater than or equal to 190 mg/dL HDL Cholesterol 83 >40 mg/dL [facility] Comment:Desirable HDL: great er than 40 mg/dL Note: This HDL assay may give artificially low results in patients with liver disease. 11/16/2024 9:34 AM EST 11/16/2024 9:34 AM EST Generic External Data Provider LAB BLOOD ORDERAB LES Final Result Performing Organization Address City/[facility]/ZIP Co de Phone Number [facility] [address] [place] [phone] * (ABNORMAL) HM PAP/HPV (09/13/2023) Pap Negative for intraephithelial lesion or malignancy Negative for intraephithelial lesion or malignancy, Epithelial cell abnormality HPV Detected(A) Undetected, Indeterminate, Quantitative, Not Detected us Historical Provider HEALTH MAINTENANCE Final Result * Mammography (05/03/2023) Mammogram NORMAL Anatomical Region Laterality Modality Other us Historical Provider HEALTH MAINTENANCE Final Result from Last 3 Months or Most Recently Relevant to Health Maintenance Insurance [employer] Care Teams Inclusion Paraeducator Relationship Specialty Start Date End Date Carina Munoz ANP [address] [place] [phone] PCP - General Family Medicine 07/15/21
--- OUTSIDE RECORDS SUMMARY | 2025-06-18 06:11 | XMS_ITS | Encounter Summary ---
Author Organization [employer] Address [address] [place] [address] 7 [place] [address] Care Team Providers Care Extraction Operator Name Role Phone Carina Munoz Primary Care Provider [phone] Reason for Visit * Reason Onset Date Comments Med Refill 05/28/2024 Encounter Details Date Type Department Care Team (Late st Contact Info) Description 05/28/2024 Refill [facility] [address] [place], [place] [phone] Carian Munoz ANP [address] [place] [address] Gastroesophageal reflux disease without esophagitis Social History [...] Description 07/11/2025 10:00 AM EDT Office Visit [facility] [address] [place] [phone] Carina Munoz ANP [address] [place] [address] documented as of this encounter Visit Diagnoses Diagnosis Gastroesophageal reflux disease without esophagitis Esophageal reflux documented in this encounter Additional Health Concerns Assessment Noted Time PHQ-9 Depression Total Score: 0 09/29/20 23 9:47 AM EST documented as of this encounter Care Teams Extraction Operator Relationship Specialty Start Date End Date Carina Munoz ANP [address] [place] [phone] PCP - General Family Medicine 07/15/21 documented as of this encounter
--- OUTSIDE RECORDS SUMMARY | 2025-06-18 06:11 | XMS_ITS | Encounter Summary ---
Author Organization [employer] Address [address] [place] [address] 7 [place] [address] Care Team Providers Care Riveter Hand Name Role Phone Carina Munoz Primary Care Provider Reason for Visit * Reason Onset Date Comments Med Refill 08/27/2024 Encounter Details Date Type Department Care Team (Late st Contact Info) Description 08/27/2024 Refill [facility] [address] [place], [place] [phone] Carina Munoz ANP [address] [place] [address] Muscle spasm of back Social History Tobacco [...] Description 07/11/2025 10:00 AM EDT Office Visit [facility] [address] [place] [phone] Carina Munoz ANP [address] [place] [address] documented as of this encounter Visit Diagnoses Diagnosis Muscle spasm of back documented in this encounter Additional Health Concerns Assessment Noted Time PHQ-9 Depression Total Score: 0 09/29/20 23 9:47 AM EST documented as of this encounter Care Teams Riveter Hand Relationship Specialty Start Date End Date Carina Munoz ANP [address] [place] [phone] PCP - General Family Medicine 07/15/21 documented as of this encounter
--- OUTSIDE RECORDS SUMMARY | 2025-06-18 06:11 | XMS_ITS | Encounter Summary ---
Author Organization [employer] Address [address] [facility] [address] [place] [address] Care Team Providers Care Forensic Materials Engineer Name Role Phone Carina Munoz Primary Care Provider [phone] Reason for Visit * Reason Onset Date Comments Med Refill 07/18/2024 Encounter Details Date Type Department Care Team ([facility] st Contact Info) Description 07/18/2024 Refill [facility] [address] [place], [place] [phone] Carina Munoz ANP [address] [place] [address] Social History Tobacco Use Types Packs/Day Years [...] Description 07/11/2025 10:00 AM EDT Office Visit [facility] [address] [place] [phone] Carina Munoz ANP [address] [place] [address] documented as of this encounter Visit Diagnoses Not on filedocumented in this encounter Additional Health Concerns Assessment Noted Time PHQ-9 Depression Total Score: 0 09/29/20 23 9:47 AM EST documented as of this encounter Care Teams Forensic Materials Engineer Relationship Specialty Start Date End Date Carina Munoz ANP [address] [place] [phone] PCP - General Family Medicine 07/15/21 documented as of this encounter
--- OUTSIDE RECORDS SUMMARY | 2025-06-18 06:11 | XMS_ITS | Encounter Summary ---
Author Organization [employer] Address [address] [place] [address] 7 [place] [address] Care Team Providers Care Alteration Worker Name Role Phone Carina Munoz Primary Care Provider [phone] Reason for Visit * Reason Onset Date Comments Med Refill 07/18/2024 Encounter Details Date Type Department Care Team (Late st Contact Info) Description 07/18/2024 Refill [facility] MEDICINE 230 [place], [place] [phone] Carina Munoz ANP 230 [place] [address] Moderate persistent asthma without complication Social History [...] Description 07/11/2025 10:00 AM EDT Office Visit [facility] MEDICINE [address] [place] [address] Carina Munoz ANP 230 [place] [address] documented as of this encounter Visit Diagnoses Diagnosis Moderate persistent asthma without complication documented in this encounter Additional Health Concerns Assessment Noted Time PHQ-9 Depression Total Score: 0 09/29/20 23 9:47 AM EST documented as of this encounter Care Teams Alteration Worker Relationship Specialty Start Date End Date Carina Munoz ANP [address] [place] [address] PCP - General Family Medicine 07/15/21 documented as of this encounter
--- OUTSIDE RECORDS SUMMARY | 2025-06-18 06:11 | XMS_ITS | Encounter Summary ---
Author Organization [employer] Address [address] [place] [address] 7 [place] [address] Care Team Providers Care Abalone Sheller Name Role Phone Carina Munoz Primary Care Provider [phone] Reason for Visit * Reason Onset Date Comments Med Refill 07/18/2024 Encounter Details Date Type Department Care Team (Late st Contact Info) Description 07/18/2024 Refill [facility] MEDICINE 230 [place], [place] [phone] Carina Munoz ANP 230 [place] [address] Muscle spasm of back Social History Tobacco [...] Description 07/11/2025 10:00 AM EDT Office Visit [facility] MEDICINE [address] [place] [address] Carina Munoz ANP 230 [place] [address] documented as of this encounter Visit Diagnoses Diagnosis Muscle spasm of back documented in this encounter Additional Health Concerns Assessment Noted Time PHQ-9 Depression Total Score: 0 09/29/20 23 9:47 AM EST documented as of this encounter Care Teams Abalone Sheller Relationship Specialty Start Date End Date Carina Munoz ANP [address] [place] [address] PCP - General Family Medicine 07/15/21 documented as of this encounter
--- OUTSIDE RECORDS SUMMARY | 2025-06-18 06:11 | XMS_ITS | Encounter Summary ---
Author Organization [employer] Address [address] [facility] 7t [place] [address] Care Team Providers Care Dielectric Tester Name Role Phone Carina Munoz Primary Care Provider [phone] Reason for Visit * Reason Onset Date Comments Med Refill 05/28/2024 Encounter Details Date Type Department Care Team ([facility] st Contact Info) Description 05/28/2024 Refill [facility]S [address] [place], [place] [phone] Carina Munoz ANP 230 [place] [address] Moderate persistent asthma without complication Social History [...] Description 07/11/2025 10:00 AM EDT Office Visit [facility] MEDICINE [address] [place] [address] Carina Munoz ANP [address] [place] [address] documented as of this encounter Visit Diagnoses Diagnosis Moderate persistent asthma without complication documented in this encounter Additional Health Concerns Assessment Noted Time PHQ-9 Depression Total Score: 0 09/29/20 23 9:47 AM EST documented as of this encounter Care Teams Dielectric Tester Relationship Specialty Start Date End Date Carina Munoz ANP [address] [place] [address] PCP - General Family Medicine 07/15/21 documented as of this encounter
--- OUTSIDE RECORDS SUMMARY | 2025-06-18 06:11 | XMS_ITS | Clinical Summary ---
Author Organization [facility] Address [address] [place] [address] Care Team Providers Care Communication Signals Intelligence Name Role Phone Unavailable Primary Care Provider [...] Team Description 05/28/2025 / [facility] [address] [place] [address] GLORIA ALBERTO [id number] Jin Roper, TRENT from [...] 10/27/2028 019 Lipid Screening 11/16/2029 11/16/2024, 12/03/2022 [id number] Completed 11/08/2024, 11/0 10/2022, 07/28/2022, Additional history exists HIV Screening Completed 11/16/2024, 10/19, 11/07/2023, Additional history exists Hepatitis C Screening Completed 11/16/2024 Cervical Ablation/Cold-Knife Conization Discontinued Cervical Cryotherapy Discontinued Colposcopy Discontinued Endometrial Biopsy Discontinued Excision/Leep Discontinued HPV Genotyping Discontinued Vaginal Pap Discontinued Vulvoscopy Discontinued Insurance [facility]
--- OUTSIDE RECORDS SUMMARY | 2025-06-18 06:11 | XMS_ITS | Encounter Summary ---
Author Organization [email or web address] Address [address] [place] [address] 7 [place] [address] Care Team Providers Care Pleater Name Role Phone Carina Munoz Primary Care Provider [phone] Reason for Visit * Reason Onset Date Comments Med Refill 02/14/2023 Encounter Details Date Type Department Care Team (Late st Contact Info) Description 02/14/2023 Telephone [facility] MEDICINE 230 [place], [place] [phone] Carina Munoz ANP 230 [place] [address] Med Refill Social History Tobacco Use Types [...] 02/14/2023 2:40 PM EDT Med sent to [facility] today. * Telephone Encounter - Gee Barbour - 02/14/2023 2:30 PM EDT Logan manley Felipe with [facility] requesting a 90 day supply on fluticasone (Flonase Allergy Relief) 50 MCG/ACT nasal spray [id number] [place] [facility] [address] [place] [address], [address] documented in this encounter Plan of Treatment Upcoming Encounters Date Type Department Care Team (Late st Contact Info) Description 07/11/2025 10:00 AM EDT Office Visit [facility] MEDICINE [address] [place] [address] Carina Munoz ANP 230 [place] [address] documented as of this encounter Visit Diagnoses Not on filedocumented in this encounter Care Teams Pleater Relationship Specialty Start Date End Date Carina Munoz ANP [address] [place] [address] PCP - General Family Medicine 07/15/21 documented as of this encounter
--- OUTSIDE RECORDS SUMMARY | 2025-06-18 06:11 | XMS_ITS | Encounter Summary ---
Author Organization [employer] Address [address] [place] [address] 7 [place] [address] Care Team Providers Care Accounting Advisory Services Manager Name Role Phone Carina Munoz Primary Care Provider [phone] Encounter Details Date Type Department Care Team (Latest Contact Info) Description 01/18/2019 Abstract [facility] CONVERSIONS Dental, Provider, DDS Social History Tobacco [...] Description 07/11/2025 10:00 AM EDT Office Visit [facility] MEDICINE 230 [place] [address] Carina Munoz ANP 230 [place] [address] documented as of this encounter Visit Diagnoses Not on filedocumented in this encounter Care Teams Accounting Advisory Services Manager Relationship Specialty Start Date End Date Carina Munoz ANP 230 [place] [address] PCP - General Family Medicine 07/15/21 documented as of this encounter
--- OUTSIDE RECORDS SUMMARY | 2025-06-18 06:11 | XMS_ITS | Encounter Summary ---
Author Organization [employer] Address [address] [place] [address] 7 [place] [address] Care Team Providers Care Educational Aide Name Role Phone Carina Munoz Primary Care Provider [phone] Reason for Visit * Reason Onset Date Comments Med Refill 03/04/2025 Encounter Details Date Type Department Care Team ([facility] st Contact Info) Description 03/04/2025 Refill [facility] MEDICINE 230 [place], [place] [phone] Carina Munoz ANP 230 [place] [address] Gastroesophageal reflux disease without esophagitis Social History [...] Description 07/11/2025 10:00 AM EDT Office Visit [facility] MEDICINE [address] [place] [address] Carina Munoz ANP 230 [place] [address] documented as of this encounter Visit Diagnoses Diagnosis Gastroesophageal reflux disease without esophagitis Esophageal reflux documented in this encounter Additional Health Concerns Assessment Noted Time PHQ-9 Depression Total Score: 14 025 11:13 AM EST documented as of this encounter Care Teams Educational Aide Relationship Specialty Start Date End Date Carina Munoz ANP [address] [place] [address] PCP - General Family Medicine 07/15/21 documented as of this encounter
--- OUTSIDE RECORDS SUMMARY | 2025-06-18 06:11 | XMS_ITS | Encounter Summary ---
Author Organization [employer] Address [address] [place] [address] 7 [place] [address] Care Team Providers Care Structural Metal Worker Name Role Phone Carina Munoz MARC Primary Care Provider [phone] Reason for Visit * Reason Onset Date Comments Med Refill 10/24/2023 Encounter Details Date Type Department Care Team (Late st Contact Info) Description 10/24/2023 Refill [facility] MEDICINE 230 [place], [place] [phone] [facility] 230 [place] [address] Muscle spasm of back Social History Tobacco [...] Description 07/11/2025 10:00 AM EDT Office Visit [facility] MEDICINE [address] [place] [address] Carina Munoz ANP [address] [place] [address] documented as of this encounter Visit Diagnoses Diagnosis Muscle spasm of back documented in this encounter Additional Health Concerns Assessment Noted Time PHQ-9 Depression Total Score: 0 09/29/20 23 9:47 AM EST documented as of this encounter Care Teams Structural Metal Worker Relationship Specialty Start Date End Date Carina Munoz ANP [address] [place] [address] PCP - General Family Medicine 07/15/21 documented as of this encounter
--- OUTSIDE RECORDS SUMMARY | 2025-06-18 06:11 | XMS_ITS | Clinical Summary ---
Author Organization [address] [facility] Address [address] [place] [address] Phone Care Team Providers Care Artist'S Model Name Role Phone Alexander Carina Hamilton NP Primary Care Provider [phone] Allergies No known active allergies Medications hydrocortisone [...] seen on CT abdomen and pelvis at [facility] ED 09/08/21 Diverticulitis 09/14/2021 Overview (07/09/2024): CT abdomen and pelvis 09/08/21 at [facility] ED: findings suspicious for early/mild descending diverticulitis. No abscess formation or free air. Uterine fibroid 09/14/2021 Overview (07/09/2024): Seen on US at [facility] ED 09/08/21 Colon polyp 08/16/2020 Overview (07/09/2024): [place] done 06/2020 for GIB, anemia Asthma, moderate persistent 03/03/2020 Menorrhagia with regular cycle 11/21/2019 Overview (07/09/2024): Last Assessment & Plan: I discussed other options for bleeding control with Luh, including Depo Provera, other oral progestins, and [...] Severe obesity (BMI 35.0-39. 9) with comorbidity ([facility] V24, [facility] V28) 06/06/2019 Bipolar disorder ([facility] V24, [facility] V28) 10/17 Overview (07/09/2024): F/u [...] PM EDT Office Visit [facility]etrics [facility] Gyne[facility] [address] [phone] Doretha Love PA Encntr for tire trucker exam (general) (routine) w/o abn findings (Primary [...] V2 4, CMS/HCC V28) 10/27/2018 DX:Bipolar disorder ([facility]); C OMMENT: F/u Lela History of suicidal tendencies 10/27/2018 D X:History of suicidal tendencies; COMMENT: Three attempts Asthma, moderate persistent 03/03/2020 DX:A sthma, moderate persistent Uterine fibroid 09/14/2021 DX:Uterine fibro id; COMMENT: Seen on US at [facility] ED 09/08/21 Hepatic steatosis 09/14/2021 DX:Hepatic ezio atosis; COMMENT: Mild - seen on CT abdomen and pelvis at [facility] ED 09/08/21 Family History Medical History [...] PM EDT [facility]ointment [facility] at [address] [phone] Health Maintenance Due Date Last [...] 05/16/2025 2:27 PM EDT Cervical cancer screening RI INSERTION INTRAUTERINE DEVICE Routine 05/16/2025 1:33 PM EDT Encounter for removal and reinsertion of intrauterine contraceptive device (IUD) RI REMOVAL INTRAUTERINE DEVICE Routine 05/16/2025 1:33 PM EDT Encounter for removal and reinsertion of intrauterine contraceptive device (IUD) LIPID PANEL Routine 12/03/2022 HIV SCREENING Routine 08/03/2021 HEPATITIS C SCREENING Routine 01/24/2018 DX MAMMO INCL CAD BI Routine 12/09/2017 2:54 PM EST Mastodynia from Last 3 Months or Most Recently Relevant to Health Maintenance Results * Chlamydia trachomatis and neisseria gonorrhoeae by tma, thinprep (05/16/2025 2:27 PM EDT) N. gonorrhoeae, RNA Probe Negative Negative LAB MICROBIOLOGY METHOD 05/17/2025 1:17 PM EDT [facility] Chlamydia, RNA Probe Negative Negative LAB MICROBIOLOGY METHOD 05/17/2025 1:17 PM EDT [facility] Brushing/Spatula Cervix uteri structure / Unknown 05/16/2025 2:27 PM EDT 05/17/2025 6:36 AM EDT us Doretha MITCHELL LAB CYTOLOGY ORDERABLES Liz l Result Performing Organization Address [facility]/ZIP Co de Phone Number [facility] [address] [place] [address], [place] [phone] * HPV with reflex genotype (05/16/2025 2:27 PM EDT) HPV Negative Negative LAB MICROBIOLOGY METHOD 05/17/2025 4:42 PM EDT [facility] Brushing/Spatula Cervix uteri structure / Unknown 05/16/2025 2:27 PM EDT 05/17/2025 6:36 AM EDT us Doretha MITCHELL LAB MOLECULAR DIAGNOSTICS OR DERABLES Final Result Performing Organization Address City/[facility]/ZIP Co de Phone Number [facility] [address] [place] [address], [place] [phone] * Trichomonas vaginalis molecular study (05/16/2025 2:27 PM EDT) Trichomonas vaginalis Negative Negative LAB MICROBIOLOGY METHOD 05/17/2025 1:42 PM EDT [facility] Brushing/Spatula Cervix uteri structure / Unknown 05/16/2025 2:27 PM EDT 05/17/2025 6:36 AM EDT Doretha MITCHELL LAB BLOOD ORDERABLES Final R esult [facility] [address] [place] [address], [place] [phone] * Pap smear (05/16/2025 2:27 PM EDT) Pathologist [facility] Interpretation Negative for intraepithelial lesion or malignancy 05/21/2025 2:08 PM EDT [facility] General Categorization Negative 05/21/2025 2:08 PM EDT [facility] LMP 04/30/2024 05/21/2025 2:08 PM EDT [facility] Specimen Adequacy Satisfactory for evaluation, endocervical/finn sformation zone component present 05/21/2025 2:08 PM EDT [facility] Pap Methodology Liquid Based Pap Test 05/21/2025 2:08 PM EDT [facility] Disclaimer The Pap test is a screening test which carries an inherent false negative rate. These test results should be correlated with the patient's clinical findings and history. This Pap test was processed using an automated screening system. Technical cytopathology services provided by [facility], at [address] [place] [address] (CLIA # [id number]/Gabrielle Rees MD, Resolution Agent.) 05/21/2025 2:08 PM EDT [facility] Console Pap Interpretation Reported 05/21/2025 2:08 PM EDT [facility] Brushing/Spatula Cervix uteri structure / Unknown 05/16/2025 2:27 PM EDT 05/16/2025 2:27 PM EDT Doretha MITCHELL LAB CYTOLOGY ORDERABLES Liz l Result [facility] [address] [place] [address], [place] [phone] * RI REMOVAL INTRAUTERINE DEVICE, RI INSERTION INTRAUTERINE DEVICE (05/16/2025 1:33 PM EDT) Narrative Doretha Love PA - 05/16/2025 1:33 PM EDT PAULA Rain 05/16/2025 1:35 PM IUD Removal with Reinsertion Date/Time: 05/16/2025 1:33 PM Performed by: PAULA Rain Authorized by: PAULA Rain Removal Procedure: Removal successful: yes Insertion Procedure: IUD type: Mirena IUD insertion successful: yes Medication Administration: 52 mg levonorgestreL 21 mcg/24hr (up to 8 yrs) 52 mg Doretha MITCHELL IN CLINIC/BEDSIDE ORDERABLES Final Result * Lipid panel (12/03/2022) Pathologist [facility] LDL/HDL Ratio 0 <=0 Comment:No interpretation Triglycerides 0 <=0 mg/dL Comment:No interpretation Cholesterol 0 <=0 mg/dL Comment:No interpretation HDL 0 <=0 mg/dL Comment:No interpretation LDL Cholesterol 0 <=0 mg/dL Comment:No interpretation Blood Venous blood specimen / Unknown Historical Provider LAB BLOOD ORDERABLES Liz l Result * Hm HIV Screening (08/03/2021) Pathologist [facility] HIV Screening abstracted Historical Provider HEALTH MAINTENANCE Final Result * Hepatitis C Screening (01/24/2018) Hepatitis C Screening abstracted Historical Provider [facility] Final Result * DX MAMMO INCL CAD [...] Maintenance Insurance MEDICAID - [place] Care Teams Artist'S Model Relationship Specialty Start Date End Date Carina Munoz NP [address] [phone] PCP - General 09/27/22
--- OUTSIDE RECORDS SUMMARY | 2025-06-18 06:11 | XMS_ITS | Encounter Summary ---
Author Organization [employer] Address [address] [place] [address] Care Team Providers Care Coal Drier Operator Name Role Phone Carina Munoz Primary Care Provider [phone] Encounter Details Date Type Department Care Team (Late st Contact Info) Description 09/22/2022 [facility] 230 [place] [address] Kristen Brown CNM [address] [place] [address] Social History Tobacco Use Types Packs/Day Years [...] Description 07/11/2025 10:00 AM EDT Office Visit [facility] MEDICINE [address] [place] [address] Carina Munoz ANP 230 [place] [address] documented as of this encounter Visit Diagnoses Not on filedocumented in this encounter Care Teams Coal Drier Operator Relationship Specialty Start Date End Date Carina Munoz ANP 230 [place] [address] PCP - General Family Medicine 07/15/21 documented as of this encounter
--- OUTSIDE RECORDS SUMMARY | 2025-06-18 06:11 | XMS_ITS | Encounter Summary ---
Author Organization [employer] Address [address] [place] [address] 7t [place] [address] Care Team Providers Care Boiler Blower Name Role Phone Carina Munoz Primary Care Provider [phone] Encounter Details Date Type Department Care Team ([facility] st Contact Info) Description 04/17/2025 Results Follow-Up [facility] [address] [place] [address] Carina Munoz, ANP [address] [place] [address] Vitamin B12, TSH W/Reflex to FT4, Basic Metabolic Panel, Additional followed-up results: 2 Social History Tobacco Use Types Packs/Day Years [...] as of this encounter Miscellaneous Notes * Result Encounter Note - MARC Armijo - 04/17/2025 1:04 PM EDT Christian Lupe, Los resultados de duncan laboratorio son normales. A??n quedan algunas pruebas pendientes. Please call our office if you have any questions. Por favor llame a la oficina si tiene preguntas. Take care, Cu??Carina cuellar DRAWING CHECKER documented in this encounter Plan of Treatment Upcoming Encounters Date Type Department Care Team (Late st Contact Info) Description 07/11/2025 10:00 AM EDT Office Visit [facility] [address] [place] [address] Carina Munoz ANP [address] [place] [address] documented as of this encounter Visit Diagnoses Not on filedocumented in this encounter Additional Health Concerns Assessment Noted Time PHQ-9 Depression Total Score: 14 025 11:13 AM EST documented as of this encounter Care Teams Boiler Blower Relationship Specialty Start Date End Date Carina Munoz ANP [address] [place] [address] PCP - General Family Medicine 07/15/21 documented as of this encounter
== END 2025-06-18 06:08 | disposition home or self-care (01) ==
LOC: CF 06:07
PROVIDERS: Visit Provider Anesthesiology
DX: M46.1 Sacroiliitis, not elsewhere classified (principal); M53.3 Sacrococcygeal disorders, not elsewhere classified
CPT/HCPCS: 27096; J2003; J2795; J3301; Q9967

== ENCOUNTER 2025-06-18 07:02 | Outpatient (AMB) | payer MEDICAID, SELFPAY ==
--- NOTE | 2025-06-18 07:10 | A.OFFVIS_ITS ---
Vital Signs 06/18/25 07:14 Weight 180 lb BP 106/74 Blood Pressure Location Lt brachial Position Sitting Respiration 18 Pulse 90 Pulse Source Pulse Oximeter Pulse Oximetry (%) 100 Oxygen Delivery Method Room Air Intake Visit Reasons: Right theraputic SIJ inj/ reduced steroid dose [place]. Representative Required: No Allergies No Known Allergies Allergy (Verified 06/06/25 09:24) PFSH Medical History Arthritis Anemia Gastritis GERD (gastroesophageal reflux disease) Hiatal hernia Depression Elevated cholesterol Hiatal hernia Delivery with history of Migraine Asthma Surgical History S/P laparoscopic sleeve gastrectomy (04/27/23) Hx of tubal ligation Hx of section Family History Mother Hypertension Arthritis Son Hyperactive Daughter No problems noted. Son No problems noted. 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 All questions about benefits and risks for the procedure were answered. Patient came to the operating room and was positioned prone on the operating table with the pillow under the pelvis.? [place] [employer] monitors were applied and patient was deeply sedated.? The lower back and buttocks of the patient were prepped with ChloraPrep prepped and draped with sterile utility towels.? Sterilely draped C-arm was brought over the operating field and sq picture of patient's pelvis was demonstrated on the screen.? For the right joint tilting C-arm contralateral to the site of the joint the most posterior portion of the joints was superimposed with anterior silhouette of the joint.? Skin was injected in the projection of the joint slightly medial to the location of the joint with 25 gauge 1/2 inch needle using local lidocaine 2% . After that 22 gauge 3 and 1/2 inch needle was driven to the right joint in tunnel vision fashion.? When needle entered the joint capsule injection of the contrast was performed demonstrating intra-articular and minimally periarticular spread of the contrast.? After that 4 cc. of ropivacaine 0.5%mixed with kenalog 20 mg was injected into the joint.? Upon completion of the injections the needles were removed and pressure were applied.? Sterile dressing was applied.? Upon completion of the injection patient was taken outside of the operating room to the recovery room where recovered uneventfully. Orders: Orders FL guidance in treatment room Today M46.1 - Sacroiliitis, not elsewhere classified Coding Level of Care Code Procedure Only Diagnoses Sacroiliitis M46.1 Sacroiliac joint dysfunction of both sides M53.3
[2025-06-18 07:14] VITALS: BP 106/74; PULSE 90; RESP 18; O2SAT 100
== END 2025-06-18 07:42 | disposition home or self-care (01) ==
LOC: HO.PMCPRC 07:02
PROVIDERS: PCP Nurse Practitioner Primary Care; Visit Provider Anesthesiology
DX: M46.1 Sacroiliitis, not elsewhere classified (principal); M53.3 Sacrococcygeal disorders, not elsewhere classified
CPT/HCPCS: 27096

== ENCOUNTER 2025-07-03 07:57 | Outpatient (REF) | payer MEDICAID, SELFPAY ==
--- NOTE | ~2025-07-03 | XR_ITS ---
XR KNEE SOTO 3V HISTORY: Knee pain. COMPARISON: 09/23/2022. TECHNIQUE: AP view bilateral knees standing, lateral and patellofemoral views each knee. FINDINGS: RIGHT KNEE: No fracture, dislocation, or suspicious bone lesion. Joint spaces are normal in all 3 compartments. There is evidence for old MCL injury. Normal patellar alignment. No abnormal patellar tilt. No evidence of joint effusion. Soft tissues appear normal. LEFT KNEE: No fracture, dislocation, or suspicious bone lesion. Joint spaces are normal in all 3 compartments. Normal patellar alignment. No abnormal patellar tilt. No evidence of joint effusion. Soft tissues appear normal. XR/XR Knee Soto 3V IMPRESSION: 1. Essentially normal bilateral knee radiographs. Electronically signed by: Jovany Rose MD 07/03/2025 08:53 AM EDT
--- OUTSIDE RECORDS SUMMARY | 2025-07-04 08:00 | XMS_ITS | Encounter Summary ---
Author Organization [employer] Address [address] [place] [address] 7 [place] [address] Care Team Providers Care Compensation And Benefits Administrator Name Role Phone Carina Munoz Primary Care Provider [phone] Reason for Visit * Reason Onset Date Comments Med Refill 03/04/2025 Encounter Details Date Type Department Care Team ([facility] st Contact Info) Description 03/04/2025 Refill [facility] [address] [place], [place] [phone] Carina Munoz ANP [address] [place] [address] Gastroesophageal reflux disease without esophagitis Social History [...] is your housing situation today? I have byrant hannah 08/05/[address] you [...] Description 07/11/2025 10:00 AM EDT Office Visit [facility] [address] [place] [phone] Carina Munoz ANP [address] [place] [address] documented as of this encounter Visit Diagnoses Diagnosis Gastroesophageal reflux disease without esophagitis Esophageal reflux documented in this encounter Additional Health Concerns Assessment Noted Time PHQ-9 Depression Total Score: 14 025 11:13 AM EST documented as of this encounter Care Teams Compensation And Benefits Administrator Relationship Specialty Start Date End Date Carina Munoz ANP [address] [place] [phone] PCP - General Family Medicine 07/15/21 documented as of this encounter
--- OUTSIDE RECORDS SUMMARY | 2025-07-04 08:00 | XMS_ITS | Encounter Summary ---
Author Organization [employer] Address [address] [place] [address] 7 [place] [address] Care Team Providers Care Accounting File Clerk Name Role Phone Carina Munoz MARC Primary Care Provider [phone] Reason for Visit * Reason Onset Date Comments Med Refill 10/24/2023 Encounter Details Date Type Department Care Team (Late st Contact Info) Description 10/24/2023 Refill [facility] [address] [place], [place] [phone] [facility] [address] [place] [address] Muscle spasm of back Social History Tobacco [...] [facility] [address] [place] [phone] Carina Munoz ANP [address] [place] [phone] documented as of this encounter Visit Diagnoses Diagnosis Muscle spasm of back documented in this encounter Additional Health Concerns Assessment Noted Time PHQ-9 Depression Total Score: 0 09/29/20 23 9:47 AM EST documented as of this encounter Care Teams Accounting File Clerk Relationship Specialty Start Date End Date Carina Munoz ANP [address] [place] [phone] PCP - General Family Medicine 07/15/21 documented as of this encounter
--- OUTSIDE RECORDS SUMMARY | 2025-07-04 08:00 | XMS_ITS | Encounter Summary ---
Author Organization [employer] Address [address] [place] [address] [place] [address] Care Team Providers Care Aircraft Delivery Checker Name Role Phone Carina Munoz Primary Care Provider Reason for Visit * Reason Onset Date Comments Med Refill 07/07/2023 Encounter Details Date Type Department Care Team (Late st Contact Info) Description 07/07/2023 Refill [facility] [address] [place] [phone] Sarah Nicholas MD [address] [place] [address] Social History Tobacco Use Types Packs/Day Years [...] Description 07/11/2025 10:00 AM EDT Office Visit [facility] [address] [place] [phone] Carina Munoz ANP [address] [place] [address] documented as of this encounter Visit Diagnoses Not on filedocumented in this encounter Care Teams Aircraft Delivery Checker Relationship Specialty Start Date End Date Carina Munoz ANP [address] [place] [address] PCP - General Family Medicine 07/15/21 documented as of this encounter
--- OUTSIDE RECORDS SUMMARY | 2025-07-04 08:00 | XMS_ITS | Encounter Summary ---
Author Organization [employer] Address [address] [place] [address] 7 [place] [address] Care Team Providers Care Reclaimer Name Role Phone Carina Munoz Primary Care Provider [phone] Reason for Visit * Reason Onset Date Comments Med Refill 03/04/2025 Encounter Details Date Type Department Care Team ([facility] st Contact Info) Description 03/04/2025 Refill [facility] [address] [place], [place] [phone] Carina Munoz ANP [address] [place] [address] Social History Tobacco Use Types Packs/Day Years [...] Description 07/11/2025 10:00 AM EDT Office Visit [facility] [address] [place] [address] Carina Munoz ANP [address] [place] [address] documented as of this encounter Visit Diagnoses Not on filedocumented in this encounter Additional Health Concerns Assessment Noted Time PHQ-9 Depression Total Score: 14 025 11:13 AM EST documented as of this encounter Care Teams Reclaimer Relationship Specialty Start Date End Date Carina Munoz ANP [address] [place] [address] PCP - General Family Medicine 07/15/21 documented as of this encounter
--- OUTSIDE RECORDS SUMMARY | 2025-07-04 08:01 | XMS_ITS | Encounter Summary ---
Author Organization [employer] Address [address] [place] [address] Care Team Providers Care Mobile Practice Lead Name Role Phone Carina Munoz Primary Care Provider [phone] Encounter Details Date Type Department Care Team (Late st Contact Info) Description 09/22/2022 [facility] Only [place] [facility] [address] [place] [address] Kristen Brown CNM [address] [place] [address] Social History Tobacco Use Types Packs/Day Years [...] Description 07/11/2025 10:00 AM EDT Office Visit [facility] [address] [place] [address] Carina Munoz ANP [address] [place] [address] documented as of this encounter Visit Diagnoses Not on filedocumented in this encounter Care Teams Mobile Practice Lead Relationship Specialty Start Date End Date Carina Munoz ANP [address] [place] [address] PCP - General Family Medicine 07/15/21 documented as of this encounter
--- OUTSIDE RECORDS SUMMARY | 2025-07-04 08:01 | XMS_ITS | Encounter Summary ---
Author Organization [employer] Address [address] [place] [address] 7 [place] [address] Care Team Providers Care Field Service Poultry Technician Name Role Phone Carina Munoz Primary Care Provider [phone] Reason for Visit * Reason Onset Date Comments Med Refill 07/02/2025 Encounter Details Date Type Department Care Team (Late st Contact Info) Description 07/02/2025 Refill [facility] [address] [place], [place] [phone] Carina Munoz ANP [address] [place] [address] Muscle spasm of back; Moderate persistent asthma [...] Description 07/11/2025 10:00 AM EDT Office Visit [facility] [address] [place] [address] Carina Munoz ANP [address] [place] [address] documented as of this encounter Visit Diagnoses Diagnosis Muscle spasm of back Moderate persistent asthma without complication documented in this encounter Additional Health Concerns Assessment Noted Time PHQ-9 Depression Total Score: 14 025 11:13 AM EST documented as of this encounter Care Teams Field Service Poultry Technician Relationship Specialty Start Date End Date Carina Munoz ANP [address] [place] [address] PCP - General Family Medicine 07/15/21 documented as of this encounter
--- OUTSIDE RECORDS SUMMARY | 2025-07-04 08:01 | XMS_ITS | Encounter Summary ---
Author Organization [employer] Address [address] [facility] 7[address] [place] [address] Care Team Providers Care Edger Machine Operator Name Role Phone Carina Munoz Primary Care Provider [phone] Reason for Visit * Reason Onset Date Comments Med Refill 07/18/2024 Encounter Details Date Type Department Care Team ([facility] st Contact Info) Description 07/18/2024 Refill [facility] [address] [place], [place] [phone] Carina Munoz ANP [address] [place] [address] Social History Tobacco Use Types Packs/Day Years [...] Description 07/11/2025 10:00 AM EDT Office Visit [facility] [address] [place] [address] Carina Munoz ANP [address] [place] [address] documented as of this encounter Visit Diagnoses Not on filedocumented in this encounter Additional Health Concerns Assessment Noted Time PHQ-9 Depression Total Score: 0 09/29/20 23 9:47 AM EST documented as of this encounter Care Teams Edger Machine Operator Relationship Specialty Start Date End Date Carina Munoz ANP [address] [place] [address] PCP - General Family Medicine 07/15/21 documented as of this encounter
--- OUTSIDE RECORDS SUMMARY | 2025-07-04 08:01 | XMS_ITS | Clinical Summary ---
Author Organization [facility] Address [address] [place] [address] Phone Care Team Providers Care Seedling Puller Name Role Phone Munoz Carina Hamilton NP Primary Care Provider Allergies No known active allergies Medications hydrocortisone [...] seen on CT abdomen and pelvis at [facility] ED 09/08/21 Diverticulitis 09/14/2021 Overview (07/09/2024): CT abdomen and pelvis 09/08/21 at [facility] ED: findings suspicious for early/mild descending diverticulitis. No abscess formation or free air. Uterine fibroid 09/14/2021 Overview (07/09/2024): Seen on US at [facility] ED 09/08/21 Colon polyp 08/16/2020 Overview (07/09/2024): [place] done 06/2020 for GIB, anemia Asthma, moderate [...] Severe obesity (BMI 35.0-39. 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 for bakery team leader exam (general) (routine) w/o abn findings (Primary [...] V2 4, CMS/HCC V28) 10/27/2018 DX:Bipolar disorder ([facility]); C OMMENT: F/u Lela History of suicidal tendencies 10/27/2018 D X:History of suicidal tendencies; COMMENT: Three attempts Asthma, moderate persistent 03/03/2020 DX:A sthma, moderate persistent Uterine fibroid 09/14/2021 DX:Uterine fibro id; COMMENT: Seen on US at [facility] ED 09/08/21 Hepatic steatosis 09/14/2021 DX:Hepatic ezio atosis; COMMENT: Mild - seen on CT abdomen and pelvis at [facility] ED 09/08/21 Family History Medical History [...] 05/16/2025 2:27 PM EDT Cervical cancer screening VA INSERTION INTRAUTERINE DEVICE Routine 05/16/2025 1:33 PM EDT Encounter for removal and reinsertion of intrauterine contraceptive device (IUD) VA REMOVAL INTRAUTERINE DEVICE Routine 05/16/2025 1:33 PM [...] LAB MICROBIOLOGY METHOD 05/17/2025 1:17 PM EDT [facility] Chlamydia, RNA Probe Negative Negative LAB MICROBIOLOGY METHOD 05/17/2025 1:17 PM EDT [facility] Brushing/Spatula Cervix uteri structure / Unknown 05/16/2025 2:27 PM EDT 05/17/2025 6:36 AM EDT Doretha MITCHELL LAB CYTOLOGY ORDERABLES Liz l Result Performing Organization Address City/[facility]/ZIP Co de Phone Number [facility] [address] [place] [address], [place] [phone] * HPV with reflex genotype (05/16/2025 2:27 PM EDT) Pathologist [facility] HPV Negative Negative LAB MICROBIOLOGY METHOD 05/17/2025 4:42 PM EDT [facility] Brushing/Spatula Cervix uteri structure / Unknown 05/16/2025 2:27 PM EDT 05/17/2025 6:36 AM EDT us Doretha MITCHELL LAB MOLECULAR DIAGNOSTICS OR DERABLES Final Result [facility] [address] [place] [address], [place] [phone] * Trichomonas vaginalis molecular study (05/16/2025 2:27 PM EDT) Trichomonas vaginalis Negative Negative LAB MICROBIOLOGY METHOD 05/17/2025 1:42 PM EDT [facility] Brushing/Spatula Cervix uteri structure / Unknown 05/16/2025 2:27 PM EDT 05/17/2025 6:36 AM EDT us Doretha MITCHELL LAB BLOOD ORDERABLES Final R esult [facility] [address] [place] [address], * Pap smear (05/16/2025 2:27 PM EDT) Interpretation Negative for intraepithelial lesion or malignancy 05/21/2025 2:08 PM EDT [facility] General Categorization Negative 05/21/2025 2:08 PM EDT [facility] LMP 04/30/2024 05/21/2025 2:08 PM EDT [facility] Specimen Adequacy Satisfactory for evaluation, endocervical/finn sformation zone component present 05/21/2025 2:08 PM EDT [facility] Pap Methodology Liquid Based Pap Test 05/21/2025 2:08 PM EDT [facility] Disclaimer The Pap test is a screening test which carries an inherent false negative rate. These test results should be correlated with the patient's clinical findings and history. This Pap test was processed using an automated screening system. Technical cytopathology services provided by [facility], at [address] [place] [address] (CLIA # [id number]/Gabrielle Rees MD, Cuff Setter Lockstitch.) 05/21/2025 2:08 PM EDT [facility] Console Pap Interpretation Reported 05/21/2025 2:08 PM EDT [facility] Brushing/Spatula Cervix uteri structure / Unknown 05/16/2025 2:27 PM EDT 05/16/2025 2:27 PM EDT Doretha MITCHELL LAB CYTOLOGY ORDERABLES Liz l Result [facility] [address] [place] [address], [place] [phone] * VA REMOVAL INTRAUTERINE DEVICE, VA INSERTION INTRAUTERINE DEVICE (05/16/2025 1:33 PM EDT) [...] ORDERABLES Final Result * Lipid panel (12/03/2022) [facility] LDL/HDL Ratio 0 <=0 Comment:No interpretation Triglycerides 0 <=0 mg/dL Comment:No interpretation Cholesterol 0 <=0 mg/dL Comment:No interpretation HDL 0 <=0 mg/dL Comment:No interpretation LDL Cholesterol 0 <=0 mg/dL Comment:No interpretation Blood Venous blood specimen / Unknown Historical Provider LAB BLOOD ORDERABLES Liz l Result * HIV Screening (08/03/2021) [facility] HIV Screening abstracted Historical Provider HEALTH MAINTENANCE Final Result * Hepatitis C Screening (01/24/2018) [facility] Hepatitis C Screening abstracted Historical Provider HEALTH [...] Maintenance Insurance MEDICAID - [place] Care Teams Seedling Puller Relationship Specialty Start Date End Date Carina Munoz NP [address] [phone] PCP - General 09/27/22
--- OUTSIDE RECORDS SUMMARY | 2025-07-04 08:01 | XMS_ITS | Clinical Summary ---
Author Organization [employer] Address [address] [place] [address] 7t [place] [address] Care Team Providers Care Double Bottom Driver Name Role Phone Carina Munoz MARC Primary Care Provider [phone] Allergies No known active allergies Medications * [...] sleeve gastrectomy 05/02/2023 Overview (05/02/2023): [place]27[place]23 [place] [facility] [place] disease 07/08/2022 Hepatic steatosis 09/14/2021 Overview (10/19/2022): Mild - seen on CT abdomen and pelvis at [facility] ED 09/08/21 Uterine fibroid 09/14/2021 Overview (10/19/2022): Seen on US at [facility] ED 09/08/21 Diverticulitis 09/14/2021 09/01/2023 Overview (09/01/2023): CT abdomen and pelvis 09/08/21 at [facility] ED: findings suspicious for early/mild descending diverticulitis. No abscess formation or free air. Colon polyp 08/16/2020 Overview (10/19/2022): Orondo done 06/2020 for GIB, anemia Asthma, moderate [...] Type Department Care Team Description 07/02/2025 Refill [facility] [place] [address] Carina Munoz ANP Muscle spasm of back; Moderate persistent asthma without complication 06/29/2025 Refill [facility] MEDICINE [facility] [place] [address] Carina Munoz ANP Moderate persistent asthma without complication 05/04/2025 Refill [facility] [place] [address] Carina Munoz ANP Moderate persistent asthma without complication 04/24/2025 Telephone [facility] [place] [address] Carina Munoz ANP June04/17/2025 Results Follow-Up [facility] [place] [address] Carina Munoz ANP Vitamin B12, TSH W/Reflex to FT4, Basic Metabolic Panel, Additional followed-up results: 2 04/16/2025 Orders Only GENERIC EXTERNAL DATA DEPARTMENT Provider, Generic External Data 04/12/2025 Telephone [facility] [place] [address] Sherry Moreno, entry level civil engineer Orders 04/12/2025 Orders Only [facility] [place] [address] Carina Munoz ANP Numbness and tingling of both legs (Primary Dx); Hyperlipidemia, unspecified hyperlipidemia type; Iron deficiency 04/05/2025 Telephone [facility] [address] [facility] [place] [address] Sherry Moreno, entry level civil engineer Orders 04/03/2025 9:45 AM EDT Office Visit [facility] OPTOMETRY [address] [place] [address] Giovanny, Yari, OD Hyperopia of both eyes [...] 10:00 AM EDT Office Visit [facility] MEDICINE [address] [place], [place] [phone] Carina Munoz, ANP [address] [place], [place] [phone] Health Maintenance Due Date Last Done Comments [...] Maintenance Results * Referral to Neurology (07/02/2025) [facility] OUTPATIENT REFERRAL ORDERABLES F inal Result * PAP/HPV (05/16/2025) Pap Smear 1. NILM 1. NILM HPV Not Detected Undetected, Indeterminat e, Quantitative , Not Detected Narrative Kiara Beltran - 05/16/2025 Results in care everywhere under labs us Historical Provider MD HEALTH MAINTENANCE Final Result * T-SPOT??.TB (04/16/2025 9:39 AM EDT) T Spot TB Negative Negative [facility] Comment:A negative test resu lt does [...] as aquantitative test. TS PANEL A 0 [facility] TS PANEL B 1 [facility] Negative Control Passed [facility] Positive Control Passed [facility] Comment:For additional infor bee, please refer tohttp://education.Fipeo/faq/QVE878(This link is being provided for informational/educational purposes only.)THIS TEST WAS PERFORMED AT:[employer]/[id number] [place] [address]QAKMUKYLANDON GONZALEZ MD,PHD 04/16/2025 9:39 AM EDT 04/16/2025 11:38 AM EDT [facility] LAB BLOOD ORDERABLES Final Resul t [facility] [address] [place] [phone] * TSH W/Reflex to FT4 (04/16/2025 9:39 AM EDT) TSH reflex Free T4 0.75 0.32 - 4.0 uIU/mL [facility] Blood Venous blood specimen / Unknown 04/16/2025 9:39 AM EDT 04/16/2025 11:38 AM EDT Carina Munoz [facility] LAB BLOOD ORDERABLES Final Resul t Performing Organization Address [facility] Co de Phone Number [facility] [address] [place] [phone] * Lyme Disease Ab with Reflex to Blot (IgG, IgM) (04/16/2025 9:39 AM EDT) Pathologist [facility] Lyme Antibody Screen <0.90 index [facility] Comment:Index Interpretation ----- < 0.90 Negative [...] erythemamigrans is apparent.THIS TEST WAS PERFORMED AT:[employer] [address] [id number] CORBIN MD Lyme Blot [facility] 04/16/2025 9:39 AM EDT 04/16/2025 11:38 AM EDT Carina Munoz [facility] LAB BLOOD ORDERABLES Final Resul t Performing Organization Address [facility]/ZIP Co de Phone Number [facility] [address] [place] [phone] * Drug Monitoring, Panel 1, Screen, Urine (04/16/2025 9:39 AM EDT) Opiate Screen Urine Not Detected Not Detect [facility] Comment:Opiate cut-off is 30 0 ng/mL.Positive results are unconfirmed and should not be used fornon-medical purposes. Barbiturates, Urine Not Detected Not Detect [facility] Comment:Barbiturate cut-off is 200 ng/mL.Positive results are unconfirmed and should not be used fornon-medical purposes. Phencyclidine Screen Urine Not Detected Not Detect [facility] Comment:Phencyclidine cut-of f is 25 ng/mL.Positive results are unconfirmed and should not be used fornon-medical purposes. Amphetamine Screen Urine Not Detected Not Detect [facility] Comment:Amphetamine cut-off is 1000 ng/mL.Positive results are unconfirmed and should not be used fornon-medical purposes. Benzodiazepines Screen Urine Not Detected Not Detect [facility] Comment:Benzodiazepine cut-o ff is 200 ng/mL.Positive results are unconfirmed and should not be used fornon-medical purposes. Cocaine Screen Urine Not Detected Not Detect [facility] Comment:Cocaine cut-off is 3 00 ng/mL.Positive results are unconfirmed and should not be used fornon-medical purposes. Cannabinoid Screen Urine Not Detected Not Detect [facility] Comment:Cannabinoid cut-off is 50 ng/mL.Positive results are unconfirmed and should not be used fornon-medical purposes. Methadone Screen, Urine Not Detected Not Detect ng/mL [facility] Comment:Methadone cut-off is 300 ng/mL.Positive results are unconfirmed and should not be used fornon-medical purposes. FENTANYL URINE Not Detected Not Detect [facility] Comment:Fentanyl cut-off is 1 ng/mL.Positive results are unconfirmed and should not be used fornon-medical purposes. Oxycodone Urine Screen Not Detected Not Detect ng/mL [facility] Comment:Oxycodone cut-off is 100 ng/mL.Positive results are unconfirmed and should not be used fornon-medical purposes. Buprenorphine Screen Not Detected Not Detect ng/mL [facility] Comment:Buprenorphine cut-of f is 5 ng/mL.Positive results are unconfirmed and should not be used fornon-medical purposes. 04/16/2025 9:39 AM EDT 04/16/2025 11:05 AM EDT Generic External Data Provider LAB URINE ORDERAB LES Final Result Performing Organization Address [facility] Co de Phone Number [facility] [address] [place] [phone] * Hemoglobin and Hematocrit (04/16/2025 9:39 AM EDT) Pathologist [facility] Hemoglobin 12.8 12.0 - 16.0 g/dl [facility] Hematocrit 39.6 37.0 - 47.0 % [facility] Blood Venous blood specimen / Unknown 04/16/2025 9:39 AM EDT 04/16/2025 11:38 AM EDT Carina TRAN LAB BLOOD ORDERABLES Final Resul t Performing Organization Address [facility] de Phone Number [facility] [address] [place] [phone] * Vitamin B12 (04/16/2025 9:39 AM EDT) Pathologist [facility] Vitamin B12 477 200 - 900 pg/mL [facility] Comment:NORMAL 200-900 PG/ML INDETERMINATE 160-199 PG/ML DEFICIENT < 160 PG/ML Blood Venous blood specimen / Unknown 04/16/2025 9:39 AM EDT 04/16/2025 11:38 AM EDT Carina Munoz ANP LAB BLOOD ORDERABLES Final Resul t Performing Organization Address [facility] de Phone Number [facility] [address] [place] [phone] * (ABNORMAL) Basic Metabolic Panel (04/16/2025 9:39 AM EDT) [facility] Sodium 140 135 - 145 mmol/L [facility] Potassium 4.3 3.3 - 5.1 mmol/L [facility] Comment:Slight Hemolysis.Int erpret result with caution. Chloride 109(H) 96 - 108 mmol/L [facility] Carbon Dioxide 25 22 - 29 mmol/L [facility] Anion Gap 10(L) 12 - 20 [facility] Urea Nitrogen (BUN) 9 9 - 16 mg/dL [facility] Creatinine, Serum 0.69 0.5 - 1.4 mg/dL [facility] Estimated Glomerular Filt Rate >60 [facility] Comment:Chronic Kidney Disea se: Estimated GFR < 60 mL/min/1.01h9Txqcqm Kidney Disease: Estimated GFR < 15 mL/min/1.73m2 Glucose 76 60 - 115 mg/dL [facility] Calcium 9.0 8.4 - 10.2 mg/dL [facility] Blood Venous blood specimen / Unknown 04/16/2025 9:39 AM EDT 04/16/2025 11:38 AM EDT Carina Munoz [facility] LAB BLOOD ORDERABLES Final Resul t Performing Organization Address [facility] Co de Phone Number [facility] [address] [place] [phone] * Hepatitis C Antibody with Reflex to HCV, RNA, Quantitative, Real-Time PCR (11/16/2024 9:34 AM EST) Hepatitis C Antibody Nonreactive Nonreactive [facility] Comment:Antibodies to HCV no t detected; does not exclude early acuteHCV infection. Blood Venous blood specimen / Unknown 11/16/2024 9:34 AM EST 11/16/2024 9:34 AM EST Carina Munoz [facility] LAB BLOOD ORDERABLES Final Resul t Performing Organization Address [facility] Co de Phone Number [facility] [address] [place] [phone] * HIV-1/2 Antigen and Antibodies, Fourth Generation, with Reflexes (11/16/2024 9:34 AM EST) HIV AB/AG Nonreactive Nonreactive [facility] Comment:HIV-1 p24 Ag and/or HIV-1/HIV-2 Ab not detected.A test result that is nonreactive does not exclude thepossibility of exposure to or infection with HIV-1 and/orHIV-2. Nonreactive results in this assay for individualswith prior exposure to HIV-1 and/or HIV-2 may be due toantigen and antibody levels that are below the limit ofdetection of this assay.The [employer] HIV Ag/Ab Combo assay result andsupplemental assay results should be interpreted inconjunction with the patient's clinical presentation,history and other laboratory results. If the results areinconsistent with clinical evidence, additional testing issuggested to confirm the result. Blood Venous blood specimen / Unknown 11/16/2024 9:34 AM EST 11/16/2024 9:34 AM EST [facility] [place]LOOD ORDERABLES Final Resul t [facility] [address] [place] [address] [phone] * (ABNORMAL) Lipid Panel, Standard (11/16/2024 9:34 AM EST) Triglycerides 79 <150 mg/dL [facility] Comment:Desirable Triglyceri de: less than 150 mg/dLBorderline High Triglyceride 150-199 mg/dLHigh Triglyceride: 200-499 mg/dLVery High Triglyceride: greater than or equal to 5OO mg/dL Cholesterol 280(H) <200 mg/dL [facility] Comment:Desirable Cholestero l: less than 200 mg/dLBorderline High Cholesterol: 200-239 mg/dLHigh Cholesterol: greater than 239 mg/dL LDL Cholesterol Calculated 182(H) <100 mg/dL [facility] Comment:Desirable LDL: less than 100 mg/dLNear Optimal/Above Optimal LDL: 110- 129 mg/dLBorderline High LDL: 130-159 mg/dLHigh LDL: 160-189 mg/dLVery High LDL: greater than or equal to 190 mg/dL HDL Cholesterol 83 >40 mg/dL [facility] Comment:Desirable HDL: great er than 40 mg/dL Note: This HDL assay may give artificially low results in patients with liver disease. 11/16/2024 9:34 AM EST 11/16/2024 9:34 AM EST Generic External Data Provider LAB BLOOD ORDERAB LES Final Result [facility] [address] [place] [phone] * Mammography (05/03/2023) Mammogram NORMAL Anatomical Region Laterality Modality Other Historical Provider HEALTH MAINTENANCE Final Result from Last 3 Months or Most Recently Relevant to Health Maintenance Insurance Critique^[employer] Care Teams Double Bottom Driver Relationship Specialty Start Date End Date Carina Munoz ANP [address] [place] [phone] PCP - General Family Medicine 07/15/21
--- OUTSIDE RECORDS SUMMARY | 2025-07-04 08:01 | XMS_ITS | Encounter Summary ---
Author Organization [employer] Address [address] [place] [address] 7 [place] [address] Care Team Providers Care Picture Enlarger Name Role Phone Carina Munoz Primary Care Provider Reason for Visit * Reason Onset Date Comments Med Refill 08/27/2024 Encounter Details Date Type Department Care Team (Late st Contact Info) Description 08/27/2024 Refill [facility] MEDICINE [address] [place], [place] [phone] Carina Munoz ANP [address] [place] [address] Muscle spasm of back Social History Tobacco [...] 10:00 AM EDT Office Visit [facility] MEDICINE [address] [place] [phone] Carina Munoz ANP [address] [place] [address] documented as of this encounter Visit Diagnoses Diagnosis Muscle spasm of back documented in this encounter Additional Health Concerns Assessment Noted Time PHQ-9 Depression Total Score: 0 09/29/20 23 9:47 AM EST documented as of this encounter Care Teams Picture Enlarger Relationship Specialty Start Date End Date Carina Munoz ANP [address] [place] [phone] PCP - General Family Medicine 07/15/21 documented as of this encounter
--- OUTSIDE RECORDS SUMMARY | 2025-07-04 08:01 | XMS_ITS | Encounter Summary ---
Author Organization [employer] Address [address] [place] [address] 7 [place] [address] Care Team Providers Care Bushler Name Role Phone Carina Munoz Primary Care Provider [phone] Reason for Visit * Reason Onset Date Comments Med Refill 05/28/2024 Encounter Details Date Type Department Care Team (Late st Contact Info) Description 05/28/2024 Refill [facility] MEDICINE [address] [place], [place] [phone] Carina Munoz ANP 230 [place] [address] Gastroesophageal reflux disease without esophagitis Social History [...] Description 07/11/2025 10:00 AM EDT Office Visit [facility] MEDICINE [address] [place] [phone] Carina Munoz ANP [address] [place] [address] documented as of this encounter Visit Diagnoses Diagnosis Gastroesophageal reflux disease without esophagitis Esophageal reflux documented in this encounter Additional Health Concerns Assessment Noted Time PHQ-9 Depression Total Score: 0 09/29/20 23 9:47 AM EST documented as of this encounter Care Teams Bushler Relationship Specialty Start Date End Date Carina Munoz ANP [address] [place] [phone] PCP - General Family Medicine 07/15/21 documented as of this encounter
--- OUTSIDE RECORDS SUMMARY | 2025-07-04 08:01 | XMS_ITS | Encounter Summary ---
Author Organization [employer] Address [address] [place] [address] 7 [place] [address] Care Team Providers Care Water Control Supervisor Name Role Phone Carina Munoz Primary Care Provider [phone] Reason for Visit * Reason Onset Date Comments Med Refill 02/14/2023 Encounter Details Date Type Department Care Team (Late st Contact Info) Description 02/14/2023 Telephone [facility] MEDICINE 230 [place], [place] [phone] Carina Munoz ANP [address] [place] [address] Med Refill Social History Tobacco Use Types [...] 02/14/2023 2:40 PM EDT Med sent to [facility] today. * Telephone Encounter - Gee Barbour - 02/14/2023 2:30 PM EDT Logan manley Felipe with [facility] requesting a 90 day supply on fluticasone (Flonase Allergy Relief) 50 MCG/ACT nasal spray [id number] [place] [facility] [address] [place] [address], [address] documented in this encounter Plan of Treatment Upcoming Encounters Date Type Department Care Team (Late st Contact Info) Description 07/11/2025 10:00 AM EDT Office Visit [facility] MEDICINE [address] [place] [phone] Carina Munoz ANP [address] [place] [address] documented as of this encounter Visit Diagnoses Not on filedocumented in this encounter Care Teams Water Control Supervisor Relationship Specialty Start Date End Date Carina Munoz ANP [address] [place] [phone] PCP - General Family Medicine 07/15/21 documented as of this encounter
--- OUTSIDE RECORDS SUMMARY | 2025-07-04 08:01 | XMS_ITS | Clinical Summary ---
Author Organization [facility] Address [address] [place] [address] Care Team Providers Care Business Executive Name Role Phone Unavailable Primary Care Provider [...] Team Description 05/28/2025 / [facility] [address] [place] [address] GLORIA ALBERTO [id number] Jin Roper, TRENT from [...] 11/16/2024, 12/03/2022 Imm-HPV Completed 01/27/2023, 09/16, 04/15/2021 [id number] Completed 11/08/2024, 1110/2022, 07/28/2022, Additional history exists HIV Screening Completed 11/16/2024, 10/19, 11/07/2023, Additional history exists Hepatitis C Screening Completed 11/16/2024 Cervical Ablation/Cold-Knife Conization Discontinued Cervical Cryotherapy Discontinued Colposcopy Discontinued Endometrial Biopsy Discontinued Excision/Leep Discontinued HPV Genotyping Discontinued Vaginal Pap Discontinued Vulvoscopy Discontinued Insurance [facility]
--- OUTSIDE RECORDS SUMMARY | 2025-07-04 08:01 | XMS_ITS | Encounter Summary ---
Author Organization [employer] Address [address] [facility] 7t [place] [address] Care Team Providers Care Payroll Clerk Name Role Phone Carina Munoz Primary Care Provider [phone] Reason for Visit * Reason Onset Date Comments Med Refill 05/28/2024 Encounter Details Date Type Department Care Team ([facility] st Contact Info) Description 05/28/2024 Refill [facility] MED [facility] PEDS [address] [place], [place] [phone] Carina Munoz ANP 230 [place] [address] Moderate persistent asthma without complication Social History [...] Description 07/11/2025 10:00 AM EDT Office Visit [facility] MEDICINE [address] [place] [phone] Carina Munoz ANP [address] [place] [address] documented as of this encounter Visit Diagnoses Diagnosis Moderate persistent asthma without complication documented in this encounter Additional Health Concerns Assessment Noted Time PHQ-9 Depression Total Score: 0 09/29/20 23 9:47 AM EST documented as of this encounter Care Teams Payroll Clerk Relationship Specialty Start Date End Date Carina Munoz ANP [address] [place] [phone] PCP - General Family Medicine 07/15/21 documented as of this encounter
--- OUTSIDE RECORDS SUMMARY | 2025-07-04 08:01 | XMS_ITS | Encounter Summary ---
Author Organization [employer] Address [address] [place] [address] 7 [place] [address] Care Team Providers Care Dye Machine Operator Name Role Phone Carina Munoz Primary Care Provider [phone] Encounter Details Date Type Department Care Team (Latest Contact Info) Description 01/18/2019 Abstract [facility] CONVERSIONS Dental, Provider, DDS Social History Tobacco [...] Description 07/11/2025 10:00 AM EDT Office Visit [facility] MEDICINE [address] [place] [address] Carina Munoz ANP [address] [place] [address] documented as of this encounter Visit Diagnoses Not on filedocumented in this encounter Care Teams Dye Machine Operator Relationship Specialty Start Date End Date Carina Munoz ANP [address] [place] [address] PCP - General Family Medicine 07/15/21 documented as of this encounter
--- OUTSIDE RECORDS SUMMARY | 2025-07-04 08:01 | XMS_ITS | Encounter Summary ---
Author Organization [email or web address] Address [address] [place] [address] 7 [place] [address] Care Team Providers Care Public Housing Manager Name Role Phone Carina Munoz Primary Care Provider [phone] Reason for Visit * Reason Onset Date Comments Med Refill 07/18/2024 Encounter Details Date Type Department Care Team (Late st Contact Info) Description 07/18/2024 Refill [facility] MEDICINE [address] [place], [place] [phone] Carina Munoz ANP [address] [place] [address] Muscle spasm of back Social History Tobacco [...] Description 07/11/2025 10:00 AM EDT Office Visit [facility] MEDICINE [address] [place] [address] Carina Munoz ANP [address] [place] [address] documented as of this encounter Visit Diagnoses Diagnosis Muscle spasm of back documented in this encounter Additional Health Concerns Assessment Noted Time PHQ-9 Depression Total Score: 0 09/29/20 23 9:47 AM EST documented as of this encounter Care Teams Public Housing Manager Relationship Specialty Start Date End Date Carina Munoz ANP [address] [place] [phone] PCP - General Family Medicine 07/15/21 documented as of this encounter
--- OUTSIDE RECORDS SUMMARY | 2025-07-04 08:01 | XMS_ITS | Encounter Summary ---
Author Organization [employer] Address [address] [place] [address] 7 [place] [address] Care Team Providers Care Metal Reclamation Kettle Tender Name Role Phone Carina Munoz Primary Care Provider [phone] Reason for Visit * Reason Onset Date Comments Med Refill 07/18/2024 Encounter Details Date Type Department Care Team (Late st Contact Info) Description 07/18/2024 Refill [facility] MEDICINE [address] [place], [place] [phone] Carina Munoz ANP [address] [place] [address] Moderate persistent asthma without complication Social History [...] 10:00 AM EDT Office Visit [facility] MEDICINE [address] [place] [address] Carina Munoz ANP [address] [place] [address] documented as of this encounter Visit Diagnoses Diagnosis Moderate persistent asthma without complication documented in this encounter Additional Health Concerns Assessment Noted Time PHQ-9 Depression Total Score: 0 09/29/20 23 9:47 AM EST documented as of this encounter Care Teams Metal Reclamation Kettle Tender Relationship Specialty Start Date End Date Carina Munoz ANP [address] [place] [address] PCP - General Family Medicine 07/15/21 documented as of this encounter
--- OUTSIDE RECORDS SUMMARY | 2025-07-04 08:01 | XMS_ITS | Encounter Summary ---
Author Organization [employer] Address [address] [place] [address] 7t [place] [address] Care Team Providers Care Psychologist Industrial Organizational Name Role Phone Carina Munoz Primary Care Provider [phone] Reason for Visit * Reason Comments Med Refill Encounter Details Date Type Department Care Team (Late st Contact Info) Description 06/29/2025 Refill [facility] MEDICINE [address] [place], [place] [phone] Carina Munoz ANP [address] [place] [address] Moderate persistent asthma without complication Social History [...] Description 07/11/2025 10:00 AM EDT Office Visit [facility] MEDICINE [address] [place] [address] Carina Munoz ANP [address] [place] [address] documented as of this encounter Visit Diagnoses Diagnosis Moderate persistent asthma without complication documented in this encounter Additional Health Concerns Assessment Noted Time PHQ-9 Depression Total Score: 14 025 11:13 AM EST documented as of this encounter Care Teams Psychologist Industrial Organizational Relationship Specialty Start Date End Date Carina Munoz ANP [address] [place] [address] PCP - General Family Medicine 07/15/21 documented as of this encounter
== END 2025-07-03 07:58 | disposition home or self-care (01) ==
LOC: HO.HOSX 07:57
PROVIDERS: Visit Provider Physician Assistant
DX: M17.0 Bilateral primary osteoarthritis of knee (principal); S52.209D Unspecified fracture of shaft of unspecified ulna, subsequent encounter for closed fracture with routine healing; X58.XXXD Exposure to other specified factors, subsequent encounter
CPT/HCPCS: 73562; 99212

== ENCOUNTER 2025-07-03 08:22 | Outpatient (AMB) | payer MEDICAID, SELFPAY ==
--- NOTE | 2025-07-03 08:34 | MHC.OFFVIS ---
Vital Signs 07/03/25 08:38 Height 5 ft 2 in Weight 180 lb BMI 32.9 Intake Visit Reasons: NewProb- bilateral knee pain Intake Note: Lupe is a 39 year old female who presents today for a new problem visit to evaluate bilateral knee pain. Patient was seen for her right knee on 03/21/2023 and injection was given. Today patient complains of bilateral knee pain with her right knee being the worse. States injection to her right knee provided her relief. No previous treatment to her left knee. She mentions that she was prescribed an anti-inflammatory by neurology, but unsure what the name of the medication. Custom Van Converter Name: Deepak [id number] Allergies No Known Allergies Allergy (Verified 07/03/25 08:46) Medication List - Last Reconciled 07/03/25 by Mihir Ramirez PA-C albuterol sulfate 0.63 mg inhalation Q6H PRN bisacodyl (Dulcolax (bisacodyl)) 10 mg MA DAILY PRN calcium citrate-vitamin D3 315 mg-5 mcg (200 unit) 1 tab PO BID docusate sodium 100 mg PO BID 90 days doxepin 10 mg PO BEDTIME fluticasone furoate 100 mcg/actuation (Arnuity Ellipta) 1 inh inhalation DAILY fluticasone propionate 50 mcg/actuation 1 spray intranasal BID hydroxyzine HCl 25 mg PO BID PRN lamotrigine 150 mg PO DAILY levonorgestrel intrauterine montelukast (Singulair) 10 mg PO BEDTIME sennosides (senna) 17.2 mg (2 x 8.6 mg) PO BEDTIME PRN HPI HPI NewProb- bilateral knee pain: Details: 39 yo female returns to the office today for ongoing knee pain. She presents for bilat knee, right > left. I have seen her in the past for right knee pain, 2022 , she had an injection which lasted about 4 months. She denies injury, states when she sits with her legs crossed under her, she has pain. She also has pain with stairs and walking long distances. She states she has done PT for her knee pain which was good. [facility] Medical History Arthritis Anemia Gastritis GERD (gastroesophageal reflux disease) Hiatal hernia Depression Elevated cholesterol Hiatal hernia Delivery with history of Migraine Asthma Surgical History S/P laparoscopic sleeve gastrectomy (04/27/23) Hx of tubal ligation Hx of section Family History Mother Hypertension Arthritis Son Hyperactive Daughter No problems noted. Son No problems noted. 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 She does have tenderness along the posterior aspect of the knee where the hamstrings insert. Full range of motion with crepitus. Lateral retropatellar tenderness noted bilaterally. Calf supple and nontender neurovascularly intact. Results Reviewed Results Reviewed: X-rays of both knees obtained in the office today and reviewed by me show patellofemoral arthritis with mild medial compartment OA. Assessment & Plan Assessment & Plan (1) Patellofemoral arthritis of right knee: Code(s): M17.11 - Unilateral primary osteoarthritis, right knee Category: Medical Plan: We discussed options today which includes physical therapy. An order was placed today and she was given their contact information to make an appointment. I also send her a prescription for ibuprofen 800 mg t.i.d. to take for 2 weeks for acute flare-ups. If symptoms persist or worsen over the next several weeks she can contact our office for a steroid injection otherwise she will follow up as needed. Orders: Orders XR Knee Soto 3V Today M25.561 - Pain in right knee, M25.562 - Pain in left knee PT Evaluation and Treatment Today M17.11 - Unilateral primary osteoarthritis, right knee, M17.12 - Unilateral primary osteoarthritis, left knee Medications: New ibuprofen 800 mg PO Q8H PRN 90 tabs 3RF pain 30 days S52.209D - Unspecified fracture of shaft of unspecified ulna, subsequent encounter for closed fracture with routine healing Coding Level of Care Code Est Pt Level 3 (89472) Complex EM visit Add On G2211 Diagnoses Patellofemoral arthritis of right knee M17.11
[2025-07-03 08:38] VITALS: BMI 32.9
--- OUTSIDE RECORDS SUMMARY | 2025-07-03 09:14 | XMS_ITS | Encounter Summary ---
Author Organization [employer] Address [address] [place] [address] 7 [place] [address] Care Team Providers Care Cement Fittings Maker Name Role Phone Carina Munoz Primary Care Provider [phone] Reason for Visit * Reason Onset Date Comments Med Refill 03/04/2025 Encounter Details Date Type Department Care Team ([facility] st Contact Info) Description 03/04/2025 Refill [facility] MED[facility]INE [address] [place], [place] [phone] Carina Munoz ANP 230 [place] [address] Gastroesophageal reflux disease without esophagitis Social History [...] 07/11/2025 10:00 AM EDT Office Visit [facility] MED[facility] [address] [place] [address] Carina Munoz ANP 230 [place] [address] documented as of this encounter Visit Diagnoses Diagnosis Gastroesophageal reflux disease without esophagitis Esophageal reflux documented in this encounter Additional Health Concerns Assessment Noted Time PHQ-9 Depression Total Score: 14 025 11:13 AM EST documented as of this encounter Care Teams Cement Fittings Maker Relationship Specialty Start Date End Date Carina Munoz ANP [address] [place] [address] PCP - General Family Medicine 07/15/21 documented as of this encounter
--- OUTSIDE RECORDS SUMMARY | 2025-07-03 09:14 | XMS_ITS | Encounter Summary ---
Author Organization [employer] Address [address] [place] [address] [place] [address] Care Team Providers Care Director Of Outreach Name Role Phone Carina Munoz Primary Care Provider [phone] Reason for Visit * Reason Onset Date Comments Med Refill 07/07/2023 Encounter Details Date Type Department Care Team (Late st Contact Info) Description 07/07/2023 Refill [facility] [address] [place] [address] Sarah Nicholas MD [address] [place] [address] Social History Tobacco Use Types Packs/Day Years [...] Description 07/11/2025 10:00 AM EDT Office Visit [facility] [address] [place] [address] Carina Munoz ANP [address] [place] [address] documented as of this encounter Visit Diagnoses Not on filedocumented in this encounter Care Teams Director Of Outreach Relationship Specialty Start Date End Date Carina Munoz ANP [address] [place] [address] PCP - General Family Medicine 07/15/21 documented as of this encounter
--- OUTSIDE RECORDS SUMMARY | 2025-07-03 09:14 | XMS_ITS | Encounter Summary ---
Author Organization [employer] Address [address] [place] [address] 7 [place] [address] Care Team Providers Care Customer Success Manager Name Role Phone Carina Munoz Primary Care Provider [phone] Reason for Visit * Reason Onset Date Comments Med Refill 07/18/2024 Encounter Details Date Type Department Care Team (Late st Contact Info) Description 07/18/2024 Refill [facility] MED[facility]INE [address] [place], [place] [phone] Carina Munoz ANP 230 [place] [address] Muscle spasm of back Social History Tobacco [...] Description 07/11/2025 10:00 AM EDT Office Visit [facility] [address] [place] [address] Carina Munoz ANP 230 [place] [address] documented as of this encounter Visit Diagnoses Diagnosis Muscle spasm of back documented in this encounter Additional Health Concerns Assessment Noted Time PHQ-9 Depression Total Score: 0 09/29/20 23 9:47 AM EST documented as of this encounter Care Teams Customer Success Manager Relationship Specialty Start Date End Date Carina Munoz ANP [address] [place] [address] PCP - General Family Medicine 07/15/21 documented as of this encounter
--- OUTSIDE RECORDS SUMMARY | 2025-07-03 09:14 | XMS_ITS | Encounter Summary ---
Author Organization [employer] Address [address] [place] [address] 7 [place] [address] Care Team Providers Care Electrical High Tension Tester Name Role Phone Carina Munoz Primary Care Provider [phone] Reason for Visit * Reason Onset Date Comments Med Refill 07/02/2025 Encounter Details Date Type Department Care Team (Late st Contact Info) Description 07/02/2025 Refill [facility] [address] [place], [place] [phone] Carina Munoz ANP 230 [place] [address] Muscle spasm of back; Moderate persistent asthma without complication Social History [...] Description 07/11/2025 10:00 AM EDT Office Visit [facility] [address] [place] [address] Carina Munoz ANP 230 [place] [address] documented as of this encounter Visit Diagnoses Diagnosis Muscle spasm of back Moderate persistent asthma without complication documented in this encounter Additional Health Concerns Assessment Noted Time PHQ-9 Depression Total Score: 14 025 11:13 AM EST documented as of this encounter Care Teams Electrical High Tension Tester Relationship Specialty Start Date End Date Carina Munoz ANP [address] [place] [address] PCP - General Family Medicine 07/15/21 documented as of this encounter
--- OUTSIDE RECORDS SUMMARY | 2025-07-03 09:14 | XMS_ITS | Encounter Summary ---
Author Organization [employer] Address [address] [place] [address] 7t [place] [address] Care Team Providers Care Bus Escort Name Role Phone Carina Munoz Primary Care Provider [phone] Reason for Visit * Reason Comments Med Refill Encounter Details Date Type Department Care Team (Late st Contact Info) Description 06/29/[address] [facility] MEDICINE [address] [place], [place] [phone] Carina Munoz ANP 230 [place] [address] Moderate persistent asthma without complication Social History [...] Description 07/11/2025 10:00 AM EDT Office Visit [facility] [address] [place] [address] Carina Munoz ANP [address] [place] [address] documented as of this encounter Visit Diagnoses Diagnosis Moderate persistent asthma without complication documented in this encounter Additional Health Concerns Assessment Noted Time PHQ-9 Depression Total Score: 14 025 11:13 AM EST documented as of this encounter Care Teams Bus Escort Relationship Specialty Start Date End Date Carina Munoz ANP [address] [place] [address] PCP - General Family Medicine 07/15/21 documented as of this encounter
--- OUTSIDE RECORDS SUMMARY | 2025-07-03 09:14 | XMS_ITS | Clinical Summary ---
Author Organization [facility] Address [address] [place] [address] Care Team Providers Care Production Sanitizer Name Role Phone Unavailable Primary Care Provider [...] Team Description 05/28/2025 / [facility] [address] [place] [address] GLORIA ALBERTO [id number] Jin Roper, TRENT from [...] 10/27/2028 019 Lipid Screening 11/16/2029 11/16/2024, 12/03/2022 Imm-HPV Completed 01/27/2023, 09/16, 04/15/2021 [id number] Completed 11/08/2024, 1110/2022, 07/28/2022, Additional history exists HIV Screening Completed 11/16/2024, 10/19, 11/07/2023, Additional history exists Hepatitis C Screening Completed 11/16/2024 Cervical Ablation/Cold-Knife Conization Discontinued Cervical Cryotherapy Discontinued Colposcopy Discontinued Endometrial Biopsy Discontinued Excision/Leep Discontinued HPV Genotyping Discontinued Vaginal Pap Discontinued Vulvoscopy Discontinued Insurance [facility]
--- OUTSIDE RECORDS SUMMARY | 2025-07-03 09:14 | XMS_ITS | Encounter Summary ---
Author Organization [employer] Address [address] [place] [address] 7 [place] [address] Care Team Providers Care Jewel Sorter Name Role Phone Carina Munoz Primary Care Provider [phone] Reason for Visit * Reason Onset Date Comments Med Refill 03/04/2025 Encounter Details Date Type Department Care Team ([facility] st Contact Info) Description 03/04/2025 Refill [facility] 230 [place], [place] [phone] Carina Munoz ANP 230 [place] [address] Social History Tobacco Use Types Packs/Day Years [...] 10:00 AM EDT Office Visit [facility] [address] [place] [address] Carina Munoz ANP 230 [place] [address] documented as of this encounter Visit Diagnoses Not on filedocumented in this encounter Additional Health Concerns Assessment Noted Time PHQ-9 Depression Total Score: 14 025 11:13 AM EST documented as of this encounter Care Teams Jewel Sorter Relationship Specialty Start Date End Date Carina Munoz ANP [address] [place] [address] PCP - General Family Medicine 07/15/21 documented as of this encounter
--- OUTSIDE RECORDS SUMMARY | 2025-07-03 09:14 | XMS_ITS | Encounter Summary ---
Author Organization [employer] Address [address] [place] [address] 7 [place] [address] Care Team Providers Care Account General Manager Name Role Phone Carina Munoz MARC Primary Care Provider [phone] Reason for Visit * Reason Onset Date Comments Med Refill 10/24/2023 Encounter Details Date Type Department Care Team (Late st Contact Info) Description 10/24/2023 Refill [facility] MEDICINE [address] [place], [place] [phone] [facility] [address] [place] [address] Muscle spasm of back Social History Tobacco [...] 07/11/2025 10:00 AM EDT Office Visit [facility] MEDICINE [address] [place] [address] Carina Munoz ANP [address] [place] [address] documented as of this encounter Visit Diagnoses Diagnosis Muscle spasm of back documented in this encounter Additional Health Concerns Assessment Noted Time PHQ-9 Depression Total Score: 0 09/29/20 23 9:47 AM EST documented as of this encounter Care Teams Account General Manager Relationship Specialty Start Date End Date Carina Munoz ANP [address] [place] [address] PCP - General Family Medicine 07/15/21 documented as of this encounter
--- OUTSIDE RECORDS SUMMARY | 2025-07-03 09:15 | XMS_ITS | Encounter Summary ---
Author Organization [employer] Address [address] [facility] 7t [place] [address] Care Team Providers Care Clin Nurse Spec Name Role Phone Carina Munoz Primary Care Provider [phone] Reason for Visit * Reason Onset Date Comments Med Refill 05/28/2024 Encounter Details Date Type Department Care Team ([facility] st Contact Info) Description 05/28/2024 Refill [facility] [address] [place], [place] [phone] Carina Munoz ANP [address] [place] [address] Moderate persistent asthma without complication Social History [...] Description 07/11/2025 10:00 AM EDT Office Visit [facility] MEDICINE [address] [place] [address] Carina Munoz ANP [address] [place] [address] documented as of this encounter Visit Diagnoses Diagnosis Moderate persistent asthma without complication documented in this encounter Additional Health Concerns Assessment Noted Time PHQ-9 Depression Total Score: 0 09/29/20 23 9:47 AM EST documented as of this encounter Care Teams Clin Nurse Spec Relationship Specialty Start Date End Date Carina Munoz ANP [address] [place] [address] PCP - General Family Medicine 07/15/21 documented as of this encounter
--- OUTSIDE RECORDS SUMMARY | 2025-07-03 09:15 | XMS_ITS | Encounter Summary ---
Author Organization [employer] Address [address] [place] [address] Care Team Providers Care Transitions Manager Rn Name Role Phone Carina Munoz Primary Care Provider Encounter Details Date Type Department Care Team (Late st Contact Info) Description 09/22/2022 [facility] Only Section Health Information Management 230 [place] [address] Kristen Brown CNM 230 [place] [address] Social History Tobacco Use Types Packs/Day Years [...] 07/11/2025 10:[address] AM EDT Office [address] [facility] MEDICINE [address] [place] [address] Carina Munoz ANP 230 [place] [address] documented as of this encounter Visit Diagnoses Not on filedocumented in this encounter Care Teams Transitions Manager Rn Relationship Specialty Start Date End Date Carina Munoz ANP 230 [place] [address] PCP - General Family Medicine 07/15/21 documented as of this encounter
--- OUTSIDE RECORDS SUMMARY | 2025-07-03 09:15 | XMS_ITS | Encounter Summary ---
Author Organization [employer] Address [address] [place] [address] 7 [place] [address] Care Team Providers Care Metal Casket Maker Name Role Phone Carina Munoz Primary Care Provider [phone] Reason for Visit * Reason Onset Date Comments Med Refill 07/18/2024 Encounter Details Date Type Department Care Team (Late st Contact Info) Description 07/18/2024 Refill [facility] MEDICINE 230 [place], [place] [phone] Carina Munoz ANP 230 [place] [address] Moderate persistent asthma without complication Social History [...] Description 07/11/2025 10:00 AM EDT Office Visit [facility] MEDICINE [address] [place] [address] Carina Munoz ANP 230 [place] [address] documented as of this encounter Visit Diagnoses Diagnosis Moderate persistent asthma without complication documented in this encounter Additional Health Concerns Assessment Noted Time PHQ-9 Depression Total Score: 0 09/29/20 23 9:47 AM EST documented as of this encounter Care Teams Metal Casket Maker Relationship Specialty Start Date End Date Carina Munoz ANP [address] [place] [address] PCP - General Family Medicine 07/15/21 documented as of this encounter
--- OUTSIDE RECORDS SUMMARY | 2025-07-03 09:15 | XMS_ITS | Encounter Summary ---
Author Organization [employer] Address [address] [place] [address] 7 [place] [address] Care Team Providers Care Reacher Name Role Phone Carina Munoz Primary Care Provider [phone] Encounter Details Date Type Department Care Team (Latest Contact Info) Description 01/18/2019 Abstract [facility] CONVERSIONS Dental, Provider, DDS Social History [...] 10:00 AM EDT Office Visit [facility] MEDICINE [address] [place] [address] Carina Munoz ANP [address] [place] [address] documented as of this encounter Visit Diagnoses Not on filedocumented in this encounter Care Teams Reacher Relationship Specialty Start Date End Date Carina Munoz ANP [address] [place] [address] PCP - General Family Medicine 07/15/21 documented as of this encounter
--- OUTSIDE RECORDS SUMMARY | 2025-07-03 09:15 | XMS_ITS | Encounter Summary ---
Author Organization [employer] Address [address] [place] [address] 7 [place] [address] Care Team Providers Care Legal Clerk Name Role Phone Carina Munoz Primary Care Provider [phone] Reason for Visit * Reason Onset Date Comments Med Refill 02/14/2023 Encounter Details Date Type Department Care Team (Late st Contact Info) Description 02/14/2023 Telephone [facility] 230 [place], [place] [phone] Carina Munoz ANP [address] [place] [address] Med Refill Social History Tobacco Use Types [...] 02/14/2023 2:40 PM EDT Med sent to [facility] today. * Telephone Encounter - Gee Barbour - 02/14/2023 2:30 PM EDT Logan manley Felipe with [facility] requesting a 90 day supply on fluticasone (Flonase Allergy Relief) 50 MCG/ACT [id number] [place] [facility] [address] [place] [address], [address] documented in this encounter Plan of Treatment Upcoming Encounters Date Type Department Care Team (Late st Contact Info) Description 07/11/2025 10:00 AM EDT Office Visit [facility] MED[facility]INE [address] [place] [address] Carina Munoz ANP [address] [place] [address] documented as of this encounter Visit Diagnoses Not on filedocumented in this encounter Care Teams Legal Clerk Relationship Specialty Start Date End Date Carina Munoz ANP [address] [place] [address] PCP - General Family Medicine 07/15/21 documented as of this encounter
--- OUTSIDE RECORDS SUMMARY | 2025-07-03 09:15 | XMS_ITS | Clinical Summary ---
Author Organization [address] [facility] Address [address] [place] [address] Phone Care Team Providers Care Decision Support Analyst Name Role Phone Munoz Carina Hamilton NP Primary Care Provider [phone] Allergies No known active allergies Medications hydrocortisone [...] seen on CT abdomen and pelvis at [facility] 09/08/21 Diverticulitis 09/14/2021 Overview (07/09/2024): CT abdomen and pelvis 09/08/21 at [facility] ED: findings suspicious for early/mild descending diverticulitis. No abscess formation or free air. Uterine fibroid 09/14/2021 Overview (07/09/2024): Seen on US at [facility] 09/08/21 Colon polyp 08/16/2020 Overview (07/09/2024): [place] done 06/2020 for GIB, anemia Asthma, moderate [...] Severe obesity (BMI 35.0-39. 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) (routine) w/o abn findings (Primary [...] V2 4, CMS/HCC V28) 10/27/2018 DX:Bipolar disorder ([facility]); C OMMENT: F/u Lela History of suicidal tendencies 10/27/2018 D X:History of suicidal tendencies; COMMENT: Three attempts Asthma, moderate persistent 03/03/2020 DX:A sthma, moderate persistent Uterine fibroid 09/14/2021 DX:Uterine fibro id; COMMENT: Seen on US at [facility] 09/08/21 Hepatic steatosis 09/14/2021 DX:Hepatic ezio atosis; COMMENT: Mild - seen on CT abdomen and pelvis at [facility] 09/08/21 Family History Medical History [...] 05/16/2025 2:27 PM EDT Cervical cancer screening [place] INSERTION INTRAUTERINE DEVICE Routine 05/16/2025 1:33 PM EDT Encounter for removal and reinsertion of intrauterine contraceptive device (IUD) [place] REMOVAL INTRAUTERINE DEVICE Routine 05/16/2025 1:33 PM EDT Encounter for removal and reinsertion of intrauterine contraceptive device (IUD) LIPID PANEL Routine 12/03/2022 HM HIV SCREENING Routine 08/03/2021 HEPATITIS C SCREENING Routine 01/24/2018 DX MAMMO INCL CAD BI Routine 12/09/2017 2:54 PM EST Mastodynia from Last 3 Months or Most Recently Relevant to Health Maintenance Results * Chlamydia trachomatis and neisseria gonorrhoeae by tma, thinprep (05/16/2025 2:27 PM EDT) N. gonorrhoeae, RNA Probe Negative Negative LAB MICROBIOLOGY METHOD 05/17/2025 1:17 PM EDT [facility] Chlamydia, RNA Probe Negative Negative LAB MICROBIOLOGY METHOD 05/17/2025 1:17 PM EDT [facility] Brushing/Spatula Cervix uteri structure / Unknown 05/16/2025 2:27 PM EDT 05/17/2025 6:36 AM EDT Doretha MITCHELL LAB CYTOLOGY ORDERABLES Liz l Result Performing Organization Address City/[facility]/ZIP Co de Phone Number [facility] [address] [place] [address], [place] [phone] * HPV with reflex genotype (05/16/2025 2:27 PM EDT) Pathologist [facility] HPV Negative Negative LAB MICROBIOLOGY METHOD 05/17/2025 4:42 PM EDT [facility] Brushing/Spatula Cervix uteri structure / Unknown 05/16/2025 2:27 PM EDT 05/17/2025 6:36 AM EDT us Doretha MITCHELL LAB MOLECULAR DIAGNOSTICS OR DERABLES Final Result [facility] [address] [place] [address], [place] [phone] * Trichomonas vaginalis molecular study (05/16/2025 2:27 PM EDT) Trichomonas vaginalis Negative Negative LAB MICROBIOLOGY METHOD 05/17/2025 1:42 PM EDT [facility] Brushing/Spatula Cervix uteri structure / Unknown 05/16/2025 2:27 PM EDT 05/17/2025 6:36 AM EDT us Doretha MITCHELL LAB BLOOD ORDERABLES Final R esult [facility] [address] [place] [address], * Pap smear (05/16/2025 2:27 PM EDT) Interpretation Negative for intraepithelial lesion or malignancy 05/21/2025 2:08 PM EDT [facility] General Categorization Negative 05/21/2025 2:08 PM EDT [facility] LMP 04/30/2024 05/21/2025 2:08 PM EDT [facility] Specimen Adequacy Satisfactory for evaluation, endocervical/finn sformation zone component present 05/21/2025 2:08 PM EDT [facility] Pap Methodology Liquid Based Pap Test 05/21/2025 2:08 PM EDT [facility] Disclaimer The Pap test is a screening test which carries an inherent false negative rate. These test results should be correlated with the patient's clinical findings and history. This Pap test was processed using an automated screening system. Technical cytopathology services provided by [facility], at [address] [place] [address] (CLIA # [id number]/Gabrielle Rees MD, Alliance Manager.) 05/21/2025 2:08 PM EDT [facility] Console Pap Interpretation Reported 05/21/2025 2:08 PM EDT [facility] Brushing/Spatula Cervix uteri structure / Unknown 05/16/2025 2:27 PM EDT 05/16/2025 2:27 PM EDT Doretha MITCHELL LAB CYTOLOGY ORDERABLES Liz l Result [facility] [address] [place] [address], [place] [phone] * [place] REMOVAL INTRAUTERINE DEVICE, [place] INSERTION INTRAUTERINE DEVICE (05/16/2025 1:33 PM EDT) [...] ORDERABLES Final Result * Lipid panel (12/03/2022) [facility] LDL/HDL Ratio 0 <=0 Comment:No interpretation Triglycerides 0 <=0 mg/dL Comment:No interpretation Cholesterol 0 <=0 mg/dL Comment:No interpretation HDL 0 <=0 mg/dL Comment:No interpretation LDL Cholesterol 0 <=0 mg/dL Comment:No interpretation Blood Venous blood specimen / Unknown Historical Provider LAB BLOOD ORDERABLES Liz l Result * HIV Screening (08/03/2021) [facility] HIV Screening abstracted Historical Provider HEALTH MAINTENANCE Final Result * Hepatitis C Screening (01/24/2018) [facility] Hepatitis C Screening abstracted Historical Provider HEALTH [...] limited right breastultrasound. BI-RADS Category 1, negative. us Kerri MITCHELL IMG BI PROCEDURES Final Resul t from Last 3 Months or Most Recently Relevant to Health Maintenance Insurance MEDICAID - [place] Care Teams Decision Support Analyst Relationship Specialty Start Date End Date Carina Munoz NP [address] [address] PCP - General 09/27/22
--- OUTSIDE RECORDS SUMMARY | 2025-07-03 09:15 | XMS_ITS | Encounter Summary ---
Author Organization [employer] Address [address] [facility] [address] [place] [address] Care Team Providers Care Pharmacy Intake Coordinator Name Role Phone Carina Munoz Primary Care Provider [phone] Reason for Visit * Reason Onset Date Comments Med Refill 07/18/2024 Encounter Details Date Type Department Care Team ([facility] st Contact Info) Description 07/18/2024 Refill [facility] [address] [place], [place] [phone] Carina Munoz ANP [address] [place] [address] Social History Tobacco Use Types Packs/Day Years [...] Office Visit [facility] MEDICINE [address] [place] [phone] Carina Munoz ANP [address] [place] [address] documented as of this encounter Visit Diagnoses Not on filedocumented in this encounter Additional Health Concerns Assessment Noted Time PHQ-9 Depression Total Score: 0 09/29/20 23 9:47 AM EST documented as of this encounter Care Teams Pharmacy Intake Coordinator Relationship Specialty Start Date End Date Carina Munoz ANP [address] [place] [id number] PCP - General Family Medicine 07/15/21 documented as of this encounter
--- OUTSIDE RECORDS SUMMARY | 2025-07-03 09:15 | XMS_ITS | Encounter Summary ---
Author Organization [employer] Address [address] [place] [address] [address] [place] [address] Care Team Providers Care Sport Shoe Spike Assembler Name Role Phone Carina Munoz Primary Care Provider [phone] Reason for Visit * Reason Onset Date Comments Med Refill 05/28/2024 Encounter Details Date Type Department Care Team (Late st Contact Info) Description 05/28/2024 Refill [facility] [address] [place], [place] [phone] Carina Munoz ANP [address] [place] [address] Gastroesophageal reflux disease without esophagitis Social History [...] Description 07/11/2025 10:00 AM EDT Office Visit [facility] [address] [place] [phone] Carina Munoz ANP [address] [place] [address] documented as of this encounter Visit Diagnoses Diagnosis Gastroesophageal reflux disease without esophagitis Esophageal reflux documented in this encounter Additional Health Concerns Assessment Noted Time PHQ-9 Depression Total Score: 0 09/29/20 23 9:47 AM EST documented as of this encounter Care Teams Sport Shoe Spike Assembler Relationship Specialty Start Date End Date Carina Munoz ANP [address] [place] [phone] PCP - General Family Medicine 07/15/21 documented as of this encounter
--- OUTSIDE RECORDS SUMMARY | 2025-07-03 09:15 | XMS_ITS | Clinical Summary ---
Author Organization [employer] Address [address] [place] [address] [address] [place] [address] Care Team Providers Care Household Appliance Repairer Name Role Phone Carina Munoz MARC Primary Care Provider Allergies No known active allergies Medications * This document contains information received from the source organization and may not represent a complete record from that organization. lamoTRIgine (LaMICtal) 100 MG tablet Take 1 tablet by mouth 1 (one) time each day. psychiatry Active Levonorgestrel 20 MCG/DAY intrauterine device 1 each by Intrauterine route. 020 2024 Active montelukast (Singulair) 10 MG tablet TAKE 1 TABLET BY MOUTH EVERY EVENING 90 tablet 1 025 Active pantoprazole (Protonix) 40 MG EC tabletIndicatio ns:Gastroesopha geal reflux disease without esophagitis TAKE 1 TABLET BY MOUTH BEFORE BREAKFAST 90 tablet 1 025 Active prazosin (Minipress) 1 MG capsuleIndicati ons:PTSD (post-traumatic stress disorder) Take 2 capsules (2 mg) by mouth if needed at bedtime (For nightmares.). 30 capsule 1 025 Active hydrOXYzine HCl (Atarax) 25 MG tablet TAKE 1 TABLET BY MOUTH EVERY NIGHT AT BEDTIME NEEDED FOR ANXIETY Active fluticasone (Flonase) 50 MCG/ACT nasal sprayIndication s:Moderate persistent asthma without complication ADMIN 1-2 SPRAYS PER NOSTRIL NEEDED FOR ALLERGIES UP TO ONCE DAILY 48 mL 025 Active lidocaine (Lidoderm) 5 % patchIndication s:Muscle spasm of back APPLY 1 PATCH TOPICALLY EVERY MORNING IF NEEDED FOR PAIN. REMOVE AND DISCARD PATCH WITHIN 12 HOURS OR as DIRECTED BY MD. 30 patch 1 Active fluticasone furoate (Arnuity Ellipta) 200 MCG/ACT inhalerIndicati ons:Moderate persistent asthma without complication INHALE 1 PUFF EVERY MORNING. RINSE MOUTH AFTER USE. 30 each 2 Active Diclofenac Sodium 1 % gelIndications: Muscle spasm of back APPLY 2 GRAMS TOPICALLY IN THE MORNING, AT NOON, IN THE EVENING AND AT BEDTIME IF NEEDED 100 g 3 Active baclofen (Lioresal) 10 MG tablet TAKE 1 TABLET BY MOUTH IN THE MORNING, AT NOON, AND BEDTIME IF NEEDED FOR MUSCLES SPASMS 60 tablet 1 Active albuterol (Ventolin HFA) 108 (90 Base) MCG/ACT inhalerIndicati ons:Moderate persistent asthma without complication INHALE 1-2 PUFFS EVERY 4-6 HOURS NEEDED IF WHEEZING/SOB 18 g 1 Active doxepin (SINEquan) 10 MG capsule TAKE 1 CAPSULE BY MOUTH AT BEDTIME FOR SLEEP 30 capsule Active fluticasone (Flonase Allergy Relief) 50 MCG/ACT nasal sprayIndication s:Moderate persistent asthma without complication Admin 1-2 sprays per nostril as needed for allergies up to once daily 48 g 2024 Discontinued lidocaine (Lidoderm) 5 % patchIndication s:Muscle spasm of back APPLY 1 PATCH TOPICALLY EVERY MORNING IF NEEDED FOR PAIN. REMOVE AND DISCARD PATCH WITHIN 12 HOURS OR as DIRECTED BY MD. 30 patch 1 025 2024 Discontinued(R eorder (will not trigger notification to Pharmacy)) fluticasone furoate (Arnuity Ellipta) 200 MCG/ACT inhalerIndicati ons:Moderate persistent asthma without complication INHALE 1 PUFF EVERY MORNING, rinse mouth after use 30 each 2 025 2024 Discontinued(R eorder (will not trigger notification to Pharmacy)) Diclofenac Sodium 1 % gelIndications: Muscle spasm of back APPLY 2 GRAMS TOPICALLY IN THE MORNING, AT NOON, IN THE EVENING AND AT BEDTIME IF NEEDED 100 g 3 025 2024 Discontinued(R eorder (will not trigger notification to Pharmacy)) baclofen (Lioresal) 10 MG tablet TAKE 1 TABLET BY MOUTH IN THE MORNING, AT NOON, AND BEDTIME IF NEEDED FOR MUSCLES SPASMS 60 tablet 1 025 2024 Discontinued(R eorder (will not trigger notification to Pharmacy)) doxepin (SINEquan) 10 MG capsule 1 capsule by mouth every night at bedtime for sleep 30 capsule 025 2024 Discontinued(R eorder (will not trigger notification to Pharmacy)) albuterol (Ventolin HFA) 108 (90 Base) MCG/ACT inhalerIndicati ons:Moderate persistent asthma without complication INHALE 1-2 PUFFS EVERY 4-6 HOURS NEEDED IF WHEEZING/SOB 18 g 1 025 2024 Discontinued(R eorder (will not trigger notification to Pharmacy)) Active Problems Problem Noted Date Diagnosed Date Numbness and tingling of both legs 04/12/2025 Overview (04/12/2025): Normal BLE EMG/NCS 01/03/25 MRI lumbar unremarkable 03/06/25 Thus far B12, TSH, H/H normal Anxiety 12/11/2024 Recurrent major depressive disorder 12/11/2024 Hx of bipolar disorder 12/11/2024 S/P laparoscopic sleeve gastrectomy 05/02/2023 Overview (05/02/2023): [place] [facility] [place]verticular disease 07/08/2022 Hepatic steatosis 09/14/2021 Overview (10/19/2022): Mild - seen on CT abdomen and pelvis at [facility] ED 09/08/21 Uterine fibroid 09/14/2021 Overview (10/19/2022): Seen on US at [facility] ED 09/08/21 Diverticulitis 09/14/2021 09/01/2023 Overview (09/01/2023): CT abdomen and pelvis 09/08/21 at [facility] ED: findings suspicious for early/mild descending diverticulitis. No abscess formation or free air. Colon polyp 08/16/2020 Overview (10/19/2022): Thompson done 06/2020 for GIB, anemia Asthma, moderate [...] organization. Date Type Department Care Team Description 07/02/2025 Refill [facility] [place] [address] Carina Munoz ANP Muscle spasm of back; Moderate persistent asthma without complication 06/29/2025 Refill [facility] [place] [address] Carina Munoz ANP Moderate persistent asthma without complication 05/04/2025 Refill [facility] [place] [address] Carina Munoz ANP Moderate persistent asthma without complication 04/24/2025 Telephone [facility] [place] [address] Carina Munoz ANP June04/17/2025 Results Follow-Up [facility] [place] [address] Carina Munoz ANP Vitamin B12, TSH W/Reflex to FT4, Basic Metabolic Panel, Additional followed-up results: 2 04/16/2025 Orders Only GENERIC EXTERNAL DATA DEPARTMENT Provider, Generic External Data 04/12/2025 Telephone [facility] [place] [address] Sherry Moreno, digital campaign manager Orders 04/12/2025 Orders Only [facility] [place] [address] Carina Munoz ANP Numbness and tingling of both legs (Primary Dx); Hyperlipidemia, unspecified hyperlipidemia type; Iron deficiency 04/05/2025 Telephone [facility] [address] [facility] [place] [address] Sherry Moreno, digital campaign manager Orders 04/03/2025 9:45 AM EDT Office Visit [facility] [address] [facility] [place] [address] Giovanny, Yari, OD Hyperopia of both eyes [...] Description 07/11/2025 10:00 AM EDT Office Visit [facility] [address] [place], [place] [phone] Carina Munoz, ANP [address] [place], [place] [phone] Health Maintenance Due Date Last Done Comments Family Planning (PISQ) 1999 Hepatitis A Vaccines (1 of 2 - Risk 2-dose series) 2003 Hepatitis B Vaccines (1 of 3 - 19+ 3-dose series) 2003 Pneumococcal Vaccine: Pediatrics (0 to 5 Years) and At-Risk Patients (6 to 49) Years (1 of 2 - PCV) 2003 Mammogram 05/03/2025 05/03/2023 Depression Monitoring 05/08/2025 11/08/2024, 025 Influenza Vaccine (#1) 2025 , 08/17/2023, 07/28/2022, Additional history exists SDOH Screening 10/30/2025 10/30/2024 Alcohol/Substance Use Screening 03/05/2026 03/05/2025 Disability Screening 03/05/2026 03/05/2025 Tobacco Screening 04/12/2026 04/12/2025 Cervical Cancer Screening 05/16/2026 HPV/Cotest 05/16/2026 05/16/2025, 08/18, 08/18/2022 Pap Smear 05/16/2026 05/16/2025, 08/18, 08/18/2022 DTaP/Tdap/Td Vaccines (2 - Td or Tdap) [...] Procedure Name Priority Date/Time Associated Diagnosis Comments AMB REFERRAL TO NEUROLOGY Urgent 07/02/2025 Numbness and tingling of both legs HM PAP/HPV Routine 05/16/2025 T-SPOT(R).TB Routine 04/16/2025 9:39 AM EDT DRUG [...] PANEL, STANDARD Routine 11/16/2024 9:34 AM EST MAMMOGRAPHY Routine 05/03/2023 from Last 3 Months or Most Recently Relevant to Health Maintenance Results * Referral to Neurology (07/02/2025) [facility] OUTPATIENT REFERRAL ORDERABLES F inal Result * PAP/HPV (05/16/2025) Pap Smear 1. NILM 1. NILM HPV Not Detected Undetected, Indeterminat e, Quantitative , Not Detected Narrative Kiara Beltran - 05/16/2025 Results in care everywhere under labs us Historical Provider MD HEALTH MAINTENANCE Final Result * T-SPOT??.TB (04/16/2025 9:39 AM EDT) T Spot TB Negative Negative [facility] Comment:A negative test resu lt does [...] as aquantitative test. TS PANEL A 0 [facility] TS PANEL B 1 [facility] Negative Control Passed [facility] Positive Control Passed [facility] Comment:For additional infor bee, please refer tohttp://education.[employer]/faq/DRZ014(This link is being provided for informational/educational purposes only.)THIS TEST WAS PERFORMED AT:[employer]/[facility]ENTER[facility]D[address] [place] [address]KYDYVGRLANDON GONZALEZ MD,PHD 04/16/2025 9:39 AM EDT 04/16/2025 11:38 AM EDT [facility] LAB BLOOD ORDERABLES Final Resul t [facility] [address] [place] [phone] * TSH W/Reflex to FT4 (04/16/2025 9:39 AM EDT) TSH reflex Free T4 0.75 0.32 - 4.0 uIU/mL [facility] Blood Venous blood specimen / Unknown 04/16/2025 9:39 AM EDT 04/16/2025 11:38 AM EDT Carina Munoz [facility] LAB BLOOD ORDERABLES Final Resul t Performing Organization Address [facility] Co de Phone Number [facility] [address] [place] [phone] * Lyme Disease Ab with Reflex to Blot (IgG, IgM) (04/16/2025 9:39 AM EDT) Pathologist [facility] Lyme Antibody Screen <0.90 index [facility] Comment:Index Interpretation ----- < 0.90 Negative [...] when erythemamigrans is apparent.THIS TEST WAS PERFORMED AT:[employer] [address] [address]OYEMLMOISES CORBIN MD Lyme Blot [facility] 04/16/2025 9:39 AM EDT 04/16/2025 11:38 AM EDT Carina Munoz [facility] LAB BLOOD ORDERABLES Final Resul t Performing Organization Address [facility]/ZIP Co de Phone Number [facility] [address] [place] [phone] * Drug Monitoring, Panel 1, Screen, Urine (04/16/2025 9:39 AM EDT) Opiate Screen Urine Not Detected Not Detect [facility] Comment:Opiate cut-off is 30 0 ng/mL.Positive results are unconfirmed and should not be used fornon-medical purposes. Barbiturates, Urine Not Detected Not Detect [facility] Comment:Barbiturate cut-off is 200 ng/mL.Positive results are unconfirmed and should not be used fornon-medical purposes. Phencyclidine Screen Urine Not Detected Not Detect [facility] Comment:Phencyclidine cut-of f is 25 ng/mL.Positive results are unconfirmed and should not be used fornon-medical purposes. Amphetamine Screen Urine Not Detected Not Detect [facility] Comment:Amphetamine cut-off is 1000 ng/mL.Positive results are unconfirmed and should not be used fornon-medical purposes. Benzodiazepines Screen Urine Not Detected Not Detect [facility] Comment:Benzodiazepine cut-o ff is 200 ng/mL.Positive results are unconfirmed and should not be used fornon-medical purposes. Cocaine Screen Urine Not Detected Not Detect [facility] Comment:Cocaine cut-off is 3 00 ng/mL.Positive results are unconfirmed and should not be used fornon-medical purposes. Cannabinoid Screen Urine Not Detected Not Detect [facility] Comment:Cannabinoid cut-off is 50 ng/mL.Positive results are unconfirmed and should not be used fornon-medical purposes. Methadone Screen, Urine Not Detected Not Detect ng/mL [facility] Comment:Methadone cut-off is 300 ng/mL.Positive results are unconfirmed and should not be used fornon-medical purposes. FENTANYL URINE Not Detected Not Detect [facility] Comment:Fentanyl cut-off is 1 ng/mL.Positive results are unconfirmed and should not be used fornon-medical purposes. Oxycodone Urine Screen Not Detected Not Detect ng/mL [facility] Comment:Oxycodone cut-off is 100 ng/mL.Positive results are unconfirmed and should not be used fornon-medical purposes. Buprenorphine Screen Not Detected Not Detect ng/mL [facility] Comment:Buprenorphine cut-of f is 5 ng/mL.Positive results are unconfirmed and should not be used fornon-medical purposes. 04/16/2025 9:39 AM EDT 04/16/2025 11:05 AM EDT Generic External Data Provider LAB URINE ORDERAB LES Final Result Performing Organization Address [facility] Co de Phone Number [facility] [address] [place] [phone] * Hemoglobin and Hematocrit (04/16/2025 9:39 AM EDT) Pathologist [facility] Hemoglobin 12.8 12.0 - 16.0 g/dl [facility] Hematocrit 39.6 37.0 - 47.0 % [facility] Blood Venous blood specimen / Unknown 04/16/2025 9:39 AM EDT 04/16/2025 11:38 AM EDT Carina TRAN LAB BLOOD ORDERABLES Final Resul t Performing Organization Address [facility] de Phone Number [facility] [address] [place] [phone] * Vitamin B12 (04/16/2025 9:39 AM EDT) Pathologist [facility] Vitamin B12 477 200 - 900 pg/mL [facility] Comment:NORMAL 200-900 PG/ML INDETERMINATE 160-199 PG/ML DEFICIENT < 160 PG/ML Blood Venous blood specimen / Unknown 04/16/2025 9:39 AM EDT 04/16/2025 11:38 AM EDT Carina Munoz ANP LAB BLOOD ORDERABLES Final Resul t Performing Organization Address [facility] de Phone Number [facility] [address] [place] [phone] * (ABNORMAL) Basic Metabolic Panel (04/16/2025 9:39 AM EDT) [facility] Sodium 140 135 - 145 mmol/L [facility] Potassium 4.3 3.3 - 5.1 mmol/L [facility] Comment:Slight Hemolysis.Int erpret result with caution. Chloride 109(H) 96 - 108 mmol/L [facility] Carbon Dioxide 25 22 - 29 mmol/L [facility] Anion Gap 10(L) 12 - 20 [facility] Urea Nitrogen (BUN) 9 9 - 16 mg/dL [facility] Creatinine, Serum 0.69 0.5 - 1.4 mg/dL [facility] Estimated Glomerular Filt Rate >60 [facility] Comment:Chronic Kidney Disea se: Estimated GFR < 60 mL/min/[id number] Kidney Disease: Estimated GFR < 15 mL/min/1.73m2 Glucose 76 60 - 115 mg/dL [facility] Calcium 9.0 8.4 - 10.2 mg/dL [facility] Blood Venous blood specimen / Unknown 04/16/2025 9:39 AM EDT 04/16/2025 11:38 AM EDT Carina Munoz [facility] LAB BLOOD ORDERABLES Final Resul t Performing Organization Address [facility] Co de Phone Number [facility] [address] [place] [phone] * Hepatitis C Antibody with Reflex to HCV, RNA, Quantitative, Real-Time PCR (11/16/2024 9:34 AM EST) Hepatitis C Antibody Nonreactive Nonreactive [facility] Comment:Antibodies to HCV no t detected; does not exclude early acuteHCV infection. Blood Venous blood specimen / Unknown 11/16/2024 9:34 AM EST 11/16/2024 9:34 AM EST Carina Munoz [facility] LAB BLOOD ORDERABLES Final Resul t Performing Organization Address [facility] Co de Phone Number [facility] [address] [place] [phone] * HIV-1/2 Antigen and Antibodies, Fourth Generation, with Reflexes (11/16/2024 9:34 AM EST) HIV AB/AG Nonreactive Nonreactive [facility] Comment:HIV-1 p24 Ag and/or HIV-1/HIV-2 Ab not detected.A test result that is nonreactive does not exclude thepossibility of exposure to or infection with HIV-1 and/orHIV-2. Nonreactive results in this assay for individualswith prior exposure to HIV-1 and/or HIV-2 may be due toantigen and antibody levels that are below the limit ofdetection of this assay.The [employer] HIV Ag/Ab Combo assay result andsupplemental assay results should be interpreted inconjunction with the patient's clinical presentation,history and other laboratory results. If the results areinconsistent with clinical evidence, additional testing issuggested to confirm the result. Blood Venous blood specimen / Unknown 11/16/2024 9:34 AM EST 11/16/2024 9:34 AM EST Carina [facility] LAB BLOOD ORDERABLES Final Resul t [facility] [address] [place] [address] [phone] * (ABNORMAL) Lipid Panel, Standard (11/16/2024 9:34 AM EST) Triglycerides 79 <150 mg/dL [facility] Comment:Desirable Triglyceri de: less than 150 mg/dLBorderline High Triglyceride 150-199 mg/dLHigh Triglyceride: 200-499 mg/dLVery High Triglyceride: greater than or equal to 5OO mg/dL Cholesterol 280(H) <200 mg/dL [facility] Comment:Desirable Cholestero l: less than 200 mg/dLBorderline High Cholesterol: 200-239 mg/dLHigh Cholesterol: greater than 239 mg/dL LDL Cholesterol Calculated 182(H) <100 mg/dL [facility] Comment:Desirable LDL: less than 100 mg/dLNear Optimal/Above Optimal LDL: 110- 129 mg/dLBorderline High LDL: 130-159 mg/dLHigh LDL: 160-189 mg/dLVery High LDL: greater than or equal to 190 mg/dL HDL Cholesterol 83 >40 mg/dL [facility] Comment:Desirable HDL: great er than 40 mg/dL Note: This HDL assay may give artificially low results in patients with liver disease. 11/16/2024 9:34 AM EST 11/16/2024 9:34 AM EST Generic External Data Provider LAB BLOOD ORDERAB LES Final Result [facility] [address] [place] [phone] * Mammography (05/03/2023) Mammogram NORMAL Anatomical Region Laterality Modality Other Historical Provider HEALTH MAINTENANCE Final Result from Last 3 Months or Most Recently Relevant to Health Maintenance Insurance [employer] Care Teams Household Appliance Repairer Relationship Specialty Start Date End Date Carina Munoz ANP [address] [place] [phone] PCP - General Family Medicine 07/15/21
--- OUTSIDE RECORDS SUMMARY | 2025-07-03 09:15 | XMS_ITS | Encounter Summary ---
Author Organization [employer] Address [address] [place] [address] 7 [place] [address] Care Team Providers Care Drafter (Cad) Electronic Name Role Phone Carina Munoz Primary Care Provider Reason for Visit * Reason Onset Date Comments Med Refill 08/27/2024 Encounter Details Date Type Department Care Team (Late st Contact Info) Description 08/27/2024 Refill [facility] [address] [place], [place] [phone] Carina Munoz ANP [address] [place] [address] Muscle spasm of back Social History Tobacco [...] 07/11/2025 10:00 AM EDT Office Visit [facility] [address] [place] [phone] Carina Munoz ANP [address] [place] [address] documented as of this encounter Visit Diagnoses Diagnosis Muscle spasm of back documented in this encounter Additional Health Concerns Assessment Noted Time PHQ-9 Depression Total Score: 0 09/29/20 23 9:47 AM EST documented as of this encounter Care Teams Drafter (Cad) Electronic Relationship Specialty Start Date End Date Carina Munoz ANP [address] [place] [phone] PCP - General Family Medicine 07/15/21 documented as of this encounter
== END 2025-07-03 09:28 | disposition home or self-care (01) ==
LOC: HO.HOS 08:23
PROVIDERS: PCP Nurse Practitioner Primary Care; Visit Provider Physician Assistant
DX: M17.11 Unilateral primary osteoarthritis, right knee (principal)
CPT/HCPCS: 99213

== ENCOUNTER → 2025-07-03 08:29 | Outpatient (BNV) | payer MEDICAID, SELFPAY | PROVIDERS: Visit Provider Radiology Diagnostic Radiology | DX: M25.562 Pain in left knee (principal); M25.561 Pain in right knee | CPT/HCPCS: 73562 ==

== ENCOUNTER 2025-08-07 13:22 | Outpatient (AMB) | payer MEDICAID, SELFPAY ==
--- NOTE | 2025-08-07 13:32 | A.OFFVIS_ITS ---
Vital Signs 08/07/25 13:33 Height 5 ft 2 in Weight 188 lb BMI 34.4 BP 133/71 Blood Pressure Location Lt radial Position Sitting Respiration 16 Pulse 84 Pulse Source Pulse Oximeter Pulse Oximetry (%) 100 Oxygen Delivery Method Room Air Intake Visit Reasons: s/p right theraputic SIJ inj/ reduced dose Shipyard Helper Required: Yes Shipyard Helper Name: Jody [id number] Accompanied by: Self / Same As Patient Allergies No Known Allergies Allergy (Verified 08/07/25 13:35) HPI Comments Details: Nicky is back in my office after 2nd therapeutic sacroiliac joint injection. This time unfortunately patient immediately after the procedure the patient lifted very heavy load and get her pain exacerbated again. She reports only minimal pain improvement after the injection probably because of another pain aggravation secondary to trauma. I offered patient to wear sacroiliac joint belt. I told her to wear the device 09/05. We agreed that I will see her in 2 months. Sacroiliac joint fusion will be considered Prior: She had the right sacroiliac joint injection and she reported 75% pain improvement after the procedure. She stated that she had full 5 month pain relief after the injection. She stated that mid January her pain was back. She reports that the pain now radiates down to the right lower extremity. I will schedule her for yet another therapeutic right sacroiliac joint injection. 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 Prior: very pleasant 38 years old Macedonian-speaking female who presents in my office as a new patient after diagnostic sacroiliac joint injection on the left which was performed on 06/26/2024. She reported that she started to experience this pain 15 years ago. 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 She also reports falling twice she received those trauma and relates to this pain. 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 She had pelvis x-ray done at [facility] which demonstrated sacroiliac joint pathology. She had physical therapy 3 times last time about 10 months ago with little help however she continues exercise program. She never had chiropractic manipulations Never had acupuncture occupational therapy. [facility] Medical History Arthritis Anemia Gastritis GERD (gastroesophageal reflux disease) Hiatal hernia Depression Elevated cholesterol Hiatal hernia Delivery with history of Migraine Asthma Surgical History S/P laparoscopic sleeve gastrectomy (04/27/23) Hx of tubal ligation Hx of section Family History Mother Hypertension Arthritis Son Hyperactive Daughter No problems noted. Son No problems noted. 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 Review of Systems Const All systems reviewed & are unremarkable except as noted in HPI and below ENT Reports Normal hearing present Neuro Reports Normal hearing present, Denies Abnormal speech present, Denies confusion and Denies Sensory deficit (Neuro) Psych Denies confusion Physical Exam Vital Signs: Last Vital Signs Pulse 84 08/07/25 13:33 Resp 16 08/07/25 13:33 BP 133/71 08/07/25 13:33 Pulse Ox 100 08/07/25 13:33 Oxygen Delivery Method Room Air 08/07/25 13:33 BMI result Body Mass Index 34.4 Const General: no acute distress; No confusion Orientation/consciousness: patient oriented x3 and No confusion Eyes General: appearance normal, both eyes and all related structures Pupils: Equal, round and reactive pupils present EOM: EOMs intact bilaterally Neck Neck: Yes full ROM Chest Chest palpation & inspection: normal inspection of the chest Resp Effort & Inspection: normal respiratory effort, able to speak in complete sentences, normal respiratory pattern, no audible wheezes and no cough Cardio Jugular venous distension: no JVD GI Inspection: Yes normal to inspection Back/Spine/Pelvis Other: Marcos test pelvic compression test, pelvic distraction test Adrian test are positive on the left. SLR is negative bilaterally. Tenderness on palpation in projection of the sacral bone and sacroiliac joint on the left. Neuro General: patient oriented x3, gait normal and No confusion Cranial nerves: Yes CN's II-XII intact bilaterally, Yes Equal, round and reactive pupils present, Yes Normal hearing present and Yes Ability to bilaterally elevate shoulders present Speech: No Abnormal speech present Gait exam (Neuro): Normal gait present Motor exam (neuro): 5/5 motor strength present throughout Sensory Exam: No Sensory deficit (Neuro) Extrem General: No pedal edema Psych Speech and movement: Normal speech and movement present Affect: normal affect Attitude: cooperative Thought process: Normal thought process present Thought content: Normal thought content present Insight: Good insight present (Psych) Judgement: Good judgement present (Psych) Assessment & Plan Assessment & Plan (1) Sacroiliitis: Code(s): M46.1 - Sacroiliitis, not elsewhere classified Category: Medical (2) Sacroiliac joint dysfunction of both sides: Code(s): M53.3 - Sacrococcygeal disorders, not elsewhere classified Category: Medical (3) Sacroiliac joint dysfunction of left side: Code(s): M53.3 - Sacrococcygeal disorders, not elsewhere classified Category: Medical (4) Left groin pain: Code(s): R10.32 - Left lower quadrant pain Category: Medical (5) Overweight: Code(s): E66.3 - Overweight Category: Medical (6) Chronic pain syndrome: Code(s): G89.4 - Chronic pain syndrome Category: Medical Plan Nicky is suffering from sacroiliitis. Discussion see as above. Next appointment in 2 months. She will continue to wear this time sacroiliac joint belt. Coding Level of Care Code Est Pt Level 3 (82508) Diagnoses Sacroiliitis M46.1 Sacroiliac joint dysfunction of both sides M53.3 Sacroiliac joint dysfunction of left side M53.3 Left groin pain R10.32 Overweight E66.3 Chronic pain syndrome G89.4
[2025-08-07 13:33] VITALS: BP 133/71; PULSE 84; RESP 16; O2SAT 100; BMI 34.4
--- OUTSIDE RECORDS SUMMARY | 2025-08-07 18:56 | XMS_ITS | Encounter Summary ---
Author Organization [facility] Address [address] [place] [address] Care Team Providers Care Brick Yard Hand Name Role Phone Verna Arteaga MD Primary Care Provider Un available Rajat Zaidi MD Primary Care Provider Unava ilable Meera Welch MD Primary Care Provider Unavailable Carina Munoz NP Primary Care Provider Unavailabl e Encounter Details Date Type Department Care Team Description 12/01/2017 Release of Information Medical Records [address] [place] [address] Abstract, Provider Social History Tobacco Use Types [...] on filedocumented in this encounter Care Teams Brick Yard Hand Relationship Specialty Start Date End Date Verna Arteaga MD PCP - General Internal Medicine 11/29/17 0 Rajat Zaidi MD PCP - General Internal Medicine 11/21/19 12/13/19 Meera Welch MD PCP - General Internal Medicine 12/14/19 09/26/22 Carina Munoz NP PCP - General Nurse Practioner Adult Health 09/27/22 documented as of this encounter
--- OUTSIDE RECORDS SUMMARY | 2025-08-07 18:56 | XMS_ITS | Encounter Summary ---
Author Organization [employer] Address [address] [place] [address] 7 [place] [address] Care Team Providers Care Applications Administrator Name Role Phone Carina Munoz Primary Care Provider [phone] Reason for Visit * Reason Onset Date Comments Med Refill 02/14/2023 Encounter Details Date Type Department Care Team (Late st Contact Info) Description 02/14/2023 Telephone [facility] MEDICINE [address] [place], [place] [phone] Carina Munoz ANP [address] [place] [address] Med Refill Social History Tobacco Use Types [...] 02/14/2023 2:40 PM EDT Med sent to [facility] today. * Telephone Encounter - Gee Barbour - 02/14/2023 2:30 PM EDT [facility] requesting a 90 day supply on fluticasone (Flonase Allergy Relief) 50 MCG/ACT nasal spray [id number] [place] [facility] [address] [place] [address], [address] documented in this encounter Plan of Treatment Upcoming Encounters Date Type Department Care Team (Late st Contact Info) Description 09/06/2025 11:15 AM EST Office Visit [facility] MEDICINE [address] [place] [address] Carina Munoz ANP [address] [place] [address] documented as of this encounter Visit Diagnoses Not on filedocumented in this encounter Care Teams Applications Administrator Relationship Specialty Start Date End Date Carina Munoz ANP [address] [place] [address] PCP - General Family Medicine 07/15/21 documented as of this encounter
--- OUTSIDE RECORDS SUMMARY | 2025-08-07 18:56 | XMS_ITS | Encounter Summary ---
Author Organization [facility] Address [address] [place] [address] Care Team Providers Care Lab Support Tech Name Role Phone Carina Munzo BINDING END STITCHER Primary Care Provider Unavailabl e Encounter Details Date Type Department Care Team Description 10/01/2022 Transfer Records Medical Records [address] [place] [id number] [place] [id number] Social History Tobacco Use Types Packs/Day Years [...] on filedocumented in this encounter Care Teams Lab Support Tech Relationship Specialty Start Date End Date Carina Munoz NP PCP - General Nurse Practioner Adult Health 09/27/22 documented as of this encounter
--- OUTSIDE RECORDS SUMMARY | 2025-08-07 18:56 | XMS_ITS | Encounter Summary ---
Author Organization [facility] Address [address] [place] [address] Care Team Providers Care Behavioral Health Care Manager Name Role Phone Rajat Zaidi MD Primary Care Provider Meera Hong MD Primary Care Provider Unavailable Carina Munoz NP Primary Care Provider Unavaildorian lyons Encounter Details Date Type Department Care Team Description 11/21/2019 Pt. Non Urgent Medical Question Gastroenterology - [address] [phone] Jeanna Collins MD [address] [place] [address] Social History Tobacco Use Types Packs/Day Years [...] on filedocumented in this encounter Care Teams Behavioral Health Care Manager Relationship Specialty Start Date End Date Rajat Zaidi MD PCP - General Internal Medicine 11/21/19 12/13/19 Meera Welch MD PCP - General Internal Medicine 12/14/19 09/26/22 Carina Munoz NP PCP - General Nurse Practioner Adult Health 09/27/22 documented as of this encounter
--- OUTSIDE RECORDS SUMMARY | 2025-08-07 18:56 | XMS_ITS | Encounter Summary ---
Author Organization [employer] Address [address] [place] [address] Care Team Providers Care Putty Tinter Maker Name Role Phone Carina Munoz Primary Care Provider [phone] Encounter Details Date Type Department Care Team (Late st Contact Info) Description 09/22/2022 [facility] Health Information Management [address] [place] [address] Kristen Brown CNM [address] [place] [address] Social History Tobacco Use Types Packs/Day Years [...] Description 09/06/2025 11:15 AM EST Office Visit [facility] MEDICINE [address] [place] [address] Carina Munoz ANP [address] [place] [address] documented as of this encounter Visit Diagnoses Not on filedocumented in this encounter Care Teams Putty Tinter Maker Relationship Specialty Start Date End Date Carina Munoz ANP [address] [place] [address] PCP - General Family Medicine 9/29/21 documented as of this encounter
--- OUTSIDE RECORDS SUMMARY | 2025-08-07 18:56 | XMS_ITS | Encounter Summary ---
Author Organization [facility] Address [address] [place] [address] Care Team Providers Care Senior Electronics Technician Name Role Phone Verna Arteaga MD Primary Care Provider Un available Rajat Zaidi MD Primary Care Provider Unava Meera Albarran MD Primary Care Provider Unavailable Carina Munoz NP Primary Care Provider Unavailabl e Encounter Details Date Type Department Care Team Description 10/17/2019 Telephone Internal Medicine [address], [address] [place] [address] Angelica Ramirez, MS,RDN,LDN Social History Tobacco Use Types Packs/Day Years [...] encounter Miscellaneous Notes * Telephone Encounter - Kerri Griffin - 10/17/2019 12:30 PM EST All attempts to reach patient to schedule Nutrition appointment have been exhausted. documented in this encounter Plan of Treatment Not on file documented as of this encounter Visit Diagnoses Not on filedocumented in this encounter Care Teams Senior Electronics Technician Relationship Specialty Start Date End Date Verna Arteaga MD PCP - General Internal Medicine 11/29/17 2/2 0 Rajat Zaidi MD PCP - General Internal Medicine 11/21/19 12/13/19 [place]-Meera Astorga MD PCP - General Internal Medicine 12/14/19 09/26/22 Carina Munoz NP PCP - General Nurse Practioner Adult Health 09/27/22 documented as of this encounter
--- OUTSIDE RECORDS SUMMARY | 2025-08-07 18:56 | XMS_ITS | Encounter Summary ---
Author Organization [facility] Address [address] [place] [address] Care Team Providers Care Seamer Elastic Band Name Role Phone Meera Welch MD Primary Care Provider Unavailable Carina Munoz NP Primary Care Provider Unavaildorian e Encounter Details Date Type Department Care Team Description 02/14/2020 Telephone Adult [address] [address] Meera Welch MD Social History Tobacco Use [...] on filedocumented in this encounter Care Teams Seamer Elastic Band Relationship Specialty Start Date End Date Meera Welch MD PCP - General Internal Medicine 12/14/19 09/26/22 Carina Munoz NP PCP - General Nurse Practioner Adult Health 09/27/22 documented as of this encounter
--- OUTSIDE RECORDS SUMMARY | 2025-08-07 18:56 | XMS_ITS | Encounter Summary ---
Author Organization [facility] Address [address] [place] [address] Care Team Providers Care Metal Trades Instructor Name Role Phone Verna Arteaga MD Primary Care Provider Un available Rajat Zaidi MD Primary Care Provider Unava ilMeera Armstrong MD Primary Care Provider Unavailable Carina Munoz NP Primary Care Provider Unavailabl e Encounter Details Date Type Department Care Team Description 07/16/2019 Telephone Gastroenterology - [address] [place] [address] Verna Arteaga MD Social History Tobacco Use Types Packs/Day [...] encounter Miscellaneous Notes * Telephone Encounter - Jannie Otero M.A. - 07/16/2019 9:37 AM EDT Pt needs a new appointment, please call pt to book appointment. FY; Tuesday and Tuesday works better for her. documented in this encounter Plan of Treatment Not on file documented as of this encounter Visit Diagnoses Not on filedocumented in this encounter Care Teams Metal Trades Instructor Relationship Specialty Start Date End Date Verna Arteaga MD PCP - General Internal Medicine 11/29/17 0 Rajat Zaidi MD PCP - General Internal Medicine 11/21/19 12/13/19 [place]-Meera Astorga MD PCP - General Internal Medicine 12/14/19 09/26/22 Carina Munoz NP PCP - General Nurse Practioner Adult Health 09/27/22 documented as of this encounter
--- OUTSIDE RECORDS SUMMARY | 2025-08-07 18:56 | XMS_ITS | Encounter Summary ---
Author Organization [facility] Address [address] [place] [address] Care Team Providers Care Clubhouse Manager Name Role Phone Verna Arteaga MD Primary Care Provider Un available Rajat Zaidi MD Primary Care Provider Unava ilMeera Armstrong MD Primary Care Provider Unavailable Carina Munoz NP Primary Care Provider Unavailabl e Encounter Details Date Type Department Care Team Description 09/24/2019 Refill Adult Medicine [address] [address] Pavithra Adan PA-C [address] [place] [address] Social History Tobacco Use Types Packs/Day Years [...] encounter Miscellaneous Notes * Telephone Encounter - Amanda Crawford M.A. - 09/24/2019 4:47 PM EST Last ov 06/06/19 documented in this encounter Plan of Treatment Not on file documented as of this encounter Visit Diagnoses Not on filedocumented in this encounter Care Teams Clubhouse Manager Relationship Specialty Start Date End Date Verna Arteaga MD PCP - General Internal Medicine 11/29/17 0 Rajat Zaidi MD PCP - General Internal Medicine 11/21/19 12/13/19 [place]-Meera Astorga MD PCP - General Internal Medicine 12/14/19 09/26/22 Carina Munoz NP PCP - General Nurse Practioner Adult Health 09/27/22 documented as of this encounter
--- OUTSIDE RECORDS SUMMARY | 2025-08-07 18:56 | XMS_ITS | Encounter Summary ---
Author Organization [facility] Address [address] [place] [address] Care Team Providers Care Extension Service Supervisor Name Role Phone Meera Welch MD Primary Care Provider Carina Limon NP Primary Care Provider Unavaildorian e Reason for Visit * Reason Onset Date Comments medication problems 02/12/2020 montelukast (SINGULAIR) 10 MG tablet Encounter Details Date Type Department Care Team Description 02/12/2020 Telephone Adult Medicine - [address] [address] Meera Welch MD medication problems (montelukast (SINGULAIR) [...] 02/14/2020 9:00 AM EDT Pt is using [facility] now. Wants rx sent there. Thanks. * Telephone Encounter - Meera Welch MD - 02/14/2020 8:18 AM EDT I'd suggest that the patient call some other pharmacies to see if they have it in stock * Telephone Encounter - Tayler Calderon M.A. - 02/13/2020 11:09 AM EDT Please advise * Telephone Encounter - Shae Mkcoy - 02/12/2020 4:03 PM EDT Who is calling? A pharmacist: Pharmacy: [facility] Pharmacist Name: Fax Pharmacy Name [...] on filedocumented in this encounter Care Teams Extension Service Supervisor Relationship Specialty Start Date End Date Meera Welch MD PCP - General Internal Medicine 12/14/19 09/26/22 Carina Munoz NP PCP - General Nurse Practioner Adult Health 09/27/22 documented as of this encounter
--- OUTSIDE RECORDS SUMMARY | 2025-08-07 18:56 | XMS_ITS | Encounter Summary ---
Author Organization [facility] Address [address] [place] [address] Care Team Providers Care Cone Sewer Name Role Phone [facility] Astorga MD Primary Care Provider Carina Limon NP Primary Care Provider Christal lyons Encounter Details Date Type Department Care Team Description 09/14/2021 Telephone Adult Medicine [address] [address] Yeny Markham PA-C Social History Tobacco Use Types Packs/Day Years [...] encounter Miscellaneous Notes * Telephone Encounter - Vernon Armenta LPN - 09/14/2021 10:14 AM EST Please schedule the er follow up Any site * Telephone Encounter - Yeny Markham PA-C - 09/14/2021 10:08 AM EST Pt seen at [facility] ED for LLQ pain on 09/08/21. Clinical support pool has not received notes but has received imaging studies which will be sent to scan. Please call patient to change PCP and schedule for ED follow up. Thank you. documented in this encounter Plan of Treatment Not on file documented as of this encounter Visit Diagnoses Not on filedocumented in this encounter Care Teams Cone Sewer Relationship Specialty Start Date End Date [facility] Astorga MD PCP - General Internal Medicine 12/14/19 09/26/22 Carina Munoz NP PCP - General Nurse Practioner Adult Health 09/27/22 documented as of this encounter
--- OUTSIDE RECORDS SUMMARY | 2025-08-07 18:56 | XMS_ITS | Encounter Summary ---
Author Organization [facility] Address [address] [place] [address] Care Team Providers Care Mobile Sales Expert Name Role Phone Rajat Zaidi MD Primary Care Provider Meera Hong MD Primary Care Provider Carina Limon NP Primary Care Provider Christal lyons Encounter Details Date Type Department Care Team Description 11/29/2019 Pt. Non Urgent Medic al Question Medicine/Pediatrics - [address] [phone] Rajat Zaidi MD Social History Tobacco Use [...] filedocumented in this encounter Care Teams Mobile Sales Expert Relationship Specialty Start Date End Date Rajat Zaidi MD PCP - General Internal Medicine 11/21/19 12/13/19 Meera Welch MD PCP - General Internal Medicine 12/14/19 09/26/22 Carina Munoz NP PCP - General Nurse Practioner Adult Health 09/27/22 documented as of this encounter
--- OUTSIDE RECORDS SUMMARY | 2025-08-07 18:56 | XMS_ITS | Encounter Summary ---
Author Organization [facility] Address [address] [place] [address] Care Team Providers Care Engineering Leader Name Role Phone Carina Munoz NP Primary Care Provider Christal e Encounter Details Date Type Department Care Team Description 02/15/2023 Refill Gastroenterology - [address] [place] [address] Jeanna Collins MD [address] [place] [address] Social History Tobacco Use Types Packs/Day Years [...] hemorrhage) documented in this encounter Care Teams Engineering Leader Relationship Specialty Start Date End Date Carina Munoz NP PCP - General Nurse Practioner Adult Health 09/27/22 documented as of this encounter
--- OUTSIDE RECORDS SUMMARY | 2025-08-07 18:56 | XMS_ITS | Encounter Summary ---
Author Organization [email or web address] [facility] Address [address] [place] [address] Care Team Providers Care Paper Machine Operator Name Role Phone Carina Munoz CLAM TREADER Primary Care Provider Unavailabl e Encounter Details Date Type Department Care Team Description 02/15/2023 Refill Adult Medicine [address] [address] Kerri Holder PA Social History Tobacco Use [...] on filedocumented in this encounter Care Teams Paper Machine Operator Relationship Specialty Start Date End Date Carina Munoz NP PCP - General Nurse Practioner Adult Health 09/27/22 documented as of this encounter
--- OUTSIDE RECORDS SUMMARY | 2025-08-07 18:56 | XMS_ITS | Encounter Summary ---
Author Organization [facility] Address [address] [place] [address] Care Team Providers Care Diesel Engine Fitter Name Role Phone Meera Welch MD Primary Care Provider Unavailable Carina Munoz NP Primary Care Provider Unavaildorian e Encounter Details Date Type Department Care Team Description 02/10/2020 Refill Adult [address] [address] Meera Welch MD Social History Tobacco Use [...] on filedocumented in this encounter Care Teams Diesel Engine Fitter Relationship Specialty Start Date End Date Meera Welch MD PCP - General Internal Medicine 12/14/19 09/26/22 Carina Munoz NP PCP - General Nurse Practioner Adult Health 09/27/22 documented as of this encounter
--- OUTSIDE RECORDS SUMMARY | 2025-08-07 18:56 | XMS_ITS | Encounter Summary ---
Author Organization [facility] Address [address] [place] [address] Care Team Providers Care Pet Nutrition Specialist Name Role Phone Meera Welch MD Primary Care Provider Unavailable Carina Munoz NP Primary Care Provider Unavaildorian e Encounter Details Date Type Department Care Team Description 12/26/2019 Refill Gastroenterology - [address] [phone] Jeanna Collins MD [address] [place] [address] Social History Tobacco Use Types Packs/Day Years [...] on filedocumented in this encounter Care Teams Pet Nutrition Specialist Relationship Specialty Start Date End Date Meera Welch MD PCP - General Internal Medicine 12/14/19 09/26/22 Carina Munoz NP PCP - General Nurse Practioner Adult Health 09/27/22 documented as of this encounter
--- OUTSIDE RECORDS SUMMARY | 2025-08-07 18:56 | XMS_ITS | Encounter Summary ---
Author Organization [facility] Address [address] [place] [address] Care Team Providers Care Health And Wellness Manager Name Role Phone Verna Arteaga MD Primary Care Provider Un available Rajat Zaidi MD Primary Care Provider Unava ilable Meera Welch MD Primary Care Provider Unavailable Carina Munoz NP Primary Care Provider Unavailabl e Encounter Details Date Type Department Care Team Description 07/13/2019 Pt. Non Urgent Medical Question Gastroenterology - [address] [phone] Jeanna Collins MD [address] [place] [address] Social History Tobacco Use Types Packs/Day Years [...] estaba hospitalizada disculpe por los inconvenientes. [phone] documented in this encounter Plan of Treatment Not on file documented as of this encounter Visit Diagnoses Not on filedocumented in this encounter Care Teams Health And Wellness Manager Relationship Specialty Start Date End Date Verna Arteaga MD PCP - General Internal Medicine 11/29/17 2 0 Rajat Zaidi MD PCP - General Internal Medicine 11/21/19 12/13/19 Sriram-Meera Astorga MD PCP - General Internal Medicine 12/14/19 09/26/22 Carina Munoz NP PCP - General Nurse Practioner Adult Health 09/27/22 documented as of this encounter
--- OUTSIDE RECORDS SUMMARY | 2025-08-07 18:56 | XMS_ITS | Encounter Summary ---
Author Organization [facility] Address [address] [place] [address] Care Team Providers Care Security Compliance Specialist Name Role Phone Verna Arteaga MD Primary Care Provider Un available Rajat Zaidi MD Primary Care Provider Unava Meera Albarran MD Primary Care Provider Unavailable Carina Munoz NP Primary Care Provider Unavailabl e Reason for Visit * Reason Onset Date Comments Prior Authorization 11/30/2017 Fluticasone- Salmeterol (ADVAIR HFA [place]) Encounter Details Date Type Department Care Team Description 11/30/2017 Telephone Adult [address] [address] Verna Arteaga MD Prior Authorization (Fluticasone-Salmeterol (ADVAIR HFA IN)) Social History Tobacco Use Types Packs/Day Years [...] encounter Miscellaneous Notes * Telephone Encounter - Josefina Thrasher M.A. - 12/01/2017 3:41 PM EST Prior auth done today on cover my meds. Dx code j45.30 asthma Brand new pt from [place]. No records. Doesn't speak [place] had power wheelchair mechanic. * Telephone Encounter - Vanessa Rodriguez - 11/30/2017 2:49 PM EST Pre Authorization for Medication-do not complete and send this encounter unless you have the fax from the pharmacy. Is this a Cover My Meds request: Yes -- Pérez Code [id number] Name of Medication Fluticasone-Salmeterol (ADVAIR HFA IN) Dose of Medication 115-21MCG/ACT How does patient take this med? INHALE INTO LUNGS What Pharmacy did the fax come from: [facility] Pharmacy fax #: [phone] [employer] Information from fax: What Prescription Plan does the patient have? N/a BIN/PCN if applicable: n/a Cardholder ID:n/a Person Code: n/a Relationship Code: n/a Help desk phone: n/a documented in this encounter Plan of Treatment Not on file documented as of this encounter Visit Diagnoses Not on filedocumented in this encounter Care Teams Security Compliance Specialist Relationship Specialty Start Date End Date Verna Arteaga MD PCP - General Internal Medicine 11/29/17 0 Rajat Zaidi MD PCP - General Internal Medicine 11/21/19 12/13/19 Sriram-Meera Astorga MD PCP - General Internal Medicine 12/14/19 09/26/22 Carina Munoz NP PCP - General Nurse Practioner Adult Health 09/27/22 documented as of this encounter
--- OUTSIDE RECORDS SUMMARY | 2025-08-07 18:56 | XMS_ITS | Encounter Summary ---
Author Organization [employer] Address [address] [place] [address] 7 [place] [address] Care Team Providers Care Cuff Cutter Name Role Phone Carina Munoz Primary Care Provider [phone] Encounter Details Date Type Department Care Team (Latest Contact Info) Description 01/18/2019 Abstract [facility] CONVERSIONS Dental, Provider, DDS Social History [...] Description 09/06/2025 11:15 AM EST Office Visit [facility] MEDICINE [address] [place] [address] Carina Munoz ANP [address] [place] [address] documented as of this encounter Visit Diagnoses Not on filedocumented in this encounter Care Teams Cuff Cutter Relationship Specialty Start Date End Date Carina Munoz ANP [address] [place] [address] PCP - General Family Medicine 07/15/21 documented as of this encounter
--- OUTSIDE RECORDS SUMMARY | 2025-08-07 18:57 | XMS_ITS | Encounter Summary ---
Author Organization [employer] Address [address] [place] [address] 7 [place] [address] Care Team Providers Care Bridge Inspector Name Role Phone Carina Munoz Primary Care Provider [phone] Reason for Visit * Reason Onset Date Comments Med Refill 08/27/2024 Encounter Details Date Type Department Care Team (Late st Contact Info) Description 08/27/2024 Refill [facility] MEDICINE [address] [place], [place] [phone] Carina Munoz ANP [address] [place] [address] Muscle spasm of back Social History Tobacco [...] 09/06/2025 11:15 AM EST Office Visit [facility] MEDICINE [address] [place] [address] Carina Munoz ANP [address] [place] [address] documented as of this encounter Visit Diagnoses Diagnosis Muscle spasm of back documented in this encounter Additional Health Concerns Assessment Noted Time PHQ-9 Depression Total Score: 0 09/29/20 23 9:47 AM EST documented as of this encounter Care Teams Bridge Inspector Relationship Specialty Start Date End Date Carina Munoz ANP [address] [place] [address] PCP - General Family Medicine 07/15/21 documented as of this encounter
--- OUTSIDE RECORDS SUMMARY | 2025-08-07 18:57 | XMS_ITS | Encounter Summary ---
Author Organization [employer] Address [address] [place] [address] 7 [place] [address] Care Team Providers Care Angular Developer Name Role Phone Carina Munoz Primary Care Provider [phone] Reason for Visit * Reason Onset Date Comments Med Refill 07/18/2024 Encounter Details Date Type Department Care Team (Late st Contact Info) Description 07/18/2024 Refill [facility] MEDICINE [address] [place], [place] [phone] Carina Munoz ANP [address] [place] [address] Muscle spasm of back Social History Tobacco [...] Description 09/06/2025 11:15 AM EST Office Visit [facility] MEDICINE [address] [place] [address] Carina Munoz ANP [address] [place] [address] documented as of this encounter Visit Diagnoses Diagnosis Muscle spasm of back documented in this encounter Additional Health Concerns Assessment Noted Time PHQ-9 Depression Total Score: 0 09/29/20 23 9:47 AM EST documented as of this encounter Care Teams Angular Developer Relationship Specialty Start Date End Date Carina Munoz ANP [address] [place] [address] PCP - General Family Medicine 07/15/21 documented as of this encounter
--- OUTSIDE RECORDS SUMMARY | 2025-08-07 18:57 | XMS_ITS | Encounter Summary ---
Author Organization [facility] Address [address] [place] [address] Care Team Providers Care Dry Cans Back Tender Name Role Phone Meera Welch MD Primary Care Provider Unavailable Carina Munoz NP Primary Care Provider Unavaildorian e Encounter Details Date Type Department Care Team Description 03/12/2020 Refill OBGYN - [place] [address] [place] [address] Sushma Stanley MD [address] [place] [address] Social History Tobacco Use Types Packs/Day Years [...] encounter Miscellaneous Notes * Telephone Encounter - Maria Eugenia Bolton C.M.A. - 03/13/2020 8:52 AM EDT Please consider refill for pt. DL documented in this encounter Plan of Treatment Not on file documented as of this encounter Visit Diagnoses Not on filedocumented in this encounter Care Teams Dry Cans Back Tender Relationship Specialty Start Date End Date Meera Welch MD PCP - General Internal Medicine 12/14/19 09/26/22 Carina Munoz NP PCP - General Nurse Practioner Adult Health 09/27/22 documented as of this encounter
--- OUTSIDE RECORDS SUMMARY | 2025-08-07 18:57 | XMS_ITS | Encounter Summary ---
Author Organization [facility] Address [address] [place] [address] Care Team Providers Care Assistance Coordinator Name Role Phone Meera Welch MD Primary Care Provider Unavailable Carina Munoz NP Primary Care Provider Unavailabl e Encounter Details Date Type Department Care Team Description 10/06/2020 Refill OBGYN - [place] [address] [place] [address] Sushma Stanley MD [address] [place] [address] Social History Tobacco Use Types Packs/Day Years [...] on filedocumented in this encounter Care Teams Assistance Coordinator Relationship Specialty Start Date End Date Meera Welch MD PCP - General Internal Medicine 12/14/19 09/26/22 Carina Munoz NP PCP - General Nurse Practioner Adult Health 09/27/22 documented as of this encounter
--- OUTSIDE RECORDS SUMMARY | 2025-08-07 18:57 | XMS_ITS | Clinical Summary ---
Author Organization [facility] Address [address] [place] [address] Phone Care Team Providers Care Piece Goods Packer Name Role Phone Munoz Carina Hamilton NP Primary Care Provider [phone] Allergies No known active allergies Medications hydrocortisone [...] seen on CT abdomen and pelvis at [facility] ED 09/08/21 Diverticulitis 09/14/2021 Overview (07/09/2024): CT abdomen and pelvis 09/08/21 at [facility] ED: findings suspicious for early/mild descending diverticulitis. No abscess formation or free air. Uterine fibroid 09/14/2021 Overview (07/09/2024): Seen on US at [facility] ED 09/08/21 Colon polyp 08/16/2020 Overview (07/09/2024): [place] done 06/2020 for GIB, anemia Asthma, moderate [...] Severe obesity (BMI 35.0-39. 9) with comorbidity ([facility] V24, [facility] V28) 06/06/2019 Bipolar disorder ([facility] V24, [facility] V28) 10/17 Overview (07/09/2024): F/u Lela Atypical [...] PM EDT Office Visit Obstetrics and Gynecology [address] [address] Doretha Love PA Encntr for picker tender helper exam (general) (routine) w/o abn findings (Primary Dx); Encounter for screening mammogram for malignant neoplasm of breast; Encounter for breast cancer screening using non-mammogram modality; Menorrhagia with regular cycle; Encounter for removal and reinsertion of intrauterine contraceptive device (IUD); Cervical cancer screening from Last 3 Months Immunizations Immunization Administration Dates Next Due HPV 9-valent (Gardisil) [...] V2 4, CMS/HCC V28) 10/27/2018 DX:Bipolar disorder ([facility]); C OMMENT: F/u Lela History of suicidal tendencies 10/27/2018 D X:History of suicidal tendencies; COMMENT: Three attempts Asthma, moderate persistent 03/03/2020 DX:A sthma, moderate persistent Uterine fibroid 09/14/2021 DX:Uterine fibro id; COMMENT: Seen on US at [facility] ED 09/08/21 Hepatic steatosis 09/14/2021 DX:Hepatic ezio atosis; COMMENT: Mild - seen on CT abdomen and pelvis at [facility] ED 09/08/21 Family History Medical [...] Cervical Cancer Screening: HPV 05/16/2030 05/16/2025, 09/29/2023 RSV Immunization Adult Patients (1 - 1-dose 75+ series) 2059 HPV [...] LAB MICROBIOLOGY METHOD 05/17/2025 1:17 PM EDT [facility] Chlamydia, RNA Probe Negative Negative LAB MICROBIOLOGY METHOD 05/17/2025 1:17 PM EDT [facility] Brushing/Spatula Cervix uteri structure / Unknown 05/16/2025 2:27 PM EDT 05/17/2025 6:36 AM EDT us Doretha MITCHELL LAB CYTOLOGY ORDERABLES Liz l Result Performing Organization Address City/[facility]/ZIP Co de Phone Number [facility] [address] [place] [address], [place] [phone] * HPV with reflex genotype (05/16/2025 2:27 PM EDT) HPV Negative Negative LAB MICROBIOLOGY METHOD 05/17/2025 4:42 PM EDT [facility] Brushing/Spatula Cervix uteri structure / Unknown 05/16/2025 2:27 PM EDT 05/17/2025 6:36 AM EDT us Doretha MITCHELL LAB MOLECULAR DIAGNOSTICS OR DERABLES Final Result Performing Organization Address [facility]/ZIP Co de Phone Number [facility] [address] [place] [address], [place] [phone] * Trichomonas vaginalis molecular study (05/16/2025 2:27 PM EDT) Trichomonas vaginalis Negative Negative LAB MICROBIOLOGY METHOD 05/17/2025 1:42 PM EDT [facility] Brushing/Spatula Cervix uteri structure / Unknown 05/16/2025 2:27 PM EDT 05/17/2025 6:36 AM EDT us Doretha MITCHELL LAB BLOOD ORDERABLES Final R esult [facility] [address] [place] [address], [place] [phone] * Pap smear (05/16/2025 2:27 PM EDT) Interpretation Negative for intraepithelial lesion or malignancy 05/21/2025 2:08 PM EDT [facility] General Categorization Negative 05/21/2025 2:08 PM EDT [facility] LMP 04/30/2024 05/21/2025 2:08 PM EDT [facility] Specimen Adequacy Satisfactory for evaluation, endocervical/finn sformation zone component present 05/21/2025 2:08 PM EDT [facility] Pap Methodology Liquid Based Pap Test 05/21/2025 2:08 PM EDT [facility] Disclaimer The Pap test is a screening test which carries an inherent false negative rate. These test results should be correlated with the patient's clinical findings and history. This Pap test was processed using an automated screening system. Technical cytopathology services provided by [facility], at [address] [place] [address] (CLIA # [id number]/Gabrielle Rees MD, Want Ad Supervisor.) 05/21/2025 2:08 PM EDT [facility] Console Pap Interpretation Reported 05/21/2025 2:08 PM EDT [facility] Brushing/Spatula Cervix uteri structure / Unknown 05/16/2025 2:27 PM EDT 05/16/2025 2:27 PM EDT Doretha MITCHELL LAB CYTOLOGY ORDERABLES Liz l Result [facility] [address] [place] [address], * RI REMOVAL INTRAUTERINE DEVICE, RI INSERTION [...] ORDERABLES Final Result * Lipid panel (12/03/2022) [facility] LDL/HDL Ratio 0 <=0 Comment:No interpretation Triglycerides 0 <=0 mg/dL Comment:No interpretation Cholesterol 0 <=0 mg/dL Comment:No interpretation HDL 0 <=0 mg/dL Comment:No interpretation LDL Cholesterol 0 <=0 mg/dL Comment:No interpretation Blood Venous blood specimen / Unknown Historical Provider LAB BLOOD ORDERABLES Liz l Result * HIV Screening (08/03/2021) Pathologist [facility] HIV Screening abstracted Historical Provider HEALTH MAINTENANCE Final Result * Hepatitis C Screening (01/24/2018) [facility] Hepatitis C Screening abstracted us Historical Provider HEALTH MAINTENANCE Final Result [...] Maintenance Insurance MEDICAID - [place] Care Teams Piece Goods Packer Relationship Specialty Start Date End Date Carina Munoz NP [address] [place] [phone] PCP - General 09/27/22
--- OUTSIDE RECORDS SUMMARY | 2025-08-07 18:57 | XMS_ITS | Encounter Summary ---
Author Organization [facility] Address [address] [place] [address] Care Team Providers Care Roofing Apprentice Name Role Phone Sriram-Meera Astorga MD Primary Care Provider Carina Limon NP Primary Care Provider Christal lyons Encounter Details Date Type Department Care Team Description 06/26/2020 Orders Only Medical Records [address] [place] [address] Jeanna Collins MD [address] [place] [address] Social History Tobacco Use Types Packs/Day Years [...] Gastroenterology and Internal Medicine Transplant Hepatology [facility] documented in this encounter Plan of Treatment Not on file documented as of this encounter Procedures Procedure Name Priority Date/Time Associated Diagnosis Comments OUTSIDE PATHOLOGY Routine 06/24/2020 documented in this encounter Results * OUTSIDE PATHOLOGY (06/24/2020) H Skip Collins MD OUTSIDE LAB documented in this encounter Visit Diagnoses Not on filedocumented in this encounter Care Teams Roofing Apprentice Relationship Specialty Start Date End Date [place]-Meera Astorga MD PCP - General Internal Medicine 12/14/19 09/26/22 Carina Munoz NP PCP - General Nurse Practioner Adult Health 09/27/22 documented as of this encounter
--- OUTSIDE RECORDS SUMMARY | 2025-08-07 18:57 | XMS_ITS | Encounter Summary ---
Author Organization [employer] Address [address] [place] [address] [place] [address] Care Team Providers Care Animal Laboratory Helper Name Role Phone Carina Munoz Primary Care Provider [phone] Reason for Visit * Reason Onset Date Comments Med Refill 07/07/2023 Encounter Details Date Type Department Care Team (Late st Contact Info) Description 07/07/2023 Refill [facility] MEDICINE [address] [place] [address] Sarah Nicholas MD [address] [place] [address] Social History Tobacco Use Types Packs/Day Years [...] Description 09/06/2025 11:15 AM EST Office Visit [facility] MEDICINE [address] [place] [address] Carina Munoz ANP [address] [place] [address] documented as of this encounter Visit Diagnoses Not on filedocumented in this encounter Care Teams Animal Laboratory Helper Relationship Specialty Start Date End Date Carina Munoz ANP [address] [place] [address] PCP - General Family Medicine 07/15/21 documented as of this encounter
--- OUTSIDE RECORDS SUMMARY | 2025-08-07 18:57 | XMS_ITS | Encounter Summary ---
Author Organization [employer] Address [address] [place] [address] 7 [place] [address] Care Team Providers Care Tailman Name Role Phone Carina Munoz Primary Care Provider [phone] Reason for Visit * Reason Onset Date Comments Med Refill 03/04/2025 Encounter Details Date Type Department Care Team ([facility] st Contact Info) Description 03/04/2025 Refill [facility] MEDICINE [address] [place], [place] [phone] Carina Munoz ANP [address] [place] [address] Gastroesophageal reflux disease without esophagitis Social History [...] 11:15 AM EST Office Visit [facility] MEDICINE [address] [place] [address] Carina Munoz ANP [address] [place] [address] documented as of this encounter Visit Diagnoses Diagnosis Gastroesophageal reflux disease without esophagitis Esophageal reflux documented in this encounter Additional Health Concerns Assessment Noted Time PHQ-9 Depression Total Score: 14 025 11:13 AM EST documented as of this encounter Care Teams Tailman Relationship Specialty Start Date End Date Carina Munoz ANP [address] [place] [address] PCP - General Family Medicine 07/15/21 documented as of this encounter
--- OUTSIDE RECORDS SUMMARY | 2025-08-07 18:57 | XMS_ITS | Encounter Summary ---
Author Organization [employer] Address [address] [place] [address] 7 [place] [address] Care Team Providers Care Catering Associate Name Role Phone Carina Munoz Primary Care Provider [phone] Reason for Visit * Reason Onset Date Comments Med Refill 07/18/2024 Encounter Details Date Type Department Care Team (Late st Contact Info) Description 07/18/2024 Refill [facility] MEDICINE [address] [place], [place] [phone] Carina Munoz ANP [address] [place] [address] Moderate persistent asthma without complication Social History [...] Description 09/06/2025 11:15 AM EST Office Visit [facility] MEDICINE [address] [place] [address] Carina Munoz ANP [address] [place] [address] documented as of this encounter Visit Diagnoses Diagnosis Moderate persistent asthma without complication documented in this encounter Additional Health Concerns Assessment Noted Time PHQ-9 Depression Total Score: 0 09/29/20 23 9:47 AM EST documented as of this encounter Care Teams Catering Associate Relationship Specialty Start Date End Date Carina Munoz ANP [address] [place] [address] PCP - General Family Medicine 07/15/21 documented as of this encounter
--- OUTSIDE RECORDS SUMMARY | 2025-08-07 18:57 | XMS_ITS | Encounter Summary ---
Author Organization [employer] Address [address] [place] [address] [address] [place] [address] Care Team Providers Care Director Of Rehabilitation Name Role Phone Carina Munoz Primary Care Provider [phone] Reason for Visit * Reason Onset Date Comments Med Refill 05/28/2024 Encounter Details Date Type Department Care Team (Late st Contact Info) Description 05/28/2024 Refill [facility] [address] [place], [place] [phone] Carina Munoz ANP [address] [place] [address] Gastroesophageal reflux disease without esophagitis Social History [...] Description 09/06/2025 11:15 AM EST Office Visit [facility] [address] [place] [address] Carina Munoz ANP [address] [place] [address] documented as of this encounter Visit Diagnoses Diagnosis Gastroesophageal reflux disease without esophagitis Esophageal reflux documented in this encounter Additional Health Concerns Assessment Noted Time PHQ-9 Depression Total Score: 0 09/29/20 23 9:47 AM EST documented as of this encounter Care Teams Director Of Rehabilitation Relationship Specialty Start Date End Date Carina Munoz ANP [address] [place] [address] PCP - General Family Medicine 07/15/21 documented as of this encounter
--- OUTSIDE RECORDS SUMMARY | 2025-08-07 18:57 | XMS_ITS | Encounter Summary ---
Author Organization [employer] Address [address] [facility] 7t [place] [address] Care Team Providers Care Medical Investigator Name Role Phone Carina Munoz Primary Care Provider [phone] Reason for Visit * Reason Onset Date Comments Med Refill 07/18/2024 Encounter Details Date Type Department Care Team ([facility] st Contact Info) Description 07/18/2024 Refill [facility] CHC MED & PEDS [address] [place], [place] [phone] Carina Munoz ANP [address] [place] [address] Social History Tobacco Use Types Packs/Day Years [...] 11:15 AM EST Office Visit [facility] MEDICINE [address] [place] [address] Carina Munoz ANP [address] [place] [address] documented as of this encounter Visit Diagnoses Not on filedocumented in this encounter Additional Health Concerns Assessment Noted Time PHQ-9 Depression Total Score: 0 09/29/20 23 9:47 AM EST documented as of this encounter Care Teams Medical Investigator Relationship Specialty Start Date End Date Carina Munoz ANP [address] [place] [address] PCP - General Family Medicine 07/15/21 documented as of this encounter
--- OUTSIDE RECORDS SUMMARY | 2025-08-07 18:57 | XMS_ITS | Encounter Summary ---
Author Organization [employer] Address [address] [place] [address] 7 [place] [address] Care Team Providers Care Water Pump Assembler Name Role Phone Carina Munoz Primary Care Provider [phone] Reason for Visit * Reason Onset Date Comments Med Refill 03/04/2025 Encounter Details Date Type Department Care Team ([facility] st Contact Info) Description 03/04/2025 Refill [facility] MEDICINE [address] [place], [place] [phone] Carina Munoz ANP 230 [place] [address] Social History Tobacco Use Types Packs/Day Years [...] Description 09/06/2025 11:15 AM EST Office Visit [facility] MEDICINE [address] [place] [address] Carina Munoz ANP [address] [place] [address] documented as of this encounter Visit Diagnoses Not on filedocumented in this encounter Additional Health Concerns Assessment Noted Time PHQ-9 Depression Total Score: 14 025 11:13 AM EST documented as of this encounter Care Teams Water Pump Assembler Relationship Specialty Start Date End Date Carina Munoz ANP [address] [place] [address] PCP - General Family Medicine 07/15/21 documented as of this encounter
--- OUTSIDE RECORDS SUMMARY | 2025-08-07 18:57 | XMS_ITS | Encounter Summary ---
Author Organization [employer] Address [address] [facility] 7t [place] [address] Care Team Providers Care Bss Solution Architect Name Role Phone Carina Munoz Primary Care Provider [phone] Reason for Visit * Reason Onset Date Comments Med Refill 05/28/2024 Encounter Details Date Type Department Care Team ([facility] st Contact Info) Description 05/28/2024 Refill [facility] CHC MED & PEDS [address] [place], [place] [address] Carina Munoz ANP 230 [place] [address] Moderate persistent asthma without complication Social History [...] Description 09/06/2025 11:15 AM EST Office Visit [facility] MEDICINE [address] [place] [phone] Carina Munoz ANP [address] [place] [address] documented as of this encounter Visit Diagnoses Diagnosis Moderate persistent asthma without complication documented in this encounter Additional Health Concerns Assessment Noted Time PHQ-9 Depression Total Score: 0 09/29/20 23 9:47 AM EST documented as of this encounter Care Teams Bss Solution Architect Relationship Specialty Start Date End Date Carina Munoz ANP [address] [place] [address] PCP - General Family Medicine 07/15/21 documented as of this encounter
--- OUTSIDE RECORDS SUMMARY | 2025-08-07 18:57 | XMS_ITS | Encounter Summary ---
Author Organization [employer] Address [address] [place] [address] 7 [place] [address] Care Team Providers Care Log Getter Name Role Phone Carina Munoz MARC Primary Care Provider [phone] Reason for Visit * Reason Onset Date Comments Med Refill 10/24/2023 Encounter Details Date Type Department Care Team (Late st Contact Info) Description 10/24/2023 Refill [facility] MEDICINE 230 [place], [place] [phone] [facility] 230 [place] [address] Muscle spasm of back Social History Tobacco [...] Description 09/06/2025 11:15 AM EST Office Visit [facility] MEDICINE [address] [place] [phone] Carina Munoz ANP [address] [place] [address] documented as of this encounter Visit Diagnoses Diagnosis Muscle spasm of back documented in this encounter Additional Health Concerns Assessment Noted Time PHQ-9 Depression Total Score: 0 09/29/20 23 9:47 AM EST documented as of this encounter Care Teams Log Getter Relationship Specialty Start Date End Date Carina Munoz ANP [address] [place] [address] PCP - General Family Medicine 07/15/21 documented as of this encounter
--- OUTSIDE RECORDS SUMMARY | 2025-08-07 18:57 | XMS_ITS | Encounter Summary ---
Author Organization [facility] Address [address] [place] [address] Care Team Providers Care Usability Engineer Name Role Phone Meera Welch MD Primary Care Provider Unavailable Carina Munoz NP Primary Care Provider Unavaildorian lyons Encounter Details Date Type Department Care Team Description 06/29/2020 Refill Adult Medicine [address] [address] Meera Welch MD Social History Tobacco Use [...] on filedocumented in this encounter Care Teams Usability Engineer Relationship Specialty Start Date End Date Meera Welch MD PCP - General Internal Medicine 12/14/19 09/26/22 Carina Munoz NP PCP - General Nurse Practioner Adult Health 09/27/22 documented as of this encounter
--- OUTSIDE RECORDS SUMMARY | 2025-08-07 18:57 | XMS_ITS | Clinical Summary ---
Author Organization [employer] Address [address] [place] [address] 7t [place] [address] Care Team Providers Care Biller Name Role Phone Carina Munoz Primary Care Provider [phone] Allergies No known active allergies Medications * This document contains information received from the source organization and may not represent a complete record from that organization. lamoTRIgine (LaMICtal) 100 MG tablet Take 1 tablet by mouth 1 (one) time each day. psychiatry Active Levonorgestrel 20 MCG/DAY intrauterine device 1 each by Intrauterine route. 0 025 Active montelukast (Singulair) 10 MG tablet TAKE 1 TABLET BY MOUTH EVERY EVENING 90 tablet 1 5 Active pantoprazole (Protonix) 40 MG EC tabletIndication s:Gastroesophage al reflux disease without esophagitis TAKE 1 TABLET BY MOUTH BEFORE BREAKFAST 90 tablet 1 5 Active prazosin (Minipress) 1 MG capsuleIndicatio ns:PTSD (post-traumatic stress disorder) Take 2 capsules (2 mg) by mouth if needed at bedtime (For nightmares.). 30 capsule 1 5 Active hydrOXYzine HCl (Atarax) 25 MG tablet TAKE 1 TABLET BY MOUTH EVERY NIGHT AT BEDTIME NEEDED FOR ANXIETY Active fluticasone (Flonase) 50 MCG/ACT nasal sprayIndications :Moderate persistent asthma without complication ADMIN 1-2 SPRAYS PER NOSTRIL NEEDED FOR ALLERGIES UP TO ONCE DAILY 48 mL 5 Active lidocaine (Lidoderm) 5 % patchIndications :Muscle spasm of back APPLY 1 PATCH TOPICALLY EVERY MORNING IF NEEDED FOR PAIN. REMOVE AND DISCARD PATCH WITHIN 12 HOURS OR as DIRECTED BY MD. 30 patch 1 5 Active fluticasone furoate (Arnuity Ellipta) 200 MCG/ACT inhalerIndicatio ns:Moderate persistent asthma without complication INHALE 1 PUFF EVERY MORNING. RINSE MOUTH AFTER USE. 30 each 2 5 Active Diclofenac Sodium 1 % gelIndications:M usoziel spasm of back APPLY 2 GRAMS TOPICALLY IN THE MORNING, AT NOON, IN THE EVENING AND AT BEDTIME IF NEEDED 100 g 3 5 Active baclofen (Lioresal) 10 MG tablet TAKE 1 TABLET BY MOUTH IN THE MORNING, AT NOON, AND BEDTIME IF NEEDED FOR MUSCLES SPASMS 60 tablet 1 5 Active albuterol (Ventolin HFA) 108 (90 Base) MCG/ACT inhalerIndicatio ns:Moderate persistent asthma without complication INHALE 1-2 PUFFS EVERY 4-6 HOURS NEEDED IF WHEEZING/SOB 18 g 1 5 Active doxepin (SINEquan) 10 MG capsule TAKE 1 CAPSULE BY MOUTH AT BEDTIME FOR SLEEP 30 capsule 5 Active Active Problems Problem Noted Date Diagnosed Date Numbness and tingling of both legs 04/12/2025 Overview (04/12/2025): Normal BLE EMG/NCS 01/03/25 MRI lumbar unremarkable 03/06/25 Thus far B12, TSH, H/H normal Anxiety 12/11/2024 Recurrent major depressive disorder 12/11/2024 Hx of bipolar disorder 12/11/2024 S/P laparoscopic sleeve gastrectomy 05/02/2023 Overview (05/02/2023): 04/27/23 at [facility] Diverticular disease 07/08/2022 Hepatic steatosis 09/14/2021 Overview (10/19/2022): Mild - seen on CT abdomen and pelvis at [facility] ED 09/08/21 Uterine fibroid 09/14/2021 Overview (10/19/2022): Seen on US at [facility] ED 09/08/21 Diverticulitis 09/14/2021 09/01/2023 Overview (09/01/2023): CT abdomen and pelvis 09/08/21 at [facility] ED: findings suspicious for early/mild descending diverticulitis. No abscess formation or free air. Colon polyp 08/16/2020 Overview (10/19/2022): Lovely done 06/2020 for GIB, anemia Asthma, moderate [...] organization. Date Type Department Care Team Description 07/09/2025 Telephone [facility] MEDICINE [address] [place] [address] Carina Munoz ANP chart prep 07/04/2025 9:30 AM EDT Office Visit [facility] OPTOMETRY [address], [place] [phone] Giovanny, Yari, OD Hyperopia of both eyes (Primary Dx) 07/04/2025 Travel 07/04/2025 Patient Outreach [facility] CHC MED & PEDS [address] [place], [place] [phone] Carina Munoz ANP Pre-visit Planning (SDOH was already completed) 07/02/2025 Refill [facility] MEDICINE [address] [place] [address] Carina Munoz ANP Muscle spasm of back; Moderate persistent asthma without complication 06/29/2025 Refill [facility] MEDICINE [address] [place] [address] Carina Munoz ANP Moderate persistent asthma without complication from Last 3 Months Immunizations Immunization Administration Dates Next Due HPV 9-Valent 01/27/2023,09/28/2022,04/15/2021 Influenza Injectable Quadriv alant Preservative Free IIV4 MDCK 11/21/2019,10/27/2018 Influenza injectable quadriv alent preservative free 08/17/2023,07/28/2022,07/15/2021 Influenza, seasonal, injecta ble, preservative free 11/08/2024 Pfizer Covid-19 Vaccine 12+ 11/08/2024, 3 Tdap 10/27/2018 Family History Medical History Relation [...] Description 09/06/2025 11:15 AM EST Office Visit [facility] MEDICINE [address] [place], [place] [phone] Carina Munoz, MARC [address] [place], [place] [phone] Health Maintenance Due Date Last Done Comments [...] of both legs HM PAP/HPV Routine 05/16/2025 HEPATITIS C AB W/REFL TO HCV RNA, QN, PCR Routine 11/16/2024 9:34 AM EST Routine screening for STI (sexually transmitted infection) HIV 1/2 ANTIGEN/ANTIBODY, FOURTH GENERATION W/RFL Routine 11/16/2024 9:34 AM EST Routine screening for STI (sexually transmitted infection) LIPID PANEL, STANDARD Routine 11/16/2024 9:34 AM EST HM MAMMOGRAPHY Routine 05/03/2023 from Last 3 Months or Most Recently Relevant to Health Maintenance Results * Referral to Neurology (07/02/2025) Carina Munoz [facility] OUTPATIENT REFERRAL ORDERABLES F inal Result * HM PAP/HPV (05/16/2025) Pap Smear 1. NILM 1. NILM HPV Not Detected Undetected, Indeterminat e, Quantitative , Not Detected Narrative Ruby, Kiara - 05/16/2025 Results in care everywhere under labs [facility] Provider HEALTH MAINTENANCE Final Result * Hepatitis C Antibody with Reflex to HCV, RNA, Quantitative, Real-Time PCR (11/16/2024 9:34 AM EST) Pathologist [facility] Hepatitis C Antibody Nonreactive Nonreactive [facility] Comment:Antibodies to HCV no t detected; does not exclude early acuteHCV infection. Blood Venous blood specimen / Unknown 11/16/2024 9:34 AM EST 11/16/2024 9:34 AM EST Carina Munoz [facility] LAB BLOOD ORDERABLES Final Resul t [facility] [address] [place] [phone] * HIV-1/2 Antigen and Antibodies, Fourth Generation, with Reflexes (11/16/2024 9:34 AM EST) HIV AB/AG Nonreactive Nonreactive [facility] Comment:HIV-1 p24 Ag and/or HIV-1/HIV-2 Ab not detected.A test result that is nonreactive does not exclude thepossibility of exposure to or infection with HIV-1 and/orHIV-2. Nonreactive results in this assay for individualswith prior exposure to HIV-1 and/or HIV-2 may be due toantigen and antibody levels that are below the limit ofdetection of this assay.The [employer] HIV Ag/Ab Combo assay result andsupplemental assay results should be interpreted inconjunction with the patient's clinical presentation,history and other laboratory results. If the results areinconsistent with clinical evidence, additional testing issuggested to confirm the result. Blood Venous blood specimen / Unknown 11/16/2024 9:34 AM EST 11/16/2024 9:34 AM EST us Carina Munoz [facility] LAB BLOOD ORDERABLES Final Resul t Performing Organization Address [facility]/ZIP Co de Phone Number [facility] [address] [place] [phone] * (ABNORMAL) Lipid Panel, Standard (11/16/2024 9:34 AM EST) Triglycerides 79 <150 mg/dL [facility] Comment:Desirable Triglyceri de: less than 150 mg/dLBorderline High Triglyceride 150-199 mg/dLHigh Triglyceride: 200-499 mg/dLVery High Triglyceride: greater than or equal to 5OO mg/dL Cholesterol 280(H) <200 mg/dL [facility] Comment:Desirable Cholestero l: less than 200 mg/dLBorderline High Cholesterol: 200-239 mg/dLHigh Cholesterol: greater than 239 mg/dL LDL Cholesterol Calculated 182(H) <100 mg/dL [facility] Comment:Desirable LDL: less than 100 mg/dLNear Optimal/Above Optimal LDL: 110- 129 mg/dLBorderline High LDL: 130-159 mg/dLHigh LDL: 160-189 mg/dLVery High LDL: greater than or equal to 190 mg/dL HDL Cholesterol 83 >40 mg/dL [facility] Comment:Desirable HDL: grea ter than 40 mg/dL Note: This HDL assay may give artificially low results in patients with liver disease. 11/16/2024 9:34 AM EST 11/16/2024 9:34 AM EST us Generic External Data Provider LAB BLOOD ORDERAB LES Final Result Performing Organization Address [facility]/ZIP Co de Phone Number [facility] [address] [place] [address] [phone] * Mammography (05/03/2023) Mammogram NORMAL Anatomical Region Laterality Modality Other us Historical Provider HEALTH MAINTENANCE Final Result from Last 3 Months or Most Recently Relevant to Health Maintenance Insurance [employer] Care Teams Biller Relationship Specialty Start Date End Date Carina Munoz ANP [address] [place] [address] PCP - General Family Medicine 07/15/21
== END 2025-08-07 14:06 | disposition home or self-care (01) ==
LOC: HO.PMC 13:23
PROVIDERS: PCP Nurse Practitioner Primary Care; Visit Provider Anesthesiology
DX: M46.1 Sacroiliitis, not elsewhere classified (principal); M53.3 Sacrococcygeal disorders, not elsewhere classified; R10.32 Left lower quadrant pain; E66.3 Overweight; G89.4 Chronic pain syndrome
CPT/HCPCS: 99213

== ENCOUNTER → 2025-08-07 13:22 | Outpatient (BNVA) | payer MEDICAID, SELFPAY | PROVIDERS: Visit Provider Anesthesiology | DX: G89.4 Chronic pain syndrome (principal); M46.1 Sacroiliitis, not elsewhere classified; M53.3 Sacrococcygeal disorders, not elsewhere classified; R10.32 Left lower quadrant pain; E66.3 Overweight | CPT/HCPCS: 99212 ==

== ENCOUNTER 2025-08-12 11:20 | Outpatient (AMB) | payer MEDICAID, SELFPAY ==
[2025-08-12 11:31] VITALS: BP 157/77; PULSE 100; TEMP 36.3; O2SAT 98; BMI 33.9
--- NOTE | 2025-08-12 11:31 | MHC.OFFVISWM ---
VS Expanded 08/12/25 11:31 BP 157/77 H Blood Pressure Location Rt brachial Blood Pressure Position Sitting Pulse 100 Pulse Source Pulse Oximeter Temp 97.3 F Temperature Source Temporal Artery Scan Pulse Oximetry 98 Oxygen Delivery Method Room Air Height 5 ft 2 in Weight 185 lb 6.4 oz BMI 33.9 Body Fat % 43.1 Body Fat Mass 79.8 Fat Free Mass 105.4 Visceral Fat Rating 10.0 Body Water % 40.7 Body Water Mass 75.4 Muscle Mass/Score 100.0 Basal Metabolic Rate/Score 1,486 Intake Visit Reasons: OV PO LSG 04/27/23 Registered Nurse Hh Case Manager Required: Yes Registered Nurse Hh Case Manager Name: Rebeca uGpta, [id number] Information Interpreted: clinical only Allergies No Known Allergies Allergy (Verified 08/07/25 13:35) Medication List - Last Reconciled 08/12/25 by PAULA Dias albuterol sulfate 0.63 mg inhalation Q6H PRN bisacodyl (Dulcolax (bisacodyl)) 10 mg [place] DAILY PRN calcium citrate-vitamin D3 315 mg-5 mcg (200 unit) 1 tab PO BID docusate sodium 100 mg PO BID 90 days doxepin 10 mg PO BEDTIME fluticasone furoate 100 mcg/actuation (Arnuity Ellipta) 1 inh inhalation DAILY fluticasone propionate 50 mcg/actuation 1 spray intranasal BID hydroxyzine HCl 25 mg PO BID PRN ibuprofen 800 mg PO Q8H PRN 30 days lamotrigine 150 mg PO DAILY levonorgestrel intrauterine montelukast (Singulair) 10 mg PO BEDTIME sennosides (senna) 17.2 mg (2 x 8.6 mg) PO BEDTIME PRN HPI Comments Details: This a 39 yo female who is s/p LSG without hiatal hernia repair on 04/27/[address] Bell. Presents for 2 year 3mo post op visit. Weight today is 185.4 pounds, with a BMI of 33.9., representing a 4.6lb weight gain since last OV. Initial weight 218.6 pounds since starting the program on 11/12/22 and operative weight 186.5 pounds. Pt reports that she now has a new psychiatrist since last OV and feels better with medication changes for sleeping and anxiety; however, she is taking care of her mother who has dementia which is stressful. Pt reports she was unable to make the changes recommended by Sp at last visit with nutrition plan and exercise. She does like the Ensure shakes and has been using. Has lower back pain and going to get steroid injections. She notes increased duration of menstrual cycle, almost a month; this has worsened her cravings also. She has made her STUDY SPECIALIST provider aware, had IUD exchanged, this helped with volume of blood but she continues to bleed. Pt confirms she takes lamotrigine for bipolar disorder. Meal plan given at last visit includes: Using ensure max ready to drink shake per her request 8 oz at 8-10, 12-2 meal at 5 with 6 forks protein and 6 forks veg Drinkin oz daily of water exercise routine includes: 3 x per week at the gym, PF, treadmill, 200 calories burned PFSH Medical History Arthritis Anemia Gastritis GERD (gastroesophageal reflux disease) Hiatal hernia Depression Elevated cholesterol Hiatal hernia Delivery with history of Migraine Asthma Surgical History S/P laparoscopic sleeve gastrectomy (04/27/23) Hx of tubal ligation Hx of section Family History Mother Hypertension Arthritis Son Hyperactive Daughter No problems noted. Son No problems noted. 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 Pt is interested in starting GLP1. Reviewed contraindications, discussed dosing. Discussed need for adequate protein intake while on GLP1s as well as frequent communication with our office. Pt will check in with me weekly and is aware that subsequent Rx will be dependent on frequent communication. Also gave pt [employer] kylee info and instructed her to download and follow a plan. RTC 4mo, due for labs at that time. Medications: New tirzepatide (weight loss) (Zepbound) for 4 weeks 2.5 mg (0.5 mL) subcut QWEEK 2 mL 0RF Refilled sennosides (senna) 17.2 mg (2 x 8.6 mg) PO BEDTIME PRN 180 tabs 0RF for constipation docusate sodium 100 mg PO BID 180 caps 0RF 90 days
--- OUTSIDE RECORDS SUMMARY | 2025-08-12 14:29 | XMS_ITS | Encounter Summary ---
Author Organization [employer] Address [address] [place] [address] 7 [place] [address] Care Team Providers Care Teacher Asst Name Role Phone Carina Munoz Primary Care Provider [phone] Reason for Visit * Reason Onset Date Comments Med Refill 03/04/2025 Encounter Details Date Type Department Care Team ([facility] st Contact Info) Description 03/04/2025 Refill [facility] MEDICINE [address] [place], [place] [phone] Carina Munoz ANP [address] [place] [address] Gastroesophageal reflux disease without esophagitis Social History [...] Description 09/06/2025 11:15 AM EST Office Visit [facility] MEDICINE [address] [place] [phone] Carina Munoz ANP [address] [place] [address] documented as of this encounter Visit Diagnoses Diagnosis Gastroesophageal reflux disease without esophagitis Esophageal reflux documented in this encounter Additional Health Concerns Assessment Noted Time PHQ-9 Depression Total Score: 14 025 11:13 AM EST documented as of this encounter Care Teams Teacher Asst Relationship Specialty Start Date End Date Carina Munoz ANP [address] [place] [phone] PCP - General Family Medicine 07/15/21 documented as of this encounter
--- OUTSIDE RECORDS SUMMARY | 2025-08-12 14:29 | XMS_ITS | Encounter Summary ---
Author Organization [employer] Address [address] [place] [address] [place] [address] Care Team Providers Care Machine Stripper Cutter Name Role Phone Carina Munoz Primary Care Provider [phone] Reason for Visit * Reason Onset Date Comments Med Refill 07/07/2023 Encounter Details Date Type Department Care Team (Late st Contact Info) Description 07/07/2023 Refill [facility] MEDICINE [address] [place] [phone] Sarah Nicholas MD [address] [place] [phone] Social History Tobacco Use Types Packs/Day Years [...] 11:15 AM EST Office Visit [facility] MEDICINE [address] [place] [phone] Carina Munoz ANP [address] [place] [address] documented as of this encounter Visit Diagnoses Not on filedocumented in this encounter Care Teams Machine Stripper Cutter Relationship Specialty Start Date End Date Carina Munoz ANP [address] [place] [address] PCP - General Family Medicine 07/15/21 documented as of this encounter
--- OUTSIDE RECORDS SUMMARY | 2025-08-12 14:29 | XMS_ITS | Encounter Summary ---
Author Organization [employer] Address [address] [place] [address] 7 [place] [address] Care Team Providers Care Manager Cosmetic Name Role Phone Carina Munoz MARC Primary Care Provider Reason for Visit * Reason Onset Date Comments Med Refill 10/24/2023 Encounter Details Date Type Department Care Team (Late st Contact Info) Description 10/24/2023 Refill [facility] MEDICINE [address] [place], [place] [phone] [facility] [address] [place] [address] Muscle spasm of back Social History Tobacco [...] Description 09/06/2025 11:15 AM EST Office Visit [facility] MEDICINE [address] [place] [phone] Carina Munoz ANP [address] [place] [phone] documented as of this encounter Visit Diagnoses Diagnosis Muscle spasm of back documented in this encounter Additional Health Concerns Assessment Noted Time PHQ-9 Depression Total Score: 0 09/29/20 23 9:47 AM EST documented as of this encounter Care Teams Manager Cosmetic Relationship Specialty Start Date End Date Carina Munoz ANP [address] [place] [phone] PCP - General Family Medicine 07/15/21 documented as of this encounter
--- OUTSIDE RECORDS SUMMARY | 2025-08-12 14:29 | XMS_ITS | Encounter Summary ---
Author Organization [employer] Address [address] [place] [address] 7 [place] [address] Care Team Providers Care Photographic Specialist Name Role Phone Carina Munoz Primary Care Provider [phone] Reason for Visit * Reason Onset Date Comments Med Refill 07/18/2024 Encounter Details Date Type Department Care Team (Late st Contact Info) Description 07/18/2024 Refill [facility] [address] [place], [place] [phone] Carina Munoz ANP [address] [place] [address] Muscle spasm of back Social History Tobacco [...] EST Office Visit [facility] [address] [place] [address] Carina Munoz ANP [address] [place] [address] documented as of this encounter Visit Diagnoses Diagnosis Muscle spasm of back documented in this encounter Additional Health Concerns Assessment Noted Time PHQ-9 Depression Total Score: 0 09/29/20 23 9:47 AM EST documented as of this encounter Care Teams Photographic Specialist Relationship Specialty Start Date End Date Carina Munoz ANP [address] [place] [address] PCP - General Family Medicine 07/15/21 documented as of this encounter
--- OUTSIDE RECORDS SUMMARY | 2025-08-12 14:29 | XMS_ITS | Encounter Summary ---
Author Organization [employer] Address [address] [place] [address] 7 [place] [address] Care Team Providers Care Tube And Manifold Builder Name Role Phone Carina Munoz Primary Care Provider [phone] Reason for Visit * Reason Onset Date Comments Med Refill 03/04/2025 Encounter Details Date Type Department Care Team ([facility] st Contact Info) Description 03/04/2025 Refill [facility] [address] [place], [place] [phone] Carina Munoz ANP 230 [place] [address] Social History Tobacco Use Types Packs/Day Years [...] EST Office Visit [facility] [address] [place] [address] Carina Munoz ANP 230 [place] [address] documented as of this encounter Visit Diagnoses Not on filedocumented in this encounter Additional Health Concerns Assessment Noted Time PHQ-9 Depression Total Score: 14 025 11:13 AM EST documented as of this encounter Care Teams Tube And Manifold Builder Relationship Specialty Start Date End Date Carina Munoz ANP [address] [place] [address] PCP - General Family Medicine 07/15/21 documented as of this encounter
--- OUTSIDE RECORDS SUMMARY | 2025-08-12 14:30 | XMS_ITS | Encounter Summary ---
Author Organization [employer] Address [address] [place] [address] 7 [place] [address] Care Team Providers Care China And Silverware Salesperson Name Role Phone Carina Munoz Primary Care Provider [phone] Reason for Visit * Reason Onset Date Comments Med Refill 05/28/2024 Encounter Details Date Type Department Care Team (Late st Contact Info) Description 05/28/2024 Refill [facility] 230 [place], [place] [phone] Carina Munoz ANP 230 [place] [address] Gastroesophageal reflux disease without esophagitis Social History [...] Description 09/06/2025 11:15 AM EST Office Visit [facility] [address] [place] [address] Carina Munoz ANP 230 [place] [address] documented as of this encounter Visit Diagnoses Diagnosis Gastroesophageal reflux disease without esophagitis Esophageal reflux documented in this encounter Additional Health Concerns Assessment Noted Time PHQ-9 Depression Total Score: 0 09/29/20 23 9:47 AM EST documented as of this encounter Care Teams China And Silverware Salesperson Relationship Specialty Start Date End Date Carina Munoz ANP [address] [place] [address] PCP - General Family Medicine 07/15/21 documented as of this encounter
--- OUTSIDE RECORDS SUMMARY | 2025-08-12 14:30 | XMS_ITS | Clinical Summary ---
Author Organization [employer] Address [address] [place] [address] 7t [place] [address] Care Team Providers Care Larriman Name Role Phone Carina Munoz Primary Care Provider [phone] Allergies No known active allergies Medications * [...] sleeve gastrectomy 05/02/2023 Overview (05/02/2023): 04/27/23 at [facility] [place] Diverticular disease 07/08/2022 Hepatic steatosis 09/14/2021 Overview (10/19/2022): Mild - seen on CT abdomen and pelvis at [facility] ED 09/08/21 Uterine fibroid 09/14/2021 Overview (10/19/2022): Seen on US at [facility] ED 09/08/21 Diverticulitis 09/14/2021 09/01/2023 Overview (09/01/2023): CT abdomen and pelvis 09/08/21 at [facility] ED: findings suspicious for early/mild descending diverticulitis. No abscess formation or free air. Colon polyp 08/16/2020 Overview (10/19/2022): [place] done 06/2020 for GIB, anemia Asthma, moderate [...] Type Department Care Team Description 07/09/2025 Telephone [facility] [address] [place] [address] Carina Munoz ANP chart prep 07/04/2025 9:30 AM EDT Office Visit [facility] [address] [place], [place] [phone] Giovanny, Yari, OD Hyperopia of both eyes (Primary Dx) 07/04/2025 Travel 07/04/2025 Patient Outreach [facility] [address] [place], [place] [phone] Carina Munoz ANP Pre-visit Planning (SDOH was already completed) 07/02/2025 Refill [facility] 230 [place] [address] Carina Munoz ANP Muscle spasm of back; Moderate persistent asthma without complication 06/29/2025 Refill [facility] 230 [place] [address] Carina Munoz ANP Moderate persistent asthma without [...] Description 09/06/2025 11:15 AM EST Office Visit [facility] 230 [place], [place] [phone] Carina Munoz, MARC 230 [place], [place] [phone] Health Maintenance Due Date Last Done Comments [...] * Referral to Neurology (07/02/2025) Carina Munoz [facility] OUTPATIENT REFERRAL ORDERABLES F inal Result * HM PAP/HPV (05/16/2025) Pap Smear 1. NILM 1. NILM HPV Not Detected Undetected, Indeterminat e, Quantitative , Not Detected Narrative Ruby, Kiara - 05/16/2025 Results in care everywhere under labs [facility] Provider HEALTH MAINTENANCE Final Result * Hepatitis C Antibody with Reflex to HCV, RNA, Quantitative, Real-Time PCR (11/16/2024 9:34 AM EST) Pathologist [facility] Hepatitis C Antibody Nonreactive Nonreactive [facility] Comment:Antibodies to HCV no t detected; does not exclude early acuteHCV infection. Blood Venous blood specimen / Unknown 11/16/2024 9:34 AM EST 11/16/2024 9:34 AM EST Carina Munoz [facility] LAB BLOOD ORDERABLES Final Resul t [facility] [address] [place] [phone] * HIV-1/2 Antigen and Antibodies, Fourth Generation, with Reflexes (11/16/2024 9:34 AM EST) HIV AB/AG Nonreactive Nonreactive [facility] Comment:HIV-1 p24 Ag and/or HIV-1/HIV-2 Ab not detected.A test result that is nonreactive does not exclude thepossibility of exposure to or infection with HIV-1 and/orHIV-2. Nonreactive results in this assay for individualswith prior exposure to HIV-1 and/or HIV-2 may be due toantigen and antibody levels that are below the limit ofdetection of this assay.The [employer] HIV Ag/Ab Combo assay result andsupplemental assay results should be interpreted inconjunction with the patient's clinical presentation,history and other laboratory results. If the results areinconsistent with clinical evidence, additional testing issuggested to confirm the result. Blood Venous blood specimen / Unknown 11/16/2024 9:34 AM EST 11/16/2024 9:34 AM EST us Carina Munoz [facility] BLOOD ORDERABLES Final Resul t Performing Organization Address City/[facility]/ZIP Co de Phone Number [facility] [address] [place] [phone] * (ABNORMAL) Lipid Panel, Standard (11/16/2024 9:34 AM EST) Triglycerides 79 <150 mg/dL [facility] Comment:Desirable Triglyceri de: less than 150 mg/dLBorderline High Triglyceride 150-199 mg/dLHigh Triglyceride: 200-499 mg/dLVery High Triglyceride: greater than or equal to 5OO mg/dL Cholesterol 280(H) <200 mg/dL [facility] Comment:Desirable Cholestero l: less than 200 mg/dLBorderline High Cholesterol: 200-239 mg/dLHigh Cholesterol: greater than 239 mg/dL LDL Cholesterol Calculated 182(H) <100 mg/dL [facility] Comment:Desirable LDL: less than 100 mg/dLNear Optimal/Above Optimal LDL: 110- 129 mg/dLBorderline High LDL: 130-159 mg/dLHigh LDL: 160-189 mg/dLVery High LDL: greater than or equal to 190 mg/dL HDL Cholesterol 83 >40 mg/dL [facility] Comment:Desirable HDL: great er than 40 mg/dL Note: This HDL assay may give artificially low results in patients with liver disease. 11/16/2024 9:34 AM EST 11/16/2024 9:34 AM EST us Generic External Data Provider LAB BLOOD ORDERAB LES Final Result Performing Organization Address City/[facility]/ZIP Co de Phone Number [facility] [address] [place] [phone] * Mammography (05/03/2023) Mammogram NORMAL Anatomical Region Laterality Modality Other us Historical Provider HEALTH MAINTENANCE Final Result from Last 3 Months or Most Recently Relevant to Health Maintenance Insurance [employer] Care Teams Larriman Relationship Specialty Start Date End Date Carina Munoz ANP [address] [place] [address] PCP - General Family Medicine 07/15/21
--- OUTSIDE RECORDS SUMMARY | 2025-08-12 14:30 | XMS_ITS | Encounter Summary ---
Author Organization [employer] Address [address] [place] [address] 7 [place] [address] Care Team Providers Care Veneer Marker Name Role Phone Carina Munoz Primary Care Provider [phone] Reason for Visit * Reason Onset Date Comments Med Refill 07/18/2024 Encounter Details Date Type Department Care Team (Late st Contact Info) Description 07/18/2024 Refill [facility] [address] [place], [place] [phone] Carina Munoz ANP [address] [place] [address] Moderate persistent asthma without complication Social History [...] Description 09/06/2025 11:15 AM EST Office Visit [facility] [address] [place] [address] Carina Munoz ANP [address] [place] [address] documented as of this encounter Visit Diagnoses Diagnosis Moderate persistent asthma without complication documented in this encounter Additional Health Concerns Assessment Noted Time PHQ-9 Depression Total Score: 0 09/29/20 23 9:47 AM EST documented as of this encounter Care Teams Veneer Marker Relationship Specialty Start Date End Date Carina Munoz ANP [address] [place] [address] PCP - General Family Medicine 07/15/21 documented as of this encounter
--- OUTSIDE RECORDS SUMMARY | 2025-08-12 14:30 | XMS_ITS | Clinical Summary ---
Author Organization [facility] Address [address] [place] [address] Care Team Providers Care Can Stacker Name Role Phone Unavailable Primary Care Provider [...] Team Description 05/28/2025 / [facility] [address] [place] [address] GLORIA ALBERTO [phone] Jin Roper, TRENT from [...] Screen 10/17/2024 Breast Cancer Screening (Mammogram) 2024 [id number] ( season) 2025 11/08/2024, 08/17/2023, 07/28/2022, Additional history exists Imm-Influenza (#1) 2025 11/08/2024, 1 10/17/2022, 07/28/2022, Additional history exists Diabetes Screening 04/16/2028 04/16/2025, 0 11/16/2024, 12/26/2023, Additional history exists Imm-DTaP/Tdap/Td (2 - Td or Tdap) 10/27/2028 019 Lipid Screening 11/16/2029 11/16/2024, 12/03/2022 Imm-HPV Completed 01/27/2023, 09/16, 04/15/2021 HIV Screening Completed 11/16/2024, 10/19, 11/07/2023, Additional history exists Hepatitis C Screening Completed 11/16/2024 Cervical Ablation/Cold-Knife Conization Discontinued Cervical Cryotherapy Discontinued Colposcopy Discontinued Endometrial Biopsy Discontinued Excision/Leep Discontinued HPV Genotyping Discontinued Vaginal Pap Discontinued Vulvoscopy Discontinued Insurance [facility]
--- OUTSIDE RECORDS SUMMARY | 2025-08-12 14:30 | XMS_ITS | Encounter Summary ---
Author Organization [employer] Address [address] [place] [address] 7 [place] [address] Care Team Providers Care Living Manager Name Role Phone Carina Munoz Primary Care Provider [phone] Reason for Visit * Reason Onset Date Comments Med Refill 02/14/2023 Encounter Details Date Type Department Care Team (Late st Contact Info) Description 02/14/2023 Telephone [facility] 230 [place], [place] [phone] Carina Munoz ANP [address] [place] [address] Med Refill Social History Tobacco Use Types [...] 02/14/2023 2:40 PM EDT Med sent to [facility] today. * Telephone Encounter - Gee Barbour - 02/14/2023 2:30 PM EDT [facility] with [facility] requesting a 90 day supply on fluticasone (Flonase Allergy Relief) 50 MCG/ACT nasal spray [id number] [place] - [address] [place] [address], [address] documented in this encounter Plan of Treatment Upcoming Encounters Date Type Department Care Team (Late st Contact Info) Description 09/06/2025 11:15 AM EST Office Visit [facility] [address] [place] [address] Carina Munoz ANP [address] [place] [address] documented as of this encounter Visit Diagnoses Not on filedocumented in this encounter Care Teams Living Manager Relationship Specialty Start Date End Date Carina Munoz ANP [address] [place] [address] PCP - General Family Medicine 07/15/21 documented as of this encounter
--- OUTSIDE RECORDS SUMMARY | 2025-08-12 14:30 | XMS_ITS | Encounter Summary ---
Author Organization [employer] Address [address] [place] [address] 7 [place] [address] Care Team Providers Care Audio Visual Technician Name Role Phone Carina Munoz Primary Care Provider [phone] Encounter Details Date Type Department Care Team (Latest Contact Info) Description 01/18/2019 Abstract [facility] CONVERSIONS Dental, Provider, DDS Social History [...] Description 09/06/2025 11:15 AM EST Office Visit [facility]INE 230 [place] [address] Carina Munoz ANP [address] [place] [address] documented as of this encounter Visit Diagnoses Not on filedocumented in this encounter Care Teams Audio Visual Technician Relationship Specialty Start Date End Date Carina Munoz ANP [address] [place] [address] PCP - General Family Medicine 07/15/21 documented as of this encounter
--- OUTSIDE RECORDS SUMMARY | 2025-08-12 14:30 | XMS_ITS | Clinical Summary ---
Author Organization [facility] Address [address] [place] [address] Phone Care Team Providers Care Enterprise Architect Manager Name Role Phone Alexander Carina Hamilton NP Primary Care Provider [phone] Allergies No known active allergies Medications hydrocortisone [...] seen on CT abdomen and pelvis at [facility] ED 09/08/21 Diverticulitis 09/14/2021 Overview (07/09/2024): CT abdomen and pelvis 09/08/21 at [facility] ED: findings suspicious for early/mild descending diverticulitis. No abscess formation or free air. Uterine fibroid 09/14/2021 Overview (07/09/2024): Seen on US at [facility] ED 09/08/21 Colon polyp 08/16/2020 Overview (07/09/2024): [place] done 06/2020 for GIB, anemia Asthma, moderate [...] Severe obesity (BMI 35.0-39. 9) with comorbidity ([facility] V24, [facility] V28) 06/06/2019 Bipolar disorder ([facility] V24, [facility] V28) 10/17 Overview (07/09/2024): F/u [...] EDT Office Visit [facility] [address] [phone] Doretha Love PA Encntr for [employer] exam (general) (routine) w/o abn findings (Primary [...] 4, CMS/HCC V28) 10/27/2018 DX:Bipolar disorder ([facility]); C OMMENT: F/u Lela History of suicidal tendencies 10/27/2018 D X:History of suicidal tendencies; COMMENT: Three attempts Asthma, moderate persistent 03/03/2020 DX:A sthma, moderate persistent Uterine fibroid 09/14/2021 DX:Uterine fibro id; COMMENT: Seen on US at [facility] ED 09/08/21 Hepatic steatosis 09/14/2021 DX:Hepatic ezio atosis; COMMENT: Mild - seen on CT abdomen and pelvis at [facility] ED 09/08/21 Family History Medical History [...] 05/16/2025 2:27 PM EDT Cervical cancer screening HI INSERTION INTRAUTERINE DEVICE Routine 05/16/2025 1:33 PM EDT Encounter for removal and reinsertion of intrauterine contraceptive device (IUD) HI REMOVAL INTRAUTERINE DEVICE Routine 05/16/2025 1:33 PM [...] LAB MICROBIOLOGY METHOD 05/17/2025 1:17 PM EDT [facility] Chlamydia, RNA Probe Negative Negative LAB MICROBIOLOGY METHOD 05/17/2025 1:17 PM EDT [facility] Brushing/Spatula Cervix uteri structure / Unknown 05/16/2025 2:27 PM EDT 05/17/2025 6:36 AM EDT us Doretha MITCHELL LAB CYTOLOGY ORDERABLES Liz l Result Performing Organization Address City/[facility]/ZIP Co de Phone Number [facility] [address] [place] [address], [place] [phone] * HPV with reflex genotype (05/16/2025 2:27 PM EDT) HPV Negative Negative LAB MICROBIOLOGY METHOD 05/17/2025 4:42 PM EDT [facility] Brushing/Spatula Cervix uteri structure / Unknown 05/16/2025 2:27 PM EDT 05/17/2025 6:36 AM EDT us Doretha MITCHELL LAB MOLECULAR DIAGNOSTICS OR DERABLES Final Result Performing Organization Address [facility]/ZIP Co de Phone Number [facility] [address] [place] [address], [place] [phone] * Trichomonas vaginalis molecular study (05/16/2025 2:27 PM EDT) Trichomonas vaginalis Negative Negative LAB MICROBIOLOGY METHOD 05/17/2025 1:42 PM EDT [facility] Brushing/Spatula Cervix uteri structure / Unknown 05/16/2025 2:27 PM EDT 05/17/2025 6:36 AM EDT us Doretha MITCHELL LAB BLOOD ORDERABLES Final R esult [facility] [address] [place] [address], [place] [phone] * Pap smear (05/16/2025 2:27 PM EDT) Interpretation Negative for intraepithelial lesion or malignancy 05/21/2025 2:08 PM EDT [facility] General Categorization Negative 05/21/2025 2:08 PM EDT [facility] LMP 04/30/2024 05/21/2025 2:08 PM EDT [facility] Specimen Adequacy Satisfactory for evaluation, endocervical/finn sformation zone component present 05/21/2025 2:08 PM EDT [facility] Pap Methodology Liquid Based Pap Test 05/21/2025 2:08 PM EDT [facility] Disclaimer The Pap test is a screening test which carries an inherent false negative rate. These test results should be correlated with the patient's clinical findings and history. This Pap test was processed using an automated screening system. Technical cytopathology services provided by [facility], at [address] [place] [phone] (CLIA # [id number]/Gabrielle Rees MD, Wood Router.) 05/21/2025 2:08 PM EDT [facility] Console Pap Interpretation Reported 05/21/2025 2:08 PM EDT [facility] Brushing/Spatula Cervix uteri structure / Unknown 05/16/2025 2:27 PM EDT 05/16/2025 2:27 PM EDT Doretha MITCHELL LAB CYTOLOGY ORDERABLES Liz l Result [facility] [address] [place] [address], * HI REMOVAL INTRAUTERINE DEVICE, HI INSERTION INTRAUTERINE DEVICE (05/16/2025 1:33 PM EDT) [...] ORDERABLES Final Result * Lipid panel (12/03/2022) [facility] LDL/HDL Ratio 0 <=0 Comment:No interpretation Triglycerides 0 <=0 mg/dL Comment:No interpretation Cholesterol 0 <=0 mg/dL Comment:No interpretation HDL 0 <=0 mg/dL Comment:No interpretation LDL Cholesterol 0 <=0 mg/dL Comment:No interpretation Blood Venous blood specimen / Unknown Historical Provider LAB BLOOD ORDERABLES Liz l Result * HIV Screening (08/03/2021) Pathologist [facility] HIV Screening abstracted Historical Provider HEALTH MAINTENANCE Final Result * Hepatitis C Screening (01/24/2018) [facility] Hepatitis C Screening abstracted us Historical [...] Maintenance Insurance MEDICAID - [place] Care Teams Enterprise Architect Manager Relationship Specialty Start Date End Date Carina Munoz NP [address] [place] [phone] PCP - General 09/27/22
--- OUTSIDE RECORDS SUMMARY | 2025-08-12 14:30 | XMS_ITS | Encounter Summary ---
Author Organization [employer] Address [address] [facility] 7t [place] [address] Care Team Providers Care Apn Name Role Phone Carina Munoz Primary Care Provider [phone] Reason for Visit * Reason Onset Date Comments Med Refill 05/28/2024 Encounter Details Date Type Department Care Team ([facility] st Contact Info) Description 05/28/2024 Refill [facility] [address] [place], [place] [phone] Carina Munoz ANP [address] [place] [address] Moderate persistent asthma without complication Social History [...] 11:15 AM EST Office Visit [facility] [address] [place] [address] Carina Munoz ANP [address] [place] [address] documented as of this encounter Visit Diagnoses Diagnosis Moderate persistent asthma without complication documented in this encounter Additional Health Concerns Assessment Noted Time PHQ-9 Depression Total Score: 0 09/29/20 23 9:47 AM EST documented as of this encounter Care Teams Apn Relationship Specialty Start Date End Date Carina Munoz ANP [address] [place] [phone] PCP - General Family Medicine 07/15/21 documented as of this encounter
--- OUTSIDE RECORDS SUMMARY | 2025-08-12 14:30 | XMS_ITS | Encounter Summary ---
Author Organization [employer] Address [address] [facility] 7t [place] [address] Care Team Providers Care Transportation Aid Name Role Phone Carina Munoz Primary Care Provider [phone] Reason for Visit * Reason Onset Date Comments Med Refill 07/18/2024 Encounter Details Date Type Department Care Team ([facility] st Contact Info) Description 07/18/2024 Refill [facility] [address] [place], [place] [phone] Carina Munoz ANP [address] [place] [address] Social History Tobacco Use Types Packs/Day Years [...] Description 09/06/2025 11:15 AM EST Office Visit [facility] [address] [place] [phone] Carina Munoz ANP [address] [place] [address] documented as of this encounter Visit Diagnoses Not on filedocumented in this encounter Additional Health Concerns Assessment Noted Time PHQ-9 Depression Total Score: 0 09/29/20 23 9:47 AM EST documented as of this encounter Care Teams Transportation Aid Relationship Specialty Start Date End Date Carina Munoz ANP [address] [place] [address] PCP - General Family Medicine 07/15/21 documented as of this encounter
--- OUTSIDE RECORDS SUMMARY | 2025-08-12 14:30 | XMS_ITS | Encounter Summary ---
Author Organization [employer] Address [address] [place] [address] Care Team Providers Care Emt P Name Role Phone Carina Munoz Primary Care Provider [phone] Encounter Details Date Type Department Care Team (Late st Contact Info) Description 09/22/2022 [facility] Health Information Management [address] [place] [address] Kristen Brown CNM [address] [place] [address] Social History Tobacco Use Types Packs/Day Years [...] Description 09/06/2025 11:15 AM EST Office Visit [facility] [address] [place] [address] Carina Munoz ANP [address] [place] [address] documented as of this encounter Visit Diagnoses Not on filedocumented in this encounter Care Teams Emt P Relationship Specialty Start Date End Date Carina Munoz ANP [address] [place] [address] PCP - General Family Medicine 9/29/21 documented as of this encounter
--- OUTSIDE RECORDS SUMMARY | 2025-08-12 14:30 | XMS_ITS | Encounter Summary ---
Author Organization [employer] Address [address] [place] [address] 7 [place] [address] Care Team Providers Care Campaign Specialist Name Role Phone Carina Munoz Primary Care Provider [phone] Reason for Visit * Reason Onset Date Comments Med Refill 08/27/2024 Encounter Details Date Type Department Care Team (Late st Contact Info) Description 08/27/2024 Refill [facility] [address] [place], [place] [phone] Carina Munoz ANP [address] [place] [address] Muscle spasm of back Social History Tobacco [...] 09/06/2025 11:15 AM EST Office Visit [facility] [address] [place] [address] Carina Munoz ANP [address] [place] [address] documented as of this encounter Visit Diagnoses Diagnosis Muscle spasm of back documented in this encounter Additional Health Concerns Assessment Noted Time PHQ-9 Depression Total Score: 0 09/29/20 23 9:47 AM EST documented as of this encounter Care Teams Campaign Specialist Relationship Specialty Start Date End Date Carina Munoz ANP [address] [place] [id number] PCP - General Family Medicine 07/15/21 documented as of this encounter
== END 2025-08-12 12:17 | disposition home or self-care (01) ==
LOC: HO.HBS 11:21
PROVIDERS: PCP Nurse Practitioner Primary Care; Visit Provider Physician Assistant Surgical
DX: E66.9 Obesity, unspecified (principal); Z98.84 Bariatric surgery status
CPT/HCPCS: 99214

== ENCOUNTER → 2025-08-12 11:20 | Outpatient (BNVA) | payer MEDICAID, SELFPAY | PROVIDERS: PCP Nurse Practitioner Primary Care; Visit Provider Physician Assistant Surgical | DX: Z98.84 Bariatric surgery status (principal); E66.9 Obesity, unspecified | CPT/HCPCS: 99212 ==

== ENCOUNTER 2025-10-02 13:57 | Outpatient (AMB) | payer MEDICAID, SELFPAY ==
[2025-10-02 13:59] VITALS: BP 134/86; PULSE 88; RESP 16; O2SAT 98; BMI 34.0
--- NOTE | 2025-10-02 13:59 | MHC.OFFVIS ---
Vital Signs 10/02/25 13:59 Height 5 ft 2 in Weight 186 lb BMI 34.0 BP 134/86 Blood Pressure Location Lt brachial Position Sitting Respiration 16 Pulse 88 Pulse Source Pulse Oximeter Pulse Oximetry (%) 98 Oxygen Delivery Method Room Air Intake Visit Reasons: 2 MONTH FOLLOW UP Infection Control Nurse Required: Yes Infection Control Nurse Language: Bilingual Recruiter Name: Suyapa [phone] Accompanied by: Self / Same As Patient Allergies No Known Allergies Allergy (Verified 10/02/25 14:04) HPI Comments Details: Nicky is back in my office to discuss possibility of further treatment of her sacroiliac joint pain. She received 1 successful diagnostic and 1 successful therapeutic sacroiliac joint injection. The diagnostic left sacroiliac joint injection provided 100% pain relief for more than 5 hours, the therapeutic left sacroiliac joint injection originally resulted in 75% pain improvement for the 6 months. She was provided sacroiliac joint belt which she wears on occasion and reports minimal pain improvement with the sacroiliac joint belt. However right therapeutic sacroiliac joint injection resulted in very short pain improvement because patient fell on the ground and her pain came back. She is very interested in permanent solution for her right sacroiliac joint pain. she had an MRI of the lumbar spine which is not available for me. I requested patient to bring the MRI reportfor us. I also will schedule her for CT scan of the pelvis to rule out red flags in the pelvis bone such as tumors And chronic infections as well as possibly verify the laterality of the procedure in the future. As soon as her CT scan is ready I will s invite her here in the office and we will discuss SI joint fusion possibly on the right, possibly on the left, possibly bilateral. Prior: very pleasant 38 years old Azeri-speaking female who presents in my office as a new patient after diagnostic sacroiliac joint injection on the left which was performed on 06/26/2024. She reported that she started to experience this pain 15 years ago. 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 She also reports falling twice she received those trauma and relates to this pain. 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 She had pelvis x-ray done at [facility] which demonstrated sacroiliac joint pathology. She had physical therapy 3 times last time about 10 months ago with little help however she continues exercise program. She never had chiropractic manipulations Never had acupuncture occupational therapy. [facility] Medical History Arthritis Anemia Gastritis GERD (gastroesophageal reflux disease) Hiatal hernia Depression Elevated cholesterol Hiatal hernia Delivery with history of Migraine Asthma Surgical History S/P laparoscopic sleeve gastrectomy (04/27/23) Hx of tubal ligation Hx of section Family History Mother Hypertension Arthritis Son Hyperactive Daughter No problems noted. Son No problems noted. 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 Review of Systems Const All systems reviewed & are unremarkable except as noted in HPI and below ENT Reports Normal hearing present Neuro Reports Normal hearing present, Denies Abnormal speech present, Denies confusion and Denies Sensory deficit (Neuro) Psych Denies confusion Physical Exam Vital Signs: Last Vital Signs Pulse 88 10/02/25 13:59 Resp 16 10/02/25 13:59 BP 134/86 10/02/25 13:59 Pulse Ox 98 10/02/25 13:59 Oxygen Delivery Method Room Air 10/02/25 13:59 BMI result Body Mass Index 34.0 Const General: no acute distress; No confusion Orientation/consciousness: patient oriented x3 and No confusion Eyes General: appearance normal, both eyes and all related structures Pupils: Equal, round and reactive pupils present EOM: EOMs intact bilaterally Neck Neck: Yes full ROM Chest Chest palpation & inspection: normal inspection of the chest Resp Effort & Inspection: normal respiratory effort, able to speak in complete sentences, normal respiratory pattern, no audible wheezes and no cough Cardio Jugular venous distension: no JVD GI Inspection: Yes normal to inspection Back/Spine/Pelvis Other: Marcos test , pelvic compression test, pelvic distraction test, Gilbert test are positive on the right . Neuro General: patient oriented x3, gait normal and No confusion Cranial nerves: Yes CN's II-XII intact bilaterally, Yes Equal, round and reactive pupils present, Yes Normal hearing present and Yes Ability to bilaterally elevate shoulders present Speech: No Abnormal speech present Gait exam (Neuro): Normal gait present Motor exam (neuro): 5/5 motor strength present throughout Sensory Exam: No Sensory deficit (Neuro) Extrem General: No pedal edema Psych Speech and movement: Normal speech and movement present Affect: normal affect Attitude: cooperative Thought process: Normal thought process present Thought content: Normal thought content present Insight: Good insight present (Psych) Judgement: Good judgement present (Psych) Assessment & Plan Assessment & Plan (1) Sacroiliitis: Code(s): M46.1 - Sacroiliitis, not elsewhere classified Category: Medical (2) Sacroiliac joint dysfunction of both sides: Code(s): M53.3 - Sacrococcygeal disorders, not elsewhere classified Category: Medical (3) Sacroiliac joint dysfunction of left side: Code(s): M53.3 - Sacrococcygeal disorders, not elsewhere classified Category: Medical (4) Left groin pain: Code(s): R10.32 - Left lower quadrant pain Category: Medical (5) Overweight: Code(s): E66.3 - Overweight Category: Medical (6) Chronic pain syndrome: Code(s): G89.4 - Chronic pain syndrome Category: Medical Plan Nicky is suffering from sacroiliitis. Discussion see as above. Next appointment will be scheduled as soon as possible after sacroiliac joint images were obtained by CT scan. Red flags will be evaluated by that CT scan as well. She will continue to wear this time sacroiliac joint belt. Orders: Orders CT pelvis wo IV con Today M46.1 - Sacroiliitis, not elsewhere classified, M53.3 - Sacrococcygeal disorders, not elsewhere classified Coding Level of Care Code Est Pt Level 3 (56796) Diagnoses Sacroiliitis M46.1 Sacroiliac joint dysfunction of both sides M53.3 Sacroiliac joint dysfunction of left side M53.3 Left groin pain R10.32 Overweight E66.3 Chronic pain syndrome G89.4
--- OUTSIDE RECORDS SUMMARY | 2025-10-02 18:29 | XMS_ITS | Encounter Summary ---
Author Organization [facility] Prior to 08/17/[address] [place] [address] Care Team Providers Care Financial Legal Assistant Name Role Phone Verna Arteaga MD Primary Care Provider Un available Rajat Zaidi MD Primary Care Provider Unava ilable Meera Welch MD Primary Care Provider Unavailable Carina Munoz NP Primary Care Provider Unavailabl e Encounter Details Date Type Department Care Team Description 07/13/2019 Pt. Non Urgent Medical Question Gastroenterology - [address] [phone] Jeanna Collins MD [address] [place] [address] Social History Tobacco Use Types Packs/Day Years [...] estaba hospitalizada disculpe por los inconvenientes. [phone] documented in this encounter Plan of Treatment Not on file documented as of this encounter Visit Diagnoses Not on filedocumented in this encounter Care Teams Financial Legal Assistant Relationship Specialty Start Date End Date Verna Arteaga MD PCP - General Internal Medicine 11/29/17 0 Rajat Zaidi MD PCP - General Internal Medicine 11/21/19 12/13/19 Sriram-Meera Astorga MD PCP - General Internal Medicine 12/14/19 09/26/22 Carina Munoz NP PCP - General Nurse Practioner Adult Health 09/27/22 documented as of this encounter
--- OUTSIDE RECORDS SUMMARY | 2025-10-02 18:29 | XMS_ITS | Encounter Summary ---
Author Organization [employer] [facility] Prior to 08/17/2024 Address [address] [place] [address] Care Team Providers Care Md Senior Research Scientist Name Role Phone Verna Arteaga MD Primary Care Provider Un available Rajat Zaidi MD Primary Care Provider Unava ilMeera Armstrong MD Primary Care Provider Unavailable Carina Munoz NP Primary Care Provider Unavailabl e Encounter Details Date Type Department Care Team Description 07/16/2019 Telephone Gastroenterology [facility] [address] [facility] [address] [place] [phone] Verna Arteaga MD Social History Tobacco Use [...] appointment, please call pt to book appointment. ; Tuesday and Tuesday works better for her. documented in this encounter Plan of Treatment Not on file documented as of this encounter Visit Diagnoses Not on filedocumented in this encounter Care Teams Md Senior Research Scientist Relationship Specialty Start Date End Date Verna Arteaga MD PCP - General Internal Medicine 2/13/18 2/4/2 0 Rajat Zaidi MD PCP - General Internal Medicine 11/21/19 12/13/19 Sriram-Meera Astorga MD PCP - General Internal Medicine 12/14/19 09/26/22 Carina Munoz NP PCP - General Nurse Practioner Adult Health 09/27/22 documented as of this encounter
--- OUTSIDE RECORDS SUMMARY | 2025-10-02 18:29 | XMS_ITS | Encounter Summary ---
Author Organization [facility] Prior to 08/17/2024 Address [address] [place] [address] Care Team Providers Care Mechanic Assistant Name Role Phone Verna Arteaga MD Primary Care Provider Un available Rajat Zaidi MD Primary Care Provider Unava Meera Albarran MD Primary Care Provider Unavailable Carina Munoz NP Primary Care Provider Unavailabl e Reason for Visit * Reason Onset Date Comments Prior Authorization 11/30/2017 Fluticasone- Salmeterol (ADVAIR HFA [place]) Encounter Details Date Type Department Care Team Description 11/30/2017 Telephone Adult [address] [address] Verna Arteaga MD Prior Authorization (Fluticasone-Salmeterol (ADVAIR [...] code j45.30 asthma [place]. No records. 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 * Telephone Encounter - Vanessa Rodriguez - [...] What Pharmacy did the fax come from: [facility] Pharmacy fax #: [phone] [employer] Information from fax: What Prescription Plan does the patient have? N/a BIN/PCN if applicable: n/a Cardholder ID:n/a Person Code: n/a Relationship Code: n/a Help desk phone: n/a documented in this encounter Plan of Treatment Not on file documented as of this encounter Visit Diagnoses Not on filedocumented in this encounter Care Teams Mechanic Assistant Relationship Specialty Start Date End Date Chas-Verna Alarcon MD PCP - General Internal Medicine 11/29/17 0 Rajat Zaidi MD PCP - General Internal Medicine 11/21/19 12/13/19 Sriram-Meera Astorga MD PCP - General Internal Medicine 12/14/19 09/26/22 Carina Munoz NP PCP - General Nurse Practioner Adult Health 09/27/22 documented as of this encounter
--- OUTSIDE RECORDS SUMMARY | 2025-10-02 18:29 | XMS_ITS | Encounter Summary ---
Author Organization [employer] [facility] Prior to 08/17/2024 Address [address] [place] [address] Care Team Providers Care Supervisor Yard Name Role Phone Verna Arteaga MD Primary Care Provider Un available Rajat Zaidi MD Primary Care Provider Unava ilable Meera Welch MD Primary Care Provider Unavailable Carina Munoz NP Primary Care Provider Unavailabl e Encounter Details Date Type Department Care Team Description 05/31/2018 Release of Information Medical Records [address] [place] [id number] Abstract, Provider Social History Tobacco Use Types [...] on filedocumented in this encounter Care Teams Supervisor Yard Relationship Specialty Start Date End Date Verna Arteaga MD PCP - General Internal Medicine 11/29/17 0 Rajat Zaidi MD PCP - General Internal Medicine 11/21/19 12/13/19 Meera Welch MD PCP - General Internal Medicine 12/14/19 09/26/22 Carina Munoz NP PCP - General Nurse Practioner Adult Health 09/27/22 documented as of this encounter
--- OUTSIDE RECORDS SUMMARY | 2025-10-02 18:29 | XMS_ITS | Encounter Summary ---
Author Organization [facility] [facility] Prior to 08/17/2024 Address [address] [place] [address] Care Team Providers Care Polymerization Helper Name Role Phone Fay-Meera Astorga MD Primary Care Provider Unavailable Carina Muonz NP Primary Care Provider Unavaildorian lyons Encounter Details Date Type Department Care Team Description 05/14/2021 Telephone Adult Medicine [address] [address] Kerri Holder PA Social History Tobacco Use [...] - 05/14/2021 11:17 AM EDT Patient is somali speaking. Patient scheduled today to discuss an [...] glucose documented in this encounter Care Teams Polymerization Helper Relationship Specialty Start Date End Date Fay-Meera Astorga MD PCP - General Internal Medicine 12/14/19 09/26/22 Carina Munoz NP PCP - General Nurse Practioner Adult Health 09/27/22 documented as of this encounter
--- OUTSIDE RECORDS SUMMARY | 2025-10-02 18:29 | XMS_ITS | Encounter Summary ---
Author Organization [employer] [facility] Prior to 08/17/2024 Address [address] [place] [address] Care Team Providers Care Cinder Block Mason Name Role Phone Carina Munoz NP Primary Care Provider Unavaildorian e Encounter Details Date Type Department Care Team Description 02/15/2023 Refill Gastroenterology - [facility] [address] [facility] [address] [place] [address] Jeanna Collins MD [address] [place] [address] Social History Tobacco Use Types Packs/Day Years [...] hemorrhage) documented in this encounter Care Teams Cinder Block Mason Relationship Specialty Start Date End Date Carina Munoz NP PCP - General Nurse Practioner Adult Health 09/27/22 documented as of this encounter
--- OUTSIDE RECORDS SUMMARY | 2025-10-02 18:29 | XMS_ITS | Encounter Summary ---
Author Organization [employer] [facility] Prior to 08/17/2024 Address [address] [place] [address] Care Team Providers Care Embedded Hardware Engineer Name Role Phone Rajat Zaidi MD Primary Care Provider Unava Meera Albarran MD Primary Care Provider Unavailable Carina Munoz NP Primary Care Provider Unavailabl e Encounter Details Date Type Department Care Team Description 11/21/2019 Refill Adult Medicine [address] [address] Pavithra Adan PA-C [address] [place] [address] Social History Tobacco Use Types Packs/Day Years [...] on filedocumented in this encounter Care Teams Embedded Hardware Engineer Relationship Specialty Start Date End Date Rajat Zaidi MD PCP - General Internal Medicine 11/21/19 12/13/19 Meera Welch MD PCP - General Internal Medicine 12/14/19 09/26/22 Carina Munoz NP PCP - General Nurse Practioner Adult Health 09/27/22 documented as of this encounter
--- OUTSIDE RECORDS SUMMARY | 2025-10-02 18:29 | XMS_ITS | Encounter Summary ---
Author Organization [email or web address] Prior to 08/17/[address] [place] [address] Care Team Providers Care Seamless Tube Roller Name Role Phone Rajat Zaidi MD Primary Care Provider Unava Meera Albarran MD Primary Care Provider Unavailable Carina Munoz NP Primary Care Provider Unavailabl e Encounter Details Date Type Department Care Team Description 11/21/2019 Pt. Non Urgent Medical Question Gastroenterology - [address] [phone] Jeanna Collins MD [address] [place] [address] Social History Tobacco Use Types Packs/Day Years [...] on filedocumented in this encounter Care Teams Seamless Tube Roller Relationship Specialty Start Date End Date Rajat Zaidi MD PCP - General Internal Medicine 11/21/19 12/13/19 Meera Welch MD PCP - General Internal Medicine 12/14/19 09/26/22 Carina Munoz NP PCP - General Nurse Practioner Adult Health 09/27/22 documented as of this encounter
--- OUTSIDE RECORDS SUMMARY | 2025-10-02 18:29 | XMS_ITS | Clinical Summary ---
Author Organization [facility] Prior to 08/17/2024 Address [address] [place] [address] Care Team Providers Care Table Assembler Metal Name Role Phone Carina Munoz NP Primary Care Provider Unavailabl e Allergies No known active allergies Medications Medication Sig Dispensed Refills Start Date End Date Status albuterol (PROVENTIL) (2.5 MG/3ML) 0.083% nebulizer solution Take 1 Vial by nebulization every 4 hours as needed. 0 Active prazosin (MINIPRESS) 1 MG capsule Take 1 Cap by mouth at bedtime. 30 Cap 11 10/27/2018 Active lamotrigine (LAMICTAL) 100 MG tablet Take 100 mg by mouth daily. 0 Active SPACER DEVICE-ADULT As directed with inhaler 1 Inhaler 0 02/11/2020 Active triamcinolone (KENALOG) 0.1 % cream Triamcinolone 0.1% cream 80gms with Cerave cream. Apply daily from neck down after showers. Not to be used on the face. 320 g 1 06/30/2020 Active Diclofenac Sodium 1 % Gel APPLY 4 GRAMS ONTO THE SKIN TWICE A DAY 100 g 3 07/17/2020 Active aspirin-acetaminoph en-caffeine (EXCEDRIN MIGRAINE) 250-250-65 MG per tablet Take 1 tablet by mouth every 8 hours as needed for Pain. 30 tablet 0 08/27/2020 Active levonorgestrel (MIRENA) 20 MCG/24HR IUDIndications:Enco unter for insertion of intrauterine contraceptive device 1 Each by Intrauterine route Once. 1 Each 0 09/23/2020 Active docusate sodium (Colace) 100 MG capsule Take 1 capsule by mouth daily for 10 days. 30 capsule 3 02/19/2021 Active fluticasone (Flonase) 50 MCG/ACT nasal spray 1 spray by nasal route two times a day 1 Bottle 2 03/05/2021 Active ALBUTEROL SULFATE 108 (90 Base) MCG/ACT Aero Soln Inhale 2 Puffs into the lungs every 4 hours as needed for Cough or Wheezing. 1 Inhaler 2 03/05/2021 Active montelukast (SINGULAIR) 10 MG tablet Take 1 tablet by mouth at bedtime. 30 tablet 0 03/05/2021 Active pantoprazole (PROTONIX) 40 MG tablet Take 1 tablet by mouth daily. 30 tablet 0 03/05/2021 Active Arnuity Ellipta 200 MCG/ACT AEROSOL POWDER,BREATH ACTIVATED INHALE 1 PUFF BY MOUTH INTO THE LUNGS DAILY 1 Each 1 04/10/2021 Active polyethylene glycol (MiraLax) 17 GM/SCOOP powderIndications:B right red blood per rectum,Diverticulit is Take 17 g by mouth daily. 527 g 5 01/21/2022 Active hydrocortisone 2.5 % ointmentIndications :Bright red blood per rectum,Diverticulit is Apply small amount intrarectal twice daily for 2 weeks. 30 g 0 02/15/2023 Active Active Problems Problem Noted Date Uterine fibroid 09/14/2021 Overview: Seen on US at [facility] 09/08/21 Hepatic steatosis 09/14/2021 Overview: Mild - seen on CT abdomen and pelvis at [facility] 09/08/21 Diverticulitis 09/14/2021 Overview: CT abdomen and pelvis 09/08/21 at [facility]: findings suspicious for early/mild descending diverticulitis. No abscess formation or free air. Colon polyp 08/16/2020 Overview: [place] done 06/2020 for GIB, anemia Asthma, moderate persistent 03/03/2020 Menorrhagia with regular cycle 0 Last Assessment & Plan: I discussed other [...] voiced understanding and agreed. Iron deficiency 11/21/2019 Last Assessment & Plan: Not anemic at last check, but iron studies continue to be low. Will correct bleeding and with continued BID iron, hopefully this will correct itself. Will consider repeat CBC and iron studies at follow up visit in 3 months. Severe obesity (BMI 35.0-39.9) with sita rbidity 06/06/2019 Bipolar disorder 10/27/2018 Overview: F/u Lela History of suicidal tendencies 9 Overview: Three attempts Atypical squamous cell beal es of undetermined significance (ASCUS) on cervical cytology with positive high risk human papilloma virus (HPV) 02/03/2018 Overview: 01/24/2018 ASCUS HR HPV 03/01/2018 RAJANI 1 02/19/2021 ASCUS HR HPV 04/15/2021 Colpo benign Gastroesophageal reflux disease without esophagitis 11/29/2017 Environmental allergies 11/29/2017 Immunizations Name Administration Dates Next Due Gardasil 9 (Hpv) 01/27/2023,09/28/2022,01/27/2023 Influenza Vaccine-preservati ve Free-quadrivalent 4 Years 11/21/2019,10/27/2018 Tdap 10/27/2018 Family History * Patient is adopted Medical History Relation Name Comments CA Breast Aunt 1 maternal CA Colon Father older age Cancer of the Prostate Father Cancer of the Prostate Maternal Grandfather Other Mother Cancer, Unsure of type. Diabetes Paternal Grandmother Cervical Cancer Sister Relation Name Status Comments Aunt 1 maternal Alive Aunt 2 maternal Alive Daughter Alive Father Other Maternal Grandfather Mother Paternal Grandfather Paternal Grandmother Sister Alive Son Alive Social History Tobacco Use Types Packs/Day Years Used Date Smoking Tobacco: Never Smokeless Tobacco: Never Tobacco Cessation:Counseling Given: Not Answered Alcohol Use Standard Drinks/Week Comments Yes 0 (1 standard drink = 0.6 oz pur e alcohol) occ Sex Assigned at Date Recorded Not on file Job Start Date Occupation Industry Not on file Not on file Not on file Last Filed Vital Signs Vital Sign Reading Time Taken Comments Blood Pressure 94/60 11/03/2023 9:30 AM EST Pulse 95 11/03/2023 9:30 AM EST Temperature 35.9 C (96.7 F) 09/28/2022 9:26 AM EST Respiratory Rate 14 11/03/2023 9:30 AM EST Oxygen Saturation 98% 01/21/2022 8:40 AM EDT Inhaled Oxygen Concentration - - Weight 69.2 kg (152 lb 9.6 oz) 11/03/2023 9:30 A M EST Height 160 cm (5' 3 ) 09/13/2023 1:55 PM EST Body Mass Index 27.03 09/13/2023 1:55 PM EST Plan of Treatment Health Maintenance Due Date Last Done Comments Covid-19 Vaccine (#1) 05/23/1985 PNEUMOCOCCAL VACCINE FOR HIG H RISK PATIENTS (#1) 2003 CHOLESTEROL SCREENING 06/06/2024 06/06/2019, 018 CERVICAL CANCER SCREENING 09/13/20242022, 02/19/2021, 09/25/2019, Additional history exists BMI CHECK/ADVISE 10/17/2024 01/21/2022, 03/2021, 02/19/2021 (Completed), Additional history exists DEPRESSION SCREENING/FOLLOWUP 10/17/2024 11/26/2019 (Completed) SOCIAL NEEDS SCREENING 10/17/2024 09/25/2019 (Comple fatou) BASELINE HEALTH EXAM 40-64 2024 11/26/2019, MAMMOGRAM 2024 12/09/2017 INFLUENZA (#1) 2025 10/20/2020 (Exte rnal Completion of Vaccination per patient), 11/21/2019, 10/27/2018 COLON CANCER SCREENING 06/24/2025 06/24/2020 DTAP/TDAP/TD (2 - Td or Tdap) 10/27/2028 10/27/2018 Care Teams Table Assembler Metal Relationship Specialty Start Date End Date Carina Munoz NP PCP - General Nurse Practioner Adult Health 09/27/22
--- OUTSIDE RECORDS SUMMARY | 2025-10-02 18:30 | XMS_ITS | Encounter Summary ---
Author Organization [employer] Address [address] [place] [address] 7 [place] [address] Care Team Providers Care Early Childhood Lead Teacher Name Role Phone Carina Munoz Primary Care Provider [phone] Reason for Visit * Reason Onset Date Comments Med Refill 03/04/2025 Encounter Details Date Type Department Care Team ([facility] st Contact Info) Description 03/04/2025 Refill [facility] MEDICINE [address] [place], [place] [phone] Carina Munoz ANP [address] [place] [address] Gastroesophageal reflux disease without esophagitis Social History [...] documented as of this encounter Care Teams Early Childhood Lead Teacher Relationship Specialty Start Date End Date Carina Munoz ANP [address] [place] [address] PCP - General Family Medicine 07/15/21 documented as of this encounter
--- OUTSIDE RECORDS SUMMARY | 2025-10-02 18:30 | XMS_ITS | Encounter Summary ---
Author Organization [facility] Prior to 08/17/2024 Address [address] [place] [address] Care Team Providers Care Skirt Maker Name Role Phone Meera Welch MD Primary Care Provider Unavailable Carina Munoz NP Primary Care Provider Unavaildorian lyons Encounter Details Date Type Department Care Team Description 03/12/2020 Refill OBGYN - [place] [address] [place] [address] Sushma Stanley MD [address] [place] [address] Social History Tobacco Use Types Packs/Day Years [...] on filedocumented in this encounter Care Teams Skirt Maker Relationship Specialty Start Date End Date Meera Welch MD PCP - General Internal Medicine 12/14/19 09/26/22 Carina Munoz NP PCP - General Nurse Practioner Adult Health 09/27/22 documented as of this encounter
--- OUTSIDE RECORDS SUMMARY | 2025-10-02 18:30 | XMS_ITS | Encounter Summary ---
Author Organization [employer] Address [address] [place] [address] 7 [place] [address] Care Team Providers Care Screener Perfumer Name Role Phone Carina Munoz Primary Care Provider [phone] Encounter Details Date Type Department Care Team (Latest Contact Info) Description 01/18/2019 Abstract [facility] CONVERSIONS Dental, Provider, DDS Social History [...] on filedocumented in this encounter Care Teams Screener Perfumer Relationship Specialty Start Date End Date Carina Munoz ANP [address] [place] [id number] PCP - General Family Medicine 07/15/21 documented as of this encounter
--- OUTSIDE RECORDS SUMMARY | 2025-10-02 18:30 | XMS_ITS | Encounter Summary ---
Author Organization [facility] Prior to 08/17/2024 Address [address] [place] [address] Care Team Providers Care High Density Press Operator Name Role Phone Meera Welch MD Primary Care Provider Unavailable Carina Munoz NP Primary Care Provider Unavaildorian lyons Encounter Details Date Type Department Care Team Description 02/14/2020 Telephone Adult [address] [address] Meera Welch MD Social History Tobacco Use [...] on filedocumented in this encounter Care Teams High Density Press Operator Relationship Specialty Start Date End Date Meera Welch MD PCP - General Internal Medicine 12/14/19 09/26/22 Carina Munoz NP PCP - General Nurse Practioner Adult Health 09/27/22 documented as of this encounter
--- OUTSIDE RECORDS SUMMARY | 2025-10-02 18:30 | XMS_ITS | Encounter Summary ---
Author Organization [employer] Address [address] [place] [address] 7 [place] [address] Care Team Providers Care Program Counselor Name Role Phone Carina Munoz Primary Care Provider [phone] Reason for Visit * Reason Onset Date Comments Med Refill 03/04/2025 Encounter Details Date Type Department Care Team ([facility] st Contact Info) Description 03/04/2025 Refill [facility] MEDICINE [address] [place], [place] [phone] Carina Munoz ANP [address] [place] [address] Social History Tobacco Use Types Packs/Day Years [...] documented as of this encounter Care Teams Program Counselor Relationship Specialty Start Date End Date Carina Munoz ANP [address] [place] [address] PCP - General Family Medicine 07/15/21 documented as of this encounter
--- OUTSIDE RECORDS SUMMARY | 2025-10-02 18:30 | XMS_ITS | Encounter Summary ---
Author Organization [employer] Address [address] [facility] 7t [place] [address] Care Team Providers Care Professional Development Director Name Role Phone Carina Munoz Primary Care Provider [phone] Reason for Visit * Reason Onset Date Comments Med Refill 07/18/2024 Encounter Details Date Type Department Care Team ([facility] st Contact Info) Description 07/18/2024 Refill [facility] [address] [place], [place] [phone] Carina Munoz ANP [address] [place] [address] Social History Tobacco Use Types Packs/Day Years [...] documented as of this encounter Care Teams Professional Development Director Relationship Specialty Start Date End Date Carina Munoz ANP [address] [place] [address] PCP - General Family Medicine 07/15/21 documented as of this encounter
--- OUTSIDE RECORDS SUMMARY | 2025-10-02 18:30 | XMS_ITS | Encounter Summary ---
Author Organization [employer] [facility] Prior to 08/17/[address] [place] [address] Care Team Providers Care Structural Metal Fabricator Apprentice Name Role Phone Meera Welch MD Primary Care Provider Unavailable Carina Munoz NP Primary Care Provider Unavaildorian lyons Encounter Details Date Type Department Care Team Description 01/14/2020 Pt. Non Urgent Medical Question Gastroenterology - [address] [phone] Jeanna Collins MD [address] [place] [address] Social History Tobacco Use Types Packs/Day Years [...] on filedocumented in this encounter Care Teams Structural Metal Fabricator Apprentice Relationship Specialty Start Date End Date Meera Welch MD PCP - General Internal Medicine 12/14/19 09/26/22 Carina Munoz NP PCP - General Nurse Practioner Adult Health 09/27/22 documented as of this encounter
--- OUTSIDE RECORDS SUMMARY | 2025-10-02 18:30 | XMS_ITS | Encounter Summary ---
Author Organization [employer] Address [address] [place] [address] 7 [place] [address] Care Team Providers Care Perforator Operator Oil Well Name Role Phone Carina Munoz Primary Care Provider [phone] Encounter Details Date Type Department Care Team ([facility] st Contact Info) Description 09/22/2022 Orders Only [facility] [address] [place] [address] Kristen Brown CNM [address] [place] [address] Social History Tobacco Use Types Packs/Day Years [...] on filedocumented in this encounter Care Teams Perforator Operator Oil Well Relationship Specialty Start Date End Date Carina Munoz ANP [address] [place] [address] PCP - General Family Medicine 07/15/21 documented as of this encounter
--- OUTSIDE RECORDS SUMMARY | 2025-10-02 18:30 | XMS_ITS | Encounter Summary ---
Author Organization [employer] Address [address] [place] [address] 7 [place] [address] Care Team Providers Care Caster Investment Casting Name Role Phone Carina Munoz MARC Primary Care Provider [phone] Reason for Visit * Reason Onset Date Comments Med Refill 10/24/2023 Encounter Details Date Type Department Care Team (Late st Contact Info) Description 10/24/2023 Refill [facility] MEDICINE [address] [place], [place] [phone] [facility] [address] [place] [address] Muscle spasm of back Social History Tobacco [...] documented as of this encounter Care Teams Caster Investment Casting Relationship Specialty Start Date End Date Carina Munoz ANP [address] [place] [address] PCP - General Family Medicine 07/15/21 documented as of this encounter
--- OUTSIDE RECORDS SUMMARY | 2025-10-02 18:30 | XMS_ITS | Encounter Summary ---
Author Organization [employer] [facility] Prior to 08/17/2024 Address [address] [place] [address] Care Team Providers Care Sprinkler Driver Name Role Phone Meera Welch MD Primary Care Provider Unavailable Carina Munoz NP Primary Care Provider Unavailabl e Encounter Details Date Type Department Care Team Description 08/21/2020 Pt. Non Urgent Medical Question OBGYN - [place] [address] [place] [address] Yinka France MD [address] [place] [address] Social History Tobacco Use Types Packs/Day Years [...] on filedocumented in this encounter Care Teams Sprinkler Driver Relationship Specialty Start Date End Date Meera Welch MD PCP - General Internal Medicine 12/14/19 09/26/22 Carina Munoz NP PCP - General Nurse Practioner Adult Health 09/27/22 documented as of this encounter
--- OUTSIDE RECORDS SUMMARY | 2025-10-02 18:30 | XMS_ITS | Encounter Summary ---
Author Organization [employer] [facility] Prior to 08/17/2024 Address [address] [place] [address] Care Team Providers Care Convict Guard Name Role Phone Meera Welch MD Primary Care Provider Unavailable Carina Munoz NP Primary Care Provider Unavaildorian e Encounter Details Date Type Department Care Team Description 02/10/2020 Refill Adult [address] [address] Meera Welch MD Social History Tobacco Use [...] on filedocumented in this encounter Care Teams Convict Guard Relationship Specialty Start Date End Date Meera Welch MD PCP - General Internal Medicine 12/14/19 09/26/22 Carina Munoz NP PCP - General Nurse Practioner Adult Health 09/27/22 documented as of this encounter
--- OUTSIDE RECORDS SUMMARY | 2025-10-02 18:30 | XMS_ITS | Encounter Summary ---
Author Organization [employer] Address [address] [place] [address] 7 [place] [address] Care Team Providers Care Otolaryngology Rep Name Role Phone Carina Munoz Primary Care Provider [phone] Reason for Visit * Reason Onset Date Comments Med Refill 02/14/2023 Encounter Details Date Type Department Care Team (Late st Contact Info) Description 02/14/2023 Telephone [facility] MEDICINE [address] [place], [place] [phone] Carina Munoz ANP [address] [place] [address] Med Refill Social History Tobacco Use Types [...] 02/14/2023 2:40 PM EDT Med sent to [facility] today. * Telephone Encounter - Gee Barbour - 02/14/2023 2:30 PM EDT Tc sindhu Felipe with [facility] requesting a 90 day supply on fluticasone (Flonase Allergy Relief) 50 MCG/ACT nasal spray [id number] [place] [place] [facility] [address] [place] [address], [address] documented in this encounter Plan of Treatment Not on file documented as of this encounter Visit Diagnoses Not on filedocumented in this encounter Care Teams Otolaryngology Rep Relationship Specialty Start Date End Date Carina Munoz ANP [address] [place] [address] PCP - General Family Medicine 07/15/21 documented as of this encounter
--- OUTSIDE RECORDS SUMMARY | 2025-10-02 18:30 | XMS_ITS | Clinical Summary ---
Author Organization [employer] Address [address] [place] [address] 7[address] [place] [address] Care Team Providers Care Manufacturing Engineering Professor Name Role Phone Carina Munoz MARC Primary Care Provider [phone] Allergies No known active allergies Medications * This document contains information received from the source organization and may not represent a complete record from that organization. lamoTRIgine (LaMICtal) 100 MG tablet Take 1 tablet by mouth 1 (one) time each day. psychiatry Active Levonorgestrel 20 MCG/DAY intrauterine device 1 each by Intrauterine route. 0 Active montelukast (Singulair) 10 MG tablet TAKE [...] sleeve gastrectomy 05/02/2023 Overview (05/02/2023): 04/27/23 at [facility] Diverticular disease 07/08/2022 Hepatic steatosis 09/14/2021 Overview [...] free air. Colon polyp 08/16/2020 Overview (10/19/2022): [place] done 06/2020 for GIB, anemia Asthma, moderate [...] organization. Date Type Department Care Team Description 09/06/2025 11:15 AM EST Office Visit [address] [address] Carina Munoz ANP Numbness and tingling of both legs (Primary Dx); Chronic midline low back pain with bilateral sciatica; Encounter for immunization; Dietary counseling; Exercise counseling; Screening mammogram for breast cancer; Need for hepatitis B screening test 09/06/2025 Travel 09/05/[address] [address] Carina Munoz ANP chart prep 08/29/2025 Patient Outreach [address] [address] Carina Munoz ANP Pre-visit Planning (SDOH screening was completed on 10/30/2024) 08/16/[address] [address] Carina Munoz ANP October07/09/[address] [address] Carina Munoz ANP chart prep 07/04/2025 9:30 AM EDT Office Visit [facility] [address] [place] [address] Giovanny, Yari, OD Hyperopia of both eyes (Primary Dx) 07/04/2025 Travel 07/04/2025 Patient Outreach [facility] [address] [place], [place] [phone] Carina Munoz ANP Pre-visit Planning (SDOH was already completed) from Last 3 Months Immunizations Immunization Administration Dates Next Due HPV 9-Valent 01/27/2023,09/28/2022,04/15/2021 Influenza Injectable Quadriv alant Preservative Free IIV4 MDCK 11/21/2019,10/27/2018 Influenza injectable quadriv alent preservative free 08/17/2023,07/28/2022,07/15/2021 Influenza, seasonal, injecta ble, preservative free 09/06/2025,11/08/2024 Pfizer Covid-19 Vaccine 12+ 09/06/2025,,08/17/2023 Tdap 10/27/2018 Family History Medical History Relation [...] Answer Date Recorded Patient Health Questionnaire-9 Score 11 09/06/2025 Patient Health Questionnaire-9 Score 11 09/06/2025 Last PHQ-9: Questionnaire Data Not on file 1 11/06/2024 Housing Stability Answer Date Recorded What is [...] Date Recorded Patient Health Questionnaire-2 Score 2 09/06/2025 Internet Access Answer Date Recorded Internet Access [...] Sign Reading Time Taken Comments Blood Pressure 110/80 09/06/2025 11:35 AM EST Pulse 88 09/06/2025 11:35 AM EST Temperature 36.6 C (97.8 F) 09/06/2025 11:35 AM EST Respiratory Rate 14 09/06/2025 11:35 AM EST Oxygen Saturation 98% 09/06/2025 11:35 AM EST Inhaled Oxygen Concentration - - Weight 86.2 kg (190 lb) 09/06/2025 11:35 AM EST Height 160 cm (5' 3 ) 09/06/2025 11:35 AM EST Body Mass Index 33.66 09/06/2025 11:35 AM EST Plan of Treatment Health Maintenance Due Date Last Done Comments Family Planning (PISQ) 1999 Hepatitis A Vaccines (1 of 2 - Risk 2-dose series) 2003 Hepatitis B Vaccines (1 of 3 - 19+ 3-dose series) 2003 Pneumococcal Vaccine: Pediatrics (0 to 5 Years) and At-Risk Patients (6 to 49) Years (1 of 2 - PCV) 2003 Mammogram 05/03/2025 05/03/2023, 07/02/2023, 09/15/2022 SDOH Screening 10/30/2025 10/30/2024 Alcohol/Substance Use Screening 03/05/2026 03/05/2025 Disability Screening 03/05/2026 03/05/2025 Depression Monitoring 03/06/2026 09/06/2025, 025 Cervical Cancer Screening 05/16/2026 HPV/Cotest 05/16/2026 05/16/2025, 08/18, 08/18/2022 Pap Smear 05/16/2026 05/16/2025, 08/18, 08/18/2022 Tobacco Screening 09/06/2026 09/06/2025 DTaP/Tdap/Td Vaccines (2 - Td or Tdap) 10/27/2028 10/27/2018 Lipid Panel 11/16/2029 11/16/2024, 0310/2023, 12/03/2022, Additional history exists Zoster Vaccines (1 of 2) 2034 RSV Patients and Patients Aged 60 years or older (1 - 1-dose 75+ series) 2059 HPV Vaccines Completed 01/27/2023, 09/16, 04/15/2021 HIV Screening Completed 11/16/2024, 10/18, 08/03/2021 Hepatitis C Screening Completed 11/16/2024 , 11/07/2023, 08/03/2021 COVID-19 Vaccine Completed 09/06/2025, , 08/17/2023, Additional history exists Influenza Vaccine Completed 09/06/2025, , 08/17/2023, Additional history exists HIB Vaccines Aged Out [...] Name Priority Date/Time Associated Diagnosis Comments HM PAP/HPV Routine 05/16/2025 HEPATITIS C AB [...] Recently Relevant to Health Maintenance Results * HM PAP/HPV (05/16/2025) Pathologist [facility] Pap Smear 1. NILM 1. NILM HPV Not Detected Undetected, Indeterminat e, Quantitative , Not Detected Narrative Ruby Kiara - 05/16/2025 Results in care everywhere under labs Historical Provider MD HEALTH MAINTENANCE Final Result * Hepatitis C Antibody with Reflex to HCV, RNA, Quantitative, Real-Time PCR (11/16/2024 9:34 AM EST) Pathologist [facility] Hepatitis C Antibody Nonreactive Nonreactive [facility] Comment:Antibodies to HCV no t detected; does not exclude early acuteHCV infection. Blood Venous blood specimen / Unknown 11/16/2024 9:34 AM EST 11/16/2024 9:34 AM EST [facility] LAB BLOOD ORDERABLES Final Resul t [facility] [address] [place] [phone] * HIV-1/2 Antigen and Antibodies, Fourth Generation, with Reflexes (11/16/2024 9:34 AM EST) Pathologist [facility] HIV AB/AG Nonreactive Nonreactive [facility] Comment:HIV-1 p24 Ag and/or HIV-1/HIV-2 Ab not detected.A test result that is nonreactive does not exclude thepossibility of exposure to or infection with HIV-1 and/orHIV-2. Nonreactive results in this assay for individualswith prior exposure to HIV-1 and/or HIV-2 may be due toantigen and antibody levels that are below the limit ofdetection of this assay.The [employer] HIV Ag/Ab Combo assay result andsupplemental assay results should be interpreted inconjunction with the patient's clinical presentation,history and other laboratory results. If the results areinconsistent with clinical evidence, additional testing issuggested to confirm the result. Blood Venous blood specimen / Unknown 11/16/2024 9:34 AM EST 11/16/2024 9:34 AM EST us Carina Munoz ANP LAB BLOOD ORDERABLES Final Resul t Performing Organization Address [facility]/ZIP Co de Phone Number [facility] [address] [place] [phone] * (ABNORMAL) Lipid Panel, Standard (11/16/2024 9:34 AM EST) Triglycerides 79 <150 mg/dL [facility] Comment:Desirable Triglyceri de: less than 150 mg/dLBorderline High Triglyceride 150-199 mg/dLHigh Triglyceride: 200-499 mg/dLVery High Triglyceride: greater than or equal to 5OO mg/dL Cholesterol 280(H) <200 mg/dL [facility] Comment:Desirable Cholestero l: less than 200 mg/dLBorderline High Cholesterol: 200-239 mg/dLHigh Cholesterol: greater than 239 mg/dL LDL Cholesterol Calculated 182(H) <100 mg/dL [facility] Comment:Desirable LDL: less than 100 mg/dLNear Optimal/Above Optimal LDL: 110- 129 mg/dLBorderline High LDL: 130-159 mg/dLHigh LDL: 160-189 mg/dLVery High LDL: greater than or equal to 190 mg/dL HDL Cholesterol 83 >40 mg/dL [facility] Comment:Desirable HDL: great er than 40 mg/dL Note: This HDL assay may give artificially low results in patients with liver disease. 11/16/2024 9:34 AM EST 11/16/2024 9:34 AM EST us Generic External Data Provider LAB BLOOD ORDERAB LES Final Result Performing Organization Address City/[facility]/ZIP Co de Phone Number [facility] [address] [place] [phone] * Mammography (05/03/2023) Mammogram NORMAL Anatomical Region Laterality Modality Other Historical Provider HEALTH MAINTENANCE Final Result from Last 3 Months or Most Recently Relevant to Health Maintenance Insurance [place] [employer] Care Teams Manufacturing Engineering Professor Relationship Specialty Start Date End Date Carina Munoz ANP [address] [place] [address], [place] [address] PCP - General Family Medicine 07/15/21
--- OUTSIDE RECORDS SUMMARY | 2025-10-02 18:30 | XMS_ITS | Encounter Summary ---
Author Organization [employer] [facility] Prior to 08/17/[address] [place] [address] Care Team Providers Care White Shoe Examiner Name Role Phone Meera Welch MD Primary Care Provider Unavailable Carina Munoz NP Primary Care Provider Unavaildorian e Encounter Details Date Type Department Care Team Description 12/26/2019 Refill Gastroenterology - [address] [address] Jeanna Collins MD [address] [place] [phone] Social History Tobacco Use Types Packs/Day Years [...] on filedocumented in this encounter Care Teams White Shoe Examiner Relationship Specialty Start Date End Date Meera Welch MD PCP - General Internal Medicine 12/14/19 09/26/22 Carina Munoz NP PCP - General Nurse Practioner Adult Health 09/27/22 documented as of this encounter
--- OUTSIDE RECORDS SUMMARY | 2025-10-02 18:30 | XMS_ITS | Encounter Summary ---
Author Organization [employer] Address [address] [place] [address] 7 [place] [address] Care Team Providers Care Welfare Supervisor Name Role Phone Carina Munoz Primary Care Provider [phone] Reason for Visit * Reason Onset Date Comments Med Refill 08/27/2024 Encounter Details Date Type Department Care Team (Late st Contact Info) Description 08/27/2024 Refill [facility] [address] [place], [place] [phone] Carina Munoz ANP [address] [place] [address] Muscle spasm of back Social History Tobacco [...] documented as of this encounter Care Teams Welfare Supervisor Relationship Specialty Start Date End Date Carina Munoz ANP [address] [place] [address] PCP - General Family Medicine 07/15/21 documented as of this encounter
--- OUTSIDE RECORDS SUMMARY | 2025-10-02 18:30 | XMS_ITS | Encounter Summary ---
Author Organization [employer] Address [address] [place] [address] 7 [place] [address] Care Team Providers Care Highballer Name Role Phone Carina Munoz Primary Care Provider [phone] Reason for Visit * Reason Onset Date Comments Med Refill 07/07/2023 Encounter Details Date Type Department Care Team (Late st Contact Info) Description 07/07/2023 Refill [facility] [address] [place] [address] Sarah Nicholas MD [address] [place] [address] Social History Tobacco Use Types Packs/Day Years [...] on filedocumented in this encounter Care Teams Highballer Relationship Specialty Start Date End Date Carina Munoz ANP [address] [place] [address] PCP - General Family Medicine 07/15/21 documented as of this encounter
--- OUTSIDE RECORDS SUMMARY | 2025-10-02 18:31 | XMS_ITS | Encounter Summary ---
Author Organization [employer] Address [address] [facility] [address]t [place] [address] Care Team Providers Care Director Of Land Acquisition Name Role Phone Carina Munoz Primary Care Provider [phone] Reason for Visit * Reason Onset Date Comments Med Refill 05/28/2024 Encounter Details Date Type Department Care Team ([facility] st Contact Info) Description 05/28/[address] [facility] [address] [place], [place] [phone] Carina Munoz ANP [address] [place] [address] Moderate persistent asthma without complication Social History [...] of this encounter Care Teams Director Of Land Acquisition Relationship Specialty Start Date End Date Carina Munoz ANP [address] [place] [phone] PCP - General Family Medicine 07/15/21 documented as of this encounter
--- OUTSIDE RECORDS SUMMARY | 2025-10-02 18:31 | XMS_ITS | Encounter Summary ---
Author Organization [employer] Address [address] [place] [address] 7 [place] [address] Care Team Providers Care Care Worker Name Role Phone Carina Munoz Primary Care Provider [phone] Reason for Visit * Reason Onset Date Comments Med Refill 07/18/2024 Encounter Details Date Type Department Care Team (Late st Contact Info) Description 07/18/2024 Refill [facility] [address] [place], [place] [phone] Carina Munoz ANP [address] [place] [address] Moderate persistent asthma without complication Social History [...] documented as of this encounter Care Teams Care Worker Relationship Specialty Start Date End Date Carina Munoz ANP [address] [place] [address] PCP - General Family Medicine 07/15/21 documented as of this encounter
--- OUTSIDE RECORDS SUMMARY | 2025-10-02 18:31 | XMS_ITS | Clinical Summary ---
Author Organization [facility] Address [address] [place] [address] Phone Care Team Providers Care Etl Tester Name Role Phone Munoz Carina Hamilton NP Primary Care Provider [phone] Allergies No known active allergies Medications hydrocortisone [...] (1 each total) by intrauterine route. 0 Active aspirin-acetami nophen-caffeine (EXCEDRIN MIGRAINE) 250-250-65 mg [...] [facility] 09/08/21 Diverticulitis 09/14/2021 Overview (07/09/2024): CT abdomen and pelvis 09/08/21 at [facility]: findings suspicious for early/mild descending diverticulitis. No abscess formation or free air. Uterine fibroid 09/14/2021 Overview (07/09/2024): Seen on US at [facility] 09/08/21 Colon polyp 08/16/2020 Overview (07/09/2024): [place] done 06/2020 for GIB, anemia Asthma, moderate [...] reflux disease without esophagi tis 11/29/2017 Immunizations Immunization Administration Dates Next Due HPV [...] fibro id; COMMENT: Seen on US at [facility] 09/08/21 Hepatic steatosis 09/14/2021 DX:Hepatic ezio atosis; COMMENT: Mild - seen on CT abdomen and pelvis at [facility] 09/08/21 Family History Medical History Relation [...] of Health Screening 09/25/2022 Depression Screening 10/17/2024 COVID-19 Vaccine ( season) 2025 11/08/2024, 08/17/2023, 07/28/2022, Additional history exists Influenza Vaccine (#1) 2025 , 08/17/2023, 07/28/2022, [...] Name Priority Date/Time Associated Diagnosis Comments HPV WITH REFLEX GENOTYPE Routine 05/16/2025 2:27 PM EDT Cervical cancer screening LIPID PANEL Routine 12/03/2022 HM HIV SCREENING Routine 08/03/2021 HM HEPATITIS C SCREENING Routine 01/24/2018 DX MAMMO INCL CAD BI Routine 12/09/2017 2:54 PM EST Mastodynia from Last 3 Months or Most Recently Relevant to Health Maintenance Results * HPV with reflex genotype (05/16/2025 2:27 PM EDT) Pathologist [facility] HPV Negative Negative LAB MICROBIOLOGY METHOD 05/17/2025 4:42 PM EDT [facility] Brushing/Spatula Cervix uteri structure / Unknown 05/16/2025 2:27 PM EDT 05/17/2025 6:36 AM EDT Doretha MITCHELL LAB MOLECULAR DIAGNOSTICS OR DERABLES Final Result [facility] [address] [place] [address], * Lipid panel (12/03/2022) LDL/HDL Ratio 0 <=0 Comment:No interpretation Triglycerides 0 <=0 mg/dL Comment:No interpretation Cholesterol 0 <=0 mg/dL Comment:No interpretation HDL 0 <=0 mg/dL Comment:No interpretation LDL Cholesterol 0 <=0 mg/dL Comment:No interpretation Blood Venous blood specimen / Unknown Historical Provider LAB BLOOD ORDERABLES Liz l Result * HIV Screening (08/03/2021) HIV Screening abstracted Historical Provider HEALTH MAINTENANCE Final Result * Hepatitis C Screening (01/24/2018) Hepatitis C Screening abstracted Result [facility] Provider HEALTH [facility] Final Result * DX MAMMO INCL CAD [...] Maintenance Insurance MEDICAID - [place] Care Teams Etl Tester Relationship Specialty Start Date End Date Carina Munoz NP [address] [place] [phone] PCP - General 09/27/22
--- OUTSIDE RECORDS SUMMARY | 2025-10-02 18:31 | XMS_ITS | Encounter Summary ---
Author Organization [employer] Address [address] [place] [address] 7 [place] [address] Care Team Providers Care Forming Department Supervisor Name Role Phone Carina Munoz Primary Care Provider [phone] Reason for Visit * Reason Onset Date Comments Med Refill 05/28/2024 Encounter Details Date Type Department Care Team (Late st Contact Info) Description 05/28/2024 Refill [facility] [address] [place], [place] [phone] Carina Munoz ANP [address] [place] [address] Gastroesophageal reflux disease without esophagitis Social History [...] documented as of this encounter Care Teams Forming Department Supervisor Relationship Specialty Start Date End Date Carina Munoz ANP [address] [place] [id number] PCP - General Family Medicine 07/15/21 documented as of this encounter
--- OUTSIDE RECORDS SUMMARY | 2025-10-02 18:31 | XMS_ITS | Encounter Summary ---
Author Organization [employer] Address [address] [place] [address] [address] [place] [address] Care Team Providers Care Dragline Operator Name Role Phone Carina Munoz Primary Care Provider [phone] Reason for Visit * Reason Onset Date Comments Med Refill 07/18/2024 Encounter Details Date Type Department Care Team (Late st Contact Info) Description 07/18/2024 Refill [facility] [address] [place], [place] [phone] Carina Munoz ANP [address] [place] [address] Muscle spasm of back Social History Tobacco [...] documented as of this encounter Care Teams Dragline Operator Relationship Specialty Start Date End Date Carina Munoz ANP [address] [place] [address] PCP - General Family Medicine 07/15/21 documented as of this encounter
== END 2025-10-02 14:20 | disposition home or self-care (01) ==
LOC: HO.PMC 13:57
PROVIDERS: Visit Provider Anesthesiology
DX: M46.1 Sacroiliitis, not elsewhere classified (principal); M53.3 Sacrococcygeal disorders, not elsewhere classified; R10.32 Left lower quadrant pain; E66.3 Overweight; G89.4 Chronic pain syndrome
CPT/HCPCS: 99213

== ENCOUNTER → 2025-10-02 13:57 | Outpatient (BNVA) | payer MEDICAID, SELFPAY | PROVIDERS: Visit Provider Anesthesiology | DX: M53.3 Sacrococcygeal disorders, not elsewhere classified (principal); M46.1 Sacroiliitis, not elsewhere classified; R10.32 Left lower quadrant pain; G89.4 Chronic pain syndrome; E66.3 Overweight; Z68.34 Body mass index [BMI] 34.0-34.9, adult | CPT/HCPCS: 99212 ==